=== PATIENT | female | born 1985 | race African-American/Black ===

== ENCOUNTER → 2017-08-15 14:30 | Outpatient (CLI) | payer OTHER, SELFPAY ==
--- NOTE | 2017-08-15 14:30 | DT_ITS ---
This patient was seen during an EMR downtime August 11, 2017 - August 18, 2017. This patient may have a combination of paper and electronic documentation or all paper documentation. All documentation is viewable within the e-chart portion of [employer] for each patient visit.
[2017-08-19 08:46] LABS: Chlamydia Trachomatis by PCR Negative (Negative); Neisserai gonorrhoeae by PCR Negative (Negative); Probe Check PASS; Sample Adequacy Control PASS; Specimen Processing Control PASS
== END ==
PROVIDERS: Visit Provider Obstetrics & Gynecology
DX: Z34.90 Encounter for supervision of normal pregnancy, unspecified, unspecified trimester (principal)
CPT/HCPCS: 87086; 87491; 87591

== ENCOUNTER → 2017-08-21 07:38 | Outpatient (CLI) | payer OTHER, SELFPAY ==
[2017-08-21 09:12] LABS: Absolute Lymphocyte Count 2.72 X10^3/ul (0.83-4.51); Absolute Neutrophil Count 7.6 X10^3/uL (2.0-7.7); Basophil# 0.03 X10^3/uL; Basophil% 0.3 % (0-1); Eosinophil# 0.15 X10^3/uL; Eosinophils% 1.4 % (0-5); Hematocrit 37.6 % (37-47); Hemoglobin 12.5 g/dl (12.0-15.0); Lymphocyte # 2.72 X10^3/ul (4.0); Lymphocyte % 24.5 % (19-41); Mean Corp Hgb Conc 33.2 g/gl (32-36); Mean Corpuscular Hgb 29.5 pg (27.0-32.0); Mean Corpuscular Volume 88.7 fL (81-99); Mean Platelet Vol. 11.8 fl (6.2-12.0); Monocyte# 0.63 X10^3/uL; Monocyte% 5.7 % (0-10); Neutrophil # 7.55 X10^3/uL (2.7-7.7); Neutrophil % 67.9 % (47-70); Platelet Count 249 K/mm3 (150-450); RBC Distribution Width CV 14.1 % (11.6-14.6); RBC Distribution Width SD 45.1 fl (35.1-43.9); Red Blood Count 4.24 M/mm3 (4.2-5.4); White Blood Count 11.1 K/mm3 (4.4-11.0)
[2017-08-21 09:16] LABS: POSITIVE COUNT NO; POSITIVE DIFFERENTIAL NO
[2017-08-21 09:17] LABS: POSITIVE MORPHOLOGY NO
[2017-08-22 03:47] LABS: Rapid Plasmin Reagin (RPR) NONREACTIVE (NONREACTIVE)
[2017-08-22 09:16] LABS: HIV - WCH Non-Reactive (Nonreactive); Rubella IgG 98.6 IU/mL
[2017-08-22 09:44] LABS: HEPATITIS B SURFACE AG Negative (Negative)
== END ==
PROVIDERS: Family Provider Family Medicine; PCP Family Medicine; Visit Provider Obstetrics & Gynecology
DX: Z34.90 Encounter for supervision of normal pregnancy, unspecified, unspecified trimester (principal)
CPT/HCPCS: 36415; 85025; 86592; 86703; 86762; 87340

== ENCOUNTER → 2017-10-22 11:17 | Outpatient (CLI) | payer OTHER, SELFPAY | PROVIDERS: Family Provider Family Medicine; PCP Family Medicine; Visit Provider Nurse Practitioner Women's Health | DX: Z34.90 Encounter for supervision of normal pregnancy, unspecified, unspecified trimester (principal) | CPT/HCPCS: 76805 ==

== ENCOUNTER → 2017-11-19 07:55 | Outpatient (CLI) | payer OTHER, SELFPAY ==
--- NOTE | 2017-11-19 07:57 | US_ITS ---
STUDY: SECOND AND THIRD TRIMESTER OBSTETRICAL ULTRASOUND - LIMITED REASON FOR EXAM: Female, 32 years old. Follow-up anatomy. LMP: June 11, 2017. PRIOR ULTRASOUND: Comparison is made with prior examination dated October 22, 2017. TECHNIQUE: Transabdominal ultrasound evaluation was performed. FINDINGS: There is a single intrauterine fetus. The fetus is in a breech presentation. There is demonstrated cardiac activity with a heart rate of 149 bpm. There is a normal amniotic fluid volume. The largest amniotic fluid pocket measures 5.2 cm x 5.2 cm. The amniotic fluid index (MANOLO) is normal. The placenta is anterior in location and is not low lying. The previously seen marginal placenta previa as result. There are Grade 0 placental changes. The cervix measures 3.8 cm in length. BIOMETRY: BPD: 5.42 cm: 22 weeks, 4 days HC: 21.65 cm: 23 weeks, 5 days AC: 18.01 cm: 23 weeks, 0 days FL: 4.34 sign: 24 weeks, 2 days Age by LMP: 23 weeks, 0 days. MANISH by LMP: March 18, 2018. age by prior US: 23 weeks, 3 days. MANISH by prior US: March 15, 2018. age by current US: 23 weeks, 3 days. MANISH by current US: March 15, 2018. Estimated weight: 595 grams, +/- 87 grams, 65 percentile. Gender: Male The four-chamber heart view is normal. The nose and lips are normal as well. US/OB Limited (No Biometrics) IMPRESSION: Single live intrauterine gestation with a mean gestational age of 23 weeks and 3 days. The previously seen marginal placenta previa has resolved. Electronically Signed: Lonnie Steven MD at 9:18 EDT Tel [phone], Service support ,
== END ==
PROVIDERS: Family Provider Family Medicine; PCP Family Medicine; Visit Provider Nurse Practitioner Women's Health
DX: Z34.90 Encounter for supervision of normal pregnancy, unspecified, unspecified trimester (principal); O44.42 Low lying placenta NOS or without hemorrhage, second trimester; Z04.8 Encounter for examination and observation for other specified reasons; Z3A.00 Weeks of gestation of pregnancy not specified
CPT/HCPCS: 76815

== ENCOUNTER → 2017-12-12 14:47 | Outpatient (CLI) | payer OTHER, SELFPAY ==
[2017-12-12 16:05] LABS: Absolute Lymphocyte Count 1.77 X10^3/ul (0.83-4.51); Absolute Neutrophil Count 9.3 X10^3/uL (2.0-7.7); Basophil# 0.02 X10^3/uL; Basophil% 0.2 % (0-1); Eosinophil# 0.07 X10^3/uL; Eosinophils% 0.6 % (0-5); Hemoglobin 12.4 g/dl (12.0-15.0); Lymphocyte # 1.77 X10^3/ul (4.0); Lymphocyte % 15.1 % (19-41); Mean Corp Hgb Conc 32.6 g/gl (32-36); Mean Corpuscular Hgb 29.5 pg (27.0-32.0); Mean Corpuscular Volume 90.3 fL (81-99); Mean Platelet Vol. 12.7 fl (6.2-12.0); Monocyte# 0.53 X10^3/uL; Monocyte% 4.5 % (0-10); Neutrophil # 9.31 X10^3/uL (2.7-7.7); Neutrophil % 79.5 % (47-70); Platelet Count 207 K/mm3 (150-450); RBC Distribution Width CV 13.6 % (11.6-14.6); RBC Distribution Width SD 44.5 fl (35.1-43.9); Red Blood Count 4.21 M/mm3 (4.2-5.4); White Blood Count 11.7 K/mm3 (4.4-11.0)
[2017-12-12 16:07] LABS: POSITIVE COUNT NO; POSITIVE DIFFERENTIAL NO; POSITIVE MORPHOLOGY NO
[2017-12-12 16:36] LABS: Glucose Challenge Gest 1H 50g 90 mg/dL (70-140)
== END ==
PROVIDERS: Family Provider Family Medicine; PCP Family Medicine; Referring Provider Obstetrics & Gynecology; Visit Provider Obstetrics & Gynecology
DX: Z34.90 Encounter for supervision of normal pregnancy, unspecified, unspecified trimester (principal)
CPT/HCPCS: 36415; 82950; 85025

== ENCOUNTER 2017-12-26 00:44 | Emergency (ER) | payer OTHER, SELFPAY ==
[2017-12-26 00:45] VITALS: BP 154/64; PULSE 104; RESP 18; TEMP 36.7; O2SAT 100; BMI 40.1
--- NOTE | 2017-12-26 00:51 | EKG12_ITS ---
Test Reason : CP Blood Pressure : / mmHG Vent. Rate : 086 BPM Atrial Rate : 086 BPM P-R Int : 132 ms QRS Dur : 080 ms QT Int : 364 ms P-R-T Axes : 042 050 035 degrees QTc Int : 435 ms Normal sinus rhythm Consider precordial lead misplacement (V2-V3) Consider repeat ECG Confirmed by VERNON JONES, WAYNE ([id number]), editor & co founder ENRIKE LANDEROS ([id number]) on 12/29/2017 12:48:26 PM Referred By: MELINDA Confirmed By:WAYNE JUNIOR MD
--- NOTE | 2017-12-26 00:51 | RAD_ITS ---
STUDY: X-RAY CHEST REASON FOR EXAM: Female, 32 years old. Sternal pain for one day. TECHNIQUE: Single AP portable view of the chest. # of Images: 1 COMPARISON: 07/11/2016. FINDINGS: The lungs are clear and expanded. There is no demonstrated pleural abnormality. Normal size heart. Normal mediastinum and kiara. Normal visualized pulmonary arteries. Normal visualized aortic arch and descending thoracic aorta. Normal visualized thoracic spine. Normal visualized ribs, clavicles, and shoulders. There is no demonstrated abnormality of the visualized soft tissue structures of the upper abdomen. RAD/Chest 1 View (Portable) IMPRESSION: Normal x-ray examination of the chest. Electronically Signed: Tanmay George MD at 1:45 EDT Tel , Service support ,
--- NOTE | 2017-12-26 00:52 | ED.VISSUMM ---
- ER Visit Summary Date of Service: 12/26/17 Chief Complaint: Chest pain History of Present Illness: The patient is a 32 F who presents with chest pain. She states it started last night. She describes a continuous aching in the middle part of her sternum. It radiates into her back tonight. Nothing makes it better or worse. She has mild dyspnea associated with this. She has a history of the same in the past. She has had negative workups including a 30-day Holter monitor. She is currently 28 weeks gestation. She has had issues with chest pain during her previous pregnancies. She has had negative workup for pulmonary embolisms in the past as well. Denies any increase or asymmetrical swelling of her legs. Physical Examination: Vital signs reviewed. HEENT exam unremarkable. Heart is regular rate and rhythm without murmurs. Lungs are clear to auscultation. Abdomen is soft and nontender. The abdomen is gravid appropriate to dates. Extremities reveal no edema. Peripheral pulses are equal. Skin exam normal. Neurologic exam normal. Test Results: EKG is normal sinus rhythm with a rate of 86. No ST changes. Chest x-ray normal. Laboratory studies are unremarkable except for a white blood cell count 11.7 Emergency Department Course and Treatment: Patient was medicated with aspirin. Patient has had symptoms like this throughout this and her last . I do not feel that this her present coronary disease or PE. Patient will continue her home medications and will follow up with her [facility] Treatment Plan: [] Disposition: Discharge Impression: Chest pain This note was generated with [employer] dictation software. It may contain incorrect words, spelling, and punctuation that were not noted in review of the chart prior to signing ED Disposition - Plan for ED Patient: Chief Complaint: Chest Pain Referrals: Chaz Hoffmann DO [Primary Care Provider] -
[2017-12-26] MEDS: Aspirin 81 MG TAB.CHEW 324 MG PO (01:03)
[2017-12-26 01:16] LABS: Absolute Lymphocyte Count 2.21 X10^3/ul (0.83-4.51); Absolute Neutrophil Count 8.8 X10^3/uL (2.0-7.7); Basophil# 0.02 X10^3/uL; Basophil% 0.2 % (0-1); Eosinophil# 0.11 X10^3/uL; Eosinophils% 0.9 % (0-5); Hematocrit 36.7 % (37-47); Hemoglobin 12.2 g/dl (12.0-15.0); Lymphocyte # 2.21 X10^3/ul (4.0); Lymphocyte % 18.8 % (19-41); Mean Corp Hgb Conc 33.2 g/gl (32-36); Mean Corpuscular Hgb 29.8 pg (27.0-32.0); Mean Corpuscular Volume 89.5 fL (81-99); Mean Platelet Vol. 11.8 fl (6.2-12.0); Monocyte# 0.58 X10^3/uL; Monocyte% 4.9 % (0-10); POSITIVE COUNT NO; POSITIVE DIFFERENTIAL NO; POSITIVE MORPHOLOGY NO; Platelet Count 191 K/mm3 (150-450); RBC Distribution Width CV 13.6 % (11.6-14.6); RBC Distribution Width SD 44.4 fl (35.1-43.9); White Blood Count 11.7 K/mm3 (4.4-11.0)
[2017-12-26 01:40] LABS: Anion Gap 9 (5-15); BUN 12 mg/dL (7-18); BUN/Creat Ratio 18.5 RATIO (10-20); Calcium,Total 8.5 mg/dL (8.5-10.1); Chloride 105 mmol/L (98-107); Creatinine, Serum 0.65 mg/dL (0.55-1.02); EST Glomerular Filtration Rate 111 mL/min (>60); Est Glom Filt Rate - Afr Amer 135 mL/min (>60); Estimated Creatinine Clearance 133.12 ml/min; Glucose 110 mg/dL (74-106); Potassium 3.5 mmol/L (3.5-5.1); Sodium Level 137 mmol/L (136-145)
[2017-12-26 01:53] VITALS: BP 122/70; PULSE 78; RESP 16; O2SAT 100
--- NOTE | 2017-12-26 01:53 | ED.DEP ---
ED Disposition - Plan for ED Patient: Disposition: Home or Assisted Living Chief Complaint: Chest Pain Instructions: ED Chest Pain NonCardiac Referrals: Chaz Hoffmann DO [Primary Care Provider] -
== END 2017-12-26 02:02 | disposition home or self-care (01) ==
PROVIDERS: Emergency Provider Emergency Medicine; Family Provider Family Medicine; PCP Family Medicine
DX: O99.89 Other specified diseases and conditions complicating pregnancy, childbirth and the puerperium (principal); R07.9 Chest pain, unspecified; R06.00 Dyspnea, unspecified; Z3A.28 28 weeks gestation of pregnancy
CPT/HCPCS: 71045; 80048; 84484; 85025; 93005; 99285

== ENCOUNTER → 2018-01-22 12:16 | Outpatient (CLI) | payer OTHER, SELFPAY ==
--- NOTE | 2018-01-22 12:18 | US_ITS ---
STUDY: SECOND AND THIRD TRIMESTER OBSTETRICAL ULTRASOUND - LIMITED REASON FOR EXAM: Female, 32 years old. growth. LMP: 06/11/2017 PRIOR ULTRASOUND: 11/19/2017. TECHNIQUE: Transabdominal TECHNICAL QUALITY: Adequate. FINDINGS: There is a single intrauterine fetus. The fetus is in a breech presentation. There is demonstrated cardiac activity with a heart rate of 135 bpm. There is a normal amniotic fluid volume. The largest amniotic fluid pocket measures 4.1 cm. The amniotic fluid index (MANOLO) is 8.7 cm. The placenta is anterior in location and is not low lying. There are Grade 1 placental changes. The cervix measures 4.4 cm in length. BIOMETRY: BPD: 8.4: 34 weeks, 0 days HC: 31.5: 35 weeks, 3 days AC: 27.9: 32 weeks, 0 days FL: 6.6: 33 weeks, 6 days Age by LMP: 32 weeks, 1 days. MANISH by LMP: 03/18/2018. age by prior US: 32 weeks, 4 days. MANISH by prior US: 03/15/2018. age by current US: 33 weeks, 6 days. MANISH by current US: 03/06/2018. Estimated weight: 2096 grams, +/- 306 grams, 67 percentile. Gender: US/OB Limited With Biometrics IMPRESSION: Single live fetus in a breech presentation. survey not performed on this exam. Placenta is grade 1 and is not low-lying. Cervix is closed. age by prior US: 32 weeks, 4 days. MANISH by prior US: 03/15/2018. Estimated weight: 2096 grams, +/- 306 grams, 67 percentile. Electronically Signed: Real Gracia MD at 11:29 EST , Service support ,
== END ==
PROVIDERS: Family Provider Family Medicine; PCP Family Medicine; Referring Provider Nurse Practitioner Women's Health; Visit Provider Nurse Practitioner Women's Health
DX: F98.8 Other specified behavioral and emotional disorders with onset usually occurring in childhood and adolescence (principal); Z98.891 History of uterine scar from previous surgery
CPT/HCPCS: 76816

== ENCOUNTER → 2018-02-18 17:00 | Outpatient (CLI) | payer OTHER, SELFPAY ==
[2018-02-18 10:47] VITALS: BMI 42.2
--- OUTSIDE RECORDS SUMMARY | 2018-04-06 22:09 | XMS RPT_ITS ---
:1985 Author Organization OHIP Support Name Relationship Address Phone MAKAYLA WILLS Unavailable 0 + [place] [address] [facility] Unavailable [address] + [place] [address] WHIMS, CHRISTOPHER Unavailable [address] + [place] [address] MAKAYLA WILLS Unavailable Unavailable + [place] [address] [facility] Unavailable [address] + [place] [address] WHIMS, CHRISTOPHER Unavailable [address] + [place] [address] MAKAYLA WILLS Unavailable Unavailable + [place] [address] [facility] Unavailable [address] + [place] [address] WHIMS, CHRISTOPHER Unavailable [address] + [place] [address] MAKAYLA WILLS Unavailable Unavailable + [place] [address] [facility] Unavailable [address] + [place] [address] WHIMS, CHRISTOPHER Unavailable [address] + [place] [address] MAKAYLA WILLS Unavailable Unavailable + [place] [address] [facility] Unavailable [address] + [place] [address] WHIMS, CHRISTOPHER Unavailable [address] + [place] [address] MAKAYLA WILLS Unavailable Unavailable + [place] [address] [facility] Unavailable [address] + [place] [address] WHIMS, CHRISTOPHER Unavailable [address] + [place] [address] MAKAYLA WILLS Unavailable Unavailable + [place] [address] [facility] Unavailable [address] + [place] [address] AARON, CHRISTOPHER Unavailable [address] + [place] [address] MAKAYLA WILLS Unavailable Unavailable + [place] [address] [facility] Unavailable [address] + [place] [address] WHEVELYN, CHRISTOPHER Unavailable [address] + [place] [address] MAKAYLA WILLS Unavailable 0 + [place] [address] [facility] Unavailable [address] + [place] [address] EVELYN, CHRISTOPHER Unavailable [address] + [place] [address] MAKAYLA WILLS Unavailable Unavailable + [facility] Unavailable [address] + [place] [address] EVELYN, CHRISTOPHER Unavailable [address] + [place] [address] MAKAYLA WILLS Unavailable Unavailable + [place] [address] [facility] Unavailable [address] + [place] [address] EVELYN, CHRISTOPHER Unavailable [address] + [place] [address] MAKAYLA WILLS Unavailable 0 + [place] [address] [facility] Unavailable [address] + [place] [address] EVELYN, CHRISTOPHER Unavailable [address] + [place] [address] MAKAYLA WILLS Unavailable Unavailable + [facility] Unavailable [address] + [place] [address] EVELYN, CHRISTOPHER Unavailable [address] + [place] [address] MAKAYLA WILLS Unavailable . + ., . . [facility] Unavailable [address] + [place] [address] WHIMS, CHRISTOPHER Unavailable [address] + [place] [address] MAKAYLA WILLS Unavailable . + ., . . [facility] Unavailable [address] + [place] [address] WHIMS, CHRISTOPHER Unavailable [address] + [place] [address] MAKAYLA WILLS Unavailable . + ., . . [facility] Unavailable [address] + [place] [address] WHIMS, CHRISTOPHER Unavailable [address] + [place] [address] MAKAYLA WILLS Unavailable Unavailable + [facility] Unavailable [address] + [place] [address] [facility] Unavailable [address] + [place] [address] MAKAYLA WILLS Unavailable . + [place] [address] [facility] Unavailable [address] + [place] [address] [facility], CHRISTOPHER Unavailable [address] + [place] [address] MAKAYLA WILLS Unavailable Unavailable + [place] [address] [facility] Unavailable [address] + [place] [address] [facility], CHRISTOPHER Unavailable [address] + [place] [address] MAKAYLA WILLS Unavailable Unavailable + [place] [address] [facility] Unavailable [address] + [place] [address] [facility], CHRISTOPHER Unavailable [address] + [place] [address] MAKAYLA WILLS Unavailable . + [place] [address] [facility] Unavailable [address] + [place] [address] WHEVELYN, CHRISTOPHER Unavailable [address] + [place] [address] MAKAYLA WILLS Unavailable . + [place] [address] [facility] Unavailable [address] + [place] [address] [facility], CHRISTOPHER Unavailable [address] + [place] [address] MAKAYLA WILLS Unavailable Unavailable + [place] [address] [facility] Unavailable [address] + [place] [address] WHEVELYN, CHRISTOPHER Unavailable [address] + [place] [address] MAKAYLA WILLS Unavailable . + [place] [address] [facility] Unavailable [address] + [place] [address] [facility], CHRISTOPHER Unavailable [address] + [place] [address] MAKAYLA WILLS Unavailable Unavailable + [place] [address] [facility] Unavailable [address] + [place] [address] [facility], CHRISTOPHER Unavailable [address] + [place] [address] MAKAYLA WILLS Unavailable . + [place] [address] [facility] Unavailable [address] + [place] [address] [facility], CHRISTOPHER Unavailable [address] + [place] [address] MAKAYLA WILLS Unavailable . + [place] [address] [facility] Unavailable [address] + [place] [address] [facility], CHRISTOPHER Unavailable [address] + [place] [address] MAKAYLA WILLS Unavailable . + [place] [address] [facility] Unavailable [address] + [place] [address] WHIMS, CHRISTOPHER Unavailable [address] + [place] [address] MAKAYLA WILLS Unavailable . + [place] [address] [facility] Unavailable [address] + [place] [address] WHIMS, CHRISTOPHER Unavailable [address] + [place] [address] WILMER WILLSEN Unavailable Unavailable + [place] [address] [facility] Unavailable [address] + [place] [address] WHIMS, CHRISTOPHER Unavailable [address] + [place] [address] MAKAYLA WILLS Unavailable . + [place] [address] [facility] Unavailable [address] + [place] [address] WHIMS, CHRISTOPHER Unavailable [address] + [place] [address] MAKAYLA WILLS Unavailable . + [place] [address] [facility] Unavailable [address] + [place] [address] [facility], CHRISTOPHER Unavailable [address] + [place] [address] ELMAMAKAYLA Unavailable Unavailable + [place] [address] [facility] Unavailable [address] + [place] [address] [facility], CHRISTOPHER Unavailable [address] + [place] [address] Care Team Providers Name Role Phone Liz Lloyd Attending Unavailable Chaz Hoffmann Referring Unavailable Shanti Zamora Attending Unavailable Shanti Zamora Referring Unavailable Chaz Hoffmann Primary Care Unavailable Liz Lloyd Attending Unavailable Liz Lloyd Referring Unavailable Chaz Hoffmann Primary Care Unavailable Liz Lloyd Attending Unavailable Chaz Hoffmann Primary Care Unavailable Marcanthony, Liz Attending Unavailable Tahira, Chaz Primary Care Unavailable Marcanthony, Liz Consulting Unavailable Marcanthony, Liz Attending Unavailable Tahira, Chaz Referring Unavailable Marcanthony, Liz Attending Unavailable Marcanthony, Liz Referring Unavailable Tahira, Chaz Primary Care Unavailable Marcanthony, Liz Admitting Unavailable Marcanthony, Liz Attending Unavailable Marcanthony, Liz Referring Unavailable Tahira, Chaz Primary Care Unavailable Marcanthony, Liz Attending Unavailable Marcanthony, Liz Referring Unavailable Tahira, Chaz Primary Care Unavailable Marcanthony, Liz Admitting Unavailable Marcanthony, Liz Admitting Unavailable Marcanthony, Liz Attending Unavailable Marcanthony, Liz Referring Unavailable Tahira, Chaz Primary Care Unavailable Marcanthony, Liz Consulting Unavailable Marcanthony, Liz Admitting Unavailable Marcanthony, Liz Attending Unavailable Marcanthony, Liz Referring Unavailable Tahira, Chaz Primary Care Unavailable Marcanthony, Liz Consulting Unavailable Marcanthony, Liz Admitting Unavailable Noah, Shanti Attending Unavailable Marcanthony, Liz Referring Unavailable Tahira, Chaz Primary Care Unavailable Marcanthony, Liz Consulting Unavailable Marcanthony, Liz Admitting Unavailable Marcanthony, Liz Attending Unavailable Marcanthony, Liz Referring Unavailable Tahira, Chaz Primary Care Unavailable Marcanthony, Liz Consulting Unavailable Marcanthony, Liz Attending Unavailable Tahira, Chaz Referring Unavailable Marcanthony, Liz Attending Unavailable Marcanthony, Liz Attending Unavailable Marcanthony, Liz Referring Unavailable Tahira, Chaz Primary Care Unavailable Marcanthony, Liz Attending Unavailable Tahira, Chaz Referring Unavailable Marcanthony, Liz Attending Unavailable Tahira, Chaz Referring Unavailable Tahira, Chza Primary Care Unavailable Marcanthony, Liz Attending Unavailable Tahira, Chaz Referring Unavailable Tahira, Chaz Primary Care Unavailable JackelynLoni Attending Unavailable JackelynLoni Attending Unavailable [place], Shanti Attending Unavailable Tahira, Chaz Referring Unavailable Tahira, Chaz Primary Care Unavailable Noah, Shanti Attending Unavailable [place], Shanti Referring Unavailable Tahira, Chaz Primary Care Unavailable Marcanthony, Liz Attending Unavailable Tahira, Chaz Referring Unavailable Tahira, Chaz Primary Care Unavailable [place], Shanti Attending Unavailable Tahria, Chaz Primary Care Unavailable Marcanthony, Liz Attending Unavailable Tahira, Chaz Referring Unavailable Marcanthony, Liz Attending Unavailable Tahria, Chaz Referring Unavailable Marcanthony, Liz Attending Unavailable Marcanthony, Liz Referring Unavailable Tahira, Chaz Primary Care Unavailable Tahira, Chaz Primary Care Unavailable Demond Staples Attending Unavailable Noah, Shanti Attending Unavailable Tahira, Chaz Referring Unavailable Noah, Shanti Attending Unavailable Noah, Shanti Referring Unavailable Tahira, Chaz Primary Care Unavailable Marcanthony, Liz Consulting Unavailable Noah, Shanti Attending Unavailable Tahira, Chaz Referring Unavailable Marcanthony, Liz Attending Unavailable Tahira, Chaz Referring Unavailable PROBLEMS PROBLEMS DATE TYPE CONDITION / CODE ATTENDING STATUS SOURCE 03/18/2018 Unknown Z09 - Encounter for Marcanthony, Active [place] follow-up [facility] examination after Hospital completed treatment Repository for conditions other than malignant neoplasm / Z09(ICD-10) 03/10/2018 Unknown G89.18 - Other acute Marcanthony, Active [place] postprocedural pain [facility] / G89.18(ICD-10) Hospital Repository 02/25/2018 Unknown Z98.891 - History of Marcanthony, Active [place] uterine scar from [facility] previous surgery / Hospital Z98.891(ICD-10) Repository 02/25/2018 Unknown Z82.79 - Family Marcanthony, Active [place] history of other [facility] congenital Hospital malformations, Repository deformations and chromosomal abnormalities / Z82.79(ICD-10) 02/25/2018 Unknown 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, 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, Repository predominantly inattentive type / F90.0(ICD-10) 02/25/2018 Unknown F41.9 - Anxiety Marcanthony, Active [place] disorder, [facility] unspecified / Hospital F41.9(ICD-10) Repository 02/25/2018 Unknown Z87.898 - Personal Marcanthony, Active [place] history of other [facility] specified conditions Hospital / Z87.898(ICD-10) Repository 02/25/2018 Unknown Z34.83 - Encounter Marcanthony, Active [place] for supervision of [facility] other normal Hospital , third Repository trimester / Z34.83(ICD-10) 02/18/2018 Unknown Z34.90 - Encounter Marcanthony, Active [place] for supervision of [facility] normal , Hospital unspecified, Repository unspecified trimester / Z34.90(ICD-10) 01/28/2018 Unknown Z34.82 - Encounter Noah Shanti Active [place] for supervision of Community other normal Hospital , second Repository trimester / Z34.82(ICD-10) 01/28/2018 Unknown Z3A.33 - 33 weeks [place], Shanti Active [place] gestation of Community / Hospital Z3A.33(ICD-10) Repository 01/28/2018 Unknown O32.1XX0 - Maternal Noah, Shanti Active [place] care for breech Community presentation, not Hospital applicable or Repository unspecified / O32.1XX0(ICD-10) 01/13/2018 Unknown F98.8 - Other Noah, Shanti Active [place] specified behavioral Community and emotional Hospital disorders with onset Repository usually occurring in childhood and adolescence / F98.8(ICD-10) 12/12/2017 Unknown Z23 - Encounter for Prema Active [place] immunization / [facility] Z23(ICD-10) Hospital Repository 10/10/2017 Unknown Z34.81 - Encounter [place] Shanti Active [place] for supervision of Community other normal Hospital , first Repository trimester / Z34.81(ICD-10) 10/10/2017 Unknown Z3A.17 - 17 weeks Noah, Shanti Active [place] gestation of Community / Hospital Z3A.17(ICD-10) Repository PROCEDURES PROCEDURES No Procedure 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 [address] [place] [address] OFFICE VISIT Date of Service: 03/18/18 MR#: [id number] Acct: [id number] Name: LUIS MIGUEL WALKER Rep #: [id number] : 1985 Provider: Liz Lloyd MD Age/Sex: 33/F Location: [facility] [place] Status: Signed Intake Vital Signs03/18/18 Body Mass Index (BMI) 43.0 03/18/18 Height 5 ft 9.5 in 03/18/18 Weight: 271 lb 03/18/18 Body Mass Index (BMI) 39.4 03/18/18 Blood Pressure 140/86 H Intake Visit Reasons: INCISION CHECK/BP CHECK *pt req for SM Chief Complaint: 2 week incision check, bp check Telecom Analyst Required: No Is patient in pain?: No Allergies No Known Allergies Allergy (Verified 03/18/18 08:13) Medications Vits [Prenatabs FA ] 1 tab PO DAILY 05/12/16 [History Confirmed 03/18/18] Dextroamphetamine/Amphetamine [Adderall 10 mg Tablet] 10 mg PO BID 12/26/17 [History Confirmed 03/18/18] Labetalol [Trandate (Beta Neymar)] 100 mg PO BID #60 tab 03/10/18 [Rx Confirmed 03/18/18] Is last menstrual period known: No Post menopausal: No Patient : No : Yes [facility] Medical History Abnormal pap (Acute) Endometriosis (Acute) Migraine (Acute) Family History Grandmother Cancer ovarian Grandfather Leukemia Non-Hodgkins Lymphoma Father CVA (cerebral vascular accident) Social History Smoking Status: Former smoker alcohol intake: never substance use type: does not use caffeine: Yes what type of physical activity do you participate in: walking seatbelt use: always do you feel safe at home: Yes additional social history: hao WADE INCISION CHECK/BP CHECK *pt req for SM: Details: LUIS MIGUEL WALKER is a 33 year old who presents for incision check. Pregancy History 2 Elective abortions Hx Para 1 Spontaneous abortions Past Pregnancies Del. DateName GA/Weeks Outcome Route Bth WeighInfant GeLabor LgtAnesthesiDel LocatProvider FOB t n h a n Delivery Date: 09/11/16 No notes to display Delivery Date: On 03/18/18 @ 08:15 Luda Jacobson Failed , PROM, AOD 3cm p 8hrs, intolerance Exam Const General: cooperative, healthy appearing, comfortable, no acute distress GI Inspection: normal to inspection Palpation: soft, nontender Other: Incisions: C/D/I Assessment AND Plan Problems 1. Postop check Z09 Plan routine care, no labetalol at this time, continue to monitor bps and if remains elevated needs to see pcp Coding Level of Care Code No Charge Diagnoses Postop check Z09 03/18/18 0839 <Electronically signed by Liz Lloyd MD> Date Liz Lloyd MD Cosigner Signature: Date (if applicable) CC: DISCHARGE SUMMARY Observed: 03/10/2018 Status: F Source: [place] 11:32 AM [facility] REPOSITORY [facility] Medical Records Department [address] [place] [address] [place] [address] Discharge Summary 03/10/18 1130 MR#: [id number] Acct: [id number] Name: LUIS MIGUEL WALKER Rep #: [id number] : 1985 32 From: Liz Lloyd MD PCP: Chaz Hoffmann DO Status: ADM IN Location: [id number] Discharge Date and Diagnosis Date of Admission: 09/18/16 Date of Discharge: 03/17/18 - Primary Discharge Diagnosis post Hospital Course and Treatment Consultations 03/07/18 07:54 Consult: Anesthesia Routine Comment: Reason For Exam: LABOR Operations: - - RLTCS Procedures: None Summary of Care Provided: The patient is a 32 year old F presented with spontaneous rupture of membranes at 2 cm dilated. Patient desired trial of labor after and was having some contractions however after 4 hours she did not made any cervical change therefore Pitocin was started and after 4 hours she developed recurrent variables and the Pitocin was unable to be increased more than 4 milliunits and she did have adequate contractions for over 4 hours with no further cervical change and therefore the decision was made for a repeat low transverse . Patient underwent routine recovery with return of bowel and bladder function had adequate pain control with oral medications with the ability well tolerating p.o. and had adequate pain control with oral medications on postop day 3 she was stable for discharge to home and write for discharge she developed some elevated blood pressures but was asymptomatic and therefore she was started on labetalol and will be discharged home. Up in the office in 1 week - Physical Exam Vital Signs Temp Pulse Resp BP Pulse Ox 97.5 F L 92 18 153/73 H 97 03/10/18 08:10 03/10/18 08:10 03/10/18 08:10 03/10/18 10:00 03/10/18 08:10 Oxygen Delivery Method Room Air Weight: 299 lb 9.731 oz Body Mass Index (BMI) 43.0 Intake and Output for Last 24 Hours Intake Total 1500 / 1500 Output Total 2200 / 2200 Balance -700 / -700 Discharge Diet: No Restrictions Discharge Activity: May Not Drive - for 2 weeks, May not drive while taking narcotic pain medications., May Shower, May Take a Tub Bath - in 7 days May resume sexual activity in: 4-6 weeks Additional Activity Instructions:: Nothing in the vagina for 4-6 weeks. You may return to work/school in 6 weeks. Call your doctor if your incision/area has: Continuous Slow Oozing, Sudden Increased Bleeding, Increased Pain/ Swelling, Increased Redness, Foul Smelling Discharge Call your doctor if you observe: Fever of 101 or Higher, Using more than one pad per hour - for 2 hours Suture Line Care: Avoid Pulling/Pushing, Avoid Pinching/Bending Cleanse incision/area with: Keep Dressing Clean AND Dry Home Medications: Medications to take at Discharge Vits [Prenatabs FA ] 1 tab PO DAILY 05/12/16 Dextroamphetamine/Amphetamine [Adderall 10 mg Tablet] 10 mg PO BID 12/26/17 Ondansetron HCl [Zofran] 4 mg PO 4X/DAY PRN PRN #30 tablet 03/04/18 Oseltamivir Phosphate [Tamiflu] 75 mg PO BID #9 capsule 03/04/18 proMETHazine tablet [Phenergan] 12.5 mg PO Q6H PRN PRN #30 tablet 03/04/18 Naproxen [Naprosyn] 250 - 500 mg PO Q8H PRN PRN #30 tablet 03/09/18 Oxycodone HCl/Acetaminophen [Percocet 5-325] 1 - 2 tablet PO Q4H PRN PRN 7 Days #28 tablet 03/09/18 Labetalol [Trandate (Beta Neymar)] 100 mg PO BID #60 tab 03/10/18 Following Prescrptions Were Given to Patient: Oxycodone HCl/Acetaminophen [Percocet 5-325] 1 - 2 tablet PO Q4H PRN PRN 7 Days #28 tablet PRN Reason: Moderate-Severe pain Naproxen [Naprosyn] 250 - 500 mg PO Q8H PRN PRN #30 tablet PRN Reason: MILD PAIN Labetalol [Trandate (Beta Neymar)] 100 mg PO BID #60 tab Primary Care Physician: Chaz Hoffmann DO [Primary Care Provider] - Please Follow Up With: Liz Lloyd MD - Call to make an appointment for an incision check in 1-2 [phone] When: You will need a post- check in 6 weeks. Medical Necessity - Tobacco Use Smoking Status: Former smoker Meaningful Use Info Meaningful Use Diagnoses (Choose all that apply): None applicable 03/10/18 1132 <Electronically signed by Liz Lloyd MD> Date Liz Lloyd MD Cosigner Signature (if applicable): Date CC: Chaz Hoffmann DO; Liz Lloyd MD Signed DISCHARGE INSTRUCTION Observed: 03/09/2018 Status: F Source: [place] 3:44 AM [facility] REPOSITORY [facility] Medical Records Department [address] [place] [address] Instructions for Home/Discharge Instructions 03/09/18 0344 MR#: [id number] Acct: [id number] Name: LUIS MIGUEL WALKER Rep #: [id number] : 1985 32 From: Liz Lloyd MD PCP: Chaz Hoffmann DO Status: ADM IN Discharge Diet: No Restrictions Discharge Activity: May Not Drive - for 2 weeks, May not drive while taking narcotic pain medications., May Shower, May Take a Tub Bath - in 7 days May resume sexual activity in: 4-6 weeks Lifting Restrictions: 20 pounds Additional Activity Instructions:: Nothing in the vagina for 4-6 weeks. You may return to work/school in 6 weeks. Call your doctor if your incision/area has: Continuous Slow Oozing, Sudden Increased Bleeding, Increased Pain/ Swelling, Increased Redness, Foul Smelling Discharge Call your doctor if you observe: Fever of 101 or Higher, Using more than one pad per hour - for 2 hours Suture Line Care: Avoid Pulling/Pushing, Avoid Pinching/Bending Cleanse incision/area with: Keep Dressing Clean AND Dry Additional Instructions: If you experience any of the following, contact your healthcare provider. * Bleeding that soaks a pad every hour for 2 hours * Fever 100.4 or higher * Unrelieved incision or abdominal pain * Swelling, redness, discharge or bleeding from your incision or episiotomy site * Your incision begins to separate * Problems urinating (including inability to urinate or burning while urinating). * Visual changes * Severe headache * Flu-like symptoms * Pain or redness in one of both of your breasts * Pain, warmth, tenderness or swelling in your legs, especially the calf area * Frequent nausea and vomiting * Symptoms of depression or anxiety If you experience any of the following, call 911 or go to the nearest Emergency Room. * Chest pain * Problems breathing * Seizure activity * Partial or complete paralysis of a body part, slurred speech, weakness or drooping of the face, or a sudden inability to walk or hold your balance Allergies/Adverse Reactions: Allergies No Known Allergies Allergy (Verified 02/25/18 10:55) Medications to take at Discharge Vits [Prenatabs FA ] 1 tab PO DAILY 05/12/16 Dextroamphetamine/Amphetamine [Adderall 10 mg Tablet] 10 mg PO BID 12/26/17 Ondansetron HCl [Zofran] 4 mg PO 4X/DAY PRN PRN #30 tablet 03/04/18 Oseltamivir Phosphate [Tamiflu] 75 mg PO BID #9 capsule 03/04/18 proMETHazine tablet [Phenergan] 12.5 mg PO Q6H PRN PRN #30 tablet 03/04/18 Naproxen [Naprosyn] 250 - 500 mg PO Q8H PRN PRN #30 tablet 03/09/18 Oxycodone HCl/Acetaminophen [Percocet 5-325] 1 - 2 tablet PO Q4H PRN PRN 7 Days #28 tablet 03/09/18 The following prescriptions were given: Oxycodone HCl/Acetaminophen [Percocet 5-325] 1 - 2 tablet PO Q4H PRN PRN 7 Days #28 tablet PRN Reason: Moderate-Severe pain Naproxen [Naprosyn] 250 - 500 mg PO Q8H PRN PRN #30 tablet PRN Reason: MILD PAIN Follow-Up: Call to make an appointment with your doctor for an incision check in 1-2 weeks. You will also need a 6 week post- follow up appointment. Test results from this visit will be discussed in further detail at your follow-up appointment, if applicable. Please Follow Up With: Liz Lloyd MD - Call to make an appointment for an incision check in 1-2 [phone] When: You will need a post- check in 6 weeks. Primary Care Physician: Chaz Hoffmann DO [Primary Care Provider] - 03/09/18 4604 <Electronically signed by Liz Lloyd MD> Date Liz Lloyd MD CC: Chaz Hoffmann DO Signed CBC-COMPLETE BLOOD CNT Collected: 03/08/2018 Status: F Source: [place] NO DIFF 4:15 AM [facility] REPOSITORY Order Comment: Comments: Day #1 Reason for Laboratory Test TYPE CODE TESTS RESULT OUT OF RANGE REFERENCE UNITS LAB L100.1000 4.4-11.0 K/mm3 High WBC 11.4 LAB L100.1200 4.2-5.4 M/mm3 Low RBC 3.32 LAB L100.1300 12.0-15.0 g/dl Low HGB 9.8 LAB L100.1400 37-47 % Low HCT 29.8 LAB L100.1500 81-99 fL Normal MCV 89.8 LAB L100.1600 27.0-32.0 pg Normal MCH 29.5 LAB L100.1700 32-36 g/gl Normal MCHC 32.9 LAB L100.1810 11.6-14.6 % Normal RDW CV 13.5 LAB L100.1820 35.1-43.9 fl Normal RDW SD 42.8 LAB L100.1900 150-450 K/mm3 Normal PLT 155 LAB L100.2000 6.2-12.0 fl Normal MPV 12.0 Performed By: #### L100.0500 #### [facility] [address] [facility] [place], [address] OPERATIVE REPORT Observed: 03/08/2018 Status: F Source: [place] 12:59 AM [facility] REPOSITORY [facility] Medical Records Department [address] [place] [address] Operative Report 03/07/18 1406 MR#: [id number] Acct: [id number] Name: LUIS MIGUEL WALKER Rep #: [id number] : 1985 32 From: Liz Lloyd MD PCP: Chaz Hoffmann DO Status: ADM IN Location: [id number] Problem List (1) Family history of congenital heart defect Status: Acute Comment: normal anatomy scan with [facility] (2) Anxiety Status: Acute Comment: counseling, vistaril PRN (3) ADD (attention deficit disorder) Status: Acute Qualifiers: (4) History of delivery Status: Acute Comment: considering - 15% risk low due to weight and race. previous cs at 6 cm. uptodate education reviewed and plan if spontaneous labor, cs schedule on due date. (5) History of abnormal cervical Pap smear Status: Acute (6) Supervision of normal Status: Acute Qualifiers: Comment: PRR MANISH 03/18/18 boy my PC Rajeev Hao Report of Operation Date of Procedure: 03/07/18 Pre-Operative Diagnosis: failed TOLAC, recurrent decelarations intolerance to labor Post-Operative Diagnosis: same Surgery/Procedure Performed:: RLTCS Description of Surgical Findings:: nl uterus tubes ovaries minimal scar tissue, some vesicouterine adhesions yacht rigger: Joseph Flowers Type of Anesthesia:: Epidural Special Medications: medina Specimen's removed: male infant Drains: pretty Estimated Blood Loss (mL): 1200 Fluids Replaced: crystalloid Description of Procedure: The patient is a 32-year-old at 38 weeks presented in active labor with spontaneous rupture of membranes. Patient did not make any cervical change after 4 hours and therefore Pitocin was started. After another 4 hours there was no further cervical change and therefore the decision was made for a repeat due to intolerance to Pitocin and no further cervical change. The Pitocin was unable to be dosed above 4 milliunits due to intolerance. The patient previously had an epidural in place and this was dosed accordingly. The patient was placed in the dorsal supine position with leftward tilt. Patient was prepped and draped in the normal sterile fashion. Pfannenstiel skin incision was made with the scalpel and carried through to the underlying layer of fascia with the scalpel. Fascia was nicked in the midline and the incision extended laterally. The rectus bellies were dissected off superiorly and inferiorly with out complication both sharply and bluntly. The peritoneum was entered digitally. The incision was stretched and a low transverse uterine incision was made with the scalpel. The 's head was delivered atraumatically followed by the anterior and posterior shoulders without complication the rest of the delivered. The cord was clamped and cut and the was handed off to awaiting nurse. The placenta was delivered spontaneously immediately following and was noted to be intact and have a three-vessel cord. The uterus was exteriorized cleared of all clots and debris, and the incision was closed in a double layer closure using #1 Monocryl. The uterus was returned to the maternal abdomen and gutters were cleared of all clots and debris. medina was placed over the incision and noted to be hemostatic. The ovaries and fallopian tubes were noted to be within normal limits. The peritoneum was closed with 3-0 Monocryl in a running fashion. Fascia was closed with 0 PDS in a running fashion. the skin was closed with 3-0 Monocryl in a subcuticular fashion. Steri-Strips and Mepilex dressing were applied without complication. Patient was taken to recovery in stable condition. Grafts/Implants Used: none - Complications none - Admit VTE Documentation VTE Present on Admission: No VTE Mechan Device Prophylaxis: SCD's 03/08/18 0059 <Electronically signed by Liz Lloyd MD> Date Liz Lloyd MD CC: Chaz Hoffmann DO; Liz Lloyd MD Signed HISTORY AND PHYSICAL Observed: 03/07/2018 Status: F Source: [facility] EXAM 9:19 AM [facility] REPOSITORY [facility] Medical Records Department [address] [place] [address] History and Physical 03/07/18 0909 MR#: [id number] Acct: [id number] Name: LUIS MIGUEL WALKER Rep #: [id number] : 1985 32 From: Liz Lloyd MD PCP: Chaz Hoffmann DO Status: ADM IN Y Location: [place] [id number] - Problem List (1) Family history of congenital heart defect Status: Acute Comment: normal anatomy scan with [facility] (2) Anxiety Status: Acute Comment: counseling, vistaril PRN (3) ADD (attention deficit disorder) Status: Acute Qualifiers: (4) History of delivery Status: Acute Comment: considering - 15% risk low due to weight and race. previous cs at 6 cm. uptodate education reviewed and plan if spontaneous labor, cs schedule on due date. (5) History of abnormal cervical Pap smear Status: Acute (6) Supervision of normal Status: Acute Qualifiers: Comment: PRR MANISH 03/18/18 boy my PC Rajeev Hao History Date of Admission: 09/18/16 Final MANISH: 03/18/18 Final MANISH Source: US <20 weeks Gestational age: 38 Weeks and 3 Days History of this : This is a 32 year-old, , at 38 weeks gestational age presents IAL desires . she has SROM clear fluid and upon arrival did have a decel x 4 minutes into the 80s with good recovery and moderate variability reactive no decels after. Medical History: Medical History (Last Reviewed 02/25/18 @ 10:56 by Abbie Chan) Abnormal pap Endometriosis Migraine Allergies No Known Allergies Allergy (Verified 02/25/18 10:55) Home Medications: Home Medications Vits [Prenatabs FA ] 1 tab PO DAILY 05/12/16 Dextroamphetamine/Amphetamine [Adderall 10 mg Tablet] 10 mg PO BID 12/26/17 Ondansetron HCl [Zofran] 4 mg PO 4X/DAY PRN PRN #30 tablet 03/04/18 Oseltamivir Phosphate [Tamiflu] 75 mg PO BID #9 capsule 03/04/18 proMETHazine tablet [Phenergan] 12.5 mg PO Q6H PRN PRN #30 tablet 03/04/18 Smoking Status: Former smoker Alcohol: None Number of Fetus(es): 1 Heart Tracin moderate variability isolated decel cat I tracing TOCO Analysis: q 2-3 History Past Pregnancies: Past Pregnancies Pregancy History 2 Elective abortions Hx Para 1 Spontaneous abortions Past Pregnancies Del. DatName GA/WeeksOutcome Route [facility] LgAnesthesDel LocaProviderFOB e ht en ia tn 09/11/16Solomon live birC-sectio8 lbs. 1Male [address] [facility] - fuln 5 oz l term MANISH Calculator Estimated Delivery Date 03/18/18 Based on LMP (certain) 06/11/17 Current WG 37w 0d Number 1 Expected Delivery Route/Plan considering tolac education given Specific Issue/Plans flu vaccine: given tdap vaccine: given rhogam: na LARC form signed: declines labor support person: Hao pain management: epidural cut cord/dad catch: [] : yes PP control planned: [] special requests: [] Expected Delivery Method: Describe any other labor AND delivery plans:: MANISH Calculator. Estimated Delivery Date 03/18/18. Based on LMP (certain) 06/11/17. Current WG 37w 0d. Number 1. Expected Delivery Route/Plan. considering tolac education given. Specific Issue/Plans. flu vaccine: given. tdap vaccine: given. rhogam: na. LARC form signed: declines. labor support person: Hao. pain management: epidural. cut cord/dad catch: []. : yes. PP control planned: []. special requests: [] Review of Systems Constitutional: Denies: Fever, Malaise Eyes: Denies: Blurred vision, Vision Change HEENT: Denies: Head Aches, Visual Changes Cardiovascular: Denies: Chest Pain, Palpitations Respiratory: Denies: Cough, Shortness of Breath, Wheezing Gastrointestinal: Denies: Abdominal Pain, Diarrhea, Nausea, Vomiting Genitourinary: Denies: Dysuria, Hematuria Musculoskeletal: Denies: Joint Pain, Muscle pain Skin: Denies: Lesions, Rash Neurological: Denies: Blurred vision, Focal weakness, Headaches Psychiatric: Denies: Anxiety, Depression Endocrine: Denies: Heat/ Cold Intolerance Hematologic/ Lymphatic: Denies: Easy Bruising, Easy Bleeding Physical Exam General: Alert, Cooperative, No apparent distress HEENT: Atraumatic, Normocephalic. Negative for: Thyromegaly, Lymphadenopathy Cardiovascular: Regular rate Lungs: Normal air movement Abdomen: Soft, Non Tender, Gravid Neurological: Deep Tendon Reflexes 2+/4 and Symmetrical, Neuro grossly intact. Negative for: Clonus BENZENE STILL UTILITY OPERATOR: Normal external genitalia. Negative for: Vulvar lesions Estimated gestational size: Appropriate for gestational size Presentation: Cephalic Assessment/Plan All Active Problems (Last Reviewed 02/25/18 @ 10:56 by Abbie Chan) Influenza (Acute) False labor (Acute) Family history of congenital heart defect (Acute) Anxiety (Acute) ADD (attention deficit disorder) (Acute) History of delivery (Acute) History of abnormal cervical Pap smear (Acute) Supervision of normal (Acute) Engagement of fetus in breech position (Resolved) Evaluate anatomy not seen on prior sonogram (Resolved) Low lying placenta nos or without hemorrhage, second trimester (Resolved) This is a 32 year-old, , at 38 weeks gestational age presents IAL TOLAC Patient presents IAL, plan expectant management for , pitocin PRN. Pain management: plans epidural. GBS negative. Management of any complications: none I have reviewed the [facility] and made any clinically relevant updates. 03/07/18 0919 <Electronically signed by Liz Lloyd MD> Date Liz Lloyd MD Cosigner Signature: Date (if applicable) CC: Chaz Hoffmann DO; Liz Lloyd MD Signed CBC W/DIFF, AUTOMATED Collected: 03/07/2018 Status: F Source: [facility] 8:20 AM [facility] REPOSITORY TYPE CODE TESTS RESULT OUT OF RANGE REFERENCE UNITS LAB L100.1000 4.4-11.0 K/mm3 High WBC 13.8 LAB L100.1200 4.2-5.4 M/mm3 Low RBC 4.09 LAB L100.1300 12.0-15.0 g/dl Normal HGB 12.1 LAB L100.1400 37-47 % Low HCT 36.5 LAB L100.1500 81-99 fL Normal MCV 89.2 LAB L100.1600 27.0-32.0 pg Normal MCH 29.6 LAB L100.1700 32-36 g/gl Normal MCHC 33.2 LAB L100.1810 11.6-14.6 % Normal RDW CV 13.8 LAB L100.1820 35.1-43.9 fl High RDW SD 44.9 LAB L100.1900 150-450 K/mm3 Normal PLT 182 LAB L100.2000 6.2-12.0 fl High MPV 12.5 LAB L100.2100 47-70 % High NEUT% 79.6 LAB L100.2200 19-41 % Low LY% 13.6 LAB L100.2300 0-10 % Normal MONO% 6.2 LAB L100.2400 0-5 % Normal EO% 0.4 LAB L100.2500 0-1 % Normal BASO% 0.1 LAB L100.2550 0.0-0.9 % Normal IM GRAN % 0.100 Result Comment: IG% - Immature Granulocytes (promyelocytes, myelocytes and metamyelocytes) > 1% indicates that a LEFT SHIFT is Present. LAB L100.2620 2.0-7.7 X10 3/uL High Absolute Neut 11.0 LAB L100.2720 0.83-4.51 X10 3/ul Normal Absolute Lymph 1.88 Performed By: #### L100.0100, B101.7450 #### [facility] [address] [place], [address] TYPE AND SCREEN Collected: 03/07/2018 Status: F Source: [facility] 8:20 AM [facility] REPOSITORY Order Comment: Reason for Type AND Screen/Red Cells: ROUTINE TYPE CODE TESTS RESULT OUT OF RANGE REFERENCE UNITS LAB B10.0800 A Normal BLOOD TYPE GEL POSITIVE LAB B100.4000 Normal Antibody NEGATIVE Screen Performed By: #### L100.0100, B101.7450 #### [facility] [address] [place], [address] (ROM) RUPTURE OF Collected: 03/07/2018 Status: F Source: [facility] MEMBRANES 7:00 AM [facility] REPOSITORY TYPE CODE TESTS RESULT OUT OF REFERENCE UNITS RANGE LAB L205.1310 Negative High ROM POSITIVE Result Comment: Amniotic fluid present indicates rupture of Membranes. RESULTS CALLED TO WILFRID MORENO 03/07/18 0750 Yoselyn Mazariegos. REPORT READ BACK BY SAME . Performed By: #### L205.1000 #### [facility] [address] [place], [address] CBC W/DIFF, AUTOMATED Collected: 03/04/2018 Status: F Source: [place] 9:47 PM [facility] REPOSITORY TYPE CODE TESTS RESULT OUT OF RANGE REFERENCE UNITS LAB L100.1000 4.4-11.0 K/mm3 Normal WBC 8.1 LAB L100.1200 4.2-5.4 M/mm3 Low RBC 3.87 LAB L100.1300 12.0-15.0 g/dl Low HGB 11.5 LAB L100.1400 37-47 % Low HCT 34.5 LAB L100.1500 81-99 fL Normal MCV 89.1 LAB L100.1600 27.0-32.0 pg Normal MCH 29.7 LAB L100.1700 32-36 g/gl Normal MCHC 33.3 LAB L100.1810 11.6-14.6 % Normal RDW CV 14.0 LAB L100.1820 35.1-43.9 fl High RDW SD 45.5 LAB L100.1900 150-450 K/mm3 Low PLT 148 LAB L100.2000 6.2-12.0 fl Normal MPV 11.8 LAB L100.2100 47-70 % High NEUT% 87.2 LAB L100.2200 19-41 % Low LY% 8.4 LAB L100.2300 0-10 % Normal MONO% 4.1 LAB L100.2400 0-5 % Normal EO% 0.1 LAB L100.2500 0-1 % Normal BASO% 0.0 LAB L100.2550 0.0-0.9 % Normal IM GRAN % 0.200 Result Comment: IG% - Immature Granulocytes (promyelocytes, myelocytes and metamyelocytes) > 1% indicates that a LEFT SHIFT is Present. LAB L100.2620 2.0-7.7 X10 3/uL Normal Absolute Neut 7.0 LAB L100.2720 0.83-4.51 X10 3/ul Low Absolute Lymph 0.68 Performed By: #### L100.0100 #### [facility] [address] [facility] [place], [place], [address] Observed: 03/04/2018 Status: F Source: [facility] INFLUENZA A+B (RAPID 4:15 PM [facility] IVONNE) REPOSITORY Has pt arrived? Y FLU A/B Rapid Negative test results should be confirmed with FLU PANEL MOLECULAR if indicated. Influenza Ag, Direct Presumptive NEGATIVE for Influenza A/B Antigen (See Note) Performed By: #### M101.0101 #### [facility] [address] [facility] [place], [address] URINALYSIS, COMPLETE Collected: 03/04/2018 Status: F Source: [facility] 12:40 PM [facility] REPOSITORY Order Comment: How was Urine Obtained? HAND SINGER TO SPECIFY TYPE CODE TESTS RESULT OUT OF RANGE REFERENCE UNITS LAB L400.3000 Yellow COLOR Normal Yellow LAB L400.3050 Clear Normal CLARITY Sl. Cloudy LAB L400.3200 Normal mg/dl Normal GLUCOSE, UR Normal LAB L400.3300 Negative mg/dL High BILIRUBIN URINE 1 Result Comment: COLOR OF URINE MAY AFFECT DIPSTICK RESULTS. LAB L400.3400 Negative mg/dl Normal KETONE UR Negative LAB L400.3465 1.002-1.030 Normal SP.GR. DIPSTX 1.015 LAB L400.3550 5.0 - 8.0 pH Normal UR 6.0 LAB L400.3600 Negative mg/dl High PROT DIPSTX 30 LAB L400.3700 Normal mg/dl Normal UROBILI Normal LAB L400.3750 Negative Normal NITRITE UR Negative LAB L400.3780 Negative /ul High OCCULT 25 BLOOD-UR LAB L400.3800 Negative /ul Normal LEUK ESTERASE Negative LAB L400.4050 0-5 /hpf Normal WBC 0 SEEN LAB L400.4100 0-5 /hpf Normal RBC-UA 0 SEEN LAB L400.4150 5-10 /hpf Normal SQUAM EPI 5-10 SEEN LAB L400.4300 None Seen /hpf Normal BACTERIA 0 SEEN LAB L400.4350 <or=2+ /hpf Normal MUCUS, URINE 0 SEEN Performed By: #### L400.0001 #### [facility] [address] [place], [address] Observed: 03/04/2018 Status: F Source: [place] CULTURE, URINE 12:40 PM [facility] REPOSITORY Urine Culture ORGANISM 1: Mixed Gram Positive Organisms Gorham Count >100,000 MIX CULTURE Mixed contaminants. Submit a new specimen if indicated. Performed By: #### M100.0650 #### [facility] [address] [place], [address] CBC-COMPLETE BLOOD CNT Collected: 03/04/2018 Status: F Source: [place] NO DIFF 9:30 AM [facility] REPOSITORY TYPE CODE TESTS RESULT OUT OF RANGE REFERENCE UNITS LAB L100.1000 4.4-11.0 K/mm3 High WBC 11.1 LAB L100.1200 4.2-5.4 M/mm3 Normal RBC 4.37 LAB L100.1300 12.0-15.0 g/dl Normal HGB 13.0 LAB L100.1400 37-47 % Normal HCT 39.1 LAB L100.1500 81-99 fL Normal MCV 89.5 LAB L100.1600 27.0-32.0 pg Normal MCH 29.7 LAB L100.1700 32-36 g/gl Normal MCHC 33.2 LAB L100.1810 11.6-14.6 % Normal RDW CV 13.8 LAB L100.1820 35.1-43.9 fl High RDW SD 44.3 LAB L100.1900 150-450 K/mm3 Normal PLT 176 LAB L100.2000 6.2-12.0 fl High MPV 12.9 Performed By: #### L100.0500 #### [facility] [address] [place], [address] AQUACULTURE PROGRAM DIRECTOR OFFICE VISIT Observed: 02/25/2018 Status: F Source: [facility] REPORT 11:40 AM [facility] REPOSITORY [facility] [address] [place] [address] OFFICE VISIT Date of Service: 02/25/18 MR#: [id number] Acct: [id number] Name: LUIS MIGUEL WALKER Rep #: [id number] : 1985 Provider: Liz Lloyd MD Age/Sex: 32/F Location: [facility] [place] Status: Signed Intake Vital Signs02/25/18 Body Mass Index (BMI) 41.6 02/25/18 Height 5 ft 10 in 02/25/18 Weight: 293 lb 6 oz 02/25/18 Body Mass Index (BMI) 42.0 02/25/18 Blood Pressure 126/84 H H Intake Visit Reasons: 37 WEEK OB Chief Complaint: Est ob Is patient in pain?: No Allergies No Known Allergies Allergy (Verified 02/25/18 10:55) Medications Vits [Prenatabs FA ] 1 tab PO DAILY 05/12/16 [History Confirmed 02/25/18] Dextroamphetamine/Amphetamine [Adderall 10 mg Tablet] 10 mg PO BID 12/26/17 [History Confirmed 02/25/18] Last Menstral Period: 06/11/17 Zika: Zika virus screening: Negative : No PFSH PFSH Medical History Abnormal pap (Acute) Endometriosis (Acute) Migraine (Acute) Family History Grandmother Cancer ovarian Grandfather Leukemia Non-Hodgkins Lymphoma Father CVA (cerebral vascular accident) Social History Smoking Status: Former smoker alcohol intake: never substance use type: does not use caffeine: Yes what type of physical activity do you participate in: walking seatbelt use: always do you feel safe at home: Yes additional social history: hao Pregancy History 2 Elective abortions Hx Para 1 Spontaneous abortions Past Pregnancies Del. DatName GA/WeeksOutcome [facility] LgAnesthesDel LocaProviderFOB e ht en th ia tn 09/11/16Solomon live birC-sectio8 lbs. 1Male 24 [facility] - fuln 5 oz l term HPI 37 WEEK OB: Details: LUIS MIGUEL WALKER is a 32 year old who presents for routine OB visit. OB Visit MANISH Calculator Estimated Delivery Date 03/18/18 Based on LMP (certain) 06/11/17 Current WG 37w 0d Number 1 Expected Delivery Route/Plan considering tolac education given Specific Issue/Plans flu vaccine: given tdap vaccine: given rhogam: na LARC form signed: karis labor support person: Hao pain management: epidural cut cord/dad catch: [] : yes PP control planned: [] special requests: [] Initial Weight: 263 lb Date Weight BP Urine PrFHR FuHt Pres MoCTX DilationFetal StVisit NoProviderComments E ot v te GA G Effac lucose ed Visit Notes Visit Date: 02/25/18 no vb lof good fm irregular ctx Liz Lloyd MD on 02/25/18 Visit Date: 02/18/18 gbs collected Liz Lloyd MD on 02/18/18 no vb lof good fm no regular ctx growth us ordered Liz Lloyd MD on 02/18/18 Visit Date: 02/10/18 no vb lof good fm no regular ctx Liz Lloyd MD on 02/10/18 Visit Date: 01/28/18 No VB, LOF. Doing well Shanti Zamora NP-C on 01/28/18 Visit Date: 01/13/18 Doing well. Was having chest pain, negative evaluation otherwise and has ceased. MATTHEW Horn on 01/13/18 Visit Date: 12/12/17 no vb lof good fm n oregular ctx. cbc gct tdap today Liz Lloyd MD on 12/12/17 Visit Date: 11/12/17 taking adderall again as needed. co some knee pain- recommend PCP eval. no vb cramping. has fu anatomy scan Liz Lloyd MD on 11/12/17 Visit Date: 10/10/17 Doing well. No VB, LOF. Wants to discuss with ANGELIQUE about adderall. Spoke with PCP and said had to be addressed by OB MATTHEW Horn on 10/10/17 Visit Date: 09/09/17 no vb abnormal discharge Liz Lloyd MD on 09/09/17 Visit Date: 08/15/17 No visit notes to display Diagnostics Diagnostics Labs Hct 36.7 % (37-47) L 12/26/17 Hgb 12.2 g/dl (12.0-15.0) 12/26/17 Obstetrics Ultrasound 02/24/18 Glucose 1 Hr 50 gm 90 mg/dL (70-140) 12/12/17 Group B Strep DNA Cancelled 02/18/18 Details: HIV: Urine Culture: Sequential Screen: NIPT Screen: Results [id number] Office Urine Glucose Negative Last Edit by Abbie Chan on 02/25/18 10:58 Office Urine Protein Negative Last Edit by Abbie Chan on 02/25/18 10:58 Assessment AND Plan Problems 1. History of delivery Z98.891 considering - 15% risk low due to weight and race. previous cs at 6 cm. uptodate education reviewed and plan if spontaneous labor, cs schedule on due date. 2. Family history of congenital heart defect Z82.79 normal anatomy scan with [facility] 3. Attention deficit hyperactivity disorder (ADHD), predominantly inattentive type F90.0 4. Anxiety F41.9 counseling, vistaril PRN 5. History of abnormal cervical Pap smear Z87.898 6. Encounter for supervision of other normal in third trimester Z34.83 PRR MANISH 03/18/18 boy my MENDEZ Rajeev Hao Plan ACOG trimester education reviewed and updated. see problem list details for updated plan management information and see below for orders placed at this visit. GA appropriate handout given. movement and labor precautions reviewed. Orders Orders: Coding Level of Care Code OB Routine Diagnoses History of delivery Z98.891 Family history of congenital heart defect Z82.79 Attention deficit hyperactivity disorder (ADHD), predominantly inattentive type F90.0 Attention deficit-hyperactivity disorder type: predominantly inattentive Hyperactivity presence: present Anxiety F41.9 History of abnormal cervical Pap smear Z87.898 Encounter for supervision of other normal in third trimester Z34.83 Normal : other normal Trimester: third trimester 02/25/18 1140 <Electronically signed by Liz Lloyd MD> Date Liz Lloyd MD Cosigner Signature: Date (if applicable) CC: OB LIMITED WITH Observed: 02/24/2018 Status: F Source: [facility] BIOMETRICS 12:29 PM [facility] REPOSITORY [facility] Imaging Services [address] [place] [id number] OB Limited With Biometrics MR#: [id number] Acct: [id number] Name: LUIS MIGUEL WALKER Rep #: [id number] : 1985 F 32 From: Lonnie Steven MD PCP: Chaz Hoffmann DO Status: REG CLI Study: OB Limited With Biometrics Date of Exam: 02/24/18 Exam# [id number] Ordering Dr: Liz Lloyd MD STUDY: SECOND AND THIRD TRIMESTER OBSTETRICAL ULTRASOUND - LIMITED REASON FOR EXAM: Female, 32 years old. Routine survey. LMP: June 11, 2017. PRIOR ULTRASOUND: Comparison is made with prior ultrasound dated January 22, 2018. TECHNIQUE: Transabdominal TECHNICAL QUALITY: Adequate. FINDINGS: There is a single intrauterine fetus. The fetus is in a cephalic presentation. There is demonstrated cardiac activity with a heart rate of 152 bpm. There is a normal amniotic fluid volume. The largest amniotic fluid pocket measures 3.7 cm x 2.3 cm. The amniotic fluid index (MANOLO) is 10.0 cm. The placenta is anterior in location and is not low lying. There are Grade 2 placental changes. The cervix measures 4.5 cm in length. BIOMETRY: BPD: 9.08 cm: 36 weeks, 6 days HC: 34.27 cm: 39 weeks, 4 days AC: 33.75 cm: 37 weeks, 3 days FL: 7.29 cm: 37 weeks, 3 days Age by LMP: 36 weeks, 6 days. MANISH by LMP: March 18, 2018. age by prior US: 38 weeks, 4 days. MANISH by prior US: March 06, 2018. age by current US: 38 weeks, 0 days. MANISH by current US: March 10, 2018. Estimated weight: 3278 grams, +/- 479 grams, 77 percentile. Gender: Indeterminant US/OB Limited With Biometrics IMPRESSION: Single live intrauterine gestation with a mean gestational age of 38 weeks and 4 days. The measurements obtained today fall within the normal expected range. Electronically Signed: Lonnie Steven MD at 8:56 EST Tel [phone], Service support , CC: Chaz Hoffmann DO; Liz Lloyd MD Take Down Sorter: Signed URINALYSIS, COMPLETE Collected: 02/22/2018 Status: F Source: [place] 11:53 PM [facility] REPOSITORY Order Comment: How was Urine Obtained? CLEAN CATCH TYPE CODE TESTS RESULT OUT OF RANGE REFERENCE UNITS LAB L400.3000 Yellow COLOR Normal Yellow LAB L400.3050 Clear Normal CLARITY Sl. Cloudy LAB L400.3200 Normal mg/dl Normal GLUCOSE, UR Normal LAB L400.3300 Negative mg/dL Normal BILIRUBIN URINE Negative LAB L400.3400 Negative mg/dl High 50 KETONE UR LAB L400.3465 1.002-1.030 Normal SP.GR. DIPSTX 1.015 LAB L400.3550 5.0 - 8.0 pH UR Normal 6.0 LAB L400.3600 Negative mg/dl High PROT 15 DIPSTX LAB L400.3700 Normal mg/dl Normal UROBILI Normal LAB L400.3750 Negative Normal NITRITE UR Negative LAB L400.3780 Negative /ul High 25 OCCULT BLOOD-UR LAB L400.3800 Negative /ul LEUK Normal ESTERASE Negative LAB L400.4050 0-5 /hpf WBC 0 Normal SEEN LAB L400.4100 0-5 /hpf Normal RBC-UA 0-5 SEEN LAB L400.4150 5-10 /hpf SQUAM Normal EPI 10-25 SEEN LAB L400.4300 None Seen /hpf Normal BACTERIA RARE LAB L400.4350 <or=2+ /hpf 2+ Normal MUCUS, URINE Performed By: #### L400.0001, M100.0650 #### [facility] [address] [place], [address] Observed: 02/22/2018 Status: F Source: [place] CULTURE, URINE 11:53 PM [facility] REPOSITORY Urine Culture ORGANISM 1: Mixed Gram Positive Organisms Gorham Count 50,000-80,000 MIX CULTURE Mixed contaminants. Submit a new specimen if indicated. Performed By: #### L400.0001, M100.0650 #### [facility] [address] [place], [place], [address] AQUACULTURE PROGRAM DIRECTOR OFFICE VISIT Observed: 02/18/2018 Status: F Source: [facility] REPORT 11:27 PM [facility] REPOSITORY [facility] [address] [place] [address] OFFICE VISIT Date of Service: 02/18/18 MR#: [id number] Acct: [id number] Name: LUIS MIGUEL WALKER Rep #: [id number] : 1985 Provider: Liz Lloyd MD Age/Sex: 32/F Location: [facility] [place] Status: Signed Intake Vital Signs02/18/18 Body Mass Index (BMI) 42.2 02/18/18 Height 5 ft 9.5 in 02/18/18 Weight: 290 lb 02/18/18 Body Mass Index (BMI) 42.2 02/18/18 Blood Pressure 122/80 H Intake Visit Reasons: 36 WEEK OB Telecom Analyst Required: No Is patient in pain?: No Allergies No Known Allergies Allergy (Verified 02/18/18 10:47) Medications Vits [Prenatabs FA ] 1 tab PO DAILY 05/12/16 [History Confirmed 02/18/18] Dextroamphetamine/Amphetamine [Adderall 10 mg Tablet] 10 mg PO BID 12/26/17 [History Confirmed 02/18/18] Last Menstral Period: 06/11/17 Zika: Zika virus screening: Negative : No PFSH PFSH Medical History Abnormal pap (Acute) Endometriosis (Acute) Migraine (Acute) Family History Grandmother Cancer ovarian Grandfather Leukemia Non-Hodgkins Lymphoma Father CVA (cerebral vascular accident) Social History Smoking Status: Former smoker alcohol intake: never substance use type: does not use caffeine: Yes what type of physical activity do you participate in: walking seatbelt use: always do you feel safe at home: Yes additional social history: hao Pregancy History 2 Elective abortions Hx Para 1 Spontaneous abortions Past Pregnancies Del. DatName GA/WeeksOutcome Route [facility] LgAnestheDEel LocaProviderFOB e ht en th ia tn 09/11/16Solomon live birC-sectio8 lbs. 1Male 24 [facility] RR Hao mary kate - fuln 5 oz l term HPI 36 WEEK OB: Details: LUIS MIGUEL WALKER is a 32 year old who presents for routine OB visit. OB Visit MANISH Calculator Estimated Delivery Date 03/18/18 Based on LMP (certain) 06/11/17 Current WG 36w 0d Number 1 Expected Delivery Route/Plan considering tolac education given Specific Issue/Plans flu vaccine: given tdap vaccine: given rhogam: na LARC form signed: declines labor support person: Hao pain management: epidural cut cord/dad catch: [] : yes PP control planned: [] special requests: [] Initial Weight: 263 lb Date Weight BP Urine PrFHR FuHt Pres MoCTX DilationFetal StVisit NoProviderComments E ot v te GA G Effac lucose ed Visit Notes Visit Date: 02/18/18 gbs collected Liz Lloyd MD on 02/18/18 no vb lof good fm no regular ctx growth us ordered Liz Lloyd MD on 02/18/18 Visit Date: 02/10/18 no vb lof good fm no regular ctx Liz Lloyd MD on 02/10/18 Visit Date: 01/28/18 No VB, LOF. Doing well MATTHEW Horn on 01/28/18 Visit Date: 01/13/18 Doing well. Was having chest pain, negative evaluation otherwise and has ceased. MATTHEW Horn on 01/13/18 Visit Date: 12/12/17 no vb lof good fm n oregular ctx. cbc gct tdap today Liz Lloyd MD on 12/12/17 Visit Date: 11/12/17 taking adderall again as needed. co some knee pain- recommend PCP eval. no vb cramping. has fu anatomy scan Liz Lloyd MD on 11/12/17 Visit Date: 10/10/17 Doing well. No VB, LOF. Wants to discuss with ANGELIQUE about adderall. Spoke with PCP and said had to be addressed by OB MATTHEW Horn on 10/10/17 Visit Date: 09/09/17 no vb abnormal discharge Liz Lloyd MD on 09/09/17 Visit Date: 08/15/17 No visit notes to display Diagnostics Diagnostics Labs Hct 36.7 % (37-47) L 12/26/17 Hgb 12.2 g/dl (12.0-15.0) 12/26/17 Obstetrics Ultrasound 01/22/18 Glucose 1 Hr 50 gm 90 mg/dL (70-140) 12/12/17 Group B Strep DNA Cancelled 02/18/18 Details: HIV: Urine Culture: Sequential Screen: NIPT Screen: Results [id number] Office Urine Glucose Negative Last Edit by La Delgado on 02/18/18 10:47 Office Urine Protein Negative Last Edit by La Delgado on 02/18/18 10:47 Assessment AND Plan Problems 1. History of delivery Z98.891 considering - 15% risk low due to weight and race. previous cs at 6 cm. uptodate education reviewed and plan if spontaneous labor, cs schedule on due date. 2. Family history of congenital heart defect Z82.79 normal anatomy scan with [facility] 3. Attention deficit hyperactivity disorder (ADHD), predominantly inattentive type F90.0 4. Anxiety F41.9 counseling, vistaril PRN 5. History of abnormal cervical Pap smear Z87.898 6. Encounter for supervision of other normal in third trimester Z34.83 PRR MANISH 03/18/18 dre pepe PC Rajeev Hao Plan ACOG trimester education reviewed and updated. see problem list details for updated plan management information and see below for orders placed at this visit. GA appropriate handout given. movement and labor precautions reviewed. Orders Orders: Coding Level of Care Code OB Routine Diagnoses History of delivery Z98.891 Family history of congenital heart defect Z82.79 Attention deficit hyperactivity disorder (ADHD), predominantly inattentive type F90.0 Attention deficit-hyperactivity disorder type: predominantly inattentive Hyperactivity presence: present Anxiety F41.9 History of abnormal cervical Pap smear Z87.898 Encounter for supervision of other normal in third trimester Z34.83 Normal : other normal Trimester: third trimester 02/18/182326 <Electronically signed by Liz Lloyd MD> Date Liz Lloyd MD Cosigner Signature: Date (if applicable) CC: Observed: 02/18/2018 Status: F Source: MERCEDES CULTURE, GROUP B 6:29 PM [facility] STREPTOCOCCUS REPOSITORY TONJA Culture Group B Beta Streptococcus is not isolated. Performed By: #### M100.1800 #### [facility] [address] [place], [address] AQUACULTURE PROGRAM DIRECTOR OFFICE VISIT Observed: 02/10/2018 Status: F Source: MERCEDES REPORT 10:03 AM [facility] REPOSITORY [facility] [address] [place] [address] OFFICE VISIT Date of Service: 02/10/18 MR#: [id number] Acct: [id number] Name: LUIS MIGUEL WALKER Rep #: [id number] : 1985 Provider: Liz Lloyd MD Age/Sex: 32/F Location: [facility] [place] Status: Signed Intake Vital Signs02/10/18 Body Mass Index (BMI) 42.2 02/10/18 Height 5 ft 9.5 in 02/10/18 Weight: 287 lb 2 oz 02/10/18 Body Mass Index (BMI) 41.8 02/10/18 Blood Pressure 122/80 H Intake Visit Reasons: 35 WEEK OB Chief Complaint: est ob Telecom Analyst Required: No Is patient in pain?: No Allergies No Known Allergies Allergy (Verified 02/10/18 09:45) Medications Vits [Prenatabs FA ] 1 tab PO DAILY 05/12/16 [History Confirmed 02/10/18] Dextroamphetamine/Amphetamine [Adderall 10 mg Tablet] 10 mg PO BID 12/26/17 [History Confirmed 02/10/18] Last Menstral Period: 06/11/17 Zika: Zika virus screening: Negative : No PFSH PFSH Medical History Abnormal pap (Acute) Endometriosis (Acute) Migraine (Acute) Family History Grandmother Cancer ovarian Grandfather Leukemia Non-Hodgkins Lymphoma Father CVA (cerebral vascular accident) Social History Smoking Status: Former smoker alcohol intake: never substance use type: does not use caffeine: Yes what type of physical activity do you participate in: walking seatbelt use: always do you feel safe at home: Yes additional social history: hao Pregancy History 2 Elective abortions Hx Para 1 Spontaneous abortions Past Pregnancies Del. DatName GA/WeeksOutcome Route [facility] Lita Smith LgAnestheAntonioel LocaProviderFOB e ht en ia tn 09/11/16Solomon live birC-sectio8 lbs. 1Male 24 [facility] RR Hao th - fuln 5 oz l term HPI 35 WEEK OB: Details: LUIS MIGUEL WALKER is a 32 year old who presents for routine OB visit. OB Visit MANISH Calculator Estimated Delivery Date 03/18/18 Based on LMP (certain) 06/11/17 Current WG 34w 6d Number 1 Expected Delivery Route/Plan considering tolac education given Specific Issue/Plans flu vaccine: given tdap vaccine: given rhogam: na LARC form signed: declines labor support person: Hao pain management: epidural cut cord/dad catch: [] : yes PP control planned: [] special requests: [] Initial Weight: 263 lb Date Weight BP Urine PrFHR FuHt Pres MoCTX DilationFetal StVisit NoProviderComments E ot v te GA G Effac lucose ed Visit Notes Visit Date: 02/10/18 no vb lof good fm no regular ctx Liz Lloyd MD on 02/10/18 Visit Date: 01/28/18 No VB, LOF. Doing well MATTHEW Horn on 01/28/18 Visit Date: 01/13/18 Doing well. Was having chest pain, negative evaluation otherwise and has ceased. JOLEEN HornC on 01/13/18 Visit Date: 12/12/17 no vb lof good fm n oregular ctx. cbc gct tdap today Liz Lloyd MD on 12/12/17 Visit Date: 11/12/17 taking adderall again as needed. co some knee pain- recommend PCP eval. no vb cramping. has fu anatomy scan Liz Lloyd MD on 11/12/17 Visit Date: 10/10/17 Doing well. No VB, LOF. Wants to discuss with ANGELIQUE about adderall. Spoke with PCP and said had to be addressed by OB MATTHEW Horn on 10/10/17 Visit Date: 09/09/17 no vb abnormal discharge Liz Lloyd MD on 09/09/17 Visit Date: 08/15/17 No visit notes to display Diagnostics Diagnostics Labs Hct 36.7 % (37-47) L 12/26/17 Hgb 12.2 g/dl (12.0-15.0) 12/26/17 Obstetrics Ultrasound 01/22/18 Rubella IgG Antibody 98.6 IU/mL 08/21/17 RPR NONREACTIVE (NONREACTIVE) 08/21/17 Hep Bs Antigen Negative (Negative) 08/21/17 Glucose 1 Hr 50 gm 90 mg/dL (70-140) 12/12/17 Details: HIV: Urine Culture: Sequential Screen: NIPT Screen: Results [id number] Office Urine Glucose Negative Last Edit by Luda Jacobson on 02/10/18 09:50 Office Urine Protein Negative Last Edit by Luda Jacobson on 02/10/18 09:50 Assessment AND Plan Problems 1. History of delivery Z98.891 considering - 15% risk low due to weight and race. previous cs at 6 cm. uptodate education reviewed and plan if spontaneous labor, cs schedule on due date. 2. Family history of congenital heart defect Z82.79 normal anatomy scan with [facility] 3. Attention deficit hyperactivity disorder (ADHD), predominantly inattentive type F90.0 4. Anxiety F41.9 counseling, vistaril PRN 5. History of abnormal cervical Pap smear Z87.898 6. Encounter for supervision of other normal in third trimester Z34.83 PRR MANISH 03/18/18 PC Rajeev Hao Plan movement and labor precautions reviewed. ACOG trimester education reviewed and updated. see problem list details for updated plan management information and see below for orders placed at this visit. GA appropriate handout given. Orders Orders: Coding Level of Care Code OB Routine Diagnoses History of delivery Z98.891 Family history of congenital heart defect Z82.79 Attention deficit hyperactivity disorder (ADHD), predominantly inattentive type F90.0 Attention deficit-hyperactivity disorder type: predominantly inattentive Hyperactivity presence: present Anxiety F41.9 History of abnormal cervical Pap smear Z87.898 Encounter for supervision of other normal in third trimester Z34.83 Normal : other normal Trimester: third trimester 02/10/18 1003 <Electronically signed by Liz Lloyd MD> Date Liz Lloyd MD Cosigner Signature: Date (if applicable) CC: AQUACULTURE PROGRAM DIRECTOR OFFICE VISIT Observed: 01/28/2018 Status: F Source: MERCEDES REPORT 2:30 PM [facility] [address] [place] [address] OFFICE VISIT Date of Service: 01/28/18 MR#: [id number] Acct: [id number] Name: LUIS MIGUEL WALKER Rep #: [id number] : 1985 Provider: FRED Zamora Age/Sex: 32/F Location: [facility] [place] Status: Signed Intake Vital Signs01/28/18 Body Mass Index (BMI) 42.2 01/28/18 Blood Pressure 120/78 01/28/18 Height 5 ft 9.5 in 01/28/18 Weight: 290 lb 01/28/18 Body Mass Index (BMI) 42.2 01/28/18 Blood Pressure 120/78 Intake Visit Reasons: 33 WEEK OB Chief Complaint: est ob Telecom Analyst Required: No Is patient in pain?: No Allergies No Known Allergies Allergy (Verified 01/28/18 14:11) Medications Vits [Prenatabs FA ] 1 tab PO DAILY 05/12/16 [History Confirmed 01/28/18] Dextroamphetamine/Amphetamine [Adderall 10 mg Tablet] 10 mg PO BID 12/26/17 [History Confirmed 01/28/18] Last Menstral Period: 06/11/17 Zika: Zika virus screening: Negative : No PFSH PFSH Medical History Abnormal pap (Acute) Endometriosis (Acute) Migraine (Acute) Family History Grandmother Cancer ovarian Grandfather Leukemia Non-Hodgkins Lymphoma Father CVA (cerebral vascular accident) Social History Smoking Status: Former smoker alcohol intake: never substance use type: does not use caffeine: Yes what type of physical activity do you participate in: walking seatbelt use: always do you feel safe at home: Yes additional social history: hao Pregancy History 2 Elective abortions Hx Para 1 Spontaneous abortions Past Pregnancies Del. DatName GA/WeeksOutcome Route Bt WeigInarthurt Luis LgAnesthesDel LocaProviderFOB e ht en th ia tn 09/11/16Solomon live birC-sectio8 lbs. 1Male 24 [facility] RR Hao hartmann - fuln 5 oz l term HPI 33 WEEK OB: Details: LUIS MIGUEL WALKER is a 32 year old who presents for routine OB visit. OB Visit MANISH Calculator Estimated Delivery Date 03/18/18 Based on LMP (certain) 06/11/17 Current WG 33w 0d Number 1 Expected Delivery Route/Plan considering tolac education given Specific Issue/Plans flu vaccine: given tdap vaccine: given rhogam: na LARC form signed: karis labor support person: Hao pain management: epidural cut cord/dad catch: [] : yes PP control planned: [] special requests: [] Initial Weight: 263 lb Date Weight BP Urine PrFHR FuHt Pres MoCTX DilationFetal StVisit NoProviderComments E ot v te GA G Effac lucose ed Visit Notes Visit Date: 01/28/18 No VB, LOF. Doing well MATTHEW Horn on 01/28/18 Visit Date: 01/13/18 Doing well. Was having chest pain, negative evaluation otherwise and has ceased. MATTHEW Horn on 01/13/18 Visit Date: 12/12/17 no vb lof good fm n oregular ctx. cbc gct tdap today Liz Lloyd MD on 12/12/17 Visit Date: 11/12/17 taking adderall again as needed. co some knee pain- recommend PCP eval. no vb cramping. has fu anatomy scan Liz Lloyd MD on 11/12/17 Visit Date: 10/10/17 Doing well. No VB, LOF. Wants to discuss with ANGELIQUE about adderall. Spoke with PCP and said had to be addressed by OB MATTHEW Horn on 10/10/17 Visit Date: 09/09/17 no vb abnormal discharge Liz Lloyd MD on 09/09/17 Visit Date: 08/15/17 No visit notes to display Diagnostics Diagnostics Labs Hct 36.7 % (37-47) L 12/26/17 Hgb 12.2 g/dl (12.0-15.0) 12/26/17 Obstetrics Ultrasound 01/22/18 Rubella IgG Antibody 98.6 IU/mL 08/21/17 RPR NONREACTIVE (NONREACTIVE) 08/21/17 Hep Bs Antigen Negative (Negative) 08/21/17 Chlam trachomat DNA PCR Negative (Negative) 08/15/17 N.gonorrhoeae DNA (PCR) Negative (Negative) 08/15/17 Glucose 1 Hr 50 gm 90 mg/dL (70-140) 12/12/17 Details: HIV: Urine Culture: Sequential Screen: NIPT Screen: Results [id number] Office Urine Glucose Negative Last Edit by Luda Jacobson on 01/28/18 14:27 Office Urine Protein Negative Last Edit by Luda Jacobson on 01/28/18 14:27 Assessment AND Plan Problems 1. Encounter for supervision of other normal in second trimester Z34.82 PRR MANISH 03/18/18 PC Rajeev Hao 2. 33 weeks gestation of Z3A.33 3. Engagement of fetus in breech position, single or unspecified fetus O32.1XX0 US to check 35 wk visit 4. History of delivery Z98.891 considering - 15% risk low due to weight and race. previous cs at 6 cm. uptodate education Plan Orders placed: none Still hopeful for TOLAC but concerned with persistent breech. Will plan check with US next visit and discuss further with ANGELIQUE Reviewed of labor precautions, movement/kick counts ACOG trimester education reviewed and updated See problem list details for updated plan of care Gestational age appropriate handout given RTO: 2 weeks Orders Orders: Coding Level of Care Code OB Routine Diagnoses Encounter for supervision of other normal in second trimester Z34.82 Normal : other normal Trimester: second trimester 33 weeks gestation of Z3A.33 Engagement of fetus in breech position, single or unspecified fetus O32.1XX0 Fetus number: single or unspecified fetus History of delivery Z98.891 01/28/18 1430 <Electronically signed by Shanti CASTRO> Date Shanti CASTRO Cosigner Signature: Date (if applicable) CC: OB LIMITED WITH Observed: 01/22/2018 Status: F Source: [facility] BIOMETRICS 12:18 PM [facility] REPOSITORY [facility] Imaging Services [address] [place] [address] OB Limited With Biometrics MR#: [id number] Acct: [id number] Name: LUIS MIGUEL WALKER Rep #: [id number] : 1985 F 32 From: Real Gracia MD PCP: Chaz Hoffmann DO Status: REG CLI Study: OB Limited With Biometrics Date of Exam: 01/22/18 Exam# [id number] Ordering Dr: Shanti Zamora STUDY: SECOND AND THIRD TRIMESTER OBSTETRICAL ULTRASOUND - LIMITED REASON FOR EXAM: Female, 32 years old. growth. LMP: 06/11/2017 PRIOR ULTRASOUND: 11/19/2017. TECHNIQUE: Transabdominal TECHNICAL QUALITY: Adequate. FINDINGS: There is a single intrauterine fetus. The fetus is in a breech presentation. There is demonstrated cardiac activity with a heart rate of 135 bpm. There is a normal amniotic fluid volume. The largest amniotic fluid pocket measures 4.1 cm. The amniotic fluid index (MANOLO) is 8.7 cm. The placenta is anterior in location and is not low lying. There are Grade 1 placental changes. The cervix measures 4.4 cm in length. BIOMETRY: BPD: 8.4: 34 weeks, 0 days HC: 31.5: 35 weeks, 3 days AC: 27.9: 32 weeks, 0 days FL: 6.6: 33 weeks, 6 days Age by LMP: 32 weeks, 1 days. MANISH by LMP: 03/18/2018. age by prior US: 32 weeks, 4 days. MANISH by prior US: 03/15/2018. age by current US: 33 weeks, 6 days. MANISH by current US: 03/06/2018. Estimated weight: 2096 grams, +/- 306 grams, 67 percentile. Gender: US/OB Limited With Biometrics IMPRESSION: Single live fetus in a breech presentation. survey not performed on this exam. Placenta is grade 1 and is not low-lying. Cervix is closed. age by prior US: 32 weeks, 4 days. MANISH by prior US: 03/15/2018. Estimated weight: 2096 grams, +/- 306 grams, 67 percentile. Electronically Signed: Real Gracia MD at 11:29 EST , Service support , CC: FRED Zamora; Chaz Hfofmann DO Take Down Sorter: Signed AQUACULTURE PROGRAM DIRECTOR OFFICE VISIT Observed: 01/13/2018 Status: F Source: [facility] REPORT 1:56 PM [facility] Women's [address] [place], [place] [address] OFFICE VISIT Date of Service: 01/13/18 MR#: [id number] Acct: [id number] Name: LUIS MIGUEL WALKER Rep #: [id number] : 1985 Provider: FRED Zamora Age/Sex: 32/F Location: [facility] [place] Status: Signed Intake Vital Signs01/13/18 Height 5 ft 9.5 in 01/13/18 Weight: 283 lb 01/13/18 Body Mass Index (BMI) 41.1 01/13/18 Blood Pressure 116/80 Intake Visit Reasons: 28 weeks Telecom Analyst Required: No Is patient in pain?: No Allergies No Known Allergies Allergy (Verified 01/13/18 13:34) Medications Vits [Prenatabs FA ] 1 tab PO DAILY 05/12/16 [History Confirmed 01/13/18] Dextroamphetamine/Amphetamine [Adderall 10 mg Tablet] 10 mg PO BID 12/26/17 [History Confirmed 01/13/18] Last Menstral Period: 06/11/17 Zika: Zika virus screening: Negative : No Nurse's Note: Pt. was seen in the ER for chest pain a few weeks ago, but everything ruled out. PFSH PFS Medical History Abnormal pap (Acute) Endometriosis (Acute) Migraine (Acute) Family History Grandmother Cancer ovarian Grandfather Leukemia Non-Hodgkins Lymphoma Father CVA (cerebral vascular accident) Social History Smoking Status: Former smoker alcohol intake: never substance use type: does not use caffeine: Yes what type of physical activity do you participate in: walking seatbelt use: always do you feel safe at home: Yes additional social history: hao Pregancy History 2 Elective abortions Hx Para 1 Spontaneous abortions Past Pregnancies Del. DatName GA/WeeksOutcome Route [facility] WeigInfant GLabor LgAnesthesDel LocaProviderFOB e ht en ia tn 09/11/16Solomon live birC-sectio8 lbs. 1Male 24 [facility] RR Hao - fuln 5 oz l term HPI 28 weeks: Details: LUIS MIGUEL WALKER is a 32 year old who presents for routine OB visit. OB Visit MANISH Calculator Estimated Delivery Date 03/18/18 Based on LMP (certain) 06/11/17 Current WG 30w 6d Number 1 Expected Delivery Route/Plan considering tolac education given Specific Issue/Plans flu vaccine: given tdap vaccine: given rhogam: na LARC form signed: [] labor support person: Hao pain management: [] cut cord/dad catch: [] : [] PP control planned: [] special requests: [] Initial Weight: 263 lb Date Weight BP Urine PFHR FuHt Pres MCTX DilatioFetal SVisit NProvideComment rot ov n t ote r s EGA Ef Gluco faced se 08/15/1266 lb 121/77 8 3.2 oz 9w(+4 lb 2d 3.2 oz) Visit Notes Visit Date: 01/13/18 Doing well. Was having chest pain, negative evaluation otherwise and has ceased. MATTHEW Horn on 01/13/18 Visit Date: 12/12/17 no vb lof good fm n oregular ctx. cbc gct tdap today Liz Lloyd MD on 12/12/17 Visit Date: 11/12/17 taking adderall again as needed. co some knee pain- recommend PCP eval. no vb cramping. has fu anatomy scan Liz Lloyd MD on 11/12/17 Visit Date: 10/10/17 Doing well. No VB, LOF. Wants to discuss with ANGELIQUE about adderall. Spoke with PCP and said had to be addressed by OB MATTHEW Horn on 10/10/17 Visit Date: 09/09/17 no vb abnormal discharge Liz Lloyd MD on 09/09/17 Visit Date: 08/15/17 No visit notes to display Diagnostics Diagnostics Labs Hct 36.7 % (37-47) L 12/26/17 Hgb 12.2 g/dl (12.0-15.0) 12/26/17 Pap Smear Negative 11/04/16 Obstetrics Ultrasound 11/19/17 Rubella IgG Antibody 98.6 IU/mL 08/21/17 RPR NONREACTIVE (NONREACTIVE) 08/21/17 Hep Bs Antigen Negative (Negative) 08/21/17 Chlam trachomat DNA PCR Negative (Negative) 08/15/17 N.gonorrhoeae DNA (PCR) Negative (Negative) 08/15/17 Glucose 1 Hr 50 gm 90 mg/dL (70-140) 12/12/17 Details: HIV: Urine Culture: Sequential Screen: NIPT Screen: Results [id number] Office Urine Glucose Negative Last Edit by La Delgado on 01/13/18 13:38 Office Urine Protein Negative Last Edit by La Delgado on 01/13/18 13:38 Assessment AND Plan Problems 1. History of delivery Z98.891 considering - 15% risk low due to weight and race. previous cs at 6 cm. uptodate education 2. Attention deficit hyperactivity disorder (ADHD), predominantly inattentive type F90.0 3. Anxiety F41.9 counseling, vistaril PRN 4. Family history of congenital heart defect Z82.79 normal anatomy scan with [facility] 5. History of abnormal cervical Pap smear Z87.898 6. Encounter for supervision of other normal in second trimester Z34.82 PRR MANISH 03/18/18 PC Rajeev Hao Plan Orders placed: growth US Reviewed of labor precautions, movement/kick counts ACOG trimester education reviewed and updated See problem list details for updated plan of care Gestational age appropriate handout given RTO: 2 weeks Orders Orders: Coding Level of Care Code OB Routine Diagnoses History of delivery Z98.891 Attention deficit hyperactivity disorder (ADHD), predominantly inattentive type F90.0 Attention deficit-hyperactivity disorder type: predominantly inattentive Hyperactivity presence: present Anxiety F41.9 Family history of congenital heart defect Z82.79 History of abnormal cervical Pap smear Z87.898 Encounter for supervision of other normal in second trimester Z34.82 Normal : other normal Trimester: second trimester 01/13/18 1356 <Electronically signed by Shanti CASTRO> Date Shanti CASTRO Cosigner Signature: Date (if applicable) CC: 12 LEAD ELECTROCARDIOGRAM Observed: 12/29/2017 Status: F Source: [facility]EN 12:49 PM [facility] REPOSITORY [facility] Cardiovascular Services [address] [place] [id number] 12 Lead EKG 12/25/17 2329 MR#: [id number] Acct: [id number] Name: LUIS MIGUEL WALKER Rep #: [id number] : 1985 32 From: Jaylon Junior MD Attending Dr: Status: DEP ER Ordering Dr: Demond Staples MD Date: 12/26/17 Location: ED Sex: F AA Admitted: Test Reason : CP Blood Pressure : / mmHG Vent. Rate : 086 BPM Atrial Rate : 086 BPM P-R Int : 132 ms QRS Dur : 080 ms QT Int : 364 ms P-R-T Axes : 042 050 035 degrees QTc Int : 435 ms Normal sinus rhythm Consider precordial lead misplacement (V2-V3) Consider repeat ECG Confirmed by JAYLON JUNIOR MD ([id number]), department editor ENRIKE LANDEROS ([id number]) on 12/29/2017 12:48:26 PM Referred By: MELINDA Confirmed By:JAYLON JUNIOR MD 12/29/17 1248 Date Jaylon Junior MD CC: Demond Staples MD; Chaz Hoffmann DO Signed EMERGENCY DEPARTMENT Observed: 12/26/2017 Status: F Source: BADEN SUMMARY 1:53 AM [facility] REPOSITORY [facility] Medical Records Department [address] [place] [address] Emergency Department Summary 12/26/17 0052 MR#: [id number] Acct: [id number] Name: LUIS MIGUEL WALKER Rep #: [id number] : 1985 32 From: Demond Staples MD PCP: Chaz Hoffmann DO Status: REG ER - ER Visit Summary Date of Service: 12/26/17 Chief Complaint: Chest pain History of Present Illness: The patient is a 32 F who presents with chest pain. She states it started last night. She describes a continuous aching in the middle part of her sternum. It radiates into her back tonight. Nothing makes it better or worse. She has mild dyspnea associated with this. She has a history of the same in the past. She has had negative workups including a 30-day Holter monitor. She is currently 28 weeks gestation. She has had issues with chest pain during her previous pregnancies. She has had negative workup for pulmonary embolisms in the past as well. Denies any increase or asymmetrical swelling of her legs. Physical Examination: Vital signs reviewed. HEENT exam unremarkable. Heart is regular rate and rhythm without murmurs. Lungs are clear to auscultation. Abdomen is soft and nontender. The abdomen is gravid appropriate to dates. Extremities reveal no edema. Peripheral pulses are equal. Skin exam normal. Neurologic exam normal. Test Results: EKG is normal sinus rhythm with a rate of 86. No ST changes. Chest x-ray normal. Laboratory studies are unremarkable except for a white blood cell count 11.7 Emergency Department Course and Treatment: Patient was medicated with aspirin. Patient has had symptoms like this throughout this and her last . I do not feel that this her present coronary disease or PE. Patient will continue her home medications and will follow up with her AQUACULTURE PROGRAM DIRECTOR Treatment Plan: [] Disposition: Discharge Impression: Chest pain This note was generated with Splendia dictation software. It may contain incorrect words, spelling, and punctuation that were not noted in review of the chart prior to signing ED Disposition - Plan for ED Patient: Chief Complaint: Chest Pain Referrals: Chaz Hoffmann DO [Primary Care Provider] - What to do if you have Problems For any increased pain, shortness of breath, bleeding, nausea or vomiting, chest pain, or any unexpected problems, contact your Primary Care Provider. Call [facility] ([phone]) or report to the closest Emergency Room. Call 911 if necessary. 12/26/17152 <Electronically signed by Demond Staples MD> Date Demond Staples MD Cosigner Signature (If Indicated): Date CC: Chaz Hoffmann DO DISCHARGE INSTRUCTION Observed: 12/26/2017 Status: F Source: BADEN 1:53 AM [facility] REPOSITORY [facility] Medical Records Department [address] [place] [address] Discharge Instruction 12/26/17152 MR#: [id number] Acct: [id number] Name: LUIS MIGUEL WALKER Rep #: [id number] : 1985 32 From: Demond Staples MD PCP: Chaz Hoffmann DO Status: REG ER ED Disposition - Plan for ED Patient: Disposition: Home or Assisted Living Chief Complaint: Chest Pain Instructions: ED Chest Pain NonCardiac Referrals: Chaz Hoffmann DO [Primary Care Provider] - What to do if you have Problems For any increased pain, shortness of breath, bleeding, nausea or vomiting, chest pain, or any unexpected problems, contact your Primary Care Provider. Call [facility] ([phone]) or report to the closest Emergency Room. Call 911 if necessary. 12/26/17 0153 <Electronically signed by Demond Staples MD> Date Demond Staples MD Cosigner Signature (If Indicated): Date CC: Chaz Hoffmann DO CBC W/DIFF, AUTOMATED Collected: 12/26/2017 Status: F Source: [facility] 1:03 AM [facility] REPOSITORY TYPE CODE TESTS RESULT OUT OF RANGE REFERENCE UNITS LAB L100.1000 4.4-11.0 K/mm3 High WBC 11.7 LAB L100.1200 4.2-5.4 M/mm3 Low RBC 4.10 LAB L100.1300 12.0-15.0 g/dl Normal HGB 12.2 LAB L100.1400 37-47 % Low HCT 36.7 LAB L100.1500 81-99 fL Normal MCV 89.5 LAB L100.1600 27.0-32.0 pg Normal MCH 29.8 LAB L100.1700 32-36 g/gl Normal MCHC 33.2 LAB L100.1810 11.6-14.6 % Normal RDW CV 13.6 LAB L100.1820 35.1-43.9 fl High RDW SD 44.4 LAB L100.1900 150-450 K/mm3 Normal PLT 191 LAB L100.2000 6.2-12.0 fl Normal MPV 11.8 LAB L100.2100 47-70 % High NEUT% 75.0 LAB L100.2200 19-41 % Low LY% 18.8 LAB L100.2300 0-10 % Normal MONO% 4.9 LAB L100.2400 0-5 % Normal EO% 0.9 LAB L100.2500 0-1 % Normal BASO% 0.2 LAB L100.2550 0.0-0.9 % Normal IM GRAN % 0.200 Result Comment: IG% - Immature Granulocytes (promyelocytes, myelocytes and metamyelocytes) > 1% indicates that a LEFT SHIFT is Present. LAB L100.2620 2.0-7.7 X10 3/uL High Absolute Neut 8.8 LAB L100.2720 0.83-4.51 X10 3/ul Normal Absolute Lymph 2.21 Performed By: #### L100.0100 #### [facility] [address] [place], [address] BASIC METABOLIC Collected: 12/26/2017 Status: F Source: BADEN PROFILE (BMP) 1:03 AM [facility] REPOSITORY TYPE CODE TESTS RESULT OUT OF RANGE REFERENCE UNITS LAB L501.0100 74-106 mg/dL High GLU 110 Result Comment: Fasting Glucose result from 100 to 125 mg/dL suggests IMPAIRED HOMEOSTASIS per A.D.A. criteria. Please note revised GLUCOSE reference range effective 2017. LAB L501.1000 7-18 mg/dL Normal BUN 12 LAB L501.1100 0.55-1.02 mg/dL Normal CREAT,SERUM 0.65 Result Comment: The validity of the calculated GFR AND GFRAA in patients over 70 years has not been determined. Clinical correlation is essential. LAB L501.1110 >60 mL/min Normal EST GFR 111 Result Comment: Non- GFR Calc LAB L501.1115 >60 mL/min Normal EST GFR - AA 135 Result Comment: GFR Calc LAB L501.1255 ml/min Normal Estimated CRCL 133.12 LAB L501.1300 10-20 RATIO BUN/CRE Normal 18.5 LAB L501.2200 8.5-10 mg/dL .1 CA Normal 8.5 LAB L501.5300 136-14 mmol/L 5 NA Normal 137 LAB L501.5600 3.5-5. mmol/L 1 K Normal 3.5 LAB L501.5900 98-107 mmol/L CL Normal 105 LAB L501.6100 21.0-3 mmol/L 2.0 CO2 Normal 23.0 LAB L501.6200 5-15 GAP Normal 9 Performed By: #### L500.2500, L501.4010 #### [facility] [address] [place], [address] TROPONIN-I Collected: 12/26/2017 Status: F Source: BADEN 1:03 AM [facility] REPOSITORY TYPE CODE TESTS RESULT OUT OF RANGE REFERENCE UNITS LAB L501.4010 <0.045 ng/mL Normal < 0.015 TROPONIN-I Result Comment: TROPONIN-I EXPECTED VALUES <0.045 Negative 0.045 - 0.590 Consistent with Cardiac Damage > OR = 0.600 Critical Value Not every elevated troponin is indicative of WA. These values should be used with clinical judgement in examining the patient's clinical picture for diagnosis. To establish a diagnosis of WA versus myocardial injury, there must be a demonstrated rise and/or fall in the troponin values, in addition to ischemic symptoms, EKG changes, new regional wall motion abnormality, and/or angiographical evidence. PLEASE NOTE: REFERENCE RANGES EDITED 17 Performed By: #### L500.2500, L501.4010 #### [facility] [address] [place], [address] CHEST 1 VIEW Observed: 12/26/2017 Status: F Source: BADEN (PORTABLE) 12:51 AM [facility] REPOSITORY [facility] Imaging Services [address] [place] [address] Chest 1 View (Portable) MR#: [id number] Acct: [id number] Name: LUIS MIGUEL WALKER Rep #: [id number] : 1985 F 32 From: Tanmay George MD PCP: Chaz Hoffmann DO Status: REG ER Study: Chest 1 View (Portable) Date of Exam: 12/26/17 Exam# [id number] Ordering Dr: Demond Staples MD STUDY: X-RAY CHEST REASON FOR EXAM: Female, 32 years old. Sternal pain for one day. TECHNIQUE: Single AP portable view of the chest. # of Images: 1 COMPARISON: 07/11/2016. FINDINGS: The lungs are clear and expanded. There is no demonstrated pleural abnormality. Normal size heart. Normal mediastinum and kiara. Normal visualized pulmonary arteries. Normal visualized aortic arch and descending thoracic aorta. Normal visualized thoracic spine. Normal visualized ribs, clavicles, and shoulders. There is no demonstrated abnormality of the visualized soft tissue structures of the upper abdomen. RAD/Chest 1 View (Portable) IMPRESSION: Normal x-ray examination of the chest. Electronically Signed: Tanmay George MD at 1:45 EDT Tel , Service support , CC: Demond Staples MD; Chaz Hoffmann DO Take Down Sorter: Signed CBC W/DIFF, AUTOMATED Collected: 12/12/2017 Status: F Source: [facility] 2:54 PM [facility] REPOSITORY TYPE CODE TESTS RESULT OUT OF RANGE REFERENCE UNITS LAB L100.1000 4.4-11.0 K/mm3 High WBC 11.7 LAB L100.1200 4.2-5.4 M/mm3 Normal RBC 4.21 LAB L100.1300 12.0-15.0 g/dl Normal HGB 12.4 LAB L100.1400 37-47 % Normal HCT 38.0 LAB L100.1500 81-99 fL Normal MCV 90.3 LAB L100.1600 27.0-32.0 pg Normal MCH 29.5 LAB L100.1700 32-36 g/gl Normal MCHC 32.6 LAB L100.1810 11.6-14.6 % Normal RDW CV 13.6 LAB L100.1820 35.1-43.9 fl High RDW SD 44.5 LAB L100.1900 150-450 K/mm3 Normal PLT 207 LAB L100.2000 6.2-12.0 fl High MPV 12.7 LAB L100.2100 47-70 % High NEUT% 79.5 LAB L100.2200 19-41 % Low LY% 15.1 LAB L100.2300 0-10 % Normal MONO% 4.5 LAB L100.2400 0-5 % Normal EO% 0.6 LAB L100.2500 0-1 % Normal BASO% 0.2 LAB L100.2550 0.0-0.9 % Normal IM GRAN % 0.100 Result Comment: IG% - Immature Granulocytes (promyelocytes, myelocytes and metamyelocytes) > 1% indicates that a LEFT SHIFT is Present. LAB L100.2620 2.0-7.7 X10 3/uL High Absolute Neut 9.3 LAB L100.2720 0.83-4.51 X10 3/ul Normal Absolute Lymph 1.77 Performed By: #### L100.0100, L501.0250 #### [facility] [address] [place], [address] GLUCOSE CHALLENGE GEST Collected: 12/12/2017 Status: F Source: [place] 1H 50G 2:54 PM [facility] REPOSITORY TYPE CODE TESTS RESULT OUT OF RANGE REFERENCE UNITS LAB L501.0250 70-140 mg/dL Normal GLU GEST 90 50g 1H Performed By: #### L100.0100, L501.0250 #### [facility] [address] [place], [address] AQUACULTURE PROGRAM DIRECTOR OFFICE VISIT Observed: 12/12/2017 Status: F Source: [place] REPORT 2:17 PM [facility] REPOSITORY [facility] [address] [place] [address] OFFICE VISIT Date of Service: 12/12/17 MR#: [id number] Acct: [id number] Name: LUIS MIGUEL WALKER Rep #: [id number] : 1985 Provider: Liz Lloyd MD Age/Sex: 32/F Location: [facility] [place] Status: Signed Intake Vital Signs12/12/17 Height 5 ft 9.5 in 12/12/17 Weight: 275 lb 8 oz 12/12/17 Body Mass Index (BMI) 40.1 12/12/17 Blood Pressure 120/80 Intake Visit Reasons: 21 weeks Chief Complaint: est ob Telecom Analyst Required: No Is patient in pain?: No Allergies No Known Allergies Allergy (Verified 12/12/17 13:46) Medications Vits [Prenatabs FA ] 1 tab PO DAILY 05/12/16 [History Confirmed 12/12/17] Last Menstral Period: 06/11/17 Zika: Zika virus screening: Negative : No PFSH PFSH Medical History Abnormal pap (Acute) Endometriosis (Acute) Migraine (Acute) Family History Grandmother Cancer ovarian Grandfather Leukemia Non-Hodgkins Lymphoma Father CVA (cerebral vascular accident) Social History Smoking Status: Never smoker alcohol intake: never substance use type: does not use caffeine: Yes what type of physical activity do you participate in: walking seatbelt use: always do you feel safe at home: Yes additional social history: hao Pregancy History 2 Elective abortions Hx Para 1 Spontaneous abortions Past Pregnancies Del. DatName GA/WeeksOutcome Route [facility] LgAnesthesDel LocaProviderFOB e ht en ia tn 09/11/16Solomon live birC-sectio8 lbs. 1Male [address] [facility] - fuln 5 oz l term HPI 21 weeks: Details: LUIS MIGUEL WALKER is a 32 year old who presents for routine OB visit. OB Visit MANISH Calculator Estimated Delivery Date 03/18/18 Based on LMP (certain) 06/11/17 Current WG 26w 2d Number 1 Expected Delivery Route/Plan considering tolac education given Specific Issue/Plans flu vaccine: [] minichart given: [] tdap vaccine: [] rhogam: [] LARC form signed: [] labor support person: [] pain management: [] cut cord/dad catch: [] : [] PP control planned: [] special requests: [] Initial Weight: 263 lb Date Weight BP Urine PFHR FuHt Pres MCTX DilatioFetal SVisit NProvideComment rot ov n t ote r s EGA Ef Gluco faced se 08/15/1266 lb 121/77 8 3.2 oz 9w(+4 lb 2d 3.2 oz) Visit Notes Visit Date: 12/12/17 no vb lof good fm n oregular ctx. cbc gct tdap today Liz Lloyd MD on 12/12/17 Visit Date: 11/12/17 taking adderall again as needed. co some knee pain- recommend PCP eval. no vb cramping. has fu anatomy scan Liz Lloyd MD on 11/12/17 Visit Date: 10/10/17 Doing well. No VB, LOF. Wants to discuss with ANGELIQUE about adderall. Spoke with PCP and said had to be addressed by OB Shanti Zamora NP-Josefina on 10/10/17 Visit Date: 09/09/17 no vb abnormal discharge Liz Lloyd MD on 09/09/17 Visit Date: 08/15/17 No visit notes to display Diagnostics Diagnostics Labs Blood Type A POSITIVE 09/10/16 Antibody Screen NEGATIVE 09/10/16 Hct 37.6 % (37-47) 08/21/17 Hgb 12.5 g/dl (12.0-15.0) 08/21/17 Pap Smear Negative 11/04/16 Obstetrics Ultrasound 11/19/17 Rubella IgG Antibody 98.6 IU/mL 08/21/17 RPR NONREACTIVE (NONREACTIVE) 08/21/17 Hep Bs Antigen Negative (Negative) 08/21/17 Chlam trachomat DNA PCR Negative (Negative) 08/15/17 N.gonorrhoeae DNA (PCR) Negative (Negative) 08/15/17 Details: HIV: Urine Culture: Sequential Screen: NIPT Screen: Immunizations Boostrix Tdap Performing Provider: Liz Lloyd MD Administered by: Luda Jacobson on 12/12/17 13:55 Dose Route Admin Location Lot Number Expiration Date [facility] [place] [employer] Expert 0.5 mL IM Left Arm (SQ) [id number] 01/27/24 30207-754-53 [employer] VIS Given Date VIS Publication Date 12/12/17 05/03/14 Eligibility Eligibility Date Assessment AND Plan Problems 1. Family history of congenital heart defect Z82.79 normal anatomy scan with [facility] 2. Anxiety F41.9 counseling, vistaril PRN 3. Attention deficit hyperactivity disorder (ADHD), predominantly inattentive type F90.0 4. History of delivery Z98.891 considering 5. History of abnormal cervical Pap smear Z87.898 6. Encounter for supervision of other normal in second trimester Z34.82 PRR MANISH 03/18/18 ANDREA Boo Hao Plan ACOG trimester education reviewed and updated. see problem list details for updated plan management information and see below for orders placed at this visit. GA appropriate handout given. Orders Orders: Medications Discontinued: Boostrix Tdap (diphth,pertus(acell),tetanus) Discontinued 0.5 mL IM ONCE #1 0RF NS Z23 Reason: Office Medication has been Documented as given Coding Level of Care Code OB Routine Diagnoses Family history of congenital heart defect Z82.79 Anxiety F41.9 Attention deficit hyperactivity disorder (ADHD), predominantly inattentive type F90.0 Attention deficit-hyperactivity disorder type: predominantly inattentive Hyperactivity presence: present History of delivery Z98.891 History of abnormal cervical Pap smear Z87.898 Encounter for supervision of other normal in second trimester Z34.82 Normal : other normal Trimester: second trimester 12/12/17 1417 <Electronically signed by Liz Lloyd MD> Date Liz Lloyd MD Cosigner Signature: Date (if applicable) CC: OB LIMITED (NO Observed: 11/19/2017 Status: F Source: [facility] BIOMETRICS) 7:57 AM [facility] REPOSITORY [facility] Imaging Services [address] [place] [address] OB Limited (No Biometrics) MR#: [id number] Acct: [id number] Name: LUIS MIGUEL WALKER Rep #: [id number] : 1985 F 32 From: Lonnie Steven MD PCP: Chaz Hoffmann DO Status: REG CLTawny Study: OB Limited (No Biometrics) Date of Exam: 11/19/17 Exam# [id number] Ordering Dr: Shanti Zamora ONLINE MARKETING ANALYST-Josefina STUDY: SECOND AND THIRD TRIMESTER OBSTETRICAL ULTRASOUND - LIMITED REASON FOR EXAM: Female, 32 years old. Follow-up anatomy. LMP: June 11, 2017. PRIOR ULTRASOUND: Comparison is made with prior examination dated October 22, 2017. TECHNIQUE: Transabdominal ultrasound evaluation was performed. FINDINGS: There is a single intrauterine fetus. The fetus is in a breech presentation. There is demonstrated cardiac activity with a heart rate of 149 bpm. There is a normal amniotic fluid volume. The largest amniotic fluid pocket measures 5.2 cm x 5.2 cm. The amniotic fluid index (MANOLO) is normal. The placenta is anterior in location and is not low lying. The previously seen marginal placenta previa as result. There are Grade 0 placental changes. The cervix measures 3.8 cm in length. BIOMETRY: BPD: 5.42 cm: 22 weeks, 4 days HC: 21.65 cm: 23 weeks, 5 days AC: 18.01 cm: 23 weeks, 0 days FL: 4.34 sign: 24 weeks, 2 days Age by LMP: 23 weeks, 0 days. MANISH by LMP: March 18, 2018. age by prior US: 23 weeks, 3 days. MANISH by prior US: March 15, 2018. age by current US: 23 weeks, 3 days. MANISH by current US: March 15, 2018. Estimated weight: 595 grams, +/- 87 grams, 65 percentile. Gender: Male The four-chamber heart view is normal. The nose and lips are normal as well. US/OB Limited (No Biometrics) IMPRESSION: Single live intrauterine gestation with a mean gestational age of 23 weeks and 3 days. The previously seen marginal placenta previa has resolved. Electronically Signed: Lonnie Steven MD at 9:18 EDT Tel [phone], Service support , CC: FRED Zamora; Chaz Hoffmann DO Take Down Sorter: Signed AQUACULTURE PROGRAM DIRECTOR OFFICE VISIT Observed: 11/12/2017 Status: F Source: [facility] REPORT 4:08 PM [facility] [address] [place] [address] OFFICE VISIT Date of Service: 11/12/17 MR#: [id number] Acct: [id number] Name: LUIS MIGUEL AWLKER Rep #: [id number] : 1985 Provider: Liz Lloyd MD Age/Sex: 32/F Location: [facility] [place] Status: Signed Intake Vital Signs11/12/17 Height 5 ft 9.5 in 11/12/17 Weight: 274 lb 2 oz 11/12/17 Body Mass Index (BMI) 39.9 11/12/17 Blood Pressure 122/78 Intake Visit Reasons: est ob 22 weeks Chief Complaint: est ob Telecom Analyst Required: No Is patient in pain?: No Allergies No Known Allergies Allergy (Verified 11/12/17 15:42) Medications Vits [Prenatabs FA ] 1 tab PO DAILY 05/12/16 [History Confirmed 10/10/17] Last Menstral Period: 06/11/17 Zika: Zika virus screening: Negative : No PFSH PFSH Medical History Abnormal pap (Acute) Endometriosis (Acute) Migraine (Acute) Family History Grandmother Cancer ovarian Grandfather Leukemia Non-Hodgkins Lymphoma Father CVA (cerebral vascular accident) Social History Smoking Status: Never smoker alcohol intake: never substance use type: does not use caffeine: Yes what type of physical activity do you participate in: walking seatbelt use: always do you feel safe at home: Yes additional social history: hao Pregancy History 2 Elective abortions Hx Para 1 Spontaneous abortions Past Pregnancies Del. DatName GA/WeeksOutcome Route Bt WeigInfant GLabor LgAnesthesDel LocaProviderFOB e ht en th ia tn 09/11/16Solomon live birC-sectio8 lbs. 1Male 24 [facility] - fuln 5 oz l term HPI est ob 22 weeks: Details: LUIS MIGUEL WALKER is a 32 year old who presents for routine OB visit. OB Visit MANISH Calculator Estimated Delivery Date 03/18/18 Based on LMP (certain) 06/11/17 Current WG 22w 0d Number 1 Expected Delivery Route/Plan considering tolac education given Specific Issue/Plans flu vaccine: [] minichart given: [] tdap vaccine: [] rhogam: [] LARC form signed: [] labor support person: [] pain management: [] cut cord/dad catch: [] : [] PP control planned: [] special requests: [] Initial Weight: Not Recorded Date Weight BP Urine PFHR FuHt Pres MCTX DilatioFetal SVisit NProvideComment rot ov n t ote r s EGA Ef Gluco faced se 08/15/1266 lb 121/77 8 3.2 oz 9w 2d Visit Notes Visit Date: 11/12/17 taking adderall again as needed. co some knee pain- recommend PCP eval. no vb cramping. has fu anatomy scan Liz Lloyd MD on 11/12/17 Visit Date: 10/10/17 Doing well. No VB, LOF. Wants to discuss with ANGELIQUE about adderall. Spoke with PCP and said had to be addressed by OB Shanti Zamora NP-C on 10/10/17 Visit Date: 09/09/17 no vb abnormal discharge Liz Lloyd MD on 09/09/17 Visit Date: 08/15/17 No visit notes to display Diagnostics Diagnostics Labs Blood Type A POSITIVE 09/10/16 Antibody Screen NEGATIVE 09/10/16 Hct 37.6 % (37-47) 08/21/17 Hgb 12.5 g/dl (12.0-15.0) 08/21/17 Pap Smear Negative 11/04/16 Obstetrics Ultrasound 10/22/17 Rubella IgG Antibody 98.6 IU/mL 08/21/17 RPR NONREACTIVE (NONREACTIVE) 08/21/17 Hep Bs Antigen Negative (Negative) 08/21/17 Chlam trachomat DNA PCR Negative (Negative) 08/15/17 N.gonorrhoeae DNA (PCR) Negative (Negative) 08/15/17 Glucose 1 Hr 50 gm 109 mg/dL (70-140) 06/04/16 Rhogam given: No 09/19/16 Details: HIV: Urine Culture: Sequential Screen: NIPT Screen: Results [id number] Office Urine Glucose Negative Last Edit by Luda M Jacobson on 11/12/17 15:49 Office Urine Protein Negative Last Edit by Luda Jacobson on 11/12/17 15:49 Assessment AND Plan Problems 1. History of delivery Z98.891 considering 2. Family history of congenital heart defect Z82.79 plan 24 week echo 3. Attention deficit hyperactivity disorder (ADHD), predominantly inattentive type F90.0 4. Anxiety F41.9 counseling, vistaril PRN 5. History of abnormal cervical Pap smear Z87.898 6. Encounter for supervision of other normal in second trimester Z34.82 PRR MANISH 03/18/18 PC Rajeev Hao Plan ACOG trimester education reviewed and updated. see problem list details for updated plan management information and see below for orders placed at this visit. GA appropriate handout given. Orders Orders: Coding Level of Care Code OB Routine Diagnoses History of delivery Z98.891 Family history of congenital heart defect Z82.79 Attention deficit hyperactivity disorder (ADHD), predominantly inattentive type F90.0 Attention deficit-hyperactivity disorder type: predominantly inattentive Hyperactivity presence: present Anxiety F41.9 History of abnormal cervical Pap smear Z87.898 Encounter for supervision of other normal in second trimester Z34.82 Normal : other normal Trimester: second trimester 11/12/17 1608 <Electronically signed by Liz Lloyd MD> Date Liz Lloyd MD Cosigner Signature: Date (if applicable) CC: OB ANATOMY SCAN Observed: 10/22/2017 Status: F Source: [facility] 11:18 AM [facility] REPOSITORY [facility] Imaging Services [address] [place] [address] OB Anatomy Scan MR#: [id number] Acct: [id number] Name: LUIS MIGUEL WALKER Rep #: [id number] : 1985 F 32 From: Naman Cedeño MD PCP: Chaz Hoffmann DO Status: REG CLI Study: OB Anatomy Scan Date of Exam: 10/22/17 Exam# [id number] Ordering Dr: Shanti Zamora ONLINE MARKETING ANALYST-C STUDY: SECOND AND THIRD TRIMESTER OBSTETRICAL ULTRASOUND REASON FOR EXAM: Female, 32 years old. Complete anatomy scan, 2nd trimester OB ultrasound. LMP: 06/11/2017. GA (LMP) 19 weeks 0 days, with MANISH 03/18/2018. TECHNIQUE: Transabdominal complete OB ultrasound with anatomy survey and biometrics. In addition, limited transvaginal imaging for assessment of the cervix and marginal placenta. PRIOR ULTRASOUND: None. FINDINGS: There is a single live intrauterine gestation, cardiac rate 152 bpm. Variable presentation. Cervical length 5.6 cm, closed. Placenta grade 0, anterior position, marginal. The placental tip lies within 1 cm of the cervical os. Amniotic fluid quantity is visually normal. The adnexa are not characterized. BIOMETRY: Measurement in centimeters. BPD: 4.4: 19 weeks, 3 days HC: 16.8: 19 weeks, 4 days AC: 13.7: 19 weeks, 1 days FL: 3.0 : 19 weeks, 2 days CI: 79% FL/BPD: 68% FL/AC: 22% HC/AC: 1.2 age by current US: 19 weeks, 3 days. MANISH by current US: 03/15/2018.. Estimated weight: 281 grams, +/- 41 grams, 59 %. ANATOMY: Anatomy survey is partially limited by position. Gender: Male Cranium: Normal lateral ventricles. Normal choroid plexus. Normal cerebellum. Normal cisterna magna. face/nose/lips incompletely characterized. Chest: Inadequately characterized. Abdomen/Pelvis: Normal diaphragm. Normal stomach. Normal abdominal wall. Normal cord insertion. Normal 3 vessel cord. Normal kidneys. Normal bladder. Spine: Normal cervical spine. Normal thoracic spine. Normal lumbar spine. Normal sacrum. Extremities: Normal bilateral upper extremities. Normal bilateral lower extremities. US/OB Anatomy Scan IMPRESSION: Anatomy survey is partially limited due to position and the facial features and four-chamber heart are not completely characterized requiring follow-up. The remaining anatomy survey is normal. Single live intrauterine gestation. Appropriate cardiac activity. Normal amniotic fluid. Closed cervix. No acute or maternal abnormality is evident. Marginal placenta. Electronically Signed: Naman Cedeño, at 16:47 EDT Tel , Service support , CC: FRED Zamora; Chaz Hoffmann DO Take Down Sorter: Signed AQUACULTURE PROGRAM DIRECTOR OFFICE VISIT Observed: 10/10/2017 Status: F Source: [place] REPORT 3:53 PM [facility] REPOSITORY [facility] [address] [place] [address] OFFICE VISIT Date of Service: 10/10/17 MR#: [id number] Acct: [id number] Name: LUIS MIGUEL CARSON Rep #: [id number] : 1985 Provider: FRED Zamora Age/Sex: 32/F Location[place] [facility] [place] Status: Signed Intake Vital Signs10/10/17 Height 5 ft 10 in 10/10/17 Weight: 265 lb 4 oz 10/10/17 Body Mass Index (BMI) 38.0 10/10/17 Blood Pressure 129/68 Intake Visit Reasons: est ob 17 weeks Chief Complaint: est ob Telecom Analyst Required: No Is patient in pain?: Yes Allergies No Known Allergies Allergy (Verified 10/10/17 15:34) Medications Vits [Prenatabs FA ] 1 tab PO DAILY 05/12/16 [History Confirmed 10/10/17] Last Menstral Period: 06/11/17 Zika: Zika virus screening: Negative : No PFSH PFSH Medical History Abnormal pap (Acute) Endometriosis (Acute) Migraine (Acute) Family History Grandmother Cancer ovarian Grandfather Leukemia Non-Hodgkins Lymphoma Father CVA (cerebral vascular accident) Social History Smoking Status: Former smoker Pregancy History 2 Elective abortions Hx Para 1 Spontaneous abortions Past Pregnancies Del. DatName GA/WeeksOutcome Route Bt Lita Smith LgAnesthesDel LocaProviderFOB e ht en th ia tn 09/11/16Solomon live birC-sectio8 lbs. 1Male 24 WCH RR Hao th - fuln 5 oz l term HPI est ob 17 weeks: Details: LUIS MIGUEL CARSON is a 32 year old who presents for routine OB visit. OB Visit MANISH Calculator Estimated Delivery Date 03/18/18 Based on LMP (certain) 06/11/17 Current WG 17w 2d Number 1 Expected Delivery Route/Plan considering tolac education given Specific Issue/Plans flu vaccine: [] minichart given: [] tdap vaccine: [] rhogam: [] LARC form signed: [] labor support person: [] pain management: [] cut cord/dad catch: [] : [] PP control planned: [] special requests: [] Initial Weight: Not Recorded Date Weight BP Urine PFHR FuHt Pres MCTX DilatioFetal SVisit NProvideComment rot ov n t ote r s EGA Ef Gluco faced se 08/15/1266 lb 121/77 8 3.2 oz 9w 2d Visit Notes Visit Date: 10/10/17 Doing well. No VB, LOF. Wants to discuss with ANGELIQUE about adderall. Spoke with PCP and said had to be addressed by OB MATTHEW Horn on 10/10/17 Visit Date: 09/09/17 no vb abnormal discharge Liz Lloyd MD on 09/09/17 Visit Date: 08/15/17 No visit notes to display Diagnostics Diagnostics Labs Blood Type A POSITIVE 09/10/16 Antibody Screen NEGATIVE 09/10/16 Hct 37.6 % (37-47) 08/21/17 Hgb 12.5 g/dl (12.0-15.0) 08/21/17 Rubella IgG Antibody 98.6 IU/mL 08/21/17 RPR NONREACTIVE (NONREACTIVE) 08/21/17 Hep Bs Antigen Negative (Negative) 08/21/17 Chlam trachomat DNA PCR Negative (Negative) 08/15/17 N.gonorrhoeae DNA (PCR) Negative (Negative) 08/15/17 Glucose 1 Hr 50 gm 109 mg/dL (70-140) 06/04/16 Rhogam given: No 09/19/16 Details: HIV: Urine Culture: Sequential Screen: NIPT Screen: Results [id number] Office Urine Glucose Negative Last Edit by Luda Jacobson on 10/10/17 15:36 Office Urine Protein Negative Last Edit by Luda Jacobson on 10/10/17 15:36 Assessment AND Plan Problems 1. Encounter for supervision of other normal in first trimester Z34.81 PRR MANISH 03/18/18 PC Rajeev Hao 2. History of abnormal cervical Pap smear Z87.898 3. History of delivery Z98.891 considering 4. Attention deficit hyperactivity disorder (ADHD), predominantly inattentive type F90.0 5. Anxiety F41.9 counseling, vistaril PRN 6. Family history of congenital heart defect Z82.79 plan 24 week echo 7. 17 weeks gestation of Z3A.17 Plan Orders placed: anatomy US Will discuss adderall with ANGELIQUE Reviewed of labor precautions, movement/kick counts ACOG trimester education reviewed and updated See problem list details for updated plan of care Gestational age appropriate handout given RTO: 4 weeks Orders Orders: Coding Level of Care Code OB Routine Diagnoses Encounter for supervision of other normal in first trimester Z34.81 Normal : other normal Trimester: first trimester History of abnormal cervical Pap smear Z87.898 History of delivery Z98.891 Attention deficit hyperactivity disorder (ADHD), predominantly inattentive type F90.0 Attention deficit-hyperactivity disorder type: predominantly inattentive Hyperactivity presence: present Anxiety F41.9 Family history of congenital heart defect Z82.79 17 weeks gestation of Z3A.17 10/10/17 1553 <Electronically signed by Shanti CASTRO> Date Shanti CASTRO Cosigner Signature: Date (if applicable) CC: OFFICE VISIT REPORT Observed: 09/11/2017 Status: F Source: [place] 10:16 AM [facility] [address] 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 [place] [address] OFFICE VISIT Date of Service: 09/09/17 MR#: [id number] Acct: [id number] Name: LUIS MIGUEL CARSON Kay Rep #: [id number] : 1985 Provider: Liz Lloyd MD Age/Sex: 32/F Location: [facility] [place] Status: Signed Intake Vital Signs09/09/17 Height 5 ft 10 in 09/09/17 Weight: 263 lb 09/09/17 Body Mass Index (BMI) 37.7 09/09/17 Blood Pressure 102/70 Intake Visit Reasons: 13 WEEK OB Is patient in pain?: No Allergies No Known Allergies Allergy (Verified 09/09/17 08:36) Medications Vits [Prenatabs FA ] 1 tab PO DAILY 05/12/16 [History Confirmed 09/09/17] Ibuprofen [Motrin] 600 mg PO Q6H PRN #60 tab 09/12/16 [Rx Confirmed 09/09/17] Oxycodone HCl/Acetaminophen [Percocet 5/325] 1 - 2 tab PO Q6H PRN PRN #40 tab 09/12/16 [Rx Confirmed 09/09/17] Last Menstral Period: 06/11/17 Zika: Zika virus screening: Negative : No PFSH PFSH Medical History Abnormal pap (Acute) Endometriosis (Acute) Migraine (Acute) Family History Grandmother Cancer ovarian Grandfather Leukemia Non-Hodgkins Lymphoma Father CVA (cerebral vascular accident) Social History Smoking Status: Former smoker Pregancy History 2 Elective abortions 1 Hx Para 1 Spontaneous abortions Past Pregnancies Del. DatName GA/WeeksOutcome Route [facility] LgAnestheDEel LocaProviderFOB e ht en ia tn 09/11/16Solomon live birC-sectio8 lbs. 1Male 24 WCH RR Hao th - fuln 5 oz l term HPI 13 WEEK OB: Details: LUIS MIGUEL CARSON is a 32 year old who presents for routine OB visit. OB Visit MANISH Calculator Estimated Delivery Date 03/18/18 Based on LMP (certain) 06/11/17 Current WG 12w 6d Number 1 Expected Delivery Route/Plan considering tolac education given Specific Issue/Plans flu vaccine: [] minichart given: [] tdap vaccine: [] rhogam: [] LARC form signed: [] labor support person: [] pain management: [] cut cord/dad catch: [] : [] PP control planned: [] special requests: [] Initial Weight: Not Recorded Date Weight BP Urine PrFHR FuHt Pres MoCTX DilationFetal StVisit NoProviderComments E ot v te GA G Effac lucose ed Visit Notes Visit Date: 09/09/17 no vb abnormal discharge Liz Lloyd MD on 09/09/17 Visit Date: 08/15/17 No visit notes to display Diagnostics Diagnostics Labs Blood Type A POSITIVE 09/10/16 Antibody Screen NEGATIVE 09/10/16 Hct 37.6 % (37-47) 08/21/17 Hgb 12.5 g/dl (12.0-15.0) 08/21/17 Rubella IgG Antibody 98.6 IU/mL 08/21/17 RPR NONREACTIVE (NONREACTIVE) 08/21/17 Hep Bs Antigen Negative (Negative) 08/21/17 Chlam trachomat DNA PCR Negative (Negative) 08/15/17 N.gonorrhoeae DNA (PCR) Negative (Negative) 08/15/17 Glucose 1 Hr 50 gm 109 mg/dL (70-140) 06/04/16 Rhogam given: No 09/19/16 Details: HIV: Urine Culture: Sequential Screen: NIPT Screen: Results [id number] Office Urine Glucose Negative Last Edit by Jennifer Gomez on 09/09/17 08:37 Office Urine Protein 1+ Last Edit by Jennifer Gomez on 09/09/17 08:37 Assessment AND Plan Problems 1. Family history of congenital heart defect Z82.79 plan 24 week echo 2. Attention deficit hyperactivity disorder (ADHD), predominantly inattentive type F90.0 3. Anxiety F41.9 counseling, vistaril PRN 4. History of delivery Z98.891 considering 5. History of abnormal cervical Pap smear Z87.898 6. Encounter for supervision of other normal in first trimester Z34.81 PRR (T AND S) MANISH 03/18/18 PC Rajeev Hao Plan Orders placed: getting in two weeks ACOG trimester education reviewed and updated. see problem list details for updated plan management information. GA appropriate handout given. Orders Orders: Coding Level of Care Code OB Routine Diagnoses Family history of congenital heart defect Z82.79 Attention deficit hyperactivity disorder (ADHD), predominantly inattentive type F90.0 Attention deficit-hyperactivity disorder type: predominantly inattentive Hyperactivity presence: present Anxiety F41.9 History of delivery Z98.891 History of abnormal cervical Pap smear Z87.898 Encounter for supervision of other normal in first trimester Z34.81 Normal : other normal Trimester: first trimester 09/09/17 0853 <Electronically signed by Liz Lloyd MD> Date Liz Lloyd MD Cosigner Signature: Date (if applicable) CC: DOWNTIME REPORT Observed: 08/28/2017 Status: F Source: [place] 1:21 PM [facility] REPOSITORY [facility] Medical Records Department [address] [place] [address] Downtime Report MR#: [id number] Acct: [id number] Name: LUIS MIGUEL CARSON Kay Rep #: [id number] : 1985 32 From: Marshall Oshea PCP: Status: REG CLI This patient was seen during an EMR downtime August 11, 2017 - August 18, 2017. This patient may have a combination of paper and electronic documentation or all paper documentation. All documentation is viewable within the e-chart portion of [facility] for each patient visit. CBC W/DIFF, AUTOMATED Collected: 08/21/2017 Status: F Source: [place] 7:45 AM [facility] REPOSITORY Order Comment: VEIN GAVE OUT, TYPE N SCREEN WAS NOT DONE BUT WILL DO WITH GLUCOSE TESTING. TYPE CODE TESTS RESULT OUT OF RANGE REFERENCE UNITS LAB L100.1000 4.4-11.0 K/mm3 High WBC 11.1 LAB L100.1200 4.2-5.4 M/mm3 Normal RBC 4.24 LAB L100.1300 12.0-15.0 g/dl Normal HGB 12.5 LAB L100.1400 37-47 % Normal HCT 37.6 LAB L100.1500 81-99 fL Normal MCV 88.7 LAB L100.1600 27.0-32.0 pg Normal MCH 29.5 LAB L100.1700 32-36 g/gl Normal MCHC 33.2 LAB L100.1810 11.6-14.6 % Normal RDW CV 14.1 LAB L100.1820 35.1-43.9 fl High RDW SD 45.1 LAB L100.1900 150-450 K/mm3 Normal PLT 249 LAB L100.2000 6.2-12.0 fl Normal MPV 11.8 LAB L100.2100 47-70 % Normal NEUT% 67.9 LAB L100.2200 19-41 % Normal LY% 24.5 LAB L100.2300 0-10 % Normal MONO% 5.7 LAB L100.2400 0-5 % Normal EO% 1.4 LAB L100.2500 0-1 % Normal BASO% 0.3 LAB L100.2550 0.0-0.9 % Normal IM GRAN % 0.200 Result Comment: IG% - Immature Granulocytes (promyelocytes, myelocytes and metamyelocytes) > 1% indicates that a LEFT SHIFT is Present. LAB L100.2620 2.0-7.7 X10 3/uL Normal Absolute Neut 7.6 LAB L100.2720 0.83-4.51 X10 3/ul Normal Absolute Lymph 2.72 Performed By: #### L100.0100 #### [facility] [address] [place] [address], [address] #### L3100.0390 #### [facility] (refer to report for specific site) refer to report for address and phone number HEPATITIS B SURFACE Collected: 08/21/2017 Status: F Source: [place] AG 7:45 AM [facility] REPOSITORY Order Comment: VEIN GAVE OUT, TYPE N SCREEN WAS NOT DONE BUT WILL DO WITH GLUCOSE TESTING. TYPE CODE TESTS RESULT OUT OF RANGE REFERENCE UNITS LAB L3100.0400 Negative Normal HB Negative SURF AG Result Comment: Performed at: - [facility], [place], [place] [id number] Equipment Maintenance Superintendent: Last Baird PhD, Phone: [phone] Performed By: #### L100.0100 #### [facility] [address] [facility] [place], [address] #### L3100.0390 #### [facility] (refer to report for specific site) refer to report for address and phone number RAPID PLASMIN REAGIN Collected: 08/21/2017 Status: F Source: [place] (RPR) 7:45 AM [facility] REPOSITORY Order Comment: VEIN GAVE OUT, TYPE N SCREEN WAS NOT DONE BUT WILL DO WITH GLUCOSE TESTING. TYPE CODE TESTS RESULT OUT OF REFERENCE UNITS RANGE LAB L700.5000 NONREACTIVE NONREACTIVE Normal RPR Performed By: #### L700.5000, L509.4000, L3890.6005 #### [facility] [address] [place], [address] RUBELLA IGG Collected: 08/21/2017 Status: F Source: [place] 7:45 AM [facility] REPOSITORY Order Comment: VEIN GAVE OUT, TYPE N SCREEN WAS NOT DONE BUT WILL DO WITH GLUCOSE TESTING. TYPE CODE TESTS RESULT OUT OF RANGE REFERENCE UNITS LAB L509.4000 IU/mL Normal Rubella IgG 98.6 Result Comment: Antibody results Interpretation of Immune Status < 5 IU/ml Presumed Non-immune 5 - < 10 IU/ml Equivocal > or = 10 IU/ml Presumed Immune Performed By: #### L700.5000, L509.4000, L3890.6005 #### [facility] [address] [place], [place], [address] HIV - [facility] Collected: 08/21/2017 Status: F Source: [place] 7:45 AM [facility] REPOSITORY Order Comment: VEIN GAVE OUT, TYPE N SCREEN WAS NOT DONE BUT WILL DO WITH GLUCOSE TESTING. TYPE CODE TESTS RESULT OUT OF RANGE REFERENCE UNITS LAB L3890.6005 Nonreactive Normal HIV - [facility] Non-Reactive Performed By: #### L700.5000, L509.4000, L3890.6005 #### [facility] [address] [place], [address] Observed: 08/15/2017 Status: F Source: [place] CULTURE, URINE 2:30 PM [facility] REPOSITORY PLEASE CALL RESULTS TO [phone] RESULT(S) PREVIOUSLY REPORTED ON MANUAL REQUISITION DURING DOWNTIME. Urine Culture Culture exhibits no growth. Performed By: #### M100.0650 #### [facility] [address] [place], [address] CT/NG [facility] BY PCR Collected: 08/15/2017 Status: F Source: [place] 2:30 PM [facility] REPOSITORY Order Comment: RESULT(S) PREVIOUSLY REPORTED ON MANUAL REQUISITION DURING DOWNTIME. TYPE CODE TESTS RESULT OUT OF RANGE REFERENCE UNITS LAB L8200.2100 Negative Normal Chlam Negative Trac PCR LAB L8200.2200 Negative Normal NG by Negative PCR Performed By: #### L8200.2000 #### [facility] [address] [place], [address] ALLERGIES ALLERGIES DATE TYPE / CODE NAME / CODE REACTION SEVERITY SOURCE 03/18/2018 Drug No Known Unknown [facility] Allergy/4160 Allergies/F00 Hospital 53826(SNOMED 6970597(RXNOR Repository CT) M) ENCOUNTERS ENCOUNTERS ADMIT/DISCHARGE ACCOUNT ADMITTING ENCOUNTER LOCATION SOURCE NUMBER CLASS 03/18/2018/ [id number] Ambulatory BMSBuilding:B [place] 9 8 MS[facility] Repository 03/18/2018 [id number] [place], Ambulatory [place] 2 [facility] ing:WP Repository 03/07/2018/ [id number] Prema, Inpatient [place] 9 4 Liz [facility] ing:WPRoom: Repository [id number]: 1 03/07/2018 [id number] Prema, Ambulatory BMSBuilding:B [place] 8 Liz MS..[facility] Repository 03/07/2018 [id number] [place], Ambulatory BMSBuilding:B [place] 2 Liz MS.CF[facility] Repository 03/07/2018 [id number] Pre[place], Ambulatory BMSBuilding:B [place] 2 Liz MS.[facility] Repository 03/07/2018 [id number] Pre[place], Ambulatory BMSBuilding:B [place] 1 Liz MS.CF.[facility] Repository 03/04/2018/ [id number] Ambulatory [place] 8 5 [facility] ing:WPOUTRoom Repository : WP011 02/25/2018/ [id number] Ambulatory BMSBuilding:B [place] 8 6 [facility] Repository 02/24/2018 [id number] Ambulatory [place] 0 [facility] ing:OPUS Repository 02/23/2018 [id number] Ambulatory BMSBuilding:B [place] 4 MS.[facility] Repository 02/22/2018/ [id number] Ambulatory [place] 8 5 [facility] ing:WPOUTRoom Repository : WP015 02/18/2018 [id number] Ambulatory [place] 9 [facility] Hospital ing:LABSPEC Repository 02/18/2018/ [id number] Ambulatory BMSBuilding:B [place] 8 4 [facility] Repository 02/10/2018/ [id number] Ambulatory BMSBuilding:B [place] 8 2 [facility] Repository 01/28/2018/ [id number] Ambulatory BMSBuilding:B [place] 8 9 [facility] Repository 01/22/2018 [id number] Ambulatory [place] 8 [facility] ing:OPUS Repository 01/13/2018/ [id number] Ambulatory BMSBuilding:B [place] 8 5 [facility] Repository 12/26/2017/ [id number] Emergency [place] 2 [facility] ing:ED Repository 12/12/2017 [id number] Ambulatory [place] 2 [facility] ing:LAB Repository 12/12/2017/ [id number] Ambulatory BMSBuilding:B [place] 8 6 [facility] Repository 12/10/2017 [id number] Ambulatory BMSBuilding:B [place] 4 [facility] Repository 11/19/2017 [id number] Ambulatory [place] 3 [facility] ing:OPUS Repository 11/12/2017/ [id number] Ambulatory BMSBuilding:B [place] 8 2 [facility] Repository 10/22/2017 [id number] Ambulatory [place] 2 [facility] ing:US Repository 10/10/2017/ [id number] Ambulatory BMSBuilding:B [place] 8 1 [facility] Repository 09/11/2017 [id number] Ambulatory BMSBuilding:B [place] 5 [facility] Repository 09/11/2017 [id number] Ambulatory BMSBuilding:B [place] 4 [facility] Repository 09/09/2017/ [id number] Ambulatory BMSBuilding:B [place] 8 2 [facility] Repository 08/21/2017 [id number] Ambulatory [place] 7 [facility] ing:LAB Repository 08/15/2017 [id number] Ambulatory [place] [facility] ing:LABSPEC Repository 08/15/2017/ [id number] Ambulatory BMSBuilding:B [place] 8 3 [facility] Repository 08/11/2017 [id number] Ambulatory BMSBuilding:B [place] 3 [facility] Repository PAYERS PAYERS ENCOUNTER GUARANTOR PAYER SUBSCRIBER SOURCE 03/18/2018 LUIS MIGUEL AZALIA Primary Insurance:[facility] LUIS MIGUELJO ANN VIEYRA [place] [id number] [facility] [id number] Hospital [address]Kkf: (330) Number: Repository [phone] () [id number] Date:3285-81-67SP [address] [address], [place] [address]EP: CHECK WEBSITE 03/18/2018 Secondary NOT GIVENUNK [place] Insurance:SELF PAY [facility] Number: Effective Repository Date:2018-03-18 03/18/2018 LUIS MIGUEL VIEYRA Primary Insurance:[facility] LUIS MIGUEL [place] [id number] [facility] [id number] Hospital [address]Fpt: (330) Number: Repository [phone] () [id number] Date:0504-79-39NI [address] [address], [place] [address]BJ: CHECK WEBSITE 03/18/2018 Secondary NOT GIVENUNK [place] Insurance:SELF PAY [facility] Number: Effective Repository Date:2018-01-22 03/07/2018 LUIS MIGUEL VIEYRA Primary Insurance:[facility] LUIS MIGUEL [address] [id number] [facility] [id number] Hospital [address]Lxg: (330) Number: Repository [phone] () [id number] Date:6901-03-12HZ [address] [address], [place] [address]NB: CHECK WEBSITE 03/07/2018 Secondary NOT GIVENUNK [place] Insurance:SELF PAY [facility] Number: Effective Repository Date:2018-03-07 03/07/2018 LUIS MIGUEL Villanueva Primary Insurance:[facility] LUIS MIGUEL [place] [id number] [facility] [id number] Hospital [address]Mqu: (330) Number: Repository [phone] () [id number] Date:1457-71-67DW [address] [address], [place] [address]VJ: CHECK WEBSITE 03/07/2018 Secondary NOT GIVENUNK [place] Insurance:SELF PAY [facility] Number: Effective Repository Date:2018-03-07 03/07/2018 LUIS MIGUEL VIEYRA Primary Insurance:[facility] LUIS MIGUEL [address] [id number] [facility] [id number] Hospital [address]Yfs: (330) Number: Repository [phone] () [id number] Date:2727-19-64UZ [address] [address], [place] [address]EV: CHECK WEBSITE 03/07/2018 Secondary NOT GIVENUNK [place] Insurance:SELF PAY [facility] Number: Effective Repository Date:2018-03-07 03/07/2018 LUIS MIGUEL VIEYRA Primary Insurance:[facility] LUIS MIGUEL [address] [id number] [facility] [id number] Hospital [address]Bfz: (330) Number: Repository [phone] () [id number] Date:8127-12-92RG [address] [address], [place] [address]WA: CHECK WEBSITE 03/07/2018 Secondary NOT GIVENUNK [place] Insurance:SELF PAY [facility] Number: Effective Repository Date:2018-03-07 03/07/2018 LUIS MIGUEL VIEYRA Primary Insurance:[facility] LUIS MIGUEL VIEYRA [place] [id number] [facility] [id number] Hospital [address]Gcv: (330) Number: Repository [phone] () [id number] Date:1114-94-75TL [address] [address], [place] [address]CR: CHECK WEBSITE 03/07/2018 Secondary NOT GIVENUNK [place] Insurance:SELF PAY [facility] Number: Effective Repository Date:2018-03-07 03/04/2018 LUIS MIGUEL Kay Primary Insurance:[facility] LUIS MIGUEL Villanueva [place] [id number] [facility] [id number] [address]26Ate: (330) Number: Repository [phone] () [id number] Date:7664-44-71TZ [address] [address]WONSSGJFF, [place] [address]IA: CHECK WEBSITE 03/04/2018 Secondary NOT GIVENUNK [place] Insurance:SELF PAY [facility] Number: Effective Repository Date:2018-03-04 02/25/2018 LUIS MIGUEL Kay Primary Insurance:[facility] LUIS MIGUEL Villanueva Mercedes [id number] [facility] [id number] Hospital [address]Pzy: (330) Number: Repository [phone] () [id number] Date:5309-39-35VY [address] [address]HOPFQPXEU, [place] [address]NW: CHECK WEBSITE 02/25/2018 Secondary NOT GIVENUNK [place] Insurance:SELF PAY [facility] Number: Effective Repository Date:2018-02-23 02/24/2018 LUIS MIGUEL L Primary Insurance:[facility] LUIS MIGUEL Villanueva Mercedes [id number] [facility] WHIMSDOB: [facility] [id number] Hospital [address]363Nvt: (330) Number: Repository [phone] () [id number] Date:5789-10-16[address] [address]HXJNVPDDI, [place] [address]RJ: CHECK WEBSITE 02/24/2018 Secondary NOT GIVENUNK [place] Insurance:SELF PAY [facility] Number: Effective Repository Date:2018-02-18 02/23/2018 LUIS MIGUEL L Primary NOT GIVENUNK Mercedes [id number] [facility] Insurance:SELF PAY [facility] [address]Yuu: (330) Number: Effective Repository [phone] () Date:2018-02-23 02/22/2018 LUIS MIGUEL L Primary Insurance:[facility] LUIS MIGUEL Villanueva Mercedes [id number] [facility] 0797-02-[place] [address]Tel: (330) Number: Repository [phone] () [id number] Date:6071-98-93QZ [address] [address]AXCCHPPQX, [place] [address]PR: CHECK WEBSITE 02/22/2018 Secondary NOT GIVENUNK [place] Insurance:SELF PAY [facility] Number: Effective Repository Date:2018-02-22 02/18/2018 LUI SMIGUEL L Primary Insurance:[facility] LUIS MIGUEL Villanueva Mercedes [id number] [facility] [id number] Hospital [address]Fzm: (330) Number: Repository [phone] () [id number] Date:7429-54-34UJ [address] [address]IAWMXYSXJ, [place] [address]IG: CHECK WEBSITE 02/18/2018 Secondary NOT GIVENUNK [place] Insurance:SELF PAY [facility] Number: Effective Repository Date:2018-02-18 02/18/2018 LUIS MIGUEL L Primary Insurance:[facility] LUIS MIGUEL Villanueva Mercedes [id number] [facility] [id number] Hospital [address]1992Wbf: (330) Number: Repository [phone] () [id number] Date:0186-89-92NV [address] [address]WDUWYWHEA, [place] [address]NA: CHECK WEBSITE 02/18/2018 Secondary NOT GIVENUNK [place] Insurance:SELF PAY [facility] Number: Effective Repository Date:2018-02-18 02/10/2018 LUIS MIGUEL Villanueva Primary Insurance:[facility] LUIS MIGUEL [place] [id number] [facility] [id number] [facility] [address]Fdg: (330) Number: Repository [phone] () [id number] Date:2991-18-99NE [address] [address]MSLKLHCQE, [place] [address]TA: CHECK WEBSITE 02/10/2018 Secondary NOT GIVENUNK [place] Insurance:SELF PAY [facility] Number: Effective Repository Date:2018-02-10 01/28/2018 LUIS MIGUEL Villanueva Primary Insurance:[facility] LUIS MIGUEL [place] [id number] [facility] [id number] Hospital [address]Zyj: (330) Number: Repository [phone] () [id number] Date:7310-41-52TG [address] [address]DXLOHYAPG, [place] [address]WU: CHECK WEBSITE 01/28/2018 Secondary NOT GIVENUNK Mercedes Insurance:SELF PAY [facility] Number: Effective Repository Date:2018-01-28 01/22/2018 LUIS MIGUEL Villanueva Primary Insurance:[facility] LUIS MIGUEL [place] [id number] [facility] [id number] Hospital [address]Vwd: (330) Number: Repository [phone] () [id number] Date:5328-78-63OW [address] [address]XUIMKUCHT, [place] [address]MS: CHECK WEBSITE 01/22/2018 Secondary NOT GIVENUNK Mercedes Insurance:SELF PAY [facility] Number: Effective Repository Date:2018-01-13 01/13/2018 LUIS MIGUEL Villanueva Primary Insurance:[facility] LUIS MIGUEL Long [id number] [facility] [id number] Hospital [address]Miz: (330) Number: Repository [phone] () [id number] Date:6585-88-56PJ [address] [address]YYVHKUZVK, [place] [address]VX: CHECK WEBSITE 01/13/2018 Secondary NOT GIVENUNK [place] Insurance:SELF PAY [facility] Number: Effective Repository Date:2017-12-31 12/26/2017 LUIS MIGUEL Villanueva Primary Insurance:[facility] LUIS MIGUEL [place] [id number] [facility] 5754-12-49MXZBarbara [place] [address]Tel: (330) Number: Repository [phone] () [id number] Date:3929-34-91AA [address] [address]RMJMFIURU, [place] [address]HO: CHECK WEBSITE 12/26/2017 Secondary NOT GIVENUNK [place] Insurance:SELF PAY [facility] Number: Effective Repository Date:2017-12-26 12/12/2017 LUIS MIGUEL Villanueva Primary Insurance:[facility] LUIS MIGUEL Long [id number] [facility] 1072-84-79EMHBarbara [place]ille [address]Tel: (330) Number: Repository [phone] () [id number] Date:1863-90-69SZ [address] [address]IBQKOZRBH, [place] [address]JA: CHECK WEBSITE 12/12/2017 Secondary NOT GIVENUNK [place] Insurance:SELF PAY [facility] Number: Effective Repository Date:2017-12-12 12/12/2017 LUIS MIGUEL Villanueva Primary Insurance:[facility] LUIS MIGUEL Long [id number] [facility] 5622-64-63JOFBarbara [place] [address]Tel: (330) Number: Repository [phone] () [id number] Date:2437-08-10TE [address] [address]PMZQFEXPG, [place] [address]VM: CHECK WEBSITE 12/12/2017 Secondary NOT GIVENUNK [place] Insurance:SELF PAY [facility] Number: Effective Repository Date:2017-12-12 12/10/2017 LUIS MIGUEL Villanueva Primary Insurance:[facility] LUIS MIGUEL [place]an[place]va [place] [id number] [facility] 4437-90-77OOR Hospital [address]Uel: (330) Number: Repository [phone] () [id number] Date:9167-86-61FT [address] [address]KQFBERBTB, [place] [address]ZP: CHECK WEBSITE 12/10/2017 Secondary NOT GIVENUNK [place] Insurance:SELF PAY [facility] Number: Effective Repository Date:2017-11-12 11/19/2017 LUIS MIGUEL Villanueva Primary Insurance:[facility] LUIS MIGUEL Villanueva Mercedes [id number] [facility] [id number] Hospital [address]Lvk: (330) Number: Repository [phone] () [id number] Date:7864-18-38TT [address] [address]EWOMADBNN, [place] [address]RB: CHECK WEBSITE 11/19/2017 Secondary NOT GIVENUNK [place] Insurance:SELF PAY [facility] Number: Effective Repository Date:2017-10-23 11/12/2017 LUIS MIGUEL Villanueva Primary Insurance:[facility] LUIS MIGUEL [place] [id number] [facility] 3788-84-23CVD Hospital [address]Kkv: (330) Number: Repository [phone] () [id number] Date:9236-36-20[place] [address] [address]FJCCLLGET, [place] [address]MC: CHECK WEBSITE 11/12/2017 Secondary NOT GIVENUNK Mercedes Insurance:SELF PAY [facility] Number: Effective Repository Date:2017-11-12 10/22/2017 LUIS MIGUEL Villanueva Primary Insurance:[facility] LUIS MIGUEL Villanueva Mercedes [id number] [facility] 5497-86-35ECY Hospital [address]Sac: (330) Number: Repository [phone] (HP) [id number] Date:1047-32-29VC [address] [address]JUPCKNGYN, [place] [address]XV: CHECK WEBSITE 10/22/2017 Secondary NOT GIVENUNK [place] Insurance:SELF PAY [facility] Number: Effective Repository Date:2017-10-13 10/10/2017 LUIS MIGUEL Villanueva Primary Insurance:[facility] LUIS MIGUEL [place] [id number] [facility]: [facility] 5335-56-08GELGerald [facility] [address]Ohg: Number: Repository [id number] (HP) Date:4141-84-66RZ [address] [address]ZFNZZALGH, [place] [address]LE: CHECK WEBSITE 10/10/2017 Secondary NOT GIVENUNK Mercedes Insurance:SELF PAY [facility] Number: Effective Repository Date:2017-10-10 09/11/2017 LUIS MIGUEL Villanueva Primary Insurance:[facility] LUIS MIGUEL [place] [id number] [facility]: [facility] 2045-20-82TPKGerald [facility] [address]Vgm: Number: Repository [id number] (HP) Date:0933-38-36UK [address] [address]NEPMSVUMR, [place] [address]IZ: CHECK WEBSITE 09/11/2017 Secondary NOT GIVENUNK [place] Insurance:SELF PAY [facility] Number: Effective Repository Date:2017-09-11 09/11/2017 LUIS MIGUEL Villanueva Primary Insurance:[facility] LUIS MIGUEL [place] [id number] [facility]: [facility] 8288-80-76PBIGerald [facility] [address]Xky: Number: Repository [id number] (HP) Date:0172-90-22QM [address] [address]HKUHQBIAT, [place] [address]VT: CHECK WEBSITE 09/11/2017 Secondary NOT GIVENUNK [place] Insurance:SELF PAY [facility] Number: Effective Repository Date:2017-09-11 09/09/2017 LUIS MIGUEL Villanueva Primary Insurance:[facility] LUIS MIGUEL Long [id number] [facility]INBURGDOB: [facility] 2618-83-05JBRGerald [facility] [address]Ygm: Number: Repository [id number] (HP) Date:6493-11-42VB [address] [address]DCVBVNATD, [place] [address]PO: CHECK WEBSITE 09/09/2017 Secondary NOT GIVENUNK [place] Insurance:SELF PAY [facility] Number: Effective Repository Date:2017-09-09 08/21/2017 LUIS MIGUEL Villanueva Primary Insurance:[facility] LUIS MIGUEL Long [id number] [facility]: [facility] 2549-50-47KXXG[facility] [address]Fov: Number: Repository [id number] (HP) Date:3759-52-21RP [address] [address]RUSKCVXZE, [place] [address]LW: CHECK WEBSITE 08/21/2017 Secondary NOT GIVENUNK Mercedes Insurance:SELF PAY [facility] Number: Effective Repository Date:2017-08-21 08/15/2017 LUIS MIGUEL Villanueva Primary Insurance:[facility] LUIS MIGUEL Long [id number] [facility]: [facility] 4031-68-62GFSGerald [facility] [address]Dfu: Number: Repository [id number] (HP) Date:0347-55-18MP [address] [address]JALYKYCER, [place] [address]EW: CHECK WEBSITE 08/15/2017 Secondary NOT GIVENUNK [place] Insurance:SELF PAY [facility] Number: Effective Repository Date:2017-08-15 08/15/2017 LUIS MIGUEL Villanueva Primary Insurance:[facility] LUIS MIGUEL Long [id number] [facility]: [facility] 5226-17-57OELGerald Champion Regional [facility] [address]Ujd: Number: Repository [id number] (HP) Date:3304-80-00EO [address] [address]VNNMLBETT, [place] [address]GR: CHECK WEBSITE 08/15/2017 Secondary NOT GIVENUNK [place] Insurance:SELF PAY [facility] Number: Effective Repository Date:2017-08-22 08/11/2017 LUIS MIGUEL Villanueva Primary Insurance:[facility] LUIS MIGUEL [place] [id number] [facility] ALLIDOB: [facility] Annalisa SALDAÑA 1957-91-89GGAGerald [facility] [address]Qco: Number: Repository [id number] (HP) Date:0893-78-56FL [address] [address]YTAWNWBQA, [place] [address]TL: CHECK WEBSITE 08/11/2017 Secondary NOT GIVENUNK [place] Insurance:SELF PAY [facility] Number: Effective Repository Date:2017-07-14
== END ==
PROVIDERS: Family Provider Family Medicine; PCP Family Medicine; Referring Provider Obstetrics & Gynecology; Visit Provider Obstetrics & Gynecology
DX: Z34.90 Encounter for supervision of normal pregnancy, unspecified, unspecified trimester (principal)
CPT/HCPCS: 87081

== ENCOUNTER 2018-02-22 22:31 | Outpatient (CLI) | payer OTHER, SELFPAY ==
[2018-02-18 10:47] VITALS: BMI 42.2
[2018-02-22 23:04] VITALS: BMI 41.6
[2018-02-22] MEDS: oxyCODONE 5 MG Tablet PO (23:57)
[2018-02-22 23:59] LABS: White Blood Cells 0 SEEN /hpf (0-5)
[2018-02-23 00:15] LABS: Color, Urine Yellow (Yellow); Glucose, Dipstick Normal (Normal); Ketone-Dipstick 50 mg/dl (Negative); Leukocyte Esterase-Dipstick Negative /ul (Negative); Nitrite-Dipstick Negative (Negative); Occult Blood-Urine 25 /ul (Negative); Protein-Dipstick 15 mg/dl (Negative); Specific Gravity, Urine 1.015 (1.002-1.030); Urine Bilirubin Dipstick Negative (Negative); Urine Clarity Sl. Cloudy (Clear); Urine Urobilinogen Normal (Normal)
[2018-02-23 00:21] LABS: Bacteria RARE /hpf (None Seen); Mucous, Urine 2+ /hpf (<or=2+); Squamous Epithelial Cells - UA 10-25 SEEN /hpf (5-10)
[2018-02-23 00:22] LABS: Red Blood Cells-Urine 0-5 SEEN /hpf (0-5)
--- NOTE | 2018-02-23 04:20 | OB.TRI.HP_ITS ---
- Problem List (1) False labor Status: Acute History of Present Illness Date of Service: 02/22/18 Was patient seen by the physician?: No Reason For Visit: R/O LABOR Date of Service: 02/22/18 Final MANISH Source: US <20 weeks History of Present Illness: 35 yo presents with false labor- no cervical change dc home labor precautions Allergies No Known Allergies Allergy (Verified 02/22/18 23:05) - Pertinent Past Medical History Medical History: Past Medical History (Last Reviewed 02/18/18 @ 10:47 by La Delgado) Abnormal pap Endometriosis Migraine Laboratory Studies: Laboratory Tests 02/22/18 Range/Units 23:53 Urine Color Yellow (Yellow) Urine Clarity Sl. Cloudy (Clear) Urine pH 6.0 (5.0 - 8.0) Ur Specific [place] 1.015 (1.002-1.030) Urine Protein 15 H (Negative) mg/dl Urine Glucose (UA) Normal (Normal) mg/dl Urine Ketones 50 H (Negative) mg/dl Urine Occult Blood 25 H (Negative) /ul Urine Nitrite Negative (Negative) Urine Bilirubin Negative (Negative) mg/dL Urine Urobilinogen Normal (Normal) mg/dl Ur Leukocyte Esterase Negative (Negative) /ul Urine RBC 0-5 SEEN (0-5) /hpf Urine WBC 0 SEEN (0-5) /hpf Ur Squamous Epith Cells 10-25 SEEN (5-10) /hpf Urine Bacteria RARE (None Seen) /hpf Urine Mucus 2+ (<or=2+) /hpf
--- OUTSIDE RECORDS SUMMARY | 2018-05-27 14:09 | XMS RPT_ITS ---
:1985 Author Organization OHIP Support Name Relationship Address Phone MAKAYLA WILLS Unavailable 0 + [place] [address] [facility] Unavailable [address] + [place] [address] WHIMS, CHRISTOPHER Unavailable [address] + [place] [address] MAKAYLA WILLS Unavailable Unavailable + [place] [address] [facility] Unavailable [address] + [place] [address] WHIMS, CHRISTOPHER Unavailable [address] + [place] [address] MAKAYLA WILLS Unavailable Unavailable + [place] [address] [facility] Unavailable [address] + [place] [address] WHIMS, CHRISTOPHER Unavailable [address] + [place] [address] MAKAYLA WILLS Unavailable Unavailable + [place] [address] [facility] Unavailable [address] + [place] [address] WHIMS, CHRISTOPHER Unavailable [address] + [place] [address] MAKAYLA WILLS Unavailable Unavailable + [place] [address] [facility] Unavailable [address] + [place] [address] WHIMS, CHRISTOPHER Unavailable [address] + [place] [address] MAKAYLA WILLS Unavailable Unavailable + [place] [address] [facility] Unavailable [address] + [place] [address] WHIMS, CHRISTOPHER Unavailable [address] + [place] [address] MAKAYLA WILLS Unavailable Unavailable + [place] [address] [facility] Unavailable [address] + [place] [address] AARON, CHRISTOPHER Unavailable [address] + [place] [address] MAKAYLA WILLS Unavailable Unavailable + [place] [address] [facility] Unavailable [address] + [place] [address] WHEVELYN, CHRISTOPHER Unavailable [address] + [place] [address] MAKAYLA WILLS Unavailable 0 + [place] [address] [facility] Unavailable [address] + [place] [address] EVELYN, CHRISTOPHER Unavailable [address] + [place] [address] MAKAYLA WILLS Unavailable Unavailable + [facility] Unavailable [address] + [place] [address] EVELYN, CHRISTOPHER Unavailable [address] + [place] [address] MAKAYLA WILLS Unavailable Unavailable + [place] [address] [facility] Unavailable [address] + [place] [address] EVELYN, CHRISTOPHER Unavailable [address] + [place] [address] MAKAYLA WILLS Unavailable 0 + [place] [address] [facility] Unavailable [address] + [place] [address] EVELYN, CHRISTOPHER Unavailable [address] + [place] [address] MAKAYLA WILLS Unavailable Unavailable + [facility] Unavailable [address] + [place] [address] EVELYN, CHRISTOPHER Unavailable [address] + [place] [address] MAKAYLA WILLS Unavailable . + ., . . [facility] Unavailable [address] + [place] [address] WHIMS, CHRISTOPHER Unavailable [address] + [place] [address] MAKAYLA WILLS Unavailable . + ., . . [facility] Unavailable [address] + [place] [address] WHIMS, CHRISTOPHER Unavailable [address] + [place] [address] MAKAYLA WILLS Unavailable . + ., . . [facility] Unavailable [address] + [place] [address] WHIMS, CHRISTOPHER Unavailable [address] + [place] [address] MAKAYLA WILLS Unavailable Unavailable + [facility] Unavailable [address] + [place] [address] [facility], CHRISTOPHER Unavailable [address] + [place] [address] MAKAYLA WILLS Unavailable . + [place] [address] [facility] Unavailable [address] + [place] [address] [facility], CHRISTOPHER Unavailable [address] + [place] [address] MAKAYLA WILLS Unavailable Unavailable + [place] [address] [facility] Unavailable [address] + [place] [address] [facility], CHRISTOPHER Unavailable [address] + [place] [address] MAKAYLA WILLS Unavailable Unavailable + [place] [address] [facility] Unavailable [address] + [place] [address] [facility], CHRISTOPHER Unavailable [address] + [place] [address] MAKAYLA WILLS Unavailable . + [place] [address] [facility] Unavailable [address] + [place] [address] WHEVELYN, CHRISTOPHER Unavailable [address] + [place] [address] MAKAYLA WILLS Unavailable . + [place] [address] [facility] Unavailable [address] + [place] [address] [facility], CHRISTOPHER Unavailable [address] + [place] [address] MAKAYLA WILLS Unavailable Unavailable + [place] [address] [facility] Unavailable [address] + [place] [address] WHEVELYN, CHRISTOPHER Unavailable [address] + [place] [address] MAKAYLA WILLS Unavailable . + [place] [address] [facility] Unavailable [address] + [place] [address] [facility], CHRISTOPHER Unavailable [address] + [place] [address] MAKAYLA WILLS Unavailable Unavailable + [place] [address] [facility] Unavailable [address] + [place] [address] [facility], CHRISTOPHER Unavailable [address] + [place] [address] MAKAYLA WILLS Unavailable . + [place] [address] [facility] Unavailable [address] + [place] [address] [facility], CHRISTOPHER Unavailable [address] + [place] [address] MAKAYLA WILLS Unavailable . + [place] [address] [facility] Unavailable [address] + [place] [address] [facility], CHRISTOPHER Unavailable [address] + [place] [address] MAKAYLA WILLS Unavailable . + [place] [address] [facility] Unavailable [address] + [place] [address] WHIMS, CHRISTOPHER Unavailable [address] + [place] [address] MAKAYLA WILLS Unavailable . + [place] [address] [facility] Unavailable [address] + [place] [address] WHIMS, CHRISTOPHER Unavailable [address] + [place] [address] WILMER WILLSEN Unavailable Unavailable + [place] [address] [facility] Unavailable [address] + [place] [address] WHIMS, CHRISTOPHER Unavailable [address] + [place] [address] MAKAYLA WILLS Unavailable . + [place] [address] [facility] Unavailable [address] + [place] [address] WHIMS, CHRISTOPHER Unavailable [address] + [place] [address] MAKAYLA WILLS Unavailable . + [place] [address] [facility] Unavailable [address] + [place] [address] [facility], CHRISTOPHER Unavailable [address] + [place] [address] ELMAMAKAYLA Unavailable Unavailable + [place] [address] [facility] Unavailable [address] + [place] [address] [facility], CHRISTOPHER Unavailable [address] + [place] [address] Care Team Providers Name Role Phone Liz [...] Care Unavailable Marcanthony, Liz Admitting Unavailable Marcanthony, Lzi Admitting Unavailable Marcanthony, Liz Attending Unavailable Marcanthony, [...] Unavailable JackelynLoni Attending Unavailable JackelynLoni Attending Unavailable [place], Shanti Attending Unavailable Tahira, Chaz Referring Unavailable Tahira, Chaz Primary Care Unavailable Noah, Shanti Attending Unavailable [place], Shanti Referring Unavailable Tahira, Chaz Primary Care Unavailable Marcanthony, Liz Attending Unavailable Tahira, Chaz Referring Unavailable Tahira, Chaz Primary Care Unavailable [place], Shanti Attending Unavailable Tahira, Chaz Primary Care Unavailable [...] Attending Unavailable Tahira, Chaz Referring Unavailable Marcanthony, Ilz Attending Unavailable Tahira, Chaz Referring Unavailable PROBLEMS PROBLEMS DATE TYPE CONDITION / CODE ATTENDING STATUS SOURCE 03/18/2018 Unknown Z09 - Encounter for Marcanthony, Active [place] follow-up [facility] examination after Hospital completed treatment Repository for conditions other than malignant neoplasm / Z09(ICD-10) 03/10/2018 Unknown G89.18 - Other acute Marcanthony, Active [place] postprocedural pain [facility] / G89.18(ICD-10) Hospital Repository 02/25/2018 Unknown Z98.891 - History of Marcanthony, Active [place] uterine scar from [facility] previous surgery / Hospital Z98.891(ICD-10) Repository 02/25/2018 Unknown Z82.79 - Family Marcanthony, Active [place] history of other [facility] congenital Hospital malformations, Repository deformations and chromosomal abnormalities / Z82.79(ICD-10) 02/25/2018 Unknown 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, Active [place]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, Repository predominantly inattentive type / F90.0(ICD-10) 02/25/2018 Unknown F41.9 - Anxiety Marcanthony, Active [place] disorder, [facility] unspecified / Hospital F41.9(ICD-10) Repository 02/25/2018 Unknown Z87.898 - Personal Marcanthony, Active [place] history of other [facility] specified conditions Hospital / Z87.898(ICD-10) Repository 02/25/2018 Unknown Z34.83 - Encounter Marcanthony, Active [place] for supervision of [facility] other normal Hospital , third Repository trimester / Z34.83(ICD-10) 02/18/2018 Unknown Z34.90 - Encounter Marcanthony, Active [place] for supervision of [facility] normal , Hospital unspecified, Repository unspecified trimester / Z34.90(ICD-10) 01/28/2018 Unknown Z34.82 - Encounter Noah Shanti Active [place] for supervision of Community other normal Hospital , second Repository trimester / Z34.82(ICD-10) 01/28/2018 Unknown Z3A.33 - 33 weeks [place], Shanti Active [place] gestation of Community / Hospital Z3A.33(ICD-10) Repository [...] Encounter for Prema Active [place] immunization / [facility] Z23(ICD-10) Hospital Repository 10/10/2017 Unknown Z34.81 - Encounter [place] Shanti Active [place] for supervision of Community other normal Hospital , first Repository trimester / Z34.81(ICD-10) 10/10/2017 Unknown Z3A.17 - 17 weeks Noah, Shanti Active [place] gestation of Community / Hospital Z3A.17(ICD-10) Repository PROCEDURES PROCEDURES No Procedure Records FoundRESULTS RESULTS SHIPPING SPECIALIST OFFICE VISIT Observed: 03/18/2018 Status: F Source: [place] REPORT 8:39 AM [facility] REPOSITORY [facility] [address] [place] [address]. [address] [place] [address] OFFICE VISIT Date of Service: 03/18/18 MR#: [id number] Acct: [id number] Name: LUIS MIGUEL WALKER Rep #: [id number] : 1985 Provider: Liz Lloyd MD Age/Sex: 33/F [place] [facility]: Signed Intake Vital Signs03/18/18 Body Mass Index (BMI) 43.0 03/18/18 Height 5 ft 9.5 in 03/18/18 Weight: 271 lb 03/18/18 Body Mass Index (BMI) 39.4 03/18/18 Blood Pressure 140/86 H Intake Visit Reasons: INCISION CHECK/BP CHECK *pt req for SM Chief Complaint: 2 week incision check, bp check Senior Attorney Required: No Is patient in pain?: No [...] menopausal: No Patient : No : Yes [facility] Medical History Abnormal pap (Acute) Endometriosis (Acute) [...] 03/10/2018 Status: F Source: [place] 11:32 AM [facility] REPOSITORY [facility] Medical Records Department [address] [place] [address] [place] [address] Discharge Summary 03/10/18 1130 MR#: [id number] Acct: [id number] Name: LUIS MIGUEL WALKER Rep #: [id number] : 1985 32 From: Liz Lloyd MD PCP: Chaz Hoffmann DO Status: ADM IN Location: [id number] Discharge Date and Diagnosis Date of Admission: [...] Provider] - Please Follow Up With: Liz lLoyd MD - Call to make an appointment for an incision check in 1-2 [phone] When: You will need a post- check [...] 03/09/2018 Status: F Source: [place] 3:44 AM [facility] REPOSITORY [facility] Medical Records Department [address] [place] [address] Instructions for Home/Discharge Instructions 03/09/18 0344 MR#: [id number] Acct: [id number] Name: LUIS MIGUEL WALKER Rep #: [id number] : 1985 32 From: Liz Lloyd MD [...] appointment for an incision check in 1-2 [phone] When: You will need a post- check in 6 weeks. Primary Care Physician: Chaz Hoffmann DO [Primary Care Provider] - 03/09/18 6584 <Electronically signed by Liz Lloyd MD> Date Liz Lloyd MD CC: Chaz Hoffmann DO Signed CBC-COMPLETE BLOOD CNT Collected: 03/08/2018 Status: F Source: [place] NO DIFF 4:15 AM [facility] REPOSITORY Order Comment: Comments: Day [...] MPV 12.0 Performed By: #### L100.0500 #### [facility] [address] [facility] [place], [address] OPERATIVE REPORT Observed: 03/08/2018 Status: F Source: [place] 12:59 AM [facility] REPOSITORY [facility] Medical Records Department [address] [place] [address] Operative Report 03/07/18 1406 MR#: [id number] Acct: [id number] Name: LUIS MIGUEL WALKER Rep #: [id number] : 1985 32 From: Liz Lloyd MD PCP: Chaz Hoffmann DO Status: ADM IN Location: [id number] Problem List (1) Family history of congenital heart defect Status: Acute Comment: normal anatomy scan with [facility] (2) Anxiety Status: Acute Comment: counseling, vistaril [...] ovaries minimal scar tissue, some vesicouterine adhesions stitch 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 in: [place] Type of Anesthesia:: Epidural Special [...] AND PHYSICAL Observed: 03/07/2018 Status: F Source: [place] EXAM 9:19 AM [facility] REPOSITORY [facility] Medical Records Department [address] [place] [address] History and Physical 03/07/18 0909 MR#: [id number] Acct: [id number] Name: LUIS MIGUEL WALKER Rep #: [id number] : 1985 32 From: Liz Lloyd MD PCP: Chaz Hoffmann DO Status: ADM IN Y Location: [place] [id number] - Problem List (1) Family history of congenital heart defect Status: Acute Comment: normal anatomy scan with [facility] (2) Anxiety Status: Acute Comment: counseling, vistaril [...] abortions Past Pregnancies Del. DatName GA/WeeksOutcome Route [facility] LgAnesthesDel LocaProviderFOB e ht en ia tn 09/11/16Solomon live birC-sectio8 lbs. 1Male 24 [facility] - fuln 5 oz l term MANISH [...] Symmetrical, Neuro grossly intact. Negative for: Clonus HOUSE WRECKER: Normal external genitalia. Negative for: Vulvar lesions [...] any complications: none I have reviewed the [facility] and made any clinically relevant updates. 03/07/18 0919 <Electronically signed by Liz Lloyd MD> Date Liz Lloyd MD Cosigner Signature: Date (if applicable) CC: Chaz Hoffmann DO; Liz Lloyd MD Signed CBC W/DIFF, AUTOMATED Collected: 03/07/2018 Status: F Source: [place] 8:20 AM [facility] REPOSITORY TYPE CODE TESTS RESULT [...] 1.88 Performed By: #### L100.0100, B101.7450 #### [facility] [address] [place], [address] TYPE AND SCREEN Collected: 03/07/2018 Status: F Source: [place] 8:20 AM [facility] REPOSITORY Order Comment: Reason for Type AND Screen/Red Cells: ROUTINE TYPE CODE TESTS RESULT OUT OF RANGE REFERENCE UNITS LAB B10.0800 A Normal BLOOD TYPE GEL POSITIVE LAB B100.4000 Normal Antibody NEGATIVE Screen Performed By: #### L100.0100, B101.7450 #### [facility] [address] [facility] [place], [address] (ROM) RUPTURE OF Collected: 03/07/2018 Status: F Source: [place] [facility] 7:00 AM [facility] REPOSITORY TYPE CODE TESTS RESULT OUT OF REFERENCE UNITS RANGE LAB L205.1310 Negative High ROM POSITIVE Result Comment: Amniotic fluid present indicates rupture of Membranes. RESULTS CALLED TO WILFRID MORENO 03/07/18 0750 Yoselyn Mazariegos. REPORT READ BACK BY SAME . Performed By: #### L205.1000 #### [facility] [address] [facility] [place], [address] CBC W/DIFF, AUTOMATED Collected: 03/04/2018 Status: F Source: [place] 9:47 PM [facility] REPOSITORY TYPE CODE TESTS RESULT [...] Lymph 0.68 Performed By: #### L100.0100 #### [facility] [address] [facility] [place], [place], [address] Observed: 03/04/2018 Status: F Source: [place] INFLUENZA A+B (RAPID 4:15 PM [facility] IVONNE) REPOSITORY Has pt arrived? Y FLU A/B Rapid Negative test results should be confirmed with FLU PANEL MOLECULAR if indicated. Influenza Ag, Direct Presumptive NEGATIVE for Influenza A/B Antigen (See Note) Performed By: #### M101.0101 #### [facility] [address] [facility] [place], [address] URINALYSIS, COMPLETE Collected: 03/04/2018 Status: F Source: [place] 12:40 PM [facility] REPOSITORY Order Comment: How was Urine Obtained? PATIENT ACCOUNT LIAISON TO SPECIFY TYPE CODE TESTS RESULT OUT [...] 0 SEEN Performed By: #### L400.0001 #### [facility] [address] [place], [address] Observed: 03/04/2018 Status: F Source: [place] CULTURE, URINE 12:40 PM [facility] REPOSITORY Urine Culture ORGANISM 1: Mixed Gram Positive Organisms [place] Count >100,000 MIX CULTURE Mixed contaminants. Submit a new specimen if indicated. Performed By: #### M100.0650 #### [facility] [address] [place], [address] CBC-COMPLETE BLOOD CNT Collected: 03/04/2018 Status: F Source: [place] NO DIFF 9:30 AM [facility] REPOSITORY TYPE CODE TESTS RESULT [...] MPV 12.9 Performed By: #### L100.0500 #### [facility] [address] [place], [address] SHIPPING SPECIALIST OFFICE VISIT Observed: 02/25/2018 Status: F Source: [place] REPORT 11:40 AM [facility] REPOSITORY [facility] [address] [place] [address] OFFICE VISIT Date of Service: 02/25/18 MR#: [id number] Acct: [id number] Name: LUIS MIGUEL WALKER Rep #: [id number] : 1985 Provider: Liz Lloyd MD Age/Sex: 32/F [place] [facility] [place]: Signed Intake Vital Signs02/25/18 Body Mass [...] abortions Past Pregnancies Del. DatName [place]/WeeksOutcome Route [facility] AlbertgInarthurt Luis LgAnesthesDel LocaProviderFOB e ht [...] heart defect Z82.79 normal anatomy scan with [facility] 3. Attention deficit hyperactivity disorder (ADHD), predominantly [...] LIMITED WITH Observed: 02/24/2018 Status: F Source: [place] BIOMETRICS 12:29 PM [facility] REPOSITORY [facility] Imaging Services [address] [place] [address] OB Limited With Biometrics MR#: [id number] Acct: [id number] Name: LUIS MIGUEL WALKER Rep #: [id number] : 1985 F 32 From: Lonnie Steven MD PCP: Chaz Hoffmann DO Status: REG CLI Study: OB Limited With Biometrics Date of Exam: 02/24/18 Exam# [id number] Ordering Dr: iLz Lloyd MD STUDY: SECOND AND THIRD TRIMESTER [...] Lonnie Steven MD at 8:56 EST Tel [phone], Service support , CC: Chaz Hoffmann DO; Liz Lloyd MD Mill Roll Rewinder: Signed URINALYSIS, COMPLETE Collected: 02/22/2018 Status: F Source: [place] 11:53 PM [facility] REPOSITORY Order Comment: How was [...] URINE Performed By: #### L400.0001, M100.0650 #### [facility] [address] [place], [address] Observed: 02/22/2018 Status: F Source: [place] CULTURE, URINE 11:53 PM [facility] REPOSITORY Urine Culture ORGANISM 1: Mixed Gram Positive Organisms [place] Count 50,000-80,000 MIX CULTURE Mixed contaminants. Submit a new specimen if indicated. Performed By: #### L400.0001, M100.0650 #### [facility] [address] [place], [place], [address] SHIPPING SPECIALIST OFFICE VISIT Observed: 02/18/2018 Status: F Source: [place] REPORT 11:27 PM [facility] REPOSITORY [facility] [place] [facility] [address] [place] [address] OFFICE VISIT Date of Service: 02/18/18 MR#: [id number] Acct: [id number] Name: LUIS MIGUEL WALKER Rep #: [id number] : 1985 Provider: Liz Lloyd MD Age/Sex: 32/F [place] [facility] [place]: Signed Intake Vital Signs02/18/18 Body Mass Index (BMI) 42.2 02/18/18 Height 5 ft 9.5 in 02/18/18 Weight: 290 lb 02/18/18 Body Mass Index (BMI) 42.2 02/18/18 Blood Pressure 122/80 H Intake Visit Reasons: 36 WEEK OB Senior Attorney Required: No Is patient in pain?: No [...] abortions Past Pregnancies Del. DatName [place]/WeeksOutcome Route [facility] LgAnestheAKel LocaProviderFOB e ht en th ia tn [...] heart defect Z82.79 normal anatomy scan with [facility] 3. Attention deficit hyperactivity disorder (ADHD), predominantly [...] Source: [place] CULTURE, GROUP B 6:29 PM [facility] STREPTOCOCCUS REPOSITORY TONJA Culture Group B Beta Streptococcus is not isolated. Performed By: #### M100.1800 #### [place] [facility] [address] [place], [address] SHIPPING SPECIALIST OFFICE VISIT Observed: 02/10/2018 Status: F Source: [place] REPORT 10:03 AM [facility] REPOSITORY [facility] [address] [place] [address] OFFICE VISIT Date of Service: 02/10/18 MR#: [id number] Acct: [id number] Name: LUIS MIGUEL WALKER Rep #: [id number] : 1985 Provider: Liz Lloyd MD Age/Sex: 32/F Location: [facility] Status: Signed Intake Vital Signs02/10/18 Body Mass Index (BMI) 42.2 02/10/18 Height 5 ft 9.5 in 02/10/18 Weight: 287 lb 2 oz 02/10/18 Body Mass Index (BMI) 41.8 02/10/18 Blood Pressure 122/80 H Intake Visit Reasons: 35 WEEK OB Chief Complaint: est ob Senior Attorney Required: No Is patient in pain?: No [...] abortions Past Pregnancies Del. DatName [place]/WeeksOutcome Route [facility] Lita Smith LgAnestheAntonioel LocaProviderFOB e ht [...] heart defect Z82.79 normal anatomy scan with [facility] 3. Attention deficit hyperactivity disorder (ADHD), predominantly [...] MD Cosigner Signature: Date (if applicable) CC: SHIPPING SPECIALIST OFFICE VISIT Observed: 01/28/2018 Status: F Source: [place] REPORT 2:30 PM [facility] [place] [facility] [address] [place] [address] OFFICE VISIT Date of Service: 01/28/18 MR#: [id number] Acct: [id number] Name: LUIS MIGUEL WALKER Rep #: [id number] : 1985 Provider: FRED Zamora Age/Sex: 32/F [place] [facility] [place]: Signed Intake Vital Signs01/28/18 Body Mass Index (BMI) 42.2 01/28/18 Blood Pressure 120/78 01/28/18 Height 5 ft 9.5 in 01/28/18 Weight: 290 lb 01/28/18 Body Mass Index (BMI) 42.2 01/28/18 Blood Pressure 120/78 Intake Visit Reasons: 33 WEEK OB Chief Complaint: est ob Senior Attorney Required: No Is patient in pain?: No [...] LIMITED WITH Observed: 01/22/2018 Status: F Source: [place] [facility] 12:18 PM [facility] REPOSITORY [facility] Imaging Services [address] [place] [address] OB Limited With Biometrics MR#: [id number] Acct: [id number] Name: LUIS MIGUEL WALKER Rep #: [id number] : 1985 F 32 From: Real Gracia MD PCP: Chaz Hoffmann DO Status: REG CLI Study: OB Limited With Biometrics Date of Exam: 01/22/18 Exam# [id number] Ordering Dr: Shanti Zamora STUDY: SECOND AND [...] , CC: FRED Zamora; Chaz Hoffmann DO Mill Roll Rewinder: Signed SHIPPING SPECIALIST OFFICE VISIT Observed: 01/13/2018 Status: F Source: [place] REPORT 1:56 PM [facility] [address] [place], [place] [address] OFFICE VISIT Date of Service: 01/13/18 MR#: [id number] Acct: [id number] Name: LUIS MIGUEL WALKER Rep #: [id number] : 1985 Provider: FRED Zamora Age/Sex: 32/F [place] [facility] [place]: Signed Intake Vital Signs01/13/18 Height 5 ft 9.5 in 01/13/18 Weight: 283 lb 01/13/18 Body Mass Index (BMI) 41.1 01/13/18 Blood Pressure 116/80 Intake Visit Reasons: 28 weeks Senior Attorney Required: No Is patient in pain?: No [...] abortions Past Pregnancies Del. DatName [place]/WeeksOutcome Route [facility] WeigInfant GLabor LgAnesthesDel LocaProviderFOB e ht [...] heart defect Z82.79 normal anatomy scan with [facility] 5. History of abnormal cervical Pap smear [...] LEAD ELECTROCARDIOGRAM Observed: 12/29/2017 Status: F Source: [place] 12:49 PM [facility] REPOSITORY [facility] Cardiovascular Services [address] [place] [address]18 12 Lead EKG 12/25/17 2329 MR#: [id number] Acct: [id number] Name: LUIS MIGUEL WALKER Rep #: [id number] : 1985 32 From: Jaylon Junior MD [...] repeat ECG Confirmed by JAYLON JUNIOR MD ([id number]), mapping editor ENRIKE LANDEROS ([id number]) on 12/29/2017 12:48:26 PM Referred By: MELINDA Confirmed By:JAYLON JUNIOR MD 12/29/17 1248 Date Jaylon Junior MD CC: Demond Staples MD; Chaz Hoffmann DO Signed EMERGENCY DEPARTMENT Observed: 12/26/2017 Status: F Source: [place] SUMMARY 1:53 AM [facility] REPOSITORY [facility] Medical Records Department [address] [place] [address] Emergency Department Summary 12/26/17 0052 MR#: [id number] Acct: [id number] Name: LUIS MIGUEL WALKER Rep #: [id number] : 1985 32 From: Demond Staples MD [...] medications and will follow up with her SHIPPING SPECIALIST Treatment Plan: [] Disposition: Discharge Impression: Chest pain This note was generated with [employer] dictation software. It may contain incorrect words, [...] problems, contact your Primary Care Provider. Call [facility] ([phone]) or report to the closest Emergency Room. Call 911 if necessary. 12/26/17152 <Electronically signed by Demond Staples MD> Date Demond Staples MD Cosigner Signature (If Indicated): Date CC: Chaz Hoffmann DO DISCHARGE INSTRUCTION Observed: 12/26/2017 Status: F Source: [place] 1:53 AM [facility] REPOSITORY [facility] Medical Records Department [address] [place] [address] Discharge Instruction 12/26/17152 MR#: [id number] Acct: [id number] Name: LUIS MIGUEL WALKER Rep #: [id number] : 1985 32 From: Demond Staples MD [...] your Primary Care Provider. Call [facility] ([phone]) or report to the closest Emergency Room. Call 911 if necessary. 12/26/17 0153 <Electronically signed by Demond Staples MD> Date Demond Staples MD Cosigner Signature (If Indicated): Date CC: Chaz Hoffmann DO CBC W/DIFF, AUTOMATED Collected: 12/26/2017 Status: F Source: [place] 1:03 AM [facility] REPOSITORY TYPE CODE TESTS RESULT [...] Lymph 2.21 Performed By: #### L100.0100 #### [facility] [address] [place], [address] BASIC METABOLIC Collected: 12/26/2017 Status: F Source: [place] PROFILE (BMP) 1:03 AM [facility] REPOSITORY TYPE CODE TESTS RESULT [...] 9 Performed By: #### L500.2500, L501.4010 #### [facility] [address] [place], [address] TROPONIN-I Collected: 12/26/2017 Status: F Source: [place] 1:03 AM [facility] REPOSITORY TYPE CODE TESTS RESULT OUT OF RANGE REFERENCE UNITS LAB L501.4010 <0.045 ng/mL Normal < 0.015 TROPONIN-I Result Comment: TROPONIN-I EXPECTED VALUES <0.045 Negative 0.045 - 0.590 Consistent with Cardiac Damage > OR = 0.600 Critical Value Not every elevated troponin is indicative of NC. These values should be used with clinical judgement in examining the patient's clinical picture for diagnosis. To establish a diagnosis of NC versus myocardial injury, there must be a demonstrated rise and/or fall in the troponin values, in addition to ischemic symptoms, EKG changes, new regional wall motion abnormality, and/or angiographical evidence. PLEASE NOTE: REFERENCE RANGES EDITED 17 Performed By: #### L500.2500, L501.4010 #### [facility] [address] [place], [address] CHEST 1 VIEW Observed: 12/26/2017 Status: F Source: [place] (PORTABLE) 12:51 AM [facility] REPOSITORY [facility] Imaging Services [address] [place] [address] Chest 1 View (Portable) MR#: [id number] Acct: [id number] Name: LUIS MIGUEL WALKER Rep #: [id number] : 1985 F 32 From: Tanmay George MD PCP: Chaz Hoffmann DO Status: REG ER Study: Chest 1 View (Portable) Date of Exam: 12/26/17 Exam# [id number] Ordering Dr: Dmeond Staples MD STUDY: X-RAY CHEST REASON FOR [...] CC: Demond Staples MD; Chaz Hoffmann DO Mill Roll Rewinder: Signed CBC W/DIFF, AUTOMATED Collected: 12/12/2017 Status: F Source: [place] 2:54 PM [facility] REPOSITORY TYPE CODE TESTS RESULT [...] 1.77 Performed By: #### L100.0100, L501.0250 #### [facility] [address] [place], [address] GLUCOSE CHALLENGE GEST Collected: 12/12/2017 Status: F Source: [place] 1H 50G 2:54 PM [facility] REPOSITORY TYPE CODE TESTS RESULT OUT OF RANGE REFERENCE UNITS LAB L501.0250 70-140 mg/dL Normal GLU GEST 90 50g 1H Performed By: #### L100.0100, L501.0250 #### [facility] [address] [place], [address] SHIPPING SPECIALIST OFFICE VISIT Observed: 12/12/2017 Status: F Source: [place] REPORT 2:17 PM [facility] REPOSITORY [facility] Department [address] [place] [address] OFFICE VISIT Date of Service: 12/12/17 MR#: [id number] Acct: [id number] Name: LUIS MIGUEL WALKER Rep #: [id number] : 1985 Provider: Liz Lloyd MD Age/Sex: 32/F [place] [facility] [place]: Signed Intake Vital Signs12/12/17 Height 5 ft 9.5 in 12/12/17 Weight: 275 lb 8 oz 12/12/17 Body Mass Index (BMI) 40.1 12/12/17 Blood Pressure 120/80 Intake Visit Reasons: 21 weeks Chief Complaint: est ob Senior Attorney Required: No Is patient in pain?: No [...] abortions Past Pregnancies Del. DatName GA/WeeksOutcome Route [facility] LgAnesthesDel LocaProviderFOB e ht en ia tn 09/11/16Solomon live birC-sectio8 lbs. 1Male 24 [facility] - fuln 5 oz l term HPI [...] Route Admin Location Lot Number Expiration Date [facility] Photographer Assistant 0.5 mL IM Left Arm (SQ) [id number] 01/27/24 [id number] SANOFI-PASTEUR VIS Given Date VIS Publication Date 12/12/17 05/03/14 Eligibility Eligibility Date Assessment AND Plan Problems 1. Family history of congenital heart defect Z82.79 normal anatomy scan with [facility] 2. Anxiety F41.9 counseling, vistaril PRN 3. [...] LIMITED (NO Observed: 11/19/2017 Status: F Source: [place] BIOMETRICS) 7:57 AM [facility] REPOSITORY [facility] Imaging Services [address] [place] [address] OB Limited (No Biometrics) MR#: [id number] Acct: [id number] Name: LUIS MIGUEL WALKER Rep #: [id number] : 1985 F 32 From: Lonnie Steven MD PCP: Chaz Hoffmann DO Status: REG CLTawny Study: OB Limited (No Biometrics) Date of Exam: 11/19/17 Exam# [id number] Ordering Dr: Shanti Zamora BI TECHNICAL LEAD-Josefina STUDY: SECOND AND THIRD TRIMESTER OBSTETRICAL ULTRASOUND [...] placenta previa has resolved. Electronically Signed: Lonnie tSeven MD at 9:18 EDT Tel [phone], Service support , CC: FRED Zamora; Chaz Hoffmann DO Mill Roll Rewinder: Signed SHIPPING SPECIALIST OFFICE VISIT Observed: 11/12/2017 Status: F Source: [place] REPORT 4:08 PM [facility] [address] [place] [address] OFFICE VISIT Date of Service: 11/12/17 MR#: [id number] Acct: [id number] Name: LUIS MIGUEL WALKER Rep #: [id number] : 1985 Provider: Liz Lloyd MD Age/Sex: 32/F [place] [facility] [place]: Signed Intake Vital Signs11/12/17 Height 5 ft 9.5 in 11/12/17 Weight: 274 lb 2 oz 11/12/17 Body Mass Index (BMI) 39.9 11/12/17 Blood Pressure 122/78 Intake Visit Reasons: est ob 22 weeks Chief Complaint: est ob Senior Attorney Required: No Is patient in pain?: No [...] 10/22/2017 Status: F Source: [place] 11:18 AM [facility] REPOSITORY [facility] Imaging Services [address] [place] [address] OB Anatomy Scan MR#: [id number] Acct: [id number] Name: LUIS MIGUEL WALKER Rep #: [id number] : 1985 F 32 From: Naman Cedeño MD PCP: Chaz Hoffmann DO Status: REG CLI Study: OB Anatomy Scan Date of Exam: 10/22/17 Exam# [id number] Ordering Dr: Shanti Zamora BI TECHNICAL LEAD-C STUDY: SECOND AND THIRD TRIMESTER OBSTETRICAL ULTRASOUND [...] , CC: FRED Zamora; Chaz Hoffmann DO Mill Roll Rewinder: Signed SHIPPING SPECIALIST OFFICE VISIT Observed: 10/10/2017 Status: F Source: [place] REPORT 3:53 PM [facility] REPOSITORY [facility] [address] [place] [address] OFFICE VISIT Date of Service: 10/10/17 MR#: [id number] Acct: [id number] Name: LUIS MIGUEL CARSON Rep #: [id number] : 1985 Provider: FRED Zamora Age/Sex: 32/F Location[place] [facility] Status: Signed Intake Vital Signs10/10/17 Height 5 ft 10 in 10/10/17 Weight: 265 lb 4 oz 10/10/17 Body Mass Index (BMI) 38.0 10/10/17 Blood Pressure 129/68 Intake Visit Reasons: est ob 17 weeks Chief Complaint: est ob Senior Attorney Required: No Is patient in pain?: Yes [...] 09/11/2017 Status: F Source: [place] 10:16 AM [facility] Medical Services [address] [place] [address] OFFICE VISIT Date of Service: MR#: [id number] Acct: [id number] Patient: LUIS MIGUEL CARSON Kay Rep #: [id number] : 1985 Provider: Loni Hayden Age/Sex: 32/F [place] [facility] Status: Signed Intake Intake Visit Reasons: Amb Documentation Allergies No Known Allergies Allergy (Verified 09/09/17 08:36) Medications Vits [Prenatabs FA ] 1 tab PO DAILY 05/12/16 [History Confirmed 09/09/17] 09/11/17 1016 <Electronically signed by Liz Lloyd MD> Date Liz Lloyd MD [facility] Signature: Date (if applicable) CC: SHIPPING SPECIALIST OFFICE VISIT Observed: 09/09/2017 Status: F Source: [place] REPORT 8:53 AM [facility] [address] [place] [address] OFFICE VISIT Date of Service: 09/09/17 MR#: [id number] Acct: [id number] Name: LUIS MIGUEL CARSON Kay Rep #: [id number] : 1985 Provider: Liz Lloyd MD Age/Sex: 32/F [place] [facility] Status: Signed Intake Vital Signs09/09/17 Height 5 [...] abortions Past Pregnancies Del. DatName [place]/WeeksOutcome Route [facility] LgAnestheAKel LocaProviderFOB e ht en ia tn 09/11/16Solomon [...] 08/28/2017 Status: F Source: [place] 1:21 PM [facility] REPOSITORY [facility] Medical Records Department [address] [place] [address] Downtime Report MR#: [id number] Acct: [id number] Name: LUIS MIGUEL CARSON Kay Rep #: [id number] : 1985 32 From: Marshall Oshea PCP: Status: REG CLI This patient was seen during an EMR downtime August 11, 2017 - August 18, 2017. This patient may have a combination of paper and electronic documentation or all paper documentation. All documentation is viewable within the e-chart portion of [facility] for each patient visit. CBC W/DIFF, AUTOMATED Collected: 08/21/2017 Status: F Source: [place] 7:45 AM [facility] REPOSITORY Order Comment: VEIN GAVE [...] Lymph 2.72 Performed By: #### L100.0100 #### [facility] [address] [place] [address], [address] #### L3100.0390 #### [facility] (refer to report for specific site) refer to report for address and phone number HEPATITIS B SURFACE Collected: 08/21/2017 Status: F Source: [place] AG 7:45 AM [facility] REPOSITORY Order Comment: VEIN GAVE OUT, TYPE N SCREEN WAS NOT DONE BUT WILL DO WITH GLUCOSE TESTING. TYPE CODE TESTS RESULT OUT OF RANGE REFERENCE UNITS LAB L3100.0400 Negative Normal HB Negative SURF AG Result Comment: Performed at: - [facility], [place], [place] [address] International Student Counselor: Last Baird PhD, Phone: [phone] Performed By: #### L100.0100 #### [facility] [address] [facility] [place], [address] #### L3100.0390 #### [facility] (refer to report for specific site) refer to report for address and phone number RAPID PLASMIN REAGIN Collected: 08/21/2017 Status: F Source: [place] (RPR) 7:45 AM [facility] REPOSITORY Order Comment: VEIN GAVE OUT, TYPE N SCREEN WAS NOT DONE BUT WILL DO WITH GLUCOSE TESTING. TYPE CODE TESTS RESULT OUT OF REFERENCE UNITS RANGE LAB L700.5000 NONREACTIVE NONREACTIVE Normal RPR Performed By: #### L700.5000, L509.4000, L3890.6005 #### [facility] [address] [place], [address] RUBELLA IGG Collected: 08/21/2017 Status: F Source: [place] 7:45 AM [facility] REPOSITORY Order Comment: VEIN GAVE [...] Performed By: #### L700.5000, L509.4000, L3890.6005 #### [facility] [address] [place], [place], [address] HIV - [facility] Collected: 08/21/2017 Status: F Source: [place] 7:45 AM [facility] REPOSITORY Order Comment: VEIN GAVE OUT, TYPE N SCREEN WAS NOT DONE BUT WILL DO WITH GLUCOSE TESTING. TYPE CODE TESTS RESULT OUT OF RANGE REFERENCE UNITS LAB L3890.6005 Nonreactive Normal HIV - [facility] Non-Reactive Performed By: #### L700.5000, L509.4000, L3890.6005 #### [facility] [address] [place], [address] Observed: 08/15/2017 Status: F Source: [place] CULTURE, URINE 2:30 PM [facility] REPOSITORY PLEASE CALL RESULTS TO [phone] RESULT(S) PREVIOUSLY REPORTED ON MANUAL REQUISITION DURING DOWNTIME. Urine Culture Culture exhibits no growth. Performed By: #### M100.0650 #### [facility] [address] [place], [address] CT/NG [facility] BY PCR Collected: 08/15/2017 Status: F Source: [place] 2:30 PM [facility] REPOSITORY Order Comment: RESULT(S) PREVIOUSLY REPORTED ON MANUAL REQUISITION DURING DOWNTIME. TYPE CODE TESTS RESULT OUT OF RANGE REFERENCE UNITS LAB L8200.2100 Negative Normal Chlam Negative Trac PCR LAB L8200.2200 Negative Normal NG by Negative PCR Performed By: #### L8200.2000 #### [facility] [address] [place], [address] ALLERGIES ALLERGIES DATE TYPE / CODE NAME / CODE REACTION SEVERITY SOURCE 03/18/2018 Drug No Known Unknown [facility] Allergy/4160 Allergies/F00 Hospital 32391(SNOMED 5693930(RXNOR Repository CT) M) ENCOUNTERS ENCOUNTERS ADMIT/DISCHARGE ACCOUNT ADMITTING ENCOUNTER LOCATION SOURCE NUMBER CLASS 03/18/2018/ [id number] Ambulatory B[facility] [place] 9 8 [facility] 03/18/2018 [id number] Pre[place], Ambulatory [place] 2 [facility] ing:WP Repository 03/07/2018/ [id number] Prema, Inpatient [place] 9 4 [facility] ing:WPRoom: Repository FR820Jbm: 1 03/07/2018 [id number] Pre[facility], Ambulatory BMSBuilding:B [place] 8 Liz [facility] Repository 03/07/2018 [id number] Pre[facility], Ambulatory BMSBuilding:B [place] 2 Liz [facility] Repository 03/07/2018 [id number] Prema, Ambulatory BMSBuilding:B [place] 2 Liz [facility] Repository 03/07/2018 [id number] Prema, Ambulatory BMSBuilding:B [place] 1 Liz [facility] Repository 03/04/2018/ [id number] Ambulatory [place] 8 5 [facility] ing:WPOUTRoom Repository : WP011 02/25/2018/ [id number] Ambulatory BMSBuilding:B [place] 8 6 [facility] Hospital Repository 02/24/2018 [id number] Ambulatory [place] 0 [facility] ing:OPUS Repository 02/23/2018 [id number] Ambulatory BMSBuilding:B [place] 4 MS.[facility] Hospital Repository 02/22/2018/ [id number] Ambulatory [place] 8 5 [facility] ing:WPOUTRoom Repository : WP015 02/18/2018 [id number] Ambulatory [place] 9 [facility] ing:LABSPEC Repository 02/18/2018/ [id number] Ambulatory BMSBuilding:B [place] 8 4 [facility] 02/10/2018/ [id number] Ambulatory BMSBuilding:B [place] 8 2 [facility] Hospital Repository 01/28/2018/ [id number] Ambulatory BMSBuilding:B [place] 8 9 [facility] Hospital Repository 01/22/2018 [id number] Ambulatory [place] 8 [facility] ing:OPUS Repository 01/13/2018/ [id number] Ambulatory BMSBuilding:B [place] 8 5 [facility] Hospital Repository 12/26/2017/ [id number] [place] 2 [facility] ing:ED Repository 12/12/2017 [id number] Ambulatory [place] 2 [facility] ing:LAB Repository 12/12/2017/ [id number] Ambulatory BMSBuilding:B [place] 8 6 [facility] Hospital Repository 12/10/2017 [id number] Ambulatory BMSBuilding:B [place] 4 [facility] Hospital Repository 11/19/2017 [id number] Ambulatory [place] 3 [facility] ing:OPUS Repository 11/12/2017/ [id number] Ambulatory BMSBuilding:B [place] 8 2 [facility] Hospital Repository 10/22/2017 [id number] Ambulatory [place] 2 [facility] ing:US Repository 10/10/2017/ [id number] Ambulatory BMSBuilding:B [place] 8 1 [facility] Rep[facility] 09/11/2017 [id number] Ambulatory BMS[facility]:B [place] 5 [facility] Repository 09/11/2017 [id number] Ambulatory BMS[facility]:B [place] 4 [facility] Repository 09/09/2017/ [id number] Ambulatory BMSBuilding:B [place] 8 2 [facility] Repository 08/21/2017 [id number] [place] 7 [facility] ing:LAB Repository 08/15/2017 [id number] [place] 8 [facility] ing:LABSPEC Repository 08/15/2017/ [id number] Ambulatory BMSBuilding:B [place] 8 3 [facility] Repository 08/11/2017 [id number] Ambulatory BMSBuilding:B [place] 3 [facility] Repository PAYERS PAYERS ENCOUNTER GUARANTOR PAYER SUBSCRIBER SOURCE 03/18/2018 LUIS MIGUEL AZALIA Primary Insurance:[facility] LUIS MIGUELJO ANN VIEYRA [place] [id number] [facility] [id number] Hospital [address]Uwf: (330) Number: Repository [phone] () [id number] Date:6953-57-07FB [address], [place] [address]US: CHECK WEBSITE 03/18/2018 Secondary NOT GIVENUNK [place] Insurance:SELF PAY [facility] Number: Effective Repository Date:2018-03-18 03/18/2018 LUIS MIGUEL VIEYRA Primary Insurance:[facility] LUIS MIGUEL [address] [id number] [facility] [id number] Hospital [address]Wtx: (330) Number: Repository [phone] () [id number] Date:7910-02-36ZG [address], [place] [address]XD: CHECK WEBSITE 03/18/2018 Secondary NOT GIVENUNK [place] Insurance:SELF PAY [facility] Number: Effective Repository Date:2018-01-22 03/07/2018 LUIS MIGUEL VIEYRA Primary Insurance:[facility] LUIS MIGUEL Long [id number] [facility] [id number] Hospital [address]Kmc: (330) Number: Repository [phone] () [id number] Date:3572-20-55KT [address] [address], [place] [address]LZ: CHECK WEBSITE 03/07/2018 Secondary NOT GIVENUNK [place] Insurance:SELF PAY [facility] Number: Effective Repository Date:2018-03-07 03/07/2018 LUIS MIGUEL Villanueva Primary Insurance:[facility] LUIS MIGUEL Byersoster [id number] [facility] [id number] Hospital [address]Cua: (330) Number: Repository [phone] () [id number] Date:8541-70-66YZ [address] [address], [place] [address]VB: CHECK WEBSITE 03/07/2018 Secondary NOT GIVENUNK [place] Insurance:SELF PAY [facility] Number: Effective Repository Date:2018-03-07 03/07/2018 LUIS MIGUEL VIEYRA Primary Insurance:[facility] LUIS MIGUEL [address] [id number] [facility] [id number] Hospital [address]Ifm: (330) Number: Repository [phone] () [id number] Date:8308-32-43HG [address] [address], [place] [address]WL: CHECK WEBSITE 03/07/2018 Secondary NOT GIVENUNK [place] Insurance:SELF PAY [facility] Number: Effective Repository Date:2018-03-07 03/07/2018 LUIS MIGUEL VIEYRA Primary Insurance:[facility] LUIS MIGUEL [address] [id number] [facility] [id number] Hospital [address]Ohw: (330) Number: Repository [phone] () [id number] Date:4152-60-56BT [address] [address], [place] [address]OE: CHECK WEBSITE 03/07/2018 Secondary NOT GIVENUNK [place] Insurance:SELF PAY [facility] Number: Effective Repository Date:2018-03-07 03/07/2018 LUIS MIGUEL VIEYRA Primary Insurance:[facility] LUIS MIGUEL VIEYRA [place] [id number] [facility] [id number] Hospital [address]Tlr: (330) Number: Repository [phone] () [id number] Date:6631-10-24BJ [address] [address], [place] [address]WN: CHECK WEBSITE 03/07/2018 Secondary NOT GIVENUNK [place] Insurance:SELF PAY [facility] Number: Effective Repository Date:2018-03-07 03/04/2018 LUIS MIGUEL Kay Primary Insurance:[facility] LUIS MIGUEL Villanueva [place] [id number] [facility]: [facility] [id number] Hospital [address]Xud: (330) Number: Repository [phone] () [id number] Date:7759-64-23RS [address] [address]TM[place], [place] [address]ZU: CHECK WEBSITE 03/04/2018 Secondary NOT GIVENUNK [place] Insurance:SELF PAY [facility] Number: Effective Repository Date:2018-03-04 02/25/2018 LUIS MIGUEL Kay Primary Insurance:[facility] LUIS MIGUEL Villanueva [place] [id number] [facility] [id number] Hospital [address]Bpm: (330) Number: Repository [phone] () [id number] Date:3634-04-89FC [address] [address], [place] [address]ND: CHECK WEBSITE 02/25/2018 Secondary NOT GIVENUNK [place] Insurance:SELF PAY [facility] Number: Effective Repository Date:2018-02-23 02/24/2018 LUIS MIGUEL L Primary Insurance:[facility] LUIS MIGUEL Villanueva [place] [id number] [facility] WHIMSDOB: [facility] [id number] Hospital [address]Hcj: (330) Number: Repository [phone] () [id number] Date:4988-90-65XE [address] [address]OS[place]BS[place], [place] [address]NM: CHECK WEBSITE 02/24/2018 Secondary NOT GIVENUNK [place] Insurance:SELF PAY [facility] Number: Effective Repository Date:2018-02-18 02/23/2018 LUIS MIGUEL L Primary NOT GIVENUNK [place] [id number] [facility] Insurance:SELF PAY [facility] [address]Jwo: (330) Number: Effective Repository [phone] () Date:2018-02-23 02/22/2018 LUIS MIGUEL L Primary Insurance:[facility] LUIS MIGUEL Villanueva [place] [id number] [facility] 8691-03-29[place] [address]Tel: (330) Number: Repository [phone] () [id number] Date:3338-24-56UH [address] [address], [place] [address]MQ: CHECK WEBSITE 02/22/2018 Secondary NOT GIVENUNK [place] Insurance:SELF PAY [facility] Number: Effective Repository Date:2018-02-22 02/18/2018 LUIS MIGUEL L [facility] [facility] LUIS MIGUEL Villanueva Mercedes [id number] [facility] [id number] [facility] [address]Lme: (330) Number: Repository [phone] () [id number] Date:6101-98-15QQ [address] [address]NDVZCYJEA, [place] [address]NV: CHECK WEBSITE 02/18/2018 Secondary NOT GIVENUNK [place] Insurance:SELF PAY [facility] Number: Effective Repository Date:2018-02-18 02/18/2018 LUIS MIGUEL L Primary Insurance:[facility] LUIS MIGUEL Villanueva Mercedes [id number] [facility] [id number] Hospital [address]Nmw: (330) Number: Repository [phone] () [id number] Date:6646-54-21LI [address] [address]LJBKZZQYT, [place] [address]FF: CHECK WEBSITE 02/18/2018 Secondary NOT GIVENUNK [place] Insurance:SELF PAY [facility] Number: Effective Repository Date:2018-02-18 02/10/2018 LUIS MIGUEL Villanueva Primary Insurance:[facility] LUIS MIGUEL [place] [id number] [facility] [id number] Hospital [address]Bca: (330) Number: Repository [phone] () [id number] Date:8981-43-56KU [address] [address]PPRUJEPAN, [place] [address]TK: CHECK WEBSITE 02/10/2018 Secondary NOT GIVENUNK Mercedes Insurance:SELF PAY [facility] Number: Effective Repository Date:2018-02-10 01/28/2018 LUIS MIGUEL Villanueva Primary Insurance:[facility] LUIS MIGUEL [place] [id number] [facility] [id number] Hospital [address]Wgx: (330) Number: Repository [phone] () [id number] Date:9287-98-81EO [address] [address]OFRIPPXXX, [place] [address]QZ: CHECK WEBSITE 01/28/2018 Secondary NOT GIVENUNK Mercedes Insurance:SELF PAY [facility] Number: Effective Repository Date:2018-01-28 01/22/2018 LUIS MIGUEL Villanueva Primary Insurance:[facility] LUIS MIGUEL [place] [id number] [facility] [id number] Hospital [address]Yjg: (330) Number: Repository [phone] () [id number] Date:8357-76-43PE [address] [address]NFPHIUMQW, [place] [address]QJ: CHECK WEBSITE 01/22/2018 Secondary NOT GIVENUNK Mercedes Insurance:SELF PAY [facility] Number: Effective Repository Date:2018-01-13 01/13/2018 LUIS MIGUEL Villanueva Primary Insurance:[facility] LUIS MIGUEL Long [id number] [facility] [id number] Hospital [address]Rvm: (330) Number: Repository [phone] () [id number] Date:4153-99-11SW [address] [address]WOTTKXAVZ, [place] [address]PV: CHECK WEBSITE 01/13/2018 Secondary NOT GIVENUNK Mercedes Insurance:SELF PAY [facility] Number: Effective Repository Date:2017-12-31 12/26/2017 LUIS MIGUEL Villanueva Primary Insurance:[facility] LUIS MIGUEL [place] [id number] [facility] [id number] [place] [address]Tel: (330) Number: Repository [phone] () [id number] Date:1766-60-78YZ [address] [address], [place] [address]NT: CHECK WEBSITE 12/26/2017 Secondary NOT GIVENUNK [place] Insurance:SELF PAY [facility] Number: Effective Repository Date:2017-12-26 12/12/2017 LUIS MIGUEL Villanueva Primary Insurance:[facility] LUIS MIGUEL Long [id number] [facility] 0904-32-28TICElizabeth [place] [address]Tel: (330) Number: Repository [phone] () [id number] Date:0053-60-02EW [address] [address]YXLEEZHCV, [place] [address]HE: CHECK WEBSITE 12/12/2017 Secondary NOT GIVENUNK [place] Insurance:SELF PAY [facility] Number: Effective Repository Date:2017-12-12 12/12/2017 LUIS MIGUEL Villanueva Primary Insurance:[facility] LUIS MIGUEL Long [id number] [facility] 0399-20-74KCWElizabeth [place]ille [address]Tel: (330) Number: Repository [phone] () [id number] Date:6413-71-87DJ [address] [address]THWBBEEMF, [place] [address]QH: CHECK WEBSITE 12/12/2017 Secondary NOT GIVENUNK Mercedes Insurance:SELF PAY [facility] Number: Effective Repository Date:2017-12-12 12/10/2017 LUIS MIGUEL Villanueva Primary Insurance:[facility] LUIS MIGUEL Villanueva [place] [id number] [facility] [id number] Hospital [address]Gki: (330) Number: Repository [phone] () [id number] Date:0339-38-97WH [address] [address]CDTMRAZEV, [place] [address]KS: CHECK WEBSITE 12/10/2017 Secondary NOT GIVENUNK [place] Insurance:SELF PAY [facility] Number: Effective Repository Date:2017-11-12 11/19/2017 LUIS MIGUEL Villanueva Primary Insurance:[facility] LUIS MIGUEL Villanueva Mercedes [id number] [facility] [id number] Hospital [address]Hjs: (330) Number: Repository [phone] () [id number] Date:6741-27-33RP [address] [address]OIYKBNXUF, [place] [address]EG: CHECK WEBSITE 11/19/2017 Secondary NOT GIVENUNK [place] Insurance:SELF PAY [facility] Number: Effective Repository Date:2017-10-23 11/12/2017 LUIS MIGUEL Villanueva Primary Insurance:[facility] LUIS MIGUEL [place] [id number] [facility] [id number] Hospital [address]Gak: (330) Number: Repository [phone] () [id number] Date:7574-74-54HF [address] [address]XGJFEMMSM, [place] [address]OI: CHECK WEBSITE 11/12/2017 Secondary NOT GIVENUNK Mercedes Insurance:SELF PAY [facility] Number: Effective Repository Date:2017-11-12 10/22/2017 LUIS MIGUEL Villanueva Primary Insurance:[facility] LUIS MIGUEL Villanueva Mercedes [id number] [facility] [id number] Hospital [address]Unn: (330) Number: Repository [phone] (HP) [id number] Date:9652-08-00OE [address] [address]NUQCRFMAC, [place] [address]KQ: CHECK WEBSITE 10/22/2017 Secondary NOT GIVENUNK [place] Insurance:SELF PAY [facility] Number: Effective Repository Date:2017-10-13 10/10/2017 LUIS MIGUEL Villanueva Primary Insurance:[facility] LUIS MIGUEL [place] [id number] [facility]: [facility] [id number] [facility] Medical [facility] [address]Pvx: Number: Repository [id number] (HP) Date:9195-37-29VL [address] [address]MCDIYMQOQ, [place] [address]GF: CHECK WEBSITE 10/10/2017 Secondary NOT GIVENUNK Mercedes Insurance:SELF PAY [facility] Number: Effective Repository Date:2017-10-10 09/11/2017 LUIS MIGUEL Villanueva Primary Insurance:[facility] LUIS MIGUEL [place] [id number] [facility]: [facility] [id number] Alamos Medical Center [address]Sdt: Number: Repository [id number] (HP) Date:6600-31-86ZR [address] [address]YVVYSRMWN, [place] [address]XY: CHECK WEBSITE 09/11/2017 Secondary NOT GIVENUNK [place] Insurance:SELF PAY [facility] Number: Effective Repository Date:2017-09-11 09/11/2017 LUIS MIGUEL Villanueva Primary Insurance:[facility] LUIS MIGUEL [place] [id number] [facility]: [facility] [id number] Alamos Medical Center [address]Lnq: Number: Repository [id number] (HP) Date:0512-40-30ZI [address] [address]SAKBABBYO, [place] [address]XV: CHECK WEBSITE 09/11/2017 Secondary NOT GIVENUNK [place] Insurance:SELF PAY [facility] Number: Effective Repository Date:2017-09-11 09/09/2017 LUIS IMGUEL Villanueva Primary Insurance:[facility] LUIS MIGUEL Long [id number] [facility] [id number] Alamos Medical Center [address]Tdp: Number: Repository [id number] (HP) Date:2875-95-90AW [address] [address]KMSNMJCRR, [place] [address]HQ: CHECK WEBSITE 09/09/2017 Secondary NOT GIVENUNK Mercedes Insurance:SELF PAY [facility] Number: Effective Repository Date:2017-09-09 08/21/2017 LUIS MIGUEL Villanueva Primary Insurance:[facility] LUIS MIGUEL Long [id number] [facility]: [facility] [id number] [facility]amos Medical Center [address]Vco: Number: Repository [id number] (HP) Date:8542-36-64XO [address] [address]PPNRVCCEJ, [place] [address]LU: CHECK WEBSITE 08/21/2017 Secondary NOT GIVENUNK Mercedes Insurance:SELF PAY [facility] Number: Effective Repository Date:2017-08-21 08/15/2017 LUIS MIGUEL Villanueva Primary Insurance:[facility] LUIS MIGUEL Long [id number] [facility]: [facility] [id number] [facility]amos Medical Center [address]Tvj: Number: Repository [id number] (HP) Date:7310-31-16FK [address] [address]XUOBMLWEV, [place] [address]SJ: CHECK WEBSITE 08/15/2017 Secondary NOT GIVENUNK Mercedes Insurance:SELF PAY [facility] Number: Effective Repository Date:2017-08-15 08/15/2017 LUIS MIGUEL Villanueva Primary Insurance:[facility] LUIS MIGUEL Long [id number] [facility]: [facility] [id number] Alamos Medical Center [address]Rpq: Number: Repository [id number] (HP) Date:6114-92-82YM [address] [address]XBIIRNWLG, [place] [address]TN: CHECK WEBSITE 08/15/2017 Secondary NOT GIVENUNK [place] Insurance:SELF PAY [facility] Number: Effective Repository Date:2017-08-22 08/11/2017 LUIS MIGUEL Villanueva Primary Insurance:[facility] LUIS MIGUEL [place] [id number] [facility] ALLIDOB: [facility] Annalisa SALDAÑA [id number] [facility] Medical Center [address]Xux: Number: Repository [id number] (HP) Date:5716-18-61ID [address] [address]IRZJXEPNQ, [place] [address]KK: CHECK WEBSITE 08/11/2017 Secondary NOT GIVENUNK Mercedes Insurance:SELF PAY [facility] Number: Effective Repository Date:2017-07-14
== END 2018-02-23 01:30 | disposition home or self-care (01) ==
LOC: WPOUT 22:53 → WP 22:54
PROVIDERS: Family Provider Family Medicine; PCP Family Medicine; Visit Provider Obstetrics & Gynecology
DX: O47.9 False labor, unspecified (principal); Z3A.00 Weeks of gestation of pregnancy not specified
CPT/HCPCS: 59025; 59050; 81001; 87086; 87088; 99218; G0378

== ENCOUNTER → 2018-02-24 12:26 | Outpatient (CLI) | payer OTHER, SELFPAY ==
[2018-02-18 10:47] VITALS: BMI 42.2
[2018-02-22 23:04] VITALS: BMI 41.6
--- NOTE | 2018-02-24 12:29 | US_ITS ---
STUDY: SECOND AND THIRD TRIMESTER OBSTETRICAL ULTRASOUND - LIMITED REASON FOR EXAM: Female, 32 years old. Routine survey. LMP: June 11, 2017. PRIOR ULTRASOUND: Comparison is made with prior ultrasound dated January 22, 2018. TECHNIQUE: Transabdominal TECHNICAL QUALITY: Adequate. FINDINGS: There is a single intrauterine fetus. The fetus is in a cephalic presentation. There is demonstrated cardiac activity with a heart rate of 152 bpm. There is a normal amniotic fluid volume. The largest amniotic fluid pocket measures 3.7 cm x 2.3 cm. The amniotic fluid index (MANOLO) is 10.0 cm. The placenta is anterior in location and is not low lying. There are Grade 2 placental changes. The cervix measures 4.5 cm in length. BIOMETRY: BPD: 9.08 cm: 36 weeks, 6 days HC: 34.27 cm: 39 weeks, 4 days AC: 33.75 cm: 37 weeks, 3 days FL: 7.29 cm: 37 weeks, 3 days Age by LMP: 36 weeks, 6 days. MANISH by LMP: March 18, 2018. age by prior US: 38 weeks, 4 days. MANISH by prior US: March 06, 2018. age by current US: 38 weeks, 0 days. MANISH by current US: March 10, 2018. Estimated weight: 3278 grams, +/- 479 grams, 77 percentile. Gender: Indeterminant US/OB Limited With Biometrics IMPRESSION: Single live intrauterine gestation with a mean gestational age of 38 weeks and 4 days. The measurements obtained today fall within the normal expected range. Electronically Signed: Lonnie Steven MD at 8:56 EST Tel [phone], Service support ,
--- OUTSIDE RECORDS SUMMARY | 2018-05-28 22:25 | XMS RPT_ITS ---
:1985 Author Organization OHIP Support Name Relationship Address Phone MAKAYLA WILLS Unavailable 0 + [place] [address] [facility] Unavailable [address] + [place] [address] WHIMS, CHRISTOPHER Unavailable [address] + [place] [address] MAKAYLA WILLS Unavailable Unavailable + [place] [address] [facility] Unavailable [address] + [place] [address] WHIMS, CHRISTOPHER Unavailable [address] + [place] [address] MAKAYLA WILLS Unavailable Unavailable + [place] [address] [facility] Unavailable [address] + [place] [address] WHIMS, CHRISTOPHER Unavailable [address] + [place] [address] MAKAYLA WILLS Unavailable Unavailable + [place] [address] [facility] Unavailable [address] + [place] [address] WHIMS, CHRISTOPHER Unavailable [address] + [place] [address] MAKAYLA WILLS Unavailable Unavailable + [place] [address] [facility] Unavailable [address] + [place] [address] WHIMS, CHRISTOPHER Unavailable [address] + [place] [address] MAKAYLA WILLS Unavailable Unavailable + [place] [address] [facility] Unavailable [address] + [place] [address] WHIMS, CHRISTOPHER Unavailable [address] + [place] [address] MAKAYLA WILLS Unavailable Unavailable + [place] [address] [facility] Unavailable [address] + [place] [address] AARON, CHRISTOPHER Unavailable [address] + [place] [address] MAKAYLA WILLS Unavailable Unavailable + [place] [address] [facility] Unavailable [address] + [place] [address] WHEVELYN, CHRISTOPHER Unavailable [address] + [place] [address] MAKAYLA WILLS Unavailable 0 + [place] [address] [facility] Unavailable [address] + [place] [address] EVELYN, CHRISTOPHER Unavailable [address] + [place] [address] MAKAYLA WILLS Unavailable Unavailable + [facility] Unavailable [address] + [place] [address] EVELYN, CHRISTOPHER Unavailable [address] + [place] [address] MAKAYLA WILLS Unavailable Unavailable + [place] [address] [facility] Unavailable [address] + [place] [address] EVELYN, CHRISTOPHER Unavailable [address] + [place] [address] MAKAYLA WILLS Unavailable 0 + [place] [address] [facility] Unavailable [address] + [place] [address] EVELYN, CHRISTOPHER Unavailable [address] + [place] [address] MAKAYLA WILLS Unavailable Unavailable + [facility] Unavailable [address] + [place] [address] EVELYN, CHRISTOPHER Unavailable [address] + [place] [address] MAKAYLA WILLS Unavailable . + ., . . [facility] Unavailable [address] + [place] [address] WHIMS, CHRISTOPHER Unavailable [address] + [place] [address] MAKAYLA WILLS Unavailable . + ., . . [facility] Unavailable [address] + [place] [address] WHIMS, CHRISTOPHER Unavailable [address] + [place] [address] MAKAYLA WILLS Unavailable . + ., . . [facility] Unavailable [address] + [place] [address] WHIMS, CHRISTOPHER Unavailable [address] + [place] [address] MAKAYLA WILLS Unavailable Unavailable + [facility] Unavailable [address] + [place] [address] [facility], CHRISTOPHER Unavailable [address] + [place] [address] MAKAYLA WILLS Unavailable . + [place] [address] [facility] Unavailable [address] + [place] [address] [facility], CHRISTOPHER Unavailable [address] + [place] [address] MAKAYLA WILLS Unavailable Unavailable + [place] [address] [facility] Unavailable [address] + [place] [address] [facility], CHRISTOPHER Unavailable [address] + [place] [address] MAKAYLA WILLS Unavailable Unavailable + [place] [address] [facility] Unavailable [address] + [place] [address] [facility], CHRISTOPHER Unavailable [address] + [place] [address] MAKAYLA WILLS Unavailable . + [place] [address] [facility] Unavailable [address] + [place] [address] WHEVELYN, CHRISTOPHER Unavailable [address] + [place] [address] MAKAYLA WILLS Unavailable . + [place] [address] [facility] Unavailable [address] + [place] [address] [facility], CHRISTOPHER Unavailable [address] + [place] [address] MAKAYLA WILLS Unavailable Unavailable + [place] [address] [facility] Unavailable [address] + [place] [address] WHEVELYN, CHRISTOPHER Unavailable [address] + [place] [address] MAKAYLA WILLS Unavailable . + [place] [address] [facility] Unavailable [address] + [place] [address] [facility], CHRISTOPHER Unavailable [address] + [place] [address] MAKAYLA WILLS Unavailable Unavailable + [place] [address] [facility] Unavailable [address] + [place] [address] [facility], CHRISTOPHER Unavailable [address] + [place] [address] MAKAYLA WILLS Unavailable . + [place] [address] [facility] Unavailable [address] + [place] [address] [facility], CHRISTOPHER Unavailable [address] + [place] [address] MAKAYLA WILLS Unavailable . + [place] [address] [facility] Unavailable [address] + [place] [address] [facility], CHRISTOPHER Unavailable [address] + [place] [address] MAKAYLA WILLS Unavailable . + [place] [address] [facility] Unavailable [address] + [place] [address] WHIMS, CHRISTOPHER Unavailable [address] + [place] [address] MAKAYLA WILLS Unavailable . + [place] [address] [facility] Unavailable [address] + [place] [address] WHIMS, CHRISTOPHER Unavailable [address] + [place] [address] WILMER WILLSEN Unavailable Unavailable + [place] [address] [facility] Unavailable [address] + [place] [address] WHIMS, CHRISTOPHER Unavailable [address] + [place] [address] MAKAYLA WILLS Unavailable . + [place] [address] [facility] Unavailable [address] + [place] [address] WHIMS, CHRISTOPHER Unavailable [address] + [place] [address] MAKAYLA WILLS Unavailable . + [place] [address] [facility] Unavailable [address] + [place] [address] [facility], CHRISTOPHER Unavailable [address] + [place] [address] ELMAMAKAYLA Unavailable Unavailable + [place] [address] [facility] Unavailable [address] + [place] [address] [facility], CHRISTOPHER Unavailable [address] + [place] [address] Care Team Providers Name Role Phone Liz Lloyd Attending Unavailable Chaz Hoffmann Referring Unavailable Shanti Zamora Attending Unavailable Shanti Zamora Referring Unavailable Chaz oHffmann Primary Care Unavailable Liz Lloyd Attending Unavailable [...] Unavailable JackelynLoni Attending Unavailable JackelynLoni Attending Unavailable Cowen, Shanti Attending Unavailable Tahira, Chaz Referring Unavailable Tahira, Chaz Primary Care Unavailable Noah, Shanti Attending Unavailable Cowen, Shanti Referring Unavailable Tahira, Chaz Primary Care Unavailable Marcanthony, Liz Attending Unavailable Tahira, Chaz Referring Unavailable Tahira, Chaz Primary Care Unavailable Cowen, Shanti Attending Unavailable Tahira, Chaz Primary Care [...] - Encounter for Marcanthony, Active [place] follow-up [facility] examination after Hospital completed treatment Repository for conditions other than malignant neoplasm / Z09(ICD-10) 03/10/2018 Unknown G89.18 - Other acute Marcanthony, Active [place] postprocedural pain [facility] / G89.18(ICD-10) Hospital Repository 02/25/2018 Unknown Z98.891 - History of Marcanthony, Active [place] uterine scar from [facility] previous surgery / Hospital Z98.891(ICD-10) Repository 02/25/2018 Unknown Z82.79 - Family Marcanthony, Active [place] history of other [facility] congenital Hospital malformations, Repository deformations and chromosomal abnormalities / Z82.79(ICD-10) 02/25/2018 Unknown 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, 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, Repository predominantly inattentive type / F90.0(ICD-10) 02/25/2018 Unknown F41.9 - Anxiety Marcanthony, Active [place] disorder, [facility] unspecified / Hospital F41.9(ICD-10) Repository 02/25/2018 Unknown Z87.898 - Personal Marcanthony, Active [place] history of other [facility] specified conditions Hospital / Z87.898(ICD-10) Repository 02/25/2018 Unknown Z34.83 - Encounter Marcanthony, Active [place] for supervision of [facility] other normal Hospital , third Repository trimester / Z34.83(ICD-10) 02/18/2018 Unknown Z34.90 - Encounter Marcanthony, Active [place] for supervision of [facility] normal , Hospital unspecified, Repository unspecified trimester / Z34.90(ICD-10) 01/28/2018 Unknown Z34.82 - Encounter Noah Shanti Active [place] for supervision of Community other normal Hospital , second Repository trimester / Z34.82(ICD-10) 01/28/2018 Unknown Z3A.33 - 33 weeks Cowen, Shanti Active [place] gestation of Community / Hospital Z3A.33(ICD-10) Repository 01/28/2018 Unknown O32.1XX0 - Maternal Noah, Shanti Active [facility] care for breech Community presentation, not Hospital applicable or Repository unspecified / O32.1XX0(ICD-10) 01/13/2018 Unknown F98.8 - Other Noah, Shanit Active [facility] specified behavioral Community and emotional Hospital disorders with onset Repository usually occurring in childhood and adolescence / F98.8(ICD-10) 12/12/2017 Unknown Z23 - Encounter for Prema Active [facility] immunization / [facility] Z23(ICD-10) Hospital Repository 10/10/2017 Unknown Z34.81 - Encounter Cowen Shanti Active [place] for supervision of Community other normal Hospital , first Repository trimester / Z34.81(ICD-10) 10/10/2017 Unknown Z3A.17 - 17 weeks Noah, Shanti Active [place] gestation of Community / Hospital Z3A.17(ICD-10) Repository PROCEDURES PROCEDURES No Procedure Records FoundRESULTS RESULTS FILTER TANK TENDER HELPER HEAD OFFICE VISIT Observed: 03/18/2018 Status: F Source: [place] REPORT 8:39 AM [facility] REPOSITORY [facility] [address] [place] [address]. 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 Billiard Table Required: No Is patient in pain?: No [...] menopausal: No Patient : No : Yes [facility] Medical History Abnormal pap (Acute) Endometriosis [...] 03/10/2018 Status: F Source: [place] 11:32 AM [facility] REPOSITORY [facility] Medical Records Department [address] [place] [address] [place] [address] Discharge Summary 03/10/18 1130 MR#: [id number] Acct: [id number] Name: LUIS MIGUEL WALKER Rep #: [id number] : 1985 32 From: Liz Lloyd MD PCP: Chaz Hoffmann DO Status: ADM IN Location: [id number] Discharge Date and Diagnosis Date of Admission: [...] appointment for an incision check in 1-2 [phone] When: You will need a post- check [...] 03/09/2018 Status: F Source: [place] 3:44 AM [facility] REPOSITORY [facility] Medical Records Department [address] [place] [address] Instructions for Home/Discharge Instructions 03/09/18 0344 MR#: [id number] Acct: [id number] Name: LUIS MIGUEL WALKER Rep #: [id number] : 1985 32 From: Liz Lloyd MD PCP: hCaz Hoffmann DO Status: ADM IN Discharge Diet: [...] appointment for an incision check in 1-2 [phone] When: You will need a post- check in 6 weeks. Primary Care Physician: Chaz Hoffmann DO [Primary Care Provider] - 03/09/18 3614 <Electronically signed by Liz Lloyd MD> Date Liz Lloyd MD CC: Chaz Hoffmann DO Signed CBC-COMPLETE BLOOD CNT Collected: 03/08/2018 Status: F Source: [place] NO DIFF 4:15 AM [facility] REPOSITORY Order Comment: Comments: Day #1 Reason [...] MPV 12.0 Performed By: #### L100.0500 #### [facility] [address] [facility] [place], [address] OPERATIVE REPORT Observed: 03/08/2018 Status: F Source: [place] 12:59 AM [facility] REPOSITORY [facility] Medical Records Department [address] [place] [address] Operative Report 03/07/18 1406 MR#: [id number] Acct: [id number] Name: LUIS MIGUEL WALKER Rep #: [id number] : 1985 32 From: Liz Lloyd MD PCP: Chaz Hoffmann DO Status: ADM IN Location: [id number] Problem List (1) Family history of congenital heart defect Status: Acute Comment: normal anatomy scan with [facility] (2) Anxiety Status: Acute Comment: counseling, [...] ovaries minimal scar tissue, some vesicouterine adhesions tap dancer: Joseph Flowers Type of Anesthesia:: Epidural Special [...] AND PHYSICAL Observed: 03/07/2018 Status: F Source: [place] EXAM 9:19 AM [facility] REPOSITORY [facility] Medical Records Department [address] [place] [address] History and Physical 03/07/18 0909 MR#: [id number] Acct: [id number] Name: LUIS MIGUEL WALKER Rep #: [id number] : 1985 32 From: Liz Lloyd MD PCP: Chaz Hoffmann DO Status: ADM IN Y Location: [place] [id number] - Problem List (1) Family history of congenital heart defect Status: Acute Comment: normal anatomy scan with [facility] (2) Anxiety Status: Acute Comment: counseling, [...] Acute Qualifiers: Comment: PRR MANISH 03/18/18 boy ym PC Rajeev Hao History Date of Admission: [...] Past Pregnancies Del. DatName GA/WeeksOutcome Route [facility] LgAnesthesDel LocaProviderFOB e ht en ia tn 09/11/16Solomon live birC-sectio8 lbs. 1Male 24 [facility] - fuln 5 oz l term MANISH [...] Symmetrical, Neuro grossly intact. Negative for: Clonus LEGEND MAKER: Normal external genitalia. Negative for: Vulvar lesions [...] any complications: none I have reviewed the [facility] and made any clinically relevant updates. 03/07/18 0919 <Electronically signed by Liz Lloyd MD> Date Liz Lloyd MD Cosigner Signature: Date (if applicable) CC: Chaz Hoffmann DO; Liz Lloyd MD Signed CBC W/DIFF, AUTOMATED Collected: 03/07/2018 Status: F Source: [place] 8:20 AM [facility] REPOSITORY TYPE CODE TESTS RESULT OUT OF [...] 1.88 Performed By: #### L100.0100, B101.7450 #### [facility] [address] [place], [address] TYPE AND SCREEN Collected: 03/07/2018 Status: F Source: [place] 8:20 AM [facility] REPOSITORY Order Comment: Reason for Type AND Screen/Red Cells: ROUTINE TYPE CODE TESTS RESULT OUT OF RANGE REFERENCE UNITS LAB B10.0800 A Normal BLOOD TYPE GEL POSITIVE LAB B100.4000 Normal Antibody NEGATIVE Screen Performed By: #### L100.0100, B101.7450 #### [facility] [address] [place], [address] (ROM) RUPTURE OF Collected: 03/07/2018 Status: F Source: [place] [facility] 7:00 AM [facility] REPOSITORY TYPE CODE TESTS RESULT OUT OF REFERENCE UNITS RANGE LAB L205.1310 Negative High ROM POSITIVE Result Comment: Amniotic fluid present indicates rupture of Membranes. RESULTS CALLED TO WILFRID MORENO 03/07/18 0750 Yoselyn Mazariegos. REPORT READ BACK BY SAME . Performed By: #### L205.1000 #### [facility] [address] [facility] [place], [address] CBC W/DIFF, AUTOMATED Collected: 03/04/2018 Status: F Source: [place] 9:47 PM [facility] REPOSITORY TYPE CODE TESTS RESULT OUT OF [...] Lymph 0.68 Performed By: #### L100.0100 #### [facility] [address] [facility] [place], [place], [address] Observed: 03/04/2018 Status: F Source: [place] INFLUENZA A+B (RAPID 4:15 PM [facility] IVONNE) REPOSITORY Has pt arrived? Y FLU A/B Rapid Negative test results should be confirmed with FLU PANEL MOLECULAR if indicated. Influenza Ag, Direct Presumptive NEGATIVE for Influenza A/B Antigen (See Note) Performed By: #### M101.0101 #### [facility] [address] [facility] [place], [address] URINALYSIS, COMPLETE Collected: 03/04/2018 Status: F Source: [place] 12:40 PM [facility] REPOSITORY Order Comment: How was Urine Obtained? REC THERAPIST TO SPECIFY TYPE CODE TESTS RESULT OUT [...] 0 SEEN Performed By: #### L400.0001 #### [facility] [address] [place], [address] Observed: 03/04/2018 Status: F Source: [place] CULTURE, URINE 12:40 PM [facility] REPOSITORY Urine Culture ORGANISM 1: Mixed Gram Positive Organisms [place] Count >100,000 MIX CULTURE Mixed contaminants. Submit a new specimen if indicated. Performed By: #### M100.0650 #### [facility] [address] [place], [address] CBC-COMPLETE BLOOD CNT Collected: 03/04/2018 Status: F Source: [place] NO DIFF 9:30 AM [facility] REPOSITORY TYPE CODE TESTS RESULT OUT OF [...] MPV 12.9 Performed By: #### L100.0500 #### [facility] [address] [place], [address] FILTER TANK TENDER HELPER HEAD OFFICE VISIT Observed: 02/25/2018 Status: F Source: [place] REPORT 11:40 AM [facility] REPOSITORY [facility] [address] [place] [address] OFFICE VISIT Date of Service: 02/25/18 MR#: [id number] Acct: [id number] Name: LUIS MIGUEL WALKER Rep #: [id number] : 1985 Provider: Liz Lloyd MD Age/Sex: 32/F Location: [facility] Status: Signed Intake Vital Signs02/25/18 Body Mass [...] abortions Past Pregnancies Del. DatName GA/WeeksOutcome Route [facility] AlbertgInarthurt Luis LgAnesthesDel LocaProviderFOB e ht en [...] heart defect Z82.79 normal anatomy scan with [facility] 3. Attention deficit hyperactivity disorder (ADHD), [...] LIMITED WITH Observed: 02/24/2018 Status: F Source: [place] BIOMETRICS 12:29 PM [facility] REPOSITORY [facility] Imaging Services [address] [place] [address] OB Limited With Biometrics MR#: [id number] Acct: [id number] Name: LUIS MIGUEL WALKER Rep #: [id number] : 1985 F 32 From: Lonnie Steven MD PCP: Chaz Hoffmann DO Status: REG CLI Study: OB Limited With Biometrics Date of Exam: 02/24/18 Exam# [id number] Ordering Dr: Liz Lloyd MD STUDY: SECOND [...] Lonnie Steven MD at 8:56 EST Tel [phone], Service support , CC: Chaz Hoffmann DO; Liz Lloyd MD Adjunct English Instructor: Signed URINALYSIS, COMPLETE Collected: 02/22/2018 Status: F Source: [place] 11:53 PM [facility] REPOSITORY Order Comment: How was Urine Obtained? [...] URINE Performed By: #### L400.0001, M100.0650 #### [facility] [address] [place], [address] Observed: 02/22/2018 Status: F Source: [place] CULTURE, URINE 11:53 PM [facility] REPOSITORY Urine Culture ORGANISM 1: Mixed Gram Positive Organisms [place] Count 50,000-80,000 MIX CULTURE Mixed contaminants. Submit a new specimen if indicated. Performed By: #### L400.0001, M100.0650 #### [facility] [address] [place], [place], [address] FILTER TANK TENDER HELPER HEAD OFFICE VISIT Observed: 02/18/2018 Status: F Source: [place] REPORT 11:27 PM [facility] REPOSITORY [facility] [address] [place] [address] OFFICE VISIT Date of Service: 02/18/18 MR#: [id number] Acct: [id number] Name: LUIS MIGUEL WALKER Rep #: [id number] : 1985 Provider: Lzi Lloyd MD Age/Sex: 32/F Location: [facility] Status: Signed Intake Vital Signs02/18/18 Body Mass Index (BMI) 42.2 02/18/18 Height 5 ft 9.5 in 02/18/18 Weight: 290 lb 02/18/18 Body Mass Index (BMI) 42.2 02/18/18 Blood Pressure 122/80 H Intake Visit Reasons: 36 WEEK OB Assembler Billiard Table Required: No Is patient in pain?: No [...] Past Pregnancies Del. DatName GA/WeeksOutcome Route [facility] LgAnestheAKel LocaProviderFOB e ht en th ia [...] heart defect Z82.79 normal anatomy scan with [facility] 3. Attention deficit hyperactivity disorder (ADHD), [...] Source: [place] CULTURE, GROUP B 6:29 PM [facility] STREPTOCOCCUS REPOSITORY TONJA Culture Group B Beta Streptococcus is not isolated. Performed By: #### M100.1800 #### [facility] [address] [place], [address] FILTER TANK TENDER HELPER HEAD OFFICE VISIT Observed: 02/10/2018 Status: F Source: [place] REPORT 10:03 AM [facility] REPOSITORY [facility] [address] [place] [address] OFFICE VISIT Date of Service: 02/10/18 MR#: [id number] Acct: [id number] Name: LUIS MIGUEL WALKER Rep #: [id number] : 1985 Provider: Lzi Lloyd MD Age/Sex: 32/F Location: [facility] Status: Signed Intake Vital Signs02/10/18 Body Mass Index (BMI) 42.2 02/10/18 Height 5 ft 9.5 in 02/10/18 Weight: 287 lb 2 oz 02/10/18 Body Mass Index (BMI) 41.8 02/10/18 Blood Pressure 122/80 H Intake Visit Reasons: 35 WEEK OB 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 DatName [place]/WeeksOutcome Route [facility] Lita Smith LgAnestheAntonioel LocaProviderFOB e ht en [...] heart defect Z82.79 normal anatomy scan with [facility] 3. Attention deficit hyperactivity disorder (ADHD), [...] MD Cosigner Signature: Date (if applicable) CC: FILTER TANK TENDER HELPER HEAD OFFICE VISIT Observed: 01/28/2018 Status: F Source: [place] REPORT 2:30 PM [facility] 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 Billiard Table Required: No Is patient in pain?: No [...] LIMITED WITH Observed: 01/22/2018 Status: F Source: [place] BI[facility]RICS 12:18 PM [facility] REPOSITORY [facility] Imaging Services [address] [place] [address] OB Limited With Biometrics MR#: [id number] Acct: [id number] Name: LUIS MIGUEL WALKER Rep #: [id number] : 1985 F 32 From: Real Gracia MD PCP: Chaz Hoffmann DO Status: REG CLI Study: OB Limited With Biometrics Date of Exam: 01/22/18 Exam# [id number] Ordering Dr: Shanti Zamora STUDY: SECOND AND [...] , CC: FRED Zamora; Chaz Hoffmann DO Adjunct English Instructor: Signed FILTER TANK TENDER HELPER HEAD OFFICE VISIT Observed: 01/13/2018 Status: F Source: [place] REPORT 1:56 PM [facility] [address] [place], [place] [address] OFFICE VISIT Date of Service: 01/13/18 MR#: [id number] Acct: [id number] Name: LUIS MIGUEL WALKER Rep #: [id number] : 1985 Provider: FRED Zamora Age/Sex: 32/F Location: [facility] Status: Signed Intake Vital Signs01/13/18 Height 5 ft 9.5 in 01/13/18 Weight: 283 lb 01/13/18 Body Mass Index (BMI) 41.1 01/13/18 Blood Pressure 116/80 Intake Visit Reasons: 28 weeks Assembler Billiard Table Required: No Is patient in pain?: No [...] abortions Past Pregnancies Del. DatName GA/WeeksOutcome Route [facility] WeigInfant GLabor LgAnesthesDel LocaProviderFOB e ht en [...] heart defect Z82.79 normal anatomy scan with [facility] 5. History of abnormal cervical Pap [...] LEAD ELECTROCARDIOGRAM Observed: 12/29/2017 Status: F Source: [place] 12:49 PM [facility] REPOSITORY [facility] Cardiovascular Services [address] [place] [address] 12 Lead EKG 12/25/17 2329 MR#: [id number] Acct: [id number] Name: LUIS MIGUEL WALKER Rep #: [id number] : 1985 32 From: Jaylon Junior MD [...] repeat ECG Confirmed by JAYLON JUNIOR MD ([id number]), material expeditor ENRIKE LANDEROS ([id number]) on 12/29/2017 12:48:26 PM Referred By: MELINDA Confirmed By:JAYLON JUNIOR MD 12/29/17 1248 Date Jaylon Junior MD CC: Demond Staples MD; Chaz Hoffmann DO Signed EMERGENCY DEPARTMENT Observed: 12/26/2017 Status: F Source: [place] SUMMARY 1:53 AM [facility] REPOSITORY [facility] Medical Records Department [address] [place] [address] Emergency Department Summary 12/26/17 0052 MR#: [id number] Acct: [id number] Name: LUIS MIGUEL WALKER Rep #: [id number] : 1985 32 From: Demond Staples MD [...] medications and will follow up with her FILTER TANK TENDER HELPER HEAD Treatment Plan: [] Disposition: Discharge Impression: Chest pain This note was generated with [employer] dictation software. It may contain incorrect words, [...] problems, contact your Primary Care Provider. Call [employer] [facility] ([phone]) or report to the closest Emergency Room. Call 911 if necessary. 12/26/17152 <Electronically signed by Demond Staples MD> Date Demond Staples MD Cosigner Signature (If Indicated): Date CC: Chaz Hoffmann DO DISCHARGE INSTRUCTION Observed: 12/26/2017 Status: F Source: [place] 1:53 AM [facility] REPOSITORY [facility] Medical Records Department [address] [place] [address] Discharge Instruction 12/26/17152 MR#: [id number] Acct: [id number] Name: LUIS MIGUEL WALKER Rep #: [id number] : 1985 32 From: Demond Staples MD [...] your Primary Care Provider. Call [facility] ([phone]) or report to the closest Emergency Room. Call 911 if necessary. 12/26/17 0153 <Electronically signed by Demond Staples MD> Date Demond Staples MD Cosigner Signature (If Indicated): Date CC: Chaz Hoffmann DO CBC W/DIFF, AUTOMATED Collected: 12/26/2017 Status: F Source: [place] 1:03 AM [facility] REPOSITORY TYPE CODE TESTS RESULT OUT OF [...] Lymph 2.21 Performed By: #### L100.0100 #### [facility] Laboratory [address] [place], [address] BASIC METABOLIC Collected: 12/26/2017 Status: F Source: [place] PROFILE (BMP) 1:03 AM [facility] REPOSITORY TYPE CODE TESTS RESULT OUT OF [...] 9 Performed By: #### L500.2500, L501.4010 #### [facility] [address] [place], [address] TROPONIN-I Collected: 12/26/2017 Status: F Source: [place] 1:03 AM [facility] REPOSITORY TYPE CODE TESTS RESULT OUT OF RANGE REFERENCE UNITS LAB L501.4010 <0.045 ng/mL Normal < 0.015 TROPONIN-I Result Comment: TROPONIN-I EXPECTED VALUES <0.045 Negative 0.045 - 0.590 Consistent with Cardiac Damage > OR = 0.600 Critical Value Not every elevated troponin is indicative of TX. These values should be used with clinical judgement in examining the patient's clinical picture for diagnosis. To establish a diagnosis of TX versus myocardial injury, there must be a demonstrated rise and/or fall in the troponin values, in addition to ischemic symptoms, EKG changes, new regional wall motion abnormality, and/or angiographical evidence. PLEASE NOTE: REFERENCE RANGES EDITED 17 Performed By: #### L500.2500, L501.4010 #### [facility] [address] [place], [address] CHEST 1 VIEW Observed: 12/26/2017 Status: F Source: [place] (PORTABLE) 12:51 AM [facility] REPOSITORY [facility] Imaging Services [address] [place] [address] Chest 1 View (Portable) MR#: [id number] Acct: [id number] Name: LUIS MIGUEL WALKER Rep #: [id number] : 1985 F 32 From: Tanmay George MD PCP: Chaz Hoffmann DO Status: REG ER Study: Chest 1 View (Portable) Date of Exam: 12/26/17 Exam# [id number] Ordering Dr: Demond Staples MD STUDY: X-RAY [...] CC: Demond Staples MD; Chaz Hoffmann DO Adjunct English Instructor: Signed CBC W/DIFF, AUTOMATED Collected: 12/12/2017 Status: F Source: [place] 2:54 PM [facility] REPOSITORY TYPE CODE TESTS RESULT OUT OF [...] 1.77 Performed By: #### L100.0100, L501.0250 #### [facility] [address] [place], [address] GLUCOSE CHALLENGE GEST Collected: 12/12/2017 Status: F Source: [place] 1H 50G 2:54 PM [facility] REPOSITORY TYPE CODE TESTS RESULT OUT OF RANGE REFERENCE UNITS LAB L501.0250 70-140 mg/dL Normal GLU GEST 90 50g 1H Performed By: #### L100.0100, L501.0250 #### [facility] [address] [place], [address] FILTER TANK TENDER HELPER HEAD OFFICE VISIT Observed: 12/12/2017 Status: F Source: [place] REPORT 2:17 PM [facility] REPOSITORY [facility] [address] [place] [address] OFFICE VISIT Date of Service: 12/12/17 MR#: [id number] Acct: [id number] Name: LUIS MIGUEL WALKER Rep #: [id number] : 1985 Provider: Liz Lloyd MD Age/Sex: 32/F Location: [facility] Status: Signed Intake Vital Signs12/12/17 Height 5 ft 9.5 in 12/12/17 Weight: 275 lb 8 oz 12/12/17 Body Mass Index (BMI) 40.1 12/12/17 Blood Pressure 120/80 Intake Visit Reasons: 21 weeks 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 DatName GA/WeeksOutcome Route [facility] LgAnesthesDel LocaProviderFOB e ht en ia tn 09/11/16Solomon live birC-sectio8 lbs. 1Male 24 [facility] RR [facility] - fuln 5 oz l term HPI [...] Route Admin Location Lot Number Expiration Date [facility] Field Service Technician Poultry 0.5 mL IM Left Arm (SQ) [id number] 01/27/24 [id number] SANOFI-PASTEUR VIS Given Date VIS Publication Date 12/12/17 05/03/14 Eligibility Eligibility Date Assessment AND Plan Problems 1. Family history of congenital heart defect Z82.79 normal anatomy scan with [facility] 2. Anxiety F41.9 counseling, vistaril PRN [...] LIMITED (NO Observed: 11/19/2017 Status: F Source: [place] BIOMETRICS) 7:57 AM [facility] REPOSITORY [facility] Imaging Services [address] [place] [address] OB Limited (No Biometrics) MR#: [id number] Acct: [id number] Name: LUIS MIGUEL WALKER Rep #: [id number] : 1985 F 32 From: Lonnie Steven MD PCP: Chaz Hoffmann DO Status: REG CLTawny Study: OB Limited (No Biometrics) Date of Exam: 11/19/17 Exam# [id number] Ordering Dr: Shanti Zamora CONFERENCE CENTER COORDINATOR-Josefina STUDY: SECOND AND THIRD TRIMESTER OBSTETRICAL ULTRASOUND [...] Lonnie Steven MD at 9:18 EDT Tel [phone], Service support , CC: FRED Zamora; Chaz Hoffmann DO Adjunct English Instructor: Signed FILTER TANK TENDER HELPER HEAD OFFICE VISIT Observed: 11/12/2017 Status: F Source: [place] REPORT 4:08 PM [facility] [address] [place] [address] OFFICE VISIT Date of Service: 11/12/17 MR#: [id number] Acct: [id number] Name: LUIS MIGUEL WALKER Rep #: [id number] : 1985 Provider: Liz Lloyd MD Age/Sex: 32/F Location: [facility] Status: Signed Intake Vital Signs11/12/17 Height 5 ft 9.5 in 11/12/17 Weight: 274 lb 2 oz 11/12/17 Body Mass Index (BMI) 39.9 11/12/17 Blood Pressure 122/78 Intake Visit Reasons: est ob 22 weeks Chief Complaint: est ob Assembler Billiard Table Required: No Is patient in pain?: No [...] 10/22/2017 Status: F Source: [place] 11:18 AM [facility] REPOSITORY [facility] Imaging Services [address] [place] [address] OB Anatomy Scan MR#: [id number] Acct: [id number] Name: LUIS MIGUEL WALKER Rep #: [id number] : 1985 F 32 From: Naman Cedeño MD PCP: Chaz Hoffmann DO Status: REG CLI Study: OB Anatomy Scan Date of Exam: 10/22/17 Exam# [id number] Ordering Dr: Shanti Zamora CONFERENCE CENTER COORDINATOR-C STUDY: SECOND AND THIRD TRIMESTER OBSTETRICAL ULTRASOUND [...] , CC: FRED Zamora; Chaz Hoffmann DO Adjunct English Instructor: Signed FILTER TANK TENDER HELPER HEAD OFFICE VISIT Observed: 10/10/2017 Status: F Source: [place] REPORT 3:53 PM [facility] REPOSITORY [facility] [address] [place] [address] OFFICE VISIT Date of Service: 10/10/17 MR#: [id number] Acct: [id number] Name: LUIS MIGUEL CARSON Rep #: [id number] : 1985 Provider: FRED Zamora Age/Sex: 32/F Location: [facility] Status: Signed Intake Vital Signs10/10/17 Height 5 ft 10 in 10/10/17 Weight: 265 lb 4 oz 10/10/17 Body Mass Index (BMI) 38.0 10/10/17 Blood Pressure 129/68 Intake Visit Reasons: est ob 17 weeks Chief Complaint: est ob Assembler Billiard Table Required: No Is patient in pain?: Yes [...] 09/11/2017 Status: F Source: [place] 10:16 AM [facility] Medical Services [address] [place] [address] OFFICE VISIT Date of Service: MR#: [id number] Acct: [id number] Patient: LUIS MIGUEL CARSON Kay Rep #: [id number] : 1985 Provider: Loni Hayden Age/Sex: 32/F Location: [facility] Status: Signed Intake Intake Visit Reasons: Amb Documentation Allergies No Known Allergies Allergy (Verified 09/09/17 08:36) Medications Vits [Prenatabs FA ] 1 tab PO DAILY 05/12/16 [History Confirmed 09/09/17] 09/11/17 1016 <Electronically signed by Liz Lloyd MD> Date Liz Lloyd MD [facility] Signature: Date (if applicable) CC: FILTER TANK TENDER HELPER HEAD OFFICE VISIT Observed: 09/09/2017 Status: F Source: [place] REPORT 8:53 AM [facility] [address] [place] [address] OFFICE VISIT Date of Service: 09/09/17 MR#: [id number] Acct: [id number] Name: LUIS MIGUEL CARSON Kay Rep #: [id number] : 1985 Provider: Liz Lloyd MD Age/Sex: 32/F Location: [facility] Status: Signed Intake Vital Signs09/09/17 Height 5 [...] abortions Past Pregnancies Del. DatName GA/WeeksOutcome Route [facility] LgAnestheAKel LocaProviderFOB e ht en ia tn [...] 08/28/2017 Status: F Source: [place] 1:21 PM [facility] REPOSITORY [facility] Medical Records Department [address] [place] [address] Downtime Report MR#: [id number] Acct: [id number] Name: LUIS MIGUEL CARSON Kay Rep #: [id number] : 1985 32 From: Marshall Oshea PCP: Status: REG CLI This patient was seen during an EMR downtime August 11, 2017 - August 18, 2017. This patient may have a combination of paper and electronic documentation or all paper documentation. All documentation is viewable within the e-chart portion of [employer] for each patient visit. CBC W/DIFF, AUTOMATED Collected: 08/21/2017 Status: F Source: [place] 7:45 AM [facility] REPOSITORY Order Comment: VEIN GAVE OUT, TYPE [...] Lymph 2.72 Performed By: #### L100.0100 #### [facility] [address] [place] [address], [address] #### L3100.0390 #### [facility] (refer to report for specific site) refer to report for address and phone number HEPATITIS B SURFACE Collected: 08/21/2017 Status: F Source: [place] AG 7:45 AM [facility] REPOSITORY Order Comment: VEIN GAVE OUT, TYPE N SCREEN WAS NOT DONE BUT WILL DO WITH GLUCOSE TESTING. TYPE CODE TESTS RESULT OUT OF RANGE REFERENCE UNITS LAB L3100.0400 Negative Normal HB Negative SURF AG Result Comment: Performed at: - [facility], [place], [place] [address] [employer] Specialist: Last Baird PhD, Phone: [phone] Performed By: #### L100.0100 #### [facility] [address] [facility] [place], [address] #### L3100.0390 #### [facility] (refer to report for specific site) refer to report for address and phone number RAPID PLASMIN REAGIN Collected: 08/21/2017 Status: F Source: [place] (RPR) 7:45 AM [facility] REPOSITORY Order Comment: VEIN GAVE OUT, TYPE N SCREEN WAS NOT DONE BUT WILL DO WITH GLUCOSE TESTING. TYPE CODE TESTS RESULT OUT OF REFERENCE UNITS RANGE LAB L700.5000 NONREACTIVE NONREACTIVE Normal RPR Performed By: #### L700.5000, L509.4000, L3890.6005 #### [facility] [address] [place], [address] RUBELLA IGG Collected: 08/21/2017 Status: F Source: [place] 7:45 AM [facility] REPOSITORY Order Comment: VEIN GAVE OUT, TYPE [...] Performed By: #### L700.5000, L509.4000, L3890.6005 #### [facility] [address] [place], [place], [address] HIV - [facility] Collected: 08/21/2017 Status: F Source: [place] 7:45 AM [facility] REPOSITORY Order Comment: VEIN GAVE OUT, TYPE N SCREEN WAS NOT DONE BUT WILL DO WITH GLUCOSE TESTING. TYPE CODE TESTS RESULT OUT OF RANGE REFERENCE UNITS LAB L3890.6005 Nonreactive Normal HIV - [facility] Non-Reactive Performed By: #### L700.5000, L509.4000, L3890.6005 #### [facility] [address] [place], [address] Observed: 08/15/2017 Status: F Source: [place] CULTURE, URINE 2:30 PM [facility] REPOSITORY PLEASE CALL RESULTS TO [phone] RESULT(S) PREVIOUSLY REPORTED ON MANUAL REQUISITION DURING DOWNTIME. Urine Culture Culture exhibits no growth. Performed By: #### M100.0650 #### [facility] [address] [place], [address] CT/NG [facility] BY PCR Collected: 08/15/2017 Status: F Source: [place] 2:30 PM [facility] REPOSITORY Order Comment: RESULT(S) PREVIOUSLY REPORTED ON MANUAL REQUISITION DURING DOWNTIME. TYPE CODE TESTS RESULT OUT OF RANGE REFERENCE UNITS LAB L8200.2100 Negative Normal Chlam Negative Trac PCR LAB L8200.2200 Negative Normal NG by Negative PCR Performed By: #### L8200.2000 #### [facility] [address] [place], [address] ALLERGIES ALLERGIES DATE TYPE / CODE NAME / CODE REACTION SEVERITY SOURCE 03/18/2018 Drug No Known Unknown [facility] Allergy/4160 Allergies/F00 Hospital 50173(SNOMED 9000980(RXNOR Repository CT) M) ENCOUNTERS ENCOUNTERS ADMIT/DISCHARGE ACCOUNT ADMITTING ENCOUNTER LOCATION SOURCE NUMBER CLASS 03/18/2018/ [id number] Ambulatory BMSBuilding:B [place] 9 8 [facility] Repository 03/18/2018 [id number] Prema, Ambulatory [place] 2 [facility] ing:WP Repository 03/07/2018/ [id number] Prema, Inpatient [place] 9 4 Liz [facility] ing:WPRoom: Repository [id number]: 1 03/07/2018 [id number] Prema, Ambulatory BMSBuilding:B [place] 8 Liz [facility] Repository 03/07/2018 [id number] Prema, Ambulatory BMSBuilding:B [place] 2 Liz [facility] Repository 03/07/2018 [id number] Prema, Ambulatory BMSBuilding:B [place] 2 Liz [facility] Repository 03/07/2018 [id number] Prema, Ambulatory BMSBuilding:B [place] 1 Liz [facility] Repository 03/04/2018/ [id number] Ambulatory [place] 8 5 [facility] ing:WPOUTRoom Repository : WP011 02/25/2018/ [id number] Ambulatory BMSBuilding:B [place] 8 6 [facility] Hospital Repository 02/24/2018 [id number] Ambulatory [place] 0 [facility] ing:OPUS Repository 02/23/2018 [id number] Ambulatory BMSBuilding:B [place] 4 MS.[facility] Hospital Repository 02/22/2018/ [id number] Ambulatory [place] 8 5 [facility] ing:WPOUTRoom Repository : WP015 02/18/2018 [id number] Ambulatory [place] 9 [facility] ing:LABSPEC Repository 02/18/2018/ [id number] Ambulatory BMSBuilding:B [place] 8 4 [facility] Repository 02/10/2018/ [id number] Ambulatory BMSBuilding:B [place] 8 2 [facility] Hospital Repository 01/28/2018/ [id number] Ambulatory BMSBuilding:B [place] 8 9 [facility] Hospital Repository 01/22/2018 [id number] Ambulatory [place] 8 [facility] ing:OPUS Repository 01/13/2018/ [id number] Ambulatory BMSBuilding:B [place] 8 5 [facility] Hospital Repository 12/26/2017/ [id number] Emergency [place] 8 2 [facility] ing:ED Repository 12/12/2017 [id number] Ambulatory [place] 2 [facility] ing:LAB Repository 12/12/2017/ [id number] Ambulatory BMSBuilding:B [place] 8 6 [facility] Hospital Repository 12/10/2017 [id number] Ambulatory BMSBuilding:B [place] 4 [facility] Hospital Repository 11/19/2017 [id number] Ambulatory [place] 3 [facility] ing:OPUS Repository 11/12/2017/ [id number] Ambulatory BMSBuilding:B [place] 8 2 [facility] Hospital Repository 10/22/2017 [id number] Ambulatory [place] 2 [facility] ing:US Repository 10/10/2017/ [id number] Ambulatory BMSBuilding:B [place] 8 1 [facility] Repository 09/11/2017 [id number] Ambulatory BMSBuilding:B [place] 5 [facility] Repository 09/11/2017 [id number] Ambulatory BMSBuilding:B [place] 4 [facility] Repository 09/09/2017/ [id number] Ambulatory BMSBuilding:B [place] 8 2 [facility] Repository 08/21/2017 [id number] Ambulatory [place] 7 [facility] ing:LAB Repository 08/15/2017 [id number] Ambulatory [place] 8 [facility] ing:LABSPEC Repository 08/15/2017/ [id number] Ambulatory BMSBuilding:B [place] 8 3 [facility] Repository 08/11/2017 [id number] Ambulatory BMSBuilding:B [place] 3 [facility] Repository PAYERS PAYERS ENCOUNTER GUARANTOR PAYER SUBSCRIBER SOURCE 03/18/2018 LUIS MIGUEL AZALIA Primary Insurance:[facility] LUIS MIGUELJO ANN VIEYRA [place] [id number] [facility] [facility] [id number] Hospital [address]Sak: (330) Number: Repository [phone] () [id number] Date:2541-91-31IB [address] [address], [place] [address]BW: CHECK WEBSITE 03/18/2018 Secondary NOT GIVENUNK [place] Insurance:SELF PAY [facility] Number: Effective Repository Date:2018-03-18 03/18/2018 LUIS MIGUEL VIEYRA Primary Insurance:[facility] LUIS MIGUEL [address] [id number] [facility] [id number] Hospital [address]Npc: (330) Number: Repository [phone] () [id number] Date:6173-87-50FF [address] [address], [place] [address]ZL: CHECK WEBSITE 03/18/2018 Secondary NOT GIVENUNK [place] Insurance:SELF PAY [facility] Number: Effective Repository Date:2018-01-22 03/07/2018 LUIS MIGUEL VIEYRA Primary Insurance:[facility] LUIS MIGUEL [address] [id number] [facility]: [facility] [id number] Hospital [address]Gir: (330) Number: Repository [phone] () [id number] Date:3854-74-72YF [address] [address], [place] [address]KG: CHECK WEBSITE 03/07/2018 Secondary NOT GIVENUNK [place] Insurance:SELF PAY [facility] Number: Effective Repository Date:2018-03-07 03/07/2018 LUIS MIGUEL Villanueva Primary Insurance:[facility] LUIS MIGUEL Byersoster [id number] [place] [facility]: [facility] [id number] Hospital [address]Dkr: (330) Number: Repository [phone] () [id number] Date:0127-45-53BE [address] [address], [place] [address]OB: CHECK WEBSITE 03/07/2018 Secondary NOT GIVENUNK [place] Insurance:SELF PAY [facility] Number: Effective Repository Date:2018-03-07 03/07/2018 LUIS MIGUEL VIEYRA Primary Insurance:[facility] LUIS MIGUEL [address] [id number] [place] [facility]: [facility] [id number] Hospital [address]Gdo: (330) Number: Repository [phone] () [id number] Date:7938-46-53ZG [address] [address], [place] [address]JV: CHECK WEBSITE 03/07/2018 Secondary NOT GIVENUNK [place] Insurance:SELF PAY [facility] Number: Effective Repository Date:2018-03-07 03/07/2018 LUIS MIGUEL VIEYRA Primary Insurance:[facility] LUIS MIGUEL [address] [id number] [place] [facility]: [facility] [id number] Hospital [address]Ocq: (330) Number: Repository [phone] () [id number] Date:7746-30-11LM [address] [address], [place] [address]SE: CHECK WEBSITE 03/07/2018 Secondary NOT GIVENUNK [place] Insurance:SELF PAY [facility] Number: Effective Repository Date:2018-03-07 03/07/2018 LUIS MIGUEL VIEYRA Primary Insurance:[facility] LUIS MIGUEL VIEYRA [place] [id number] [place] [facility]: [facility] [id number] Hospital [address]Mce: (330) Number: Repository [phone] () [id number] Date:4078-90-65HY [address] [address], [place] [address]II: CHECK WEBSITE 03/07/2018 Secondary NOT GIVENUNK [place] Insurance:SELF PAY [facility] Number: Effective Repository Date:2018-03-07 03/04/2018 LUIS MIGUEL Kay Primary Insurance:[facility] LUIS MIGUEL Villanueva [place] [id number] [place] [facility]: [facility] [id number] Hospital [address]Rxz: (330) Number: Repository [phone] () [id number] Date:2982-39-92YS [address] [address]OKWQOMRG, [place] [address]ZY: CHECK WEBSITE 03/04/2018 Secondary NOT GIVENUNK [place] Insurance:SELF PAY [facility] Number: Effective Repository Date:2018-03-04 02/25/2018 LUIS MIGUEL Kay Primary Insurance:[facility] LUIS MIGUEL Villanueva [place] [id number] [place] [facility]: [facility] [id number] Hospital [address]Lre: (330) Number: Repository [phone] () [id number] Date:8036-37-63BT [address] [address]ZDSDWVMCX, [place] [address]NZ: CHECK WEBSITE 02/25/2018 Secondary NOT GIVENUNK [place] Insurance:SELF PAY [facility] Number: Effective Repository Date:2018-02-23 02/24/2018 LUIS MIGUEL L Primary Insurance:[facility] LUIS MIGUEL Villanueva [place] [id number] [facility] WHIMSDOB: [facility] [id number] Hospital [address]Yqa: (330) Number: Repository [phone] () [id number] Date:7588-99-04MN [address] [address]XTEIFVEKQ, [place] [address]LO: CHECK WEBSITE 02/24/2018 Secondary NOT GIVENUNK [place] Insurance:SELF PAY [facility] Number: Effective Repository Date:2018-02-18 02/23/2018 LUIS MIGUEL L Primary NOT GIVENUNK [place] [id number] [facility] [address] [facility] Insurance:SELF PAY [facility] [facility] [address]Ked: (330) Number: Effective Repository [phone] () Date:2018-02-23 02/22/2018 LUIS MIGUEL L Primary Insurance:[facility] LUIS MIGUEL Villanueva Mercedes [id number] [place]: [facility] 9328[place]84-[place] [address]Tel: (330) Number: Repository [phone] () [id number] Date:9532-84-89IK [address] [address]RMSRUMBNZ, [place] [address]RJ: CHECK WEBSITE 02/22/2018 Secondary NOT GIVENUNK [place] Insurance:SELF PAY [facility] Number: Effective Repository Date:2018-02-22 02/18/2018 LUIS MIGUEL L Primary Insurance:[facility] LUIS MIGUEL [place] Mercedes [id number] [facility] [id number] Hospital [address]Xmi: (330) Number: Repository [phone] () [id number] Date:1973-53-06GA [address] [address]TIQBHSDPF, [place] [address]WF: CHECK WEBSITE 02/18/2018 Secondary NOT GIVENUNK [place] Insurance:SELF PAY [facility] Number: Effective Repository Date:2018-02-18 02/18/2018 LUIS MIGUEL L Primary Insurance:[facility] LUIS MIGUEL [place] Mercedes [id number] [place]: [facility] [id number] Hospital [address]Moa: (330) Number: Repository [phone] () [id number] Date:3138-67-21FE [address] [address]AHMGNVYLU, [place] [address]NT: CHECK WEBSITE 02/18/2018 Secondary NOT GIVENUNK [place] Insurance:SELF PAY [facility] Number: Effective Repository Date:2018-02-18 02/10/2018 LUIS MIGUEL Villanueva Primary Insurance:[facility] LUIS MIGUEL [place] [id number] [place]: [facility] 9414-98-19LES Hospital [address]Lpq: (330) Number: Repository [phone] () [id number] Date:7105-61-05UA [address] [address]DPUFZNFMD, [place] [address]QV: CHECK WEBSITE 02/10/2018 Secondary NOT GIVENUNK [place] Insurance:SELF PAY [facility] Number: Effective Repository Date:2018-02-10 01/28/2018 LUIS MIGUEL Villanueva Primary Insurance:[facility] LUIS MIGUEL [place] [id number] [place]: [facility] [id number] Hospital [address]Bjq: (330) Number: Repository [phone] () [id number] Date:8467-38-16WC [address] [address]FQDYRCRRF, [place] [address]NV: CHECK WEBSITE 01/28/2018 Secondary NOT GIVENUNK [place] Insurance:SELF PAY [facility] Number: Effective Repository Date:2018-01-28 01/22/2018 LUIS MIGUEL Villanueva Primary Insurance:[facility] LUIS MIGUEL [place] [id number] [place]: [facility] [id number] Hospital [address]Jam: (330) Number: Repository [phone] () [id number] Date:3821-95-31AN [address] [address]XSMOCAVKI, [place] [address]RF: CHECK WEBSITE 01/22/2018 Secondary NOT GIVENUNK [place] Insurance:SELF PAY [facility] Number: Effective Repository Date:2018-01-13 01/13/2018 LUIS MIGUEL Villanueva Primary Insurance:[facility] LUIS MIGUEL Long [id number] [place]: [facility] [id number] Hospital [address]Aod: (330) Number: Repository [phone] () [id number] Date:0122-19-75DC [address] [address]CUWMAFYGH, [place] [address]VM: CHECK WEBSITE 01/13/2018 Secondary NOT GIVENUNK [place] Insurance:SELF PAY [facility] Number: Effective Repository Date:2017-12-31 12/26/2017 LUIS MIGUEL Villanueva Primary Insurance:[facility] LUIS MIGUEL [place] [id number] [place]: [facility] 7574-61-25ZCUTeresa [place]ille [address]Tel: (330) Number: Repository [phone] () [id number] Date:9586-74-69FD [address] [address]ZHQETWWIT, [place] [address]SZ: CHECK WEBSITE 12/26/2017 Secondary NOT GIVENUNK [place] Insurance:SELF PAY [facility] Number: Effective Repository Date:2017-12-26 12/12/2017 LUIS MIGUEL Villanueva Primary Insurance:[facility] LUIS MIGUEL Long [id number] [place]: [facility] 5428-02-25SXOTeresa [place]ille [address]Tel: (330) Number: Repository [phone] () [id number] Date:3470-80-65MP [address] [address]VXQJBQMWP, [place] [address]BB: CHECK WEBSITE 12/12/2017 Secondary NOT GIVENUNK [place] Insurance:SELF PAY [facility] Number: Effective Repository Date:2017-12-12 12/12/2017 LUIS MIGUEL Villanueva Primary Insurance:[facility] LUIS MIGUEL Long [id number] [place]: [facility] 8005-39-01FHGTeresa Ville [address]Tel: (330) Number: Repository [phone] () [id number] Date:6267-16-12YI [address] [address]KQXVGEMRQ, [place] [address]VF: CHECK WEBSITE 12/12/2017 Secondary NOT GIVENUNK [place] Insurance:SELF PAY [facility] Number: Effective Repository Date:2017-12-12 12/10/2017 LUIS MIGUEL Villanueva Primary Insurance:[facility] LUIS MIGUEL Villanueva [place] [id number] [place]: [facility] [id number] Hospital [address]Mmm: (330) Number: Repository [phone] () [id number] Date:8737-25-92BU [address] [address]FHFTQXCTT, [place] [address]DE: CHECK WEBSITE 12/10/2017 Secondary NOT GIVENUNK [place] Insurance:SELF PAY [facility] Number: Effective Repository Date:2017-11-12 11/19/2017 LUIS MIGUEL Villanueva Primary Insurance:[facility] LUIS MIGUEL Villanueva Mercedes [id number] [place]: [facility] [id number] Hospital [address]Orh: (330) Number: Repository [phone] () [id number] Date:9664-94-62QT [address] [address]RSMACJVBD, [place] [address]CM: CHECK WEBSITE 11/19/2017 Secondary NOT GIVENUNK [place] Insurance:SELF PAY [facility] Number: Effective Repository Date:2017-10-23 11/12/2017 LUIS MIGUEL Villanueva Primary Insurance:[facility] LUIS MIGUEL [place] [id number] [place]: [facility] [id number] Hospital [address]Nsw: (330) Number: Repository [phone] () [id number] Date:0950-64-41VY [address] [address]CLOAZDNXP, [place] [address]KY: CHECK WEBSITE 11/12/2017 Secondary NOT GIVENUNK [place] Insurance:SELF PAY [facility] Number: Effective Repository Date:2017-11-12 10/22/2017 LUIS MIGUEL Villanueva Primary Insurance:[facility] LUIS MIGUEL Villanueva Mercedes [id number] [place]: [facility] [id number] Hospital [address]Zft: (330) Number: Repository [phone] (HP) [id number] Date:4046-81-39ZV [address] [address]AIOKNLNAV, [place] [address]SA: CHECK WEBSITE 10/22/2017 Secondary NOT GIVENUNK [place] Insurance:SELF PAY [facility] Number: Effective Repository Date:2017-10-13 10/10/2017 LUIS MIGUEL Villanueva Primary Insurance:[facility] LUIS MIGUEL [place] [id number] [facility] MOUNDB: [facility] [id number] Santa Fe Medical Center [address]Jnb: Number: Repository [id number] (HP) Date:8140-83-66CC [address] [address]CGSEJRILH, [place] [address]VJ: CHECK WEBSITE 10/10/2017 Secondary NOT GIVENUNK [place] Insurance:SELF PAY [facility] Number: Effective Repository Date:2017-10-10 09/11/2017 LUIS MIGUEL Villanueva Primary Insurance:[facility] LUIS MIGUEL [place] [id number] [facility]OUNDB: [facility] [id number] Santa Fe Medical Center [address]Oef: Number: Repository [id number] (HP) Date:5777-16-77WB [address] [address]IEIDSLSUI, [place] [address]AY: CHECK WEBSITE 09/11/2017 Secondary NOT GIVENUNK [place] Insurance:SELF PAY [facility] Number: Effective Repository Date:2017-09-11 09/11/2017 LUIS MIGUEL Villanueva Primary Insurance:[facility] LUIS MIGUEL [place] [id number] [facility]B: [facility] 3268-19-09ELCPresbyterian Santa Fe Medical Center [address]Ezh: Number: Repository [id number] (HP) Date:5228-71-77FM [address] [address]TBQHEVCSS, [place] [address]YQ: CHECK WEBSITE 09/11/2017 Secondary NOT GIVENUNK [place] Insurance:SELF PAY [facility] Number: Effective Repository Date:2017-09-11 09/09/2017 LUIS MIGUEL Villanueva Primary Insurance:[facility] LUIS MIGUEL Long [id number] [facility]: [facility] 5913-67-90GULPresbyterian Santa Fe Medical Center [address]Tqf: Number: Repository [id number] (HP) Date:7216-81-40DT [address] [address]FLAGOYWIV, [place] [address]AZ: CHECK WEBSITE 09/09/2017 Secondary NOT GIVENUNK [place] Insurance:SELF PAY [facility] Number: Effective Repository Date:2017-09-09 08/21/2017 LUIS MIGUEL Villanueva Primary Insurance:[facility] LUIS MIGUEL Long [id number] [facility]B: [facility] [id number] Santa Fe Medical Center [address]Qmy: Number: Repository [id number] (HP) Date:1375-70-39IR [address] [address]WMABHIKFW, [place] [address]SM: CHECK WEBSITE 08/21/2017 Secondary NOT GIVENUNK [place] Insurance:SELF PAY [facility] Number: Effective Repository Date:2017-08-21 08/15/2017 LUIS MIGUEL Villanueva Primary Insurance:[facility] LUIS MIGUEL Long [id number] [facility]B: [facility] [id number] Santa Fe Medical Center [address]Zbx: Number: Repository [id number] (HP) Date:7793-15-00IM [address] [address]FHQPNAZOK, [place] [address]FK: CHECK WEBSITE 08/15/2017 Secondary NOT GIVENUNK [place] Insurance:SELF PAY [facility] Number: Effective Repository Date:2017-08-15 08/15/2017 LUIS MIGUEL Villanueva Primary Insurance:[facility] LUIS MIGUEL Long [id number] [facility]: [facility] [id number] Santa Fe Medical Center [address]Bsy: Number: Repository [id number] (HP) Date:9548-12-66XC [address] [address]CBJSOKUKY, [place] [address]DM: CHECK WEBSITE 08/15/2017 Secondary NOT GIVENUNK [place] Insurance:SELF PAY [facility] Number: Effective Repository Date:2017-08-22 08/11/2017 LUIS MIGUEL Villanueva Primary Insurance:[facility] LUIS MIGUEL [place] [id number] [facility]: [facility] SALDA[facility]A 2557-14-95IJOPresbyterian Santa Fe Medical Center [address]Tgy: Number: Repository [id number] (HP) Date:4880-98-90LH [address] [address]VYBQTTEAX, [place] [address]EU: CHECK WEBSITE 08/11/2017 Secondary NOT GIVENUNK [place] Insurance:SELF PAY [facility] Number: Effective Repository Date:2017-07-14
== END ==
PROVIDERS: Family Provider Family Medicine; PCP Family Medicine; Referring Provider Nurse Practitioner Women's Health; Visit Provider Nurse Practitioner Women's Health
DX: Z34.90 Encounter for supervision of normal pregnancy, unspecified, unspecified trimester (principal)
CPT/HCPCS: 76816

== ENCOUNTER 2018-03-04 08:45 | Outpatient (CLI) | payer OTHER, SELFPAY ==
[2018-02-25 10:56] VITALS: BMI 41.6
[2018-03-04 09:31] VITALS: BMI 41.5
[2018-03-04 10:10] LABS: Hematocrit 39.1 % (37-47); Mean Corp Hgb Conc 33.2 g/gl (32-36); Mean Corpuscular Hgb 29.7 pg (27.0-32.0); Mean Corpuscular Volume 89.5 fL (81-99); Mean Platelet Vol. 12.9 fl (6.2-12.0); Platelet Count 176 K/mm3 (150-450); RBC Distribution Width CV 13.8 % (11.6-14.6); RBC Distribution Width SD 44.3 fl (35.1-43.9); Red Blood Count 4.37 M/mm3 (4.2-5.4); Scan Indicated on CBC? Y/N NO; White Blood Count 11.1 K/mm3 (4.4-11.0)
[2018-03-04] MEDS: proMETHazine 25 MG/ML Syringe 12.5 MG IV ×2 (10:31→17:46)
[2018-03-04] MEDS: Dextrose 5%-Lactated Ringers 1,000 ML 999 ML IV (10:32)
[2018-03-04] MEDS: Ondansetron 4 MG/2 ML Vial IV ×2 (10:32→17:46)
[2018-03-04] MEDS: Lactated Ringers 1,000 ML 200 ML IV ×4 (11:51→22:26)
[2018-03-04] MEDS: Acetaminophen 500 MG Tablet 1000 MG PO ×2 (12:40→21:38)
[2018-03-04 12:56] LABS: Bacteria 0 SEEN /hpf (None Seen); Mucous, Urine 0 SEEN /hpf (<or=2+); Red Blood Cells-Urine 0 SEEN /hpf (0-5); White Blood Cells 0 SEEN /hpf (0-5)
[2018-03-04 12:59] LABS: Color, Urine Yellow (Yellow); Glucose, Dipstick Normal (Normal); Ketone-Dipstick Negative (Negative); Leukocyte Esterase-Dipstick Negative /ul (Negative); Nitrite-Dipstick Negative (Negative); Occult Blood-Urine 25 /ul (Negative); Protein-Dipstick 30 mg/dl (Negative); Specific Gravity, Urine 1.015 (1.002-1.030); Urine Clarity Sl. Cloudy (Clear); Urine Urobilinogen Normal (Normal)
[2018-03-04 13:04] LABS: Urine Bilirubin Dipstick 1 mg/dL (Negative)
[2018-03-04 13:05] LABS: Squamous Epithelial Cells - UA 5-10 SEEN /hpf (5-10)
--- NOTE | 2018-03-04 15:34 | CHAPLAIN ---
Type of Pastoral Visit _x__ Initial Visit ___ Follow-up Visit ___ On-call Visit ___ General Patient Visit ___ Spiritual Assessment ___ Family Conference ___ Bereavement ___ Rapid Response ___ Code Blue ___ Other (describe below) Pastoral Care Referral From _x__ Patient ___ Family ___ Nurse ___ Physician ___ Driver Trainer ___ Ignition Mechanic ___ Other (describe below) Sacrament/Intervention _x__ Active listening ___ Anointing ___ Mandaen ___ Bereavement ___ Communion ___ Victoria exploration ___ ___ Life review _x__ Prayer ___ Reconciliation ___ Sacrament of Sick _x__ Supportive presence ___ Wedding ___ Other (describe below) Pastoral Comments
--- NOTE | 2018-03-04 16:14 | OB.TRI.NOTE ---
- Problem List (1) Influenza Status: Acute History of Present Illness Date of Service: 03/04/18 Was patient seen by the physician?: Yes Reason For Visit: VOMITING Final MANISH: 03/18/18 Final MANISH Source: US <20 weeks Gestational age: 38 Weeks and 0 Days History of Present Illness: 32 yo @ 38 weeks presents with N V and Diarrhea since midnight, decreased urine output. she had respiratory symptoms last week which have improved and then this evening developed a low grade temp of 100.9 and is still having intermittent symptoms despite IVFs and antiemetics. she has generalized abdominal tenderness. she denies any similar sick contacts and everyone that ate what she did is not sick. she had a flu shot this year. Allergies No Known Allergies Allergy (Verified 02/25/18 10:55) - Pertinent Past Medical History Medical History: Past Medical History (Last Reviewed 02/25/18 @ 10:56 by Abbie Chan) Abnormal pap Endometriosis Migraine Laboratory Studies: Laboratory Tests 03/04/18 03/04/18 Range/Units 12:40 09:30 WBC 11.1 H (4.4-11.0) K/mm3 RBC 4.37 (4.2-5.4) M/mm3 Hgb 13.0 (12.0-15.0) g/dl Hct 39.1 (37-47) % MCV 89.5 (81-99) fL MCH 29.7 (27.0-32.0) pg MCHC 33.2 (32-36) g/gl RDW 13.8 (11.6-14.6) % RDW Differential 44.3 H (35.1-43.9) fl Plt Count 176 (150-450) K/mm3 MPV 12.9 H (6.2-12.0) fl Urine Color Yellow (Yellow) Urine Clarity Sl. Cloudy (Clear) Urine pH 6.0 (5.0 - 8.0) Ur Specific [place] 1.015 (1.002-1.030) Urine Protein 30 H (Negative) mg/dl Urine Glucose (UA) Normal (Normal) mg/dl Urine Ketones Negative (Negative) mg/dl Urine Occult Blood 25 H (Negative) /ul Urine Nitrite Negative (Negative) Urine Bilirubin 1 H (Negative) mg/dL Urine Urobilinogen Normal (Normal) mg/dl Ur Leukocyte Esterase Negative (Negative) /ul Urine RBC 0 SEEN (0-5) /hpf Urine WBC 0 SEEN (0-5) /hpf Ur Squamous Epith Cells 5-10 SEEN (5-10) /hpf Urine Bacteria 0 SEEN (None Seen) /hpf Urine Mucus 0 SEEN (<or=2+) /hpf Review of Systems Constitutional: Reports: Chills, Fever. Denies: Malaise Eyes: Denies: Blurred vision, Vision Change HEENT: Reports: Head Aches. Denies: Visual Changes Cardiovascular: Denies: Chest Pain, Palpitations Respiratory: Reports: Cough. Denies: Shortness of Breath, Wheezing Gastrointestinal: Reports: Abdominal Pain, Diarrhea, Nausea, Vomiting Genitourinary: Reports: Retention. Denies: Dysuria, Hematuria Gynecological: Denies: Vaginal bleeding, Vaginal discharge Musculoskeletal: Reports: Muscle pain. Denies: Joint Pain Skin: Denies: Lesions, Rash Neurological: Reports: Headaches. Denies: Blurred vision, Focal weakness Psychiatric: Denies: Anxiety, Depression Endocrine: Denies: Heat/ Cold Intolerance Hematologic/ Lymphatic: Denies: Easy Bruising, Easy Bleeding Physical Exam General: Alert, Cooperative, No apparent distress HEENT: Atraumatic, Normocephalic. Negative for: Thyromegaly, Lymphadenopathy Cardiovascular: Regular rate Lungs: Normal air movement Abdomen: Soft, Gravid, Tender, Appropriate for Gestational Age Neurological: Deep Tendon Reflexes 2+/4 and Symmetrical, Neuro grossly intact PROFESSIONAL DRIVER: Negative for: Vulvar lesions Estimated gestational size: Appropriate for gestational size Presentation: Cephalic NST - FHR Rate Baby A Baseline: 140 Variability:: Moderate Decelerations:: None NST Reactive:: Yes, Appropriate for gestational age FHR Category:: Category I Uterine Activity:: no regular Impression/Plan 32 yo @ 38 weeks presents with nausea, vomiting, and diarrhea and fever. 1. rapid flu negative- will give tamiflu just in case false negative. likely viral gastroenteritis. aggressive fluid and symptom support. monitor overnight unti ltolerating adequate po
[2018-03-04] MEDS: oxyCODONE 5 MG Tablet PO (17:46)
[2018-03-04] MEDS: Oseltamivir Phosphate 75 MG Capsule PO (17:48)
[2018-03-04 22:00] LABS: Absolute Lymphocyte Count 0.68 X10^3/ul (0.83-4.51); Eosinophil# 0.01 X10^3/uL; Eosinophils% 0.1 % (0-5); Hematocrit 34.5 % (37-47); Hemoglobin 11.5 g/dl (12.0-15.0); Lymphocyte # 0.68 X10^3/ul (4.0); Lymphocyte % 8.4 % (19-41); Mean Corp Hgb Conc 33.3 g/gl (32-36); Mean Corpuscular Hgb 29.7 pg (27.0-32.0); Mean Corpuscular Volume 89.1 fL (81-99); Mean Platelet Vol. 11.8 fl (6.2-12.0); Monocyte# 0.33 X10^3/uL; Monocyte% 4.1 % (0-10); Neutrophil # 7.03 X10^3/uL (2.7-7.7); Neutrophil % 87.2 % (47-70); Platelet Count 148 K/mm3 (150-450); RBC Distribution Width SD 45.5 fl (35.1-43.9); Red Blood Count 3.87 M/mm3 (4.2-5.4); White Blood Count 8.1 K/mm3 (4.4-11.0)
[2018-03-04 22:01] LABS: POSITIVE COUNT NO; POSITIVE DIFFERENTIAL NO; POSITIVE MORPHOLOGY NO
[2018-03-05] MEDS: Ondansetron 4 MG/2 ML Vial IV (02:19)
[2018-03-05] MEDS: Lactated Ringers 1,000 ML 200 ML IV (03:07)
[2018-03-05] MEDS: Acetaminophen 500 MG Tablet 1000 MG PO (06:59)
== END 2018-03-05 08:00 | disposition home or self-care (01) ==
LOC: WPOUT 08:48 → WP 08:49
PROVIDERS: Family Provider Family Medicine; PCP Family Medicine; Referring Provider Obstetrics & Gynecology; Visit Provider Obstetrics & Gynecology
DX: O99.89 Other specified diseases and conditions complicating pregnancy, childbirth and the puerperium (principal); R50.9 Fever, unspecified; R19.7 Diarrhea, unspecified; R10.9 Unspecified abdominal pain; R33.9 Retention of urine, unspecified; R51 Headache; R05 Cough; O26.893 Other specified pregnancy related conditions, third trimester; R11.2 Nausea with vomiting, unspecified; Z3A.38 38 weeks gestation of pregnancy
CPT/HCPCS: 96361 ×8; 96374; 96375; 36415; 59025; 59050; 81001; 85025; 85027; 87086; 87088; 87804; 99218; J7120; G0378; J2405

== ENCOUNTER 2018-03-07 07:50 | Inpatient (IN) | payer OTHER, SELFPAY ==
[2018-03-05 14:27] VITALS: BMI 41.5
[2018-03-07] VITALS (13 sets, daily range): BP systolic 122–152; BP diastolic 53–93; PULSE 68–85; RESP 16–18; TEMP 36.6–37.6; O2SAT 95–98; BMI 43.0
[2018-03-07 07:50] LABS: ROM Internal Control Test YES-OK TO RESULT pt. (Internal QC); ROM Patient Test POSITIVE (Negative)
[2018-03-07] MEDS: Lactated Ringers 1,000 ML 50 ML IV ×3 (08:20→13:10)
[2018-03-07 08:51] LABS: Absolute Lymphocyte Count 1.88 X10^3/ul (0.83-4.51); Basophil# 0.02 X10^3/uL; Basophil% 0.1 % (0-1); Eosinophil# 0.05 X10^3/uL; Eosinophils% 0.4 % (0-5); Hematocrit 36.5 % (37-47); Hemoglobin 12.1 g/dl (12.0-15.0); Lymphocyte # 1.88 X10^3/ul (4.0); Lymphocyte % 13.6 % (19-41); Mean Corp Hgb Conc 33.2 g/gl (32-36); Mean Corpuscular Hgb 29.6 pg (27.0-32.0); Mean Corpuscular Volume 89.2 fL (81-99); Mean Platelet Vol. 12.5 fl (6.2-12.0); Monocyte# 0.86 X10^3/uL; Monocyte% 6.2 % (0-10); Neutrophil % 79.6 % (47-70); Platelet Count 182 K/mm3 (150-450); RBC Distribution Width CV 13.8 % (11.6-14.6); RBC Distribution Width SD 44.9 fl (35.1-43.9); Red Blood Count 4.09 M/mm3 (4.2-5.4); White Blood Count 13.8 K/mm3 (4.4-11.0)
[2018-03-07 08:57] LABS: POSITIVE COUNT NO; POSITIVE DIFFERENTIAL NO; POSITIVE MORPHOLOGY NO
--- NOTE | 2018-03-07 09:09 | PCM.HP.OB ---
- Problem List (1) Family history of congenital heart defect Status: Acute Comment: normal anatomy scan with [facility] (2) Anxiety Status: Acute Comment: counseling, vistaril PRN (3) ADD (attention deficit disorder) Status: Acute Qualifiers: (4) History of delivery Status: Acute Comment: considering - 15% risk low due to weight and race. previous cs at 6 cm. uptodate education reviewed and plan if spontaneous labor, cs schedule on due date. (5) History of abnormal cervical Pap smear Status: Acute (6) Supervision of normal Status: Acute Qualifiers: Comment: PRR MANISH 03/18/18 boy my Boo Brett History Date of Admission: 09/18/16 Final MANISH: 03/18/18 Final MANISH Source: US <20 weeks Gestational age: 38 Weeks and 3 Days History of this : This is a 32 year-old, , at 38 weeks gestational age presents IAL desires . she has SROM clear fluid and upon arrival did have a decel x 4 minutes into the 80s with good recovery and moderate variability reactive no decels after. Medical History: Medical History (Last Reviewed 02/25/18 @ 10:56 by Abbie Chan) Abnormal pap Endometriosis Migraine Allergies No Known Allergies Allergy (Verified 02/25/18 10:55) Home Medications: Home Medications Vits [Prenatabs FA ] 1 tab PO DAILY 05/12/16 Dextroamphetamine/Amphetamine [Adderall 10 mg Tablet] 10 mg PO BID 12/26/17 Ondansetron HCl [Zofran] 4 mg PO 4X/DAY PRN PRN #30 tablet 03/04/18 Oseltamivir Phosphate [Tamiflu] 75 mg PO BID #9 capsule 03/04/18 proMETHazine tablet [Phenergan] 12.5 mg PO Q6H PRN PRN #30 tablet 03/04/18 Smoking Status: Former smoker Alcohol: None Number of Fetus(es): 1 Heart Tracin moderate variability isolated decel cat I tracing TOCO Analysis: q 2-3 History Past Pregnancies: Past Pregnancies Pregancy History 2 Elective abortions Hx Para 1 Spontaneous abortions Hx # Term Pregnancies Ectopic pregnancies Hx # Pregnancies Multiple births # of living children 1 Past Pregnancies Del. Date Name GA/Weeks Outcome Route Bth Weight Infant Gen Labor Lgth Anesthesia Del Locatn Provider FOB 09/11/16 Raejev live - full term 8 lbs. 15 oz Male 24 [facility] RR Brett MANISH Calculator Estimated Delivery Date 03/18/18 Based on LMP (certain) 06/11/17 Current WG 37w 0d Number 1 Expected Delivery Route/Plan considering tolac education given Specific Issue/Plans flu vaccine: given tdap vaccine: given rhogam: na LARC form signed: karis labor support person: Brett pain management: epidural cut cord/dad catch: [] : yes PP control planned: [] special requests: [] Expected Infant Delivery Method: Describe any other labor & delivery plans:: MANISH Calculator. Estimated Delivery Date 03/18/18. Based on LMP (certain) 06/11/17. Current WG 37w 0d. Number 1. Expected Delivery Route/Plan. considering tolac education given. Specific Issue/Plans. flu vaccine: given. tdap vaccine: given. rhogam: na. LARC form signed: karis. labor support person: Brett. pain management: epidural. cut cord/dad catch: []. : yes. PP control planned: []. special requests: [] Review of Systems Constitutional: Denies: Fever, Malaise Eyes: Denies: Blurred vision, Vision Change HEENT: Denies: Head Aches, Visual Changes Cardiovascular: Denies: Chest Pain, Palpitations Respiratory: Denies: Cough, Shortness of Breath, Wheezing Gastrointestinal: Denies: Abdominal Pain, Diarrhea, Nausea, Vomiting Genitourinary: Denies: Dysuria, Hematuria Musculoskeletal: Denies: Joint Pain, Muscle pain Skin: Denies: Lesions, Rash Neurological: Denies: Blurred vision, Focal weakness, Headaches Psychiatric: Denies: Anxiety, Depression Endocrine: Denies: Heat/ Cold Intolerance Hematologic/ Lymphatic: Denies: Easy Bruising, Easy Bleeding Physical Exam General: Alert, Cooperative, No apparent distress HEENT: Atraumatic, Normocephalic. Negative for: Thyromegaly, Lymphadenopathy Cardiovascular: Regular rate Lungs: Normal air movement Abdomen: Soft, Non Tender, Gravid Neurological: Deep Tendon Reflexes 2+/4 and Symmetrical, Neuro grossly intact. Negative for: Clonus [employer]: Normal external genitalia. Negative for: Vulvar lesions Estimated gestational size: Appropriate for gestational size Presentation: Cephalic Assessment/Plan All Active Problems (Last Reviewed 02/25/18 @ 10:56 by Abbie Chan) Influenza (Acute) False labor (Acute) Family history of congenital heart defect (Acute) Anxiety (Acute) ADD (attention deficit disorder) (Acute) History of delivery (Acute) History of abnormal cervical Pap smear (Acute) Supervision of normal (Acute) Engagement of fetus in breech position (Resolved) Evaluate anatomy not seen on prior sonogram (Resolved) Low lying placenta nos or without hemorrhage, second trimester (Resolved) This is a 32 year-old, , at 38 weeks gestational age presents IAL TOLAC Patient presents IAL, plan expectant management for , pitocin PRN. Pain management: plans epidural. GBS negative. Management of any complications: none I have reviewed the [facility] and made any clinically relevant updates.
--- NOTE | 2018-03-07 09:13 | HP.PCM_ITS ---
- Problem List (1) Family history of congenital heart defect Status: Acute Comment: normal anatomy scan with [facility] (2) Anxiety Status: Acute Comment: counseling, vistaril PRN (3) ADD (attention deficit disorder) Status: Acute Qualifiers: (4) History of delivery Status: Acute Comment: considering - 15% risk low due to weight and race. previous cs at 6 cm. uptodate education reviewed and plan if spontaneous labor, cs schedule on due date. (5) History of abnormal cervical Pap smear Status: Acute (6) Supervision of normal Status: Acute Qualifiers: Comment: PRR MANISH 03/18/18 boy my Boo Brett History Date of Admission: 09/18/16 Final MANISH: 03/18/18 Final MANISH Source: US <20 weeks Gestational age: 38 Weeks and 3 Days History of this : This is a 32 year-old, , at 38 weeks gestational age presents IAL desires . she has SROM clear fluid and upon arrival did have a decel x 4 minutes into the 80s with good recovery and moderate variability reactive no decels after. Medical History: Medical History (Last Reviewed 02/25/18 @ 10:56 by Abbie Chan) Abnormal pap Endometriosis Migraine Allergies No Known Allergies Allergy (Verified 02/25/18 10:55) Home Medications: Home Medications Vits [Prenatabs FA ] 1 tab PO DAILY 05/12/16 Dextroamphetamine/Amphetamine [Adderall 10 mg Tablet] 10 mg PO BID 12/26/17 Ondansetron HCl [Zofran] 4 mg PO 4X/DAY PRN PRN #30 tablet 03/04/18 Oseltamivir Phosphate [Tamiflu] 75 mg PO BID #9 capsule 03/04/18 proMETHazine tablet [Phenergan] 12.5 mg PO Q6H PRN PRN #30 tablet 03/04/18 Smoking Status: Former smoker Alcohol: None Number of Fetus(es): 1 Heart Tracin moderate variability isolated decel cat I tracing TOCO Analysis: q 2-3 History Past Pregnancies: Past Pregnancies Pregancy History 2 Elective abortions Hx Para 1 Spontaneous abortions Hx # Term Pregnancies Ectopic pregnancies Hx # Pregnancies Multiple births # of living children 1 Past Pregnancies Del. Date Name GA/Weeks Outcome Route Bth Weight Infant Gen Labor Lgth Anesthesia Del Locatn Provider FOB 09/11/16 Rajeev live - full term 8 lbs. [address] [facility] RR Brett MANISH Calculator Estimated Delivery Date 03/18/18 Based on LMP (certain) 06/11/17 Current WG 37w 0d Number 1 Expected Delivery Route/Plan considering tolac education given Specific Issue/Plans flu vaccine: given tdap vaccine: given rhogam: na LARC form signed: karis labor support person: Brett pain management: epidural cut cord/dad catch: [] : yes PP control planned: [] special requests: [] Expected Infant Delivery Method: Describe any other labor & delivery plans:: MANISH Calculator. Estimated Delivery Date 03/18/18. Based on LMP (certain) 06/11/17. Current WG 37w 0d. Number 1. Expected Delivery Route/Plan. considering tolac education given. Specific Issue/Plans. flu vaccine: given. tdap vaccine: given. rhogam: na. LARC form signed: karis. labor support person: Brett. pain management: epidural. cut cord/dad catch: []. : yes. PP control planned: []. special requests: [] Review of Systems Constitutional: Denies: Fever, Malaise Eyes: Denies: Blurred vision, Vision Change HEENT: Denies: Head Aches, Visual Changes Cardiovascular: Denies: Chest Pain, Palpitations Respiratory: Denies: Cough, Shortness of Breath, Wheezing Gastrointestinal: Denies: Abdominal Pain, Diarrhea, Nausea, Vomiting Genitourinary: Denies: Dysuria, Hematuria Musculoskeletal: Denies: Joint Pain, Muscle pain Skin: Denies: Lesions, Rash Neurological: Denies: Blurred vision, Focal weakness, Headaches Psychiatric: Denies: Anxiety, Depression Endocrine: Denies: Heat/ Cold Intolerance Hematologic/ Lymphatic: Denies: Easy Bruising, Easy Bleeding Physical Exam General: Alert, Cooperative, No apparent distress HEENT: Atraumatic, Normocephalic. Negative for: Thyromegaly, Lymphadenopathy Cardiovascular: Regular rate Lungs: Normal air movement Abdomen: Soft, Non Tender, Gravid Neurological: Deep Tendon Reflexes 2+/4 and Symmetrical, Neuro grossly intact. Negative for: Clonus BOILER TESTER: Normal external genitalia. Negative for: Vulvar lesions Estimated gestational size: Appropriate for gestational size Presentation: Cephalic Assessment/Plan All Active Problems (Last Reviewed 02/25/18 @ 10:56 by Abbie Chan) Influenza (Acute) False labor (Acute) Family history of congenital heart defect (Acute) Anxiety (Acute) ADD (attention deficit disorder) (Acute) History of delivery (Acute) History of abnormal cervical Pap smear (Acute) Supervision of normal (Acute) Engagement of fetus in breech position (Resolved) Evaluate anatomy not seen on prior sonogram (Resolved) Low lying placenta nos or without hemorrhage, second trimester (Resolved) This is a 32 year-old, , at 38 weeks gestational age presents IAL TOLAC Patient presents IAL, plan expectant management for , pitocin PRN. Pain management: plans epidural. GBS negative. Management of any complications: none I have reviewed the [facility] and made any clinically relevant updates.
[2018-03-07] MEDS: fentaNYL-bupivacaine (epidural) 100 ML BAG EPIDURAL ×2 (09:25→12:00)
[2018-03-07] MEDS: Oxytocin 30 units/NS 500 ml 30 UNITS/500 ML IV.SOLN IV (10:56)
[2018-03-07] MEDS: Ondansetron 4 MG/2 ML Vial IV (14:03)
[2018-03-07] MEDS: Sodium Citrate/Citric Acid 30 ML UDC PO (14:03)
--- NOTE | 2018-03-07 14:08 | OP.PCM_ITS ---
Problem List (1) Family history of congenital heart defect Status: Acute Comment: normal anatomy scan with [facility] (2) Anxiety Status: Acute Comment: counseling, vistaril PRN (3) ADD (attention deficit disorder) Status: Acute Qualifiers: (4) History of delivery Status: Acute Comment: considering - 15% risk low due to weight and race. previous cs at 6 cm. uptodate education reviewed and plan if spontaneous labor, cs schedule on due date. (5) History of abnormal cervical Pap smear Status: Acute (6) Supervision of normal Status: Acute Qualifiers: Comment: PRR MANISH 03/18/18 boy my Boo Brett Report of Operation Date of Procedure: 03/07/18 Pre-Operative Diagnosis: failed TOLAC, recurrent decelarations intolerance to labor Post-Operative Diagnosis: same Surgery/Procedure Performed:: RLTCS Description of Surgical Findings:: nl uterus tubes ovaries minimal scar tissue, some vesicouterine adhesions seed cone picker: Joseph Flowers Type of Anesthesia:: Epidural Special Medications: medina Specimen's removed: male Drains: pretty Estimated Blood Loss (mL): 1200 Fluids Replaced: crystalloid Description of Procedure: The patient is a 32-year-old at 38 weeks presented in active labor with spontaneous rupture of membranes. Patient did not make any cervical change after 4 hours and therefore Pitocin was started. After another 4 hours there was no further cervical change and therefore the decision was made for a repeat due to intolerance to Pitocin and no further cervical change. The Pitocin was unable to be dosed above 4 milliunits due to intolerance. The patient previously had an epidural in place and this was dosed accordingly. The patient was placed in the dorsal supine position with leftward tilt. Patient was prepped and draped in the normal sterile fashion. Pfannenstiel skin incision was made with the scalpel and carried through to the underlying layer of fascia with the scalpel. Fascia was nicked in the midline and the incision extended laterally. The rectus bellies were dissected off superiorly and inferiorly with out complication both sharply and bluntly. The peritoneum was entered digitally. The incision was stretched and a low transverse uterine incision was made with the scalpel. The 's head was delivered atraumatically followed by the anterior and posterior shoulders without complication the rest of the infant delivered. The cord was clamped and cut and the infant was handed off to awaiting nurse. The placenta was delivered spontaneously immediately following and was noted to be intact and have a three-vessel cord. The uterus was exteriorized cleared of all clots and debris, and the incision was closed in a double layer closure using #1 Monocryl. The uterus was returned to the maternal abdomen and gutters were cleared of all clots and debris. medina was placed over the incision and noted to be hemostatic. The ovaries and fallopian tubes were noted to be within normal limits. The peritoneum was closed with 3-0 Monocryl in a running fashion. Fascia was closed with 0 PDS in a running fashion. the skin was closed with 3- 0 Monocryl in a subcuticular fashion. Steri-Strips and Mepilex dressing were applied without complication. Patient was taken to recovery in stable condition. Grafts/Implants Used: none - Complications none - Admit VTE Documentation VTE Present on Admission: No VTE Mechan Device Prophylaxis: SCD's
[2018-03-07] MEDS: Oxytocin 30 units/NS 500 ml 30 UNITS/500 ML IV.SOLN 167 UNITS IV (14:40)
[2018-03-07] MEDS: Lactated Ringers 1,000 ML 100 ML IV ×2 (15:30→20:06)
[2018-03-07] MEDS: HYDROmorphone 1 MG/ML Syringe IV ×3 (16:01→22:23)
[2018-03-07] MEDS: Ketorolac 30 MG/ML Syringe IV (17:47)
[2018-03-07] MEDS: 0.9% Saline Lock 10 ML Syringe IV ×2 (20:17→22:24)
[2018-03-08] MEDS: 0.9% Saline Lock 10 ML Syringe IV ×5 (00:07→18:00)
[2018-03-08] MEDS: Ketorolac 30 MG/ML Syringe IV ×4 (00:07→17:59)
[2018-03-08 00:08] VITALS: BP 124/84; PULSE 75; RESP 18; TEMP 36.7; O2SAT 97
[2018-03-08 04:19] VITALS: BP 138/71; PULSE 81; RESP 16; TEMP 36.8; O2SAT 97
[2018-03-08] MEDS: Lactated Ringers 1,000 ML 100 ML IV (04:34)
[2018-03-08] MEDS: HYDROmorphone 1 MG/ML Syringe IV ×2 (04:34→07:58)
[2018-03-08 04:36] LABS: Hematocrit 29.8 % (37-47); Hemoglobin 9.8 g/dl (12.0-15.0); Mean Corp Hgb Conc 32.9 g/gl (32-36); Mean Corpuscular Hgb 29.5 pg (27.0-32.0); Mean Corpuscular Volume 89.8 fL (81-99); Platelet Count 155 K/mm3 (150-450); RBC Distribution Width CV 13.5 % (11.6-14.6); RBC Distribution Width SD 42.8 fl (35.1-43.9); Red Blood Count 3.32 M/mm3 (4.2-5.4); White Blood Count 11.4 K/mm3 (4.4-11.0)
[2018-03-08 04:43] LABS: Scan Indicated on CBC? Y/N NO
[2018-03-08] MEDS: Enoxaparin 40 MG/0.4 ML Syringe SC (06:39)
--- NOTE | 2018-03-08 07:01 | PCM.PN.OB ---
Subjective: doing well pain fairly controlled no cp sob n v ambulating - Physical Exam General: Alert, Oriented x3 Abdomen: Soft, Tender Vital Signs Temp Pulse Resp BP Pulse Ox 98.3 F 81 16 138/71 H 97 03/08/18 04:19 03/08/18 04:19 03/08/18 04:19 03/08/18 04:19 03/08/18 04:19 Oxygen Delivery Method Room Air Weight: 299 lb 9.731 oz Body Mass Index (BMI) 43.0 Intake and Output for Last 24 Hours 03/06/18 03/07/18 03/08/18 23:59 23:59 23:59 Intake Total 6350 / 6350 Output Total 1400 / 1400 1200 / 1200 Balance 4950 / 4950 -1200 / -1200 Laboratory Tests Past 24 Hrs 03/07/18 03/07/18 03/07/18 07:00 08:20 08:20 WBC 13.8 H RBC 4.09 L Hgb 12.1 Hct 36.5 L MCV 89.2 MCH 29.6 MCHC 33.2 RDW 13.8 RDW Differential 44.9 H Plt Count 182 MPV 12.5 H Immature Gran % (Auto) 0.100 Neut % (Auto) 79.6 H Lymph % (Auto) 13.6 L Queens % (Auto) 6.2 Eos % (Auto) 0.4 Baso % (Auto) 0.1 Absolute Neuts (auto) 11.0 H Absolute Lymphs (auto) 1.88 Total Counted Not Reportable Vag Amniotic Fld Detect POSITIVE H Blood Type A POSITIVE Antibody Screen NEGATIVE 03/08/18 04:15 WBC 11.4 H RBC 3.32 L Hgb 9.8 L Hct 29.8 L MCV 89.8 MCH 29.5 MCHC 32.9 RDW 13.5 RDW Differential 42.8 Plt Count 155 MPV 12.0 Immature Gran % (Auto) Neut % (Auto) Lymph % (Auto) Queens % (Auto) Eos % (Auto) Baso % (Auto) Absolute Neuts (auto) Absolute Lymphs (auto) Total Counted Vag Amniotic Fld Detect Blood Type Antibody Screen Medical Necessity - Tobacco Use Smoking Status: Former smoker Assessment/Plan All Active Problems (Last Reviewed 02/25/18 @ 10:56 by Abbie Chan) Influenza (Acute) False labor (Acute) Family history of congenital heart defect (Acute) Anxiety (Acute) ADD (attention deficit disorder) (Acute) History of delivery (Acute) History of abnormal cervical Pap smear (Acute) Supervision of normal (Acute) Engagement of fetus in breech position (Resolved) Evaluate anatomy not seen on prior sonogram (Resolved) Low lying placenta nos or without hemorrhage, second trimester (Resolved) s/p LTCS PPD # 1 1. routine post care 2. breast feeding- support given 3. rh positive 4. rubella immune
[2018-03-08] MEDS: Senna/Docusate Sodium 1 Tablet PO (07:59)
[2018-03-08 08:00] VITALS: BP 121/51; PULSE 84; RESP 18; TEMP 37.1; O2SAT 96
[2018-03-08] MEDS: oxyCODONE 5 MG Tablet PO ×3 (11:13→19:34)
[2018-03-08] MEDS: Prenatal Vits Tablet 1 TABLET PO (11:13)
[2018-03-08 12:00] VITALS: BP 126/60; PULSE 92; RESP 18; TEMP 37.1
[2018-03-08 17:45] VITALS: BP 141/95; PULSE 83; RESP 18; TEMP 36.5; O2SAT 98
[2018-03-08 19:45] VITALS: BP 122/76; PULSE 82; RESP 18; TEMP 37.1; O2SAT 97
[2018-03-09] MEDS: 0.9% Saline Lock 10 ML Syringe IV (00:54)
[2018-03-09] MEDS: oxyCODONE 5 MG Tablet PO ×5 (00:57→19:45)
[2018-03-09] MEDS: Naproxen 250 MG Tablet PO ×2 (01:30→11:14)
[2018-03-09 01:31] VITALS: BP 133/78; PULSE 90; RESP 19; TEMP 37.1; O2SAT 97
--- NOTE | 2018-03-09 03:44 | DCINST_ITS ---
Discharge Diet: No Restrictions Discharge Activity: May Not Drive - for 2 weeks, May not drive while taking narcotic pain medications., May Shower, May Take a Tub Bath - in 7 days May resume sexual activity in: 4-6 weeks Lifting Restrictions: 20 pounds Additional Activity Instructions:: Nothing in the vagina for 4-6 weeks. You may return to work/school in 6 weeks. Call your doctor if your incision/area has: Continuous Slow Oozing, Sudden Increased Bleeding, Increased Pain/ Swelling, Increased Redness, Foul Smelling Discharge Call your doctor if you observe: Fever of 101 or Higher, Using more than one pad per hour - for 2 hours Suture Line Care: Avoid Pulling/Pushing, Avoid Pinching/Bending Cleanse incision/area with: Keep Dressing Clean & Dry Additional Instructions: If you experience any of the following, contact your healthcare provider. * Bleeding that soaks a pad every hour for 2 hours * Fever 100.4 or higher * Unrelieved incision or abdominal pain * Swelling, redness, discharge or bleeding from your incision or episiotomy site * Your incision begins to separate * Problems urinating (including inability to urinate or burning while urinating). * Visual changes * Severe headache * Flu-like symptoms * Pain or redness in one of both of your breasts * Pain, warmth, tenderness or swelling in your legs, especially the calf area * Frequent nausea and vomiting * Symptoms of depression or anxiety If you experience any of the following, call 911 or go to the nearest Emergency Room. * Chest pain * Problems breathing * Seizure activity * Partial or complete paralysis of a body part, slurred speech, weakness or drooping of the face, or a sudden inability to walk or hold your balance Allergies/Adverse Reactions: Allergies No Known Allergies Allergy (Verified 02/25/18 10:55) Medications to take at Discharge Vits [Prenatabs FA ] 1 tab PO DAILY 05/12/16 Dextroamphetamine/Amphetamine [Adderall 10 mg Tablet] 10 mg PO BID 12/26/17 Ondansetron HCl [Zofran] 4 mg PO 4X/DAY PRN PRN #30 tablet 03/04/18 Oseltamivir Phosphate [Tamiflu] 75 mg PO BID #9 capsule 03/04/18 proMETHazine tablet [Phenergan] 12.5 mg PO Q6H PRN PRN #30 tablet 03/04/18 Naproxen [Naprosyn] 250 - 500 mg PO Q8H PRN PRN #30 tablet 03/09/18 Oxycodone HCl/Acetaminophen [Percocet 5-325] 1 - 2 tablet PO Q4H PRN PRN 7 Days #28 tablet 03/09/18 The following prescriptions were given: Oxycodone HCl/Acetaminophen [Percocet 5-325] 1 - 2 tablet PO Q4H PRN PRN 7 Days #28 tablet PRN Reason: Moderate-Severe pain Naproxen [Naprosyn] 250 - 500 mg PO Q8H PRN PRN #30 tablet PRN Reason: MILD PAIN Follow-Up: Call to make an appointment with your doctor for an incision check in 1-2 weeks. You will also need a 6 week post- follow up appointment. Test results from this visit will be discussed in further detail at your follow- up appointment, if applicable. Please Follow Up With: Liz Lloyd MD - Call to make an appointment for an incision check in 1-2 [phone] When: You will need a post- check in 6 weeks. Primary Care Physician: Chaz Hoffmann DO [Primary Care Provider] -
[2018-03-09] MEDS: Enoxaparin 40 MG/0.4 ML Syringe SC (05:12)
--- NOTE | 2018-03-09 07:54 | PCM.PN.OB ---
Subjective: NO CP, SOb. Doing well - Physical Exam General: Alert, Oriented x3 Abdomen: Soft, Non-Distended, - - Dressing intact-old drainage noted. Minimal tenderness with exam. FF below U Vital Signs Temp Pulse Resp BP Pulse Ox 98.8 F 90 19 H 133/78 H 97 03/09/18 01:31 03/09/18 01:31 03/09/18 01:31 03/09/18 01:31 03/09/18 01:31 Oxygen Delivery Method Room Air Weight: 299 lb 9.731 oz Body Mass Index (BMI) 43.0 Intake and Output for Last 24 Hours 03/07/18 03/08/18 03/09/18 23:59 23:59 23:59 Intake Total 6350 / 6350 1500 / 1500 Output Total 1400 / 1400 2200 / 2200 Balance 4950 / 4950 -700 / -700 Medical Necessity - Tobacco Use Smoking Status: Former smoker Assessment/Plan All Active Problems (Last Reviewed 02/25/18 @ 10:56 by Abbie Chan) Influenza (Acute) False labor (Acute) Family history of congenital heart defect (Acute) Anxiety (Acute) ADD (attention deficit disorder) (Acute) History of delivery (Acute) History of abnormal cervical Pap smear (Acute) Supervision of normal (Acute) Engagement of fetus in breech position (Resolved) Evaluate anatomy not seen on prior sonogram (Resolved) Low lying placenta nos or without hemorrhage, second trimester (Resolved) LTRCS POD#2: Routine care. . Dressing marked for draining and nurse to monitor for further change.
[2018-03-09 08:30] VITALS: BP 136/79; PULSE 80; RESP 18; TEMP 36.8
[2018-03-09] MEDS: Senna/Docusate Sodium 1 Tablet PO (09:09)
[2018-03-09] MEDS: Prenatal Vits Tablet 1 TABLET PO (09:09)
--- NOTE | 2018-03-09 11:11 | CHAPLAIN ---
Type of Pastoral Visit _x__ Initial Visit ___ Follow-up Visit ___ On-call Visit ___ General Patient Visit ___ Spiritual Assessment ___ Family Conference ___ Bereavement ___ Rapid Response ___ Code Blue ___ Other (describe below) Pastoral Care Referral From _x__ Patient ___ Family ___ Nurse ___ Physician ___ Digital Asset Coordinator ___ Rn Quality ___ Other (describe below) Sacrament/Intervention _x__ Active listening ___ Anointing ___ Druze ___ Bereavement ___ Communion ___ Victoria exploration ___ ___ Life review _x__ Prayer ___ Reconciliation ___ Sacrament of Sick _x__ Supportive presence ___ Wedding ___ Other (describe below) Pastoral Comments
[2018-03-09 14:05] VITALS: BP 127/71; PULSE 78; RESP 16; TEMP 36.7
[2018-03-09 19:55] VITALS: BP 137/69; PULSE 87; RESP 18; TEMP 36.7; O2SAT 96
[2018-03-10] MEDS: Naproxen 250 MG Tablet PO (00:35)
[2018-03-10 02:00] VITALS: BP 118/80; PULSE 73; RESP 16; TEMP 36.7; O2SAT 99
[2018-03-10] MEDS: oxyCODONE 5 MG Tablet PO ×2 (05:28→09:48)
[2018-03-10] MEDS: Senna/Docusate Sodium 1 Tablet PO (05:28)
[2018-03-10] MEDS: Enoxaparin 40 MG/0.4 ML Syringe SC (05:28)
[2018-03-10 08:10] VITALS: BP 153/73; PULSE 92; RESP 18; TEMP 36.4; O2SAT 97
--- NOTE | 2018-03-10 08:10 | NURSING ---
pt's SBP 153. pt asymptomatic. prior to checking blood pressure pt was up moving around room and getting ready for the day. will recheck
[2018-03-10] MEDS: Prenatal Vits Tablet 1 TABLET PO (09:48)
[2018-03-10 10:00] VITALS: BP 153/73
--- NOTE | 2018-03-10 11:22 | PCM.PN.OB ---
Subjective: doing well no complaints no CP SOB N V no ZUNIGA. elevat bps this morning - Physical Exam General: Alert, Oriented x3 Abdomen: Soft, Non Tender, - - c/d/i Vital Signs Temp Pulse Resp BP Pulse Ox 97.5 F L 92 18 153/73 H 97 03/10/18 08:10 03/10/18 08:10 03/10/18 08:10 03/10/18 10:00 03/10/18 08:10 Oxygen Delivery Method Room Air Weight: 299 lb 9.731 oz Body Mass Index (BMI) 43.0 Intake and Output for Last 24 Hours 03/08/18 03/09/18 03/10/18 23:59 23:59 23:59 Intake Total 1500 / 1500 Output Total 2200 / 2200 Balance -700 / -700 Medical Necessity - Tobacco Use Smoking Status: Former smoker Assessment/Plan All Active Problems (Last Reviewed 02/25/18 @ 10:56 by Abbie Chan) Influenza (Acute) False labor (Acute) Family history of congenital heart defect (Acute) Anxiety (Acute) ADD (attention deficit disorder) (Acute) History of delivery (Acute) History of abnormal cervical Pap smear (Acute) Supervision of normal (Acute) Engagement of fetus in breech position (Resolved) Evaluate anatomy not seen on prior sonogram (Resolved) Low lying placenta nos or without hemorrhage, second trimester (Resolved) s/p LTCS PPD # 3 1. routine post care 2. breast feeding- support given 3. rh positive 4. rubella immune 5. elevated bps today send home on labetalol and fu in 1 week
--- NOTE | 2018-03-10 11:32 | DS.PCM_ITS ---
Discharge Date and Diagnosis Date of Admission: 09/18/16 Date of Discharge: 03/17/18 - Primary Discharge Diagnosis post Hospital Course and Treatment Consultations 03/07/18 07:54 Consult: Anesthesia Routine Comment: Reason For Exam: LABOR Operations: - - RLTCS Procedures: None Summary of Care Provided: The patient is a 32 year old F presented with spontaneous rupture of membranes at 2 cm dilated. Patient desired trial of labor after and was having some contractions however after 4 hours she did not made any cervical change therefore Pitocin was started and after 4 hours she developed recurrent variables and the Pitocin was unable to be increased more than 4 milliunits and she did have adequate contractions for over 4 hours with no further cervical change and therefore the decision was made for a repeat low transverse C- section. Patient underwent routine recovery with return of bowel and bladder function had adequate pain control with oral medications with the ability well tolerating p.o. and had adequate pain control with oral medications on postop day 3 she was stable for discharge to home and write for discharge she developed some elevated blood pressures but was asymptomatic and therefore she was started on labetalol and will be discharged home. Up in the office in 1 week - Physical Exam Vital Signs Temp Pulse Resp BP Pulse Ox 97.5 F L 92 18 153/73 H 97 03/10/18 08:10 03/10/18 08:10 03/10/18 08:10 03/10/18 10:00 03/10/18 08:10 Oxygen Delivery Method Room Air Weight: 299 lb 9.731 oz Body Mass Index (BMI) 43.0 Intake and Output for Last 24 Hours 03/08/18 03/09/18 03/10/18 23:59 23:59 23:59 Intake Total 1500 / 1500 Output Total 2200 / 2200 Balance -700 / -700 Discharge Diet: No Restrictions Discharge Activity: May Not Drive - for 2 weeks, May not drive while taking narcotic pain medications., May Shower, May Take a Tub Bath - in 7 days May resume sexual activity in: 4-6 weeks Additional Activity Instructions:: Nothing in the vagina for 4-6 weeks. You may return to work/school in 6 weeks. Call your doctor if your incision/area has: Continuous Slow Oozing, Sudden Increased Bleeding, Increased Pain/ Swelling, Increased Redness, Foul Smelling Discharge Call your doctor if you observe: Fever of 101 or Higher, Using more than one pad per hour - for 2 hours Suture Line Care: Avoid Pulling/Pushing, Avoid Pinching/Bending Cleanse incision/area with: Keep Dressing Clean & Dry Home Medications: Medications to take at Discharge Vits [Prenatabs FA ] 1 tab PO DAILY 05/12/16 Dextroamphetamine/Amphetamine [Adderall 10 mg Tablet] 10 mg PO BID 12/26/17 Ondansetron HCl [Zofran] 4 mg PO 4X/DAY PRN PRN #30 tablet 03/04/18 Oseltamivir Phosphate [Tamiflu] 75 mg PO BID #9 capsule 03/04/18 proMETHazine tablet [Phenergan] 12.5 mg PO Q6H PRN PRN #30 tablet 03/04/18 Naproxen [Naprosyn] 250 - 500 mg PO Q8H PRN PRN #30 tablet 03/09/18 Oxycodone HCl/Acetaminophen [Percocet 5-325] 1 - 2 tablet PO Q4H PRN PRN 7 Days #28 tablet 03/09/18 Labetalol [Trandate (Beta Neymar)] 100 mg PO BID #60 tab 03/10/18 Following Prescrptions Were Given to Patient: Oxycodone HCl/Acetaminophen [Percocet 5-325] 1 - 2 tablet PO Q4H PRN PRN 7 Days #28 tablet PRN Reason: Moderate-Severe pain Naproxen [Naprosyn] 250 - 500 mg PO Q8H PRN PRN #30 tablet PRN Reason: MILD PAIN Labetalol [Trandate (Beta Neymar)] 100 mg PO BID #60 tab Primary Care Physician: Chaz Hoffmann DO [Primary Care Provider] - Please Follow Up With: Liz Lloyd MD - Call to make an appointment for an incision check in 1-2 [phone] When: You will need a post- check in 6 weeks. Medical Necessity - Tobacco Use Smoking Status: Former smoker Meaningful Use Info Meaningful Use Diagnoses (Choose all that apply): None applicable
[2018-03-10 12:20] VITALS: BP 126/70; PULSE 89; RESP 16; TEMP 37.2; O2SAT 95
== END 2018-03-10 13:13 | disposition home or self-care (01) | DRG 788 ==
LOC: WPOUT 07:52
PROVIDERS: Admitting Provider Obstetrics & Gynecology; Family Provider Family Medicine; PCP Family Medicine; Referring Provider Obstetrics & Gynecology; Visit Provider Obstetrics & Gynecology
DX: O34.211 Maternal care for low transverse scar from previous cesarean delivery (principal); Z37.0 Single live birth; Z3A.38 38 weeks gestation of pregnancy; Z87.891 Personal history of nicotine dependence; O99.344 Other mental disorders complicating childbirth; F98.8 Other specified behavioral and emotional disorders with onset usually occurring in childhood and adolescence; F41.9 Anxiety disorder, unspecified; Z79.899 Other long term (current) drug therapy
CPT/HCPCS: 59025; 59050; 84112; 85025; 85027; 86850; 86900; 99218; J7120; A4216; G0378; J2405

== ENCOUNTER 2018-05-16 07:59 | Emergency (ER) | payer OTHER, SELFPAY ==
[2018-04-14 14:36] VITALS: BMI 43.0
[2018-05-16 08:00] VITALS: BP 161/86; PULSE 104; RESP 18; TEMP 36.6; O2SAT 100; BMI 38.4
--- NOTE | 2018-05-16 08:11 | CT_ITS ---
STUDY: CT ABDOMEN AND PELVIS WITHOUT CONTRAST REASON FOR EXAM: Female, 33 years old. 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 Sagittal and coronal images were reconstructed. Individualized dose optimization techniques were used for this CT. COMPARISON: 09/18/2016 FINDINGS: The visualized lung bases are unremarkable. The visualized portions of the heart are within normal limits. Normal liver. Normal gallbladder and extrahepatic biliary system. Normal spleen. Normal pancreas. Normal bilateral adrenal glands. Normal right kidney. Normal left kidney. Normal visualized stomach. Normal small intestine. Normal colon. The appendix is visualized (midline at the umbilicus level) and appears normal. Normal abdominal aorta. Normal inferior vena cava. Normal retroperitoneum. Normal urinary bladder. Normal visualized uterus. No adnexal or pelvic masses. There is a small umbilical hernia containing fat. Normal osseous structures. CT/Abdomen/Pelvis without Cont IMPRESSION: 1. No hydronephrosis or urinary tract calcifications. Electronically Signed: Jayant Lanza MD at 10:33 EST , Service support ,
--- NOTE | 2018-05-16 08:12 | ED.VISSUMM ---
- ER Visit Summary Date of Service: 05/16/18 Chief Complaint: Right flank/pelvic pain History of Present Illness: The patient is a 33 F who started having right flank and pelvic pain 3 days ago. She described as intermittent but now it is constant since she woke up this morning. It is aching in the right side of her abdomen and radiates to the right flank. She denies dysuria or hematuria. She has never had kidney stones before. She feels nauseous but has had no vomiting or diarrhea. 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 She still has her gallbladder and appendix. She took nothing for this at home. She denies any fevers. Physical Examination: Vital signs reviewed. HEENT exam unremarkable. Heart is regular rate and rhythm without murmurs. Lungs are clear to auscultation. Abdomen is soft with tenderness on the right lower quadrant and right flank. There is no guarding or rebound tenderness. No CVA tenderness. Extremities reveal no edema. Skin exam normal. Neurologic exam normal. Test Results: Laboratory studies are unremarkable except for a potassium of 3.4. Urinalysis negative for infection or blood. HCG negative. CAT scan of the abdomen and pelvis reveals no acute findings. Emergency Department Course and Treatment: The patient was given Toradol and Zofran. She continued to have pain so she was given morphine. I am unclear the etiology of her pain as her CAT scan was unremarkable. She points to her right lower quadrant. I do not feel that this is appendicitis as her appendix is actually just below the umbilicus in the midline and not in the right lower quadrant. There are no kidney stones. At this point feel she can be discharged with a short course of Gleason for pain. She will follow-up with her PCP and [employer]ENTATIVE if her pain persists. Treatment Plan: [] Disposition: Discharge Impression: Abdominal pain This note was generated with [employer] dictation software. It may contain incorrect words, spelling, and punctuation that were not noted in review of the chart prior to signing ED Disposition - Plan for ED Patient: Referrals: Chaz Hoffmann DO [Primary Care Provider] -
[2018-05-16] MEDS: Ondansetron 4 MG/2 ML Vial IV (08:33)
[2018-05-16] MEDS: Ketorolac 30 MG/ML Syringe IV (08:33)
[2018-05-16 08:54] LABS: Absolute Lymphocyte Count 2.08 X10^3/ul (0.83-4.51); Absolute Neutrophil Count 4.4 X10^3/uL (2.0-7.7); Basophil# 0.04 X10^3/uL; Basophil% 0.6 % (0-1); Eosinophil# 0.12 X10^3/uL; Eosinophils% 1.7 % (0-5); Hematocrit 41.8 % (37-47); Hemoglobin 13.5 g/dl (12.0-15.0); Lymphocyte # 2.08 X10^3/ul (4.0); Mean Corp Hgb Conc 32.3 g/gl (32-36); Mean Corpuscular Hgb 29.3 pg (27.0-32.0); Mean Corpuscular Volume 90.9 fL (81-99); Mean Platelet Vol. 11.4 fl (6.2-12.0); Monocyte# 0.56 X10^3/uL; Monocyte% 7.8 % (0-10); Neutrophil # 4.36 X10^3/uL (2.7-7.7); Neutrophil % 60.8 % (47-70); Platelet Count 247 K/mm3 (150-450); RBC Distribution Width CV 13.6 % (11.6-14.6); RBC Distribution Width SD 44.7 fl (35.1-43.9); White Blood Count 7.2 K/mm3 (4.4-11.0)
[2018-05-16 08:55] LABS: POSITIVE COUNT NO; POSITIVE DIFFERENTIAL NO; POSITIVE MORPHOLOGY NO
[2018-05-16 09:04] LABS: Mucous, Urine 0 SEEN /hpf (<or=2+); Red Blood Cells-Urine 0 SEEN /hpf (0-5); White Blood Cells 0 SEEN /hpf (0-5)
[2018-05-16 09:07] LABS: ALB/GLOB Ratio 1.1 RATIO (0.9-2.4); AST(SGOT) 14 U/L (15-37); Alanine Aminotransfer ALT/SGPT 26 U/L (13-56); Alkaline Phosphatase 85 U/L (45-117); Anion Gap 7 (5-15); BUN 9 mg/dL (7-18); BUN/Creat Ratio 11.8 RATIO (10-20); Calcium,Total 8.5 mg/dL (8.5-10.1); Chloride 106 mmol/L (98-107); Creatinine, Serum 0.76 mg/dL (0.55-1.02); EST Glomerular Filtration Rate 92 mL/min (>60); Est Glom Filt Rate - Afr Amer 112 mL/min (>60); Globulin 3.5 g/dL (2.2-4.2); Glucose 94 mg/dL (74-106); Potassium 3.4 mmol/L (3.5-5.1); Protein, Total 7.5 g/dL (6.4-8.2); Sodium Level 139 mmol/L (136-145)
[2018-05-16 09:08] LABS: Color, Urine Yellow (Yellow); Glucose, Dipstick Normal (Normal); Ketone-Dipstick Negative (Negative); Leukocyte Esterase-Dipstick Negative /ul (Negative); Nitrite-Dipstick Negative (Negative); Occult Blood-Urine 10 /ul (Negative); Protein-Dipstick Negative (Negative); Specific Gravity, Urine 1.015 (1.002-1.030); Urine Bilirubin Dipstick Negative (Negative); Urine Clarity Clear (Clear); Urine Urobilinogen Normal (Normal)
[2018-05-16 09:18] LABS: Bacteria RARE /hpf (None Seen); Squamous Epithelial Cells - UA 0-5 SEEN /hpf (5-10)
[2018-05-16 09:52] LABS: Pregnancy, Serum, hCG Quali. NEGATIVE Negative (0-9 Nonpreg)
[2018-05-16 10:18] VITALS: RESP 18
--- NOTE | 2018-05-16 10:46 | ED.DEP ---
ED Disposition - Plan for ED Patient: Disposition: Home or Assisted Living Instructions: ED Abdominal Pain Unkn Cause Prescriptions: Hydrocodone Bitart/Apap 5-325 [[place] 5MG-325MG] 1 tab PO Q6H PRN PRN 3 Days #8 tab PRN Reason: Pain Referrals: Chaz Hoffmann DO [Primary Care Provider] -
== END 2018-05-16 11:03 | disposition home or self-care (01) ==
PROVIDERS: Emergency Provider Emergency Medicine; Family Provider Family Medicine; PCP Family Medicine
DX: R10.2 Pelvic and perineal pain (principal); R10.31 Right lower quadrant pain
CPT/HCPCS: 74176; 80053; 81001; 84703; 85025; 96374; 96375; 99284; J7050; J2405

== ENCOUNTER → 2018-11-17 08:51 | Outpatient (CLI) | payer OTHER, SELFPAY ==
--- NOTE | 2018-11-17 08:54 | US_ITS ---
STUDY: FIRST TRIMESTER OBSTETRICAL ULTRASOUND REASON FOR EXAM: Female, 33 years old. well-being LMP: 09/19/2018 TECHNIQUE: Transvaginal TECHNICAL QUALITY: Adequate. PRIOR ULTRASOUND: None. FINDINGS: There is visualization of a single gestational sac in a normal intrauterine position. The mean sac diameter (MSD) measures 3.53 cm, indicating an estimated gestational age (EGA) of 9 weeks, 0 days. The gestational sac shape is within normal limits. A 1.9 x 1.5 x 0.6 cm inferior subchorionic hemorrhage is present. There is a visualized yolk sac. The yolk sac measures 5 mm. The placenta is non-visualized. There is visualization of a live embryo. The crown-rump length (CRL) measures 1.92 cm, indicating an estimated gestational age (EGA) of 8 weeks, 4 days. There is demonstrated cardiac activity with a heart rate of 146 bpm. The estimated gestation age (EGA) by LMP is 8 weeks, 3 days. The estimated date of delivery (MANISH) by LMP is 06/26/2019. The estimated gestation age (EGA) by US is 8 weeks, 6 days. The estimated date of delivery (MANISH) by US is 06/23/2019. The uterus measures 12.0 x 6.9 x 6.3 cm. There is no demonstrated uterine fibroid. The cervix is closed. The right ovary is not seen. The left ovary measures 3.0 x 2.8 x 2.0 cm. Probable collapsing left ovary corpus luteum cyst measuring 2.0 x 1.9 x 1.7 cm. There is no visualized left adnexal mass or complex lesion. There is no fluid in the cul de sac. US/OB Limited With Biometrics IMPRESSION: Intrauterine gestation with sonographic age of 8 weeks 6 days. Cervix is closed. Positive cardiac activity. A 1.9 x 1.5 x 0.6 cm inferior subchorionic hemorrhage is present. Probable collapsing left ovary corpus luteum cyst measuring 2.0 x 1.9 x 1.7 cm. Electronically Signed: Sandor Sanches MD at 17:02 EDT Tel , Service support ,
== END ==
PROVIDERS: Family Provider Family Medicine; PCP Family Medicine; Referring Provider Nurse Practitioner Women's Health; Visit Provider Nurse Practitioner Women's Health
DX: O36.80X0 Pregnancy with inconclusive fetal viability, not applicable or unspecified (principal); Z3A.00 Weeks of gestation of pregnancy not specified
CPT/HCPCS: 76816

== ENCOUNTER → 2018-12-03 16:49 | Outpatient (CLI) | payer OTHER, SELFPAY ==
[2018-12-03 13:13] VITALS: BMI 38.0
[2018-12-03 22:28] LABS: Chlamydia Trachomatis by PCR Negative (Negative); Neisserai gonorrhoeae by PCR Negative (Negative); Probe Check PASS; Sample Adequacy Control PASS; Specimen Processing Control PASS
== END ==
PROVIDERS: Family Provider Family Medicine; PCP Family Medicine; Referring Provider Obstetrics & Gynecology; Visit Provider Obstetrics & Gynecology
DX: O09.90 Supervision of high risk pregnancy, unspecified, unspecified trimester (principal); O09.529 Supervision of elderly multigravida, unspecified trimester; O99.210 Obesity complicating pregnancy, unspecified trimester; E66.9 Obesity, unspecified; Z3A.00 Weeks of gestation of pregnancy not specified
CPT/HCPCS: 87086; 87491; 87591

== ENCOUNTER → 2018-12-04 12:03 | Outpatient (CLI) | payer OTHER, SELFPAY ==
[2018-12-04 12:03] VITALS: BMI 38.0
[2018-12-04 13:46] LABS: Absolute Lymphocyte Count 1.91 X10^3/uL (0.83-4.51); Absolute Neutrophil Count 6.8 X10^3/uL (2.0-7.7); Basophil# 0.04 X10^3/uL; Basophil% 0.4 % (0-1); Eosinophils% 1.1 % (0-5); Hematocrit 41.4 % (37-47); Hemoglobin 13.4 g/dL (12.0-15.0); Lymphocyte # 1.91 X10^3/ul (4.0); Lymphocyte % 20.2 % (19-41); Mean Corp Hgb Conc 32.4 g/dL (32-36); Mean Corpuscular Hgb 29.1 pg (27.0-32.0); Mean Platelet Vol. 11.9 fl (6.2-12.0); Monocyte# 0.52 X10^3/uL; Monocyte% 5.5 % (0-10); NRBC Flagged by Analyzer 0 % (0-5); Neutrophil # 6.83 X10^3/uL (2.7-7.7); Neutrophil % 72.4 % (47-70); Platelet Count 243 K/mm3 (150-450); RBC Distribution Width CV 13.6 % (11.6-14.6); RBC Distribution Width SD 43.9 fl (35.1-43.9); White Blood Count 9.4 K/mm3 (4.4-11.0)
[2018-12-04 14:00] LABS: Glucose Challenge Gest 1H 50g 77 mg/dL (70-140)
[2018-12-04 14:50] LABS: HIV - WCH Non-Reactive (Nonreactive); Rubella IgG 72.4 IU/mL
[2018-12-11 02:40] LABS: Rapid Plasmin Reagin (RPR) NONREACTIVE (NONREACTIVE)
== END ==
PROVIDERS: Family Provider Family Medicine; PCP Family Medicine; Referring Provider Obstetrics & Gynecology; Visit Provider Obstetrics & Gynecology
DX: Z34.90 Encounter for supervision of normal pregnancy, unspecified, unspecified trimester (principal); Z34.81 Encounter for supervision of other normal pregnancy, first trimester; O09.90 Supervision of high risk pregnancy, unspecified, unspecified trimester; O09.529 Supervision of elderly multigravida, unspecified trimester; O99.210 Obesity complicating pregnancy, unspecified trimester; E66.9 Obesity, unspecified; Z31.430 Encounter of female for testing for genetic disease carrier status for procreative management; Z3A.00 Weeks of gestation of pregnancy not specified
CPT/HCPCS: 36415; 82950; 85025; 86592; 86703; 86762; 86850; 86900; 86901

== ENCOUNTER → 2019-02-01 07:50 | Outpatient (CLI) | payer OTHER, SELFPAY ==
[2019-01-01 13:58] VITALS: BMI 38.0
[2019-01-26 14:22] VITALS: BMI 38.0
--- NOTE | 2019-02-01 07:52 | US_ITS ---
STUDY: SECOND AND THIRD TRIMESTER OBSTETRICAL ULTRASOUND REASON FOR EXAM: Female, 33 years old LMP: TECHNIQUE: TECHNICAL QUALITY: Adequate. PRIOR ULTRASOUND: None. FINDINGS: There is a single intrauterine fetus. The fetus is in a cephalic presentation. There is demonstrated cardiac activity with a heart rate of 145 bpm. There is a normal amniotic fluid volume. The largest amniotic fluid pocket measures 3.5 x 2.8 cm. The amniotic fluid index (MANOLO) is within normal limits . The placenta is anterior There are Grade 0 placental changes. The cervix measures 4.6 in length. The bilateral adnexal regions are normal. BIOMETRY: BPD: 4.28 cm: 18 weeks, 6 days HC: 16.6 cm: 19 weeks, days AC: 14 0.5 cm: 19 weeks, 5 days FL: 2.97 cm: 19 weeks, 1 days CI: 73% FL/BPD: 70% FL/HC: FL/AC: HC/AC: 1.14 age by current US: 19 weeks, 1 days. MANISH by current US: 06/27/2019. Estimated weight: 294 grams, +/- 44 grams, 46 %. age by prior US: 19 weeks, 1 days. Age by LMP: 19 weeks, 2 days. MANISH by LMP: 06/26/2019. ANATOMY: Gender: Cranium: Normal lateral ventricles. Normal choroid plexus. Normal cerebellum. Normal cisterna magna. Normal face, nose and lips. Chest: Normal 4-chamber heart. Abdomen/Pelvis: Normal diaphragm. Normal stomach. Normal abdominal wall. Normal cord insertion. Normal 3 vessel cord. Normal kidneys. Normal bladder. Spine: Normal cervical spine. Normal thoracic spine. Normal lumbar spine. Normal sacrum. Extremities: Normal bilateral upper extremities. Normal bilateral lower extremities. US/OB Anatomy Scan IMPRESSION: Single intrauterine live gestation with approximate age of is 19 weeks and 1 day Electronically Signed: Sandro Andersen, at 13:00 EST Tel , Service support ,
== END ==
PROVIDERS: Family Provider Family Medicine; PCP Family Medicine; Referring Provider Nurse Practitioner Women's Health; Visit Provider Nurse Practitioner Women's Health
DX: Z34.90 Encounter for supervision of normal pregnancy, unspecified, unspecified trimester (principal)
CPT/HCPCS: 76805

== ENCOUNTER → 2019-03-25 11:32 | Outpatient (CLI) | payer OTHER, SELFPAY ==
[2019-02-24 07:55] VITALS: BMI 41.3
[2019-03-25 12:29] LABS: Absolute Lymphocyte Count 2.13 X10^3/uL (0.83-4.51); Basophil# 0.04 X10^3/uL; Basophil% 0.3 % (0-1); Eosinophils% 0.8 % (0-5); Hematocrit 37.6 % (37-47); Hemoglobin 12.4 g/dL (12.0-15.0); Lymphocyte # 2.13 X10^3/ul (4.0); Lymphocyte % 16.7 % (19-41); Mean Corpuscular Hgb 29.7 pg (27.0-32.0); Mean Corpuscular Volume 90.2 fL (81-99); Mean Platelet Vol. 12.7 fl (6.2-12.0); Monocyte# 0.46 X10^3/uL; Monocyte% 3.6 % (0-10); NRBC Flagged by Analyzer 0 % (0-5); Neutrophil # 9.99 X10^3/uL (2.7-7.7); Neutrophil % 78.1 % (47-70); Platelet Count 197 K/mm3 (150-450); RBC Distribution Width CV 13.3 % (11.6-14.6); RBC Distribution Width SD 43.8 fl (35.1-43.9); Red Blood Count 4.17 M/mm3 (4.2-5.4); White Blood Count 12.8 K/mm3 (4.4-11.0)
[2019-03-25 12:50] LABS: Glucose Challenge Gest 1H 50g 127 mg/dL (70-140)
[2019-03-25 13:18] LABS: Hepatitis B Surface Antigen Non-Reactive (Nonreactive)
== END ==
PROVIDERS: PCP Family Medicine; Referring Provider Obstetrics & Gynecology; Visit Provider Obstetrics & Gynecology
DX: O09.90 Supervision of high risk pregnancy, unspecified, unspecified trimester (principal); Z3A.00 Weeks of gestation of pregnancy not specified
CPT/HCPCS: 36415; 82950; 85025; 87340

== ENCOUNTER → 2019-05-03 08:44 | Outpatient (CLI) | payer OTHER, SELFPAY ==
[2019-03-26 12:06] VITALS: BMI 38.0
--- NOTE | 2019-05-03 08:50 | US_ITS ---
STUDY: SECOND AND THIRD TRIMESTER OBSTETRICAL ULTRASOUND REASON FOR EXAM: Female, 34 years old GROWTH LMP: 09/19/2018 TECHNIQUE: Transabdominal TECHNICAL QUALITY: Adequate. PRIOR ULTRASOUND: Previous study of 02/01/2019 FINDINGS: There is a single intrauterine fetus. The fetus is in a cephalic presentation. There is demonstrated cardiac activity with a heart rate of 147 bpm. There is a normal amniotic fluid volume. The largest amniotic fluid pocket measures 4.5 cm. The amniotic fluid index (MANOLO) is 12.5 cm. The placenta is anterior in location and is not low lying. There are Grade 1 placental changes. The cervix measures 4.7 cm in length. The adnexal regions are not visualized. BIOMETRY: BPD: 8.01 cm: 32 weeks, 1 days HC: 31.13 cm: 34 weeks, 5 days AC: 30.33 cm: 34 weeks, 2 days FL: 6.36 cm: 32 weeks, 6 days CI: 73% FL/BPD: 80% FL/AC: 21% HC/AC: 1.03 age by current US: 33 weeks, 6 days. MANISH by current US: 06/15/2019. Estimated weight: 2265 grams, +/- 335 grams, 79 %. age by prior US: 32 weeks, 1 days. MANISH by prior US: 06/27/2019. Age by LMP: 32 weeks, 2 days. MANISH by LMP: 06/26/2019. US/OB Limited With Biometrics IMPRESSION: Single viable intrauterine of approximately 33 weeks 6 days gestational age by current ultrasonographic measurement. The MANOLO is within normal limits. A heart rate of 147 bpm is noted. The fetus is in cephalic presentation. Electronically Signed: Breezy Tapia MD at 23:00 EST , Service support ,
== END ==
PROVIDERS: PCP Family Medicine; Referring Provider Obstetrics & Gynecology; Visit Provider Obstetrics & Gynecology
DX: O09.523 Supervision of elderly multigravida, third trimester (principal); O99.213 Obesity complicating pregnancy, third trimester; E66.9 Obesity, unspecified; Z3A.00 Weeks of gestation of pregnancy not specified
CPT/HCPCS: 76816

== ENCOUNTER 2019-06-21 05:00 | Inpatient (IN) | payer OTHER, SELFPAY ==
[2019-03-26 12:06] VITALS: BMI 38.0
--- NOTE | 2019-06-07 13:32 | PCM.HP.BLA ---
History and Physical Date of Admission: 06/07/19 Expand All Collapse All Hide copied text Ayesha for details Pre-Op History and Physical ? HPI: The patient is a 34 year old female presenting for pre-operative visit. She is scheduled for and and bilateral salpingectomy, for elective c/s and desires sterilization on 06/21/19. Procedure discussed along with risks, benefits and complications. Other alternatives discussed for management. Consent form signed? Yes. ? ? PAST MEDICAL HISTORY PAST MEDICAL HISTORY Diagnosis Date ? Abnormal Pap smear of cervix ? ? ADD (attention deficit disorder) ? ? anxiety/depression ? ? Complication of anesthesia ? ? had sub-par effectivenes from Epidural with first delivery ? Dermoid cyst ? ? History of abnormal cervical Pap smear ? ? Hypertension ? ? 1 day with last -was prescribed Labetalol-but never took medication ? Migraines ? ? Ovarian mass ? ? benign ? ? PAST SURGICAL HISTORY PAST SURGICAL HISTORY Procedure Laterality Date ? DELIVERY ONLY ? 09/11/2016 ? x2 ? L'SCOPE DX W/WO BRUSHINGS/WASHINGS ? 05/2014 ? PK LAPAROTOMY [id number] ? CURRENT MEDICATIONS Current Outpatient Medications Medication Sig Dispense Refill ? cholecalciferol, vitamin D3, (DIALYVITE VITAMIN D ORAL) Take by mouth. ? ? ? dextroamphetamine-amphetamine (ADDERALL) 20 mg tablet Take 20 mg by mouth once daily. ? ? ? citalopram (CELEXA) 20 mg tablet Take 20 mg by mouth once daily. ? ? ? Ndymebbc-Du-Wkr-Fe-FA ( VITAMIN) tab Take 1 tablet by mouth. ? ? ? No current facility-administered medications for this visit. ? ? ALLERGIES: Patient has no known allergies. ? PERSONAL HISTORY: SOCIAL HISTORY Social History ? Tobacco Use ? Smoking status: Former Smoker ? ? Years: 18.00 ? ? Types: Cigarettes ? ? Last attempt to quit: 08/31/2018 ? ? Years since quittin.7 ? Smokeless tobacco: Never Used Substance Use Topics ? Alcohol use: Not Currently ? ? Comment: Occassional, not while ? Drug use: No ? FAMILY HISTORY: FAMILY HISTORY FAMILY HISTORY Problem Relation Age of Onset ? Hypertension Mother ? ? Hypertension Father ? ? Hyperlipidemia Father ? ? Stroke Father ? ? Diabetes Father ? ? other (renal failure) Father ? ? No Known Problems Paternal Grandmother ? ? other (Non Hodgkins Lymphoma) Paternal Grandfather ? ? Ovarian cancer Maternal Grandmother ? ? other (Leukemia) Maternal Grandfather ? ? Hypertension Sister ? ? Depression Sister ? ? No Known Problems Son ? ? No Known Problems Son ? ? ? REVIEW OF SYMPTOMS: negative except as noted above PHYSICAL EXAMINATION: ? VITALS: Blood pressure 126/76, weight 285 lb (129.3 kg), last menstrual period 09/19/2018, currently . ? GENERAL: The patient is well nourished, well hydrated in no acute distress. , The patient is oriented to time, place, and person. NECK: full range of motion ABD; gravid, mild tenderness diffuse on left GENITALIA: exam deferred ? IMPRESSION: 34yo @ 37.2 wks scheduled for repeat cs and bilateral salpingectomy at 39.2 weeks gestation. ? Pt has been counseled on risks/benefits and alternatives of surgery including but not limited to anesthesia, bleeding, infection, injury to pelvic structures including bowel, bladder, ureters and vessels. Pt wishes to proceed with surgery at this time. ? ? I have reviewed and updated past medical and surgical history, medications and allergies Herminia Alfredo MD Routine Office Visit on 06/07/2019
[2019-06-21] VITALS (20 sets, daily range): BP systolic 102–139; BP diastolic 55–78; PULSE 74–94; RESP 14–20; TEMP 36.2–36.9; O2SAT 96–99; BMI 42.8
--- NOTE | 2019-06-21 | FALS_PTH ---
PATIENT: LUIS MIGUEL WALKER LOC: [facility] U#:[id number] AGE/SX: 34/F ROOM: WP006 RE06/21/[address]: Dr. Silvina Gutiérrez MD : 1985 BED: 1 DIS: 06/23/2019 SPEC #: [id number] RECD: 06/21/19 12:06 STATUS: SHARMAINE [place] #: [id number] LUIS: 06/21/19 00:[address]: Silvina Gutiérrez DEPT: SURGICAL PATHOLOGY RECD BY: José Miguel Baez ENTERED: 06/21/19 12:06 SP TYPE: FALL TUBES OTHR DR: Dr. Chaz Hoffmann, Tissues: Fallopian tube Procedures: Surgery Specimen Level II HEADER OPERATION: Tubal ligation PRE-OP DIAGNOSIS: Sterilization TISSUE SUBMITTED: Fallopian tubes, suture in left MICROSCOPIC DIAGNOSIS Bilateral fallopian tubes, salpingectomy: Bilateral fallopian tubes including fimbrial ends, no pathologic diagnosis. SARAH:massimo 06/22/19 MICROSCOPIC DESCRIPTION Slides are reviewed. GROSS DESCRIPTION Received is one container labeled with the patient's name and designated bilateral fallopian tubes. The specimen consists of bilateral fallopian tubes including fimbrial ends. The left tube is identified by a suture. The right tube measures 7 cm in length and 0.7 cm in diameter and the left tube measures 3 cm in length and 0.7 cm in diameter. Sections reveal unremarkable cut surfaces. Bumboater sections are submitted in two as follows: 1 - right tube, 2 - left tube. The left tube is submitted in entirety. / SARAH:massimo 06/21/19 TC:4 CPT: 86616 x2
[2019-06-21] MEDS: Lactated Ringers 1,000 ML 999 ML IV (05:59)
[2019-06-21 06:12] LABS: Absolute Lymphocyte Count 1.91 X10^3/uL (0.83-4.51); Absolute Neutrophil Count 9.5 X10^3/uL (2.0-7.7); Basophil# 0.02 X10^3/uL; Basophil% 0.2 % (0-1); Eosinophil# 0.09 X10^3/uL; Eosinophils% 0.7 % (0-5); Hematocrit 34.3 % (37-47); Hemoglobin 11.5 g/dL (12.0-15.0); Lymphocyte # 1.91 X10^3/ul (4.0); Lymphocyte % 15.4 % (19-41); Mean Corp Hgb Conc 33.5 g/dL (32-36); Mean Corpuscular Volume 89.6 fL (81-99); Mean Platelet Vol. 12.5 fl (6.2-12.0); Monocyte# 0.79 X10^3/uL; Monocyte% 6.4 % (0-10); NRBC Flagged by Analyzer 0 % (0-5); Neutrophil # 9.53 X10^3/uL (2.7-7.7); Neutrophil % 76.7 % (47-70); Platelet Count 163 K/mm3 (150-450); RBC Distribution Width CV 14.5 % (11.6-14.6); RBC Distribution Width SD 46.4 fl (35.1-43.9); Red Blood Count 3.83 M/mm3 (4.2-5.4); White Blood Count 12.4 K/mm3 (4.4-11.0)
[2019-06-21] MEDS: Lactated Ringers 1,000 ML 150 ML IV (07:00)
[2019-06-21] MEDS: Sodium Citrate/Citric Acid 30 ML UDC PO (07:05)
[2019-06-21] MEDS: Ondansetron 4 MG/2 ML Vial IV (07:20)
--- NOTE | 2019-06-21 08:25 | PCM.OPRPT ---
Delivery Classification: Scheduled Final MANISH: 06/26/19 Gestational age: 39 Weeks and 2 Days cash applications associate: Arminda Landry Type of Anesthesia:: Spinal Special Medications: none Implants Used: none Date of Procedure: 06/21/19 Pre-Operative Diagnosis: Previous section desires repeat, sterilization request, 39-week intrauterine , advanced maternal age, maternal BMI 42 Post-Operative Diagnosis: same Description of Procedure: Repeat low transverse section with sterilization via removal of fimbria of left tube and placement of 2 Filshie clips on left tube, and right salpingectomy The patient was taken to the operating room. She was prepped and draped in the dorsal supine position with a leftward tilt. A Pfannenstiel skin incision was made approximately 2 cm above the symphysis pubis and carried through to underlying layer fascia with the scalpel. The fascia was incised incised in the midline and extended laterally with the Gaitan scissors. The fascia was dissected off the rectus muscles with blunt and sharp dissection. The rectus muscles were in the midline and the peritoneum was entered bluntly. The peritoneal incision was stretched and the bladder blade was placed. The uterine incision was made in a low transverse fashion with the scalpel and extended superiorly and inferiorly with blunt dissection. The amniotic membranes were ruptured bluntly and clear amniotic fluid returned. The 's head was brought to the incision in the flexed position and delivered without difficulty. The remainder of the was delivered with gentle traction and fundal pressure in the standard fashion. The mouth and nares were bulb suctioned. The cord was clamped and cut as the infant was stimulated. Cord clamping was delayed. The infant was handed off to the waiting nursing staff. The placenta was delivered with fundal massage and gentle traction in the standard fashion. The uterus was exteriorized and cleared of all clots and debris. The cervix was dilated with a ring forcep. The uterine incision was closed with #1 Vicryl in a running locked fashion. A second layer of the same suture was used in an imbricating fashion. The incision was examined and was found to be hemostatic. The uterus was placed back into the peritoneal cavity and hemostasis was again confirmed. The right tube was identified and followed out to the fimbriated end. The antimesenteric portion of the tube was clamped, sealed and transected with the LigaSure device. Was then amputated from the cornual end of the uterus with the same device. Hemostasis was noted. The left tube was identified and followed out to the [facility] in. There is a large vessel that was very adherent to the tube in the midportion of the tube and I was unable to milk it down to adequately obtain room to amputate the tube. Therefore, decision was made to place 2 Filshie clips on the proximal portion of the tube is close to the cornual insertion of the tube to the uterus as possible. Hemostasis was noted with Filshie clips. I then used the LigaSure device to amputate the fimbria from the left tube. Excellent hemostasis was noted. Uterine incision was reexamined and still found to be hemostatic. The rectus muscles were examined and any bleeding was Bovie cauterized. The parietal peritoneum and rectus muscles were closed en bloc with an 0 Vicryl running suture. The surgical teams outer gloves were then changed. The rectus fascia was examined and any bleeding was Bovie cauterized and the rectus fascia was closed with #1 PDS suture in a running standard fashion. The subcutaneous tissue was examining and any bleeding was Bovie cauterized. The subcutaneous tissue was reapproximated with 0 plain gut suture. The skin was closed in a subcuticular fashion by the ORDNANCE TECHNICIAN with me present in the labor and delivery suite. I performed the remainder of the procedure with assistance. All sponge, lap, and needle counts were correct. The patient was taken to her room for recovery in a stable condition. Amniotic Membrane Rupture Type: Artificial Amniotic Fluid Description: Clear Placenta Disposition: [facility] Specimen(s) sent to pathology: Right fallopian tube, left fimbriated end of fallopian tube Drain: [place] to straight drain Fluids Replaced: 1000 Cord Entanglement: None Cord Vessel Description: 3 Vessels Esitmated Blood Loss (ml): 800 Gender: Female Delayed cord clamping: Yes Antibiotic Given: Ancef 3 grams IV x1 Complications: None - Admit VTE Documentation VTE Present on Admission: No VTE Mechan Device Prophylaxis: [facility] VTE Pharm Prophylaxis ordered?: Yes
[2019-06-21] MEDS: Oxytocin 30 units/NS 500 ml 30 UNITS/500 ML IV.SOLN 167 UNITS IV (08:47)
[2019-06-21] MEDS: Acetaminophen 500 MG Tablet 1000 MG PO ×2 (09:31→19:12)
--- NOTE | 2019-06-21 10:49 | NURSING ---
Indwelling urinary catheter present. WNL.
[2019-06-21] MEDS: Lactated Ringers 1,000 ML 100 ML IV (11:53)
[2019-06-21] MEDS: Ketorolac 30 MG/ML Syringe IV ×2 (14:44→20:43)
[2019-06-21] MEDS: 0.9% Saline Lock 10 ML Syringe IV ×2 (14:44→16:37)
[2019-06-21] MEDS: Enoxaparin 40 MG/0.4 ML Syringe SC (20:56)
--- NOTE | 2019-06-21 21:50 | NURSING ---
Pt attempt to void x2, unable to void. Straight cath done for 800cc urine at this time. RN will continue to monitor.
[2019-06-22] VITALS (7 sets, daily range): BP systolic 100–124; BP diastolic 54–67; PULSE 87–100; RESP 16–18; TEMP 36.6–37.1; O2SAT 97–100
[2019-06-22] MEDS: HYDROmorphone 0.5 MG/0.5 ML SYRINGE IV ×2 (01:19→02:07)
[2019-06-22] MEDS: 0.9% Saline Lock 10 ML Syringe IV ×5 (01:19→20:57)
--- NOTE | 2019-06-22 01:40 | NURSING ---
Report given to Yvette VELASQUEZ, taking over pt and infant care at this time.
[2019-06-22] MEDS: Ketorolac 30 MG/ML Syringe IV ×4 (02:47→20:57)
[2019-06-22 06:11] LABS: Hematocrit 30.8 % (37-47); Mean Corp Hgb Conc 32.5 g/dL (32-36); Mean Corpuscular Hgb 29.8 pg (27.0-32.0); Mean Corpuscular Volume 91.7 fL (81-99); Mean Platelet Vol. 11.7 fl (6.2-12.0); Platelet Count 134 K/mm3 (150-450); RBC Distribution Width CV 14.5 % (11.6-14.6); RBC Distribution Width SD 47.9 fl (35.1-43.9); Red Blood Count 3.36 M/mm3 (4.2-5.4)
[2019-06-22] MEDS: Acetaminophen 500 MG Tablet 1000 MG PO ×2 (08:27→17:21)
[2019-06-22] MEDS: Enoxaparin 40 MG/0.4 ML Syringe SC ×2 (08:27→21:57)
--- NOTE | 2019-06-22 08:34 | PCM.PN.OB ---
Subjective: C/o pain. Some urinary retention last night. Able to urinate this am. No nausea - Physical Exam Vitals/I&O's: Vital Signs Temp Pulse Resp BP Pulse Ox 98.3 F 88 16 120/55 L 99 06/22/19 04:40 06/22/19 06:15 06/22/19 06:15 06/22/19 04:40 06/22/19 06:15 Oxygen Delivery Method Room Air Weight: 131.7 kg Body Mass Index (BMI) 42.8 Intake and Output for Last 24 Hours 06/20/19 06/21/19 06/22/19 23:59 23:59 23:59 Intake Total 5855.83 / 5855.83 500 / 500 Output Total 1560 / 1560 650 / 650 Balance 4295.83 / 4295.83 -150 / -150 General: Alert, Cooperative, No apparent distress Abdomen: Soft, Non-Distended, Distended - mildly, softly, Tender - appropriately Extremities: Edema - 2+ Skin: Incision - bandage is clean, dry and intact Laboratory Results 06/22/19 06:02: WBC 13.0 H, RBC 3.36 L, Hgb 10.0 L, Hct 30.8 L, MCV 91.7, MCH 29.8, MCHC 32.5, RDW Std Deviation 47.9 H, RDW Coeff of Yudy 14.5, Plt Count 134 L, MPV 11.7 Current Medications Acetaminophen (Tylenol) 1,000 mg PO Q8H PRN PRN Reason: Pain Score 1-3/10 Last Admin: 06/22/19 08:27 Dose: 1,000 mg Documented by: Bisacodyl (Dulcolax) 10 mg RECTAL UD PRN PRN Reason: If no BM Diphenhydramine HCl (Benadryl) 25 mg PO Q6H PRN PRN PRN Reason: ITCHING Stop: 06/22/19 09:13 Enoxaparin Sodium (Lovenox) 40 mg SC 0900,2100 KEL Last Admin: 06/22/19 08:27 Dose: 40 mg Documented by: Hydrocortisone (Hytone) 1 applic TOPICAL TID PRN PRN; Protocol PRN Reason: Discomfort Naloxone HCl 4 mg/ Dextrose 504 mls @ 0 mls/hr IV .Q0M PRN; Protocol PRN Reason: Respiratory depression Naloxone HCl 4 mg/ Dextrose 504 mls @ 0 mls/hr IV .Q0M PRN; Protocol PRN Reason: To maintain Resp. rate >10 Ketorolac Tromethamine (Toradol (Bkc)) 30 mg IV Q6H KEL Stop: 06/23/19 08:01 Last Admin: 06/22/19 08:27 Dose: 30 mg Documented by: Methylergonovine Maleate (Methergine) 0.2 mg IM X1 PRN PRN Reason: Uterine Atony Nalbuphine HCl (Nubain) 5 mg IV Q3H PRN PRN PRN Reason: ITCHING Stop: 06/22/19 09:13 Naloxone HCl (Narcan) 0.02 mg IV Q1M PRN PRN Reason: RR <10 and pt unresponsive Naproxen (Naprosyn) 250 - 500 mg PO Q8H PRN PRN PRN Reason: Pain Score 1-3/10 Non-Formulary Medication (Dextroamphetamine/Amphetamine) 20 mg PO BID KEL Ondansetron HCl (Zofran) 4 mg IV Q4H PRN PRN PRN Reason: Nausea Last Admin: 06/21/19 07:20 Dose: 4 mg Documented by: Oxycodone HCl (Oxyir) 5 - 10 mg PO Q4H PRN PRN PRN Reason: Pain Score 4-10/10 Prochlorperazine Edisylate (Compazine Iv) 10 mg IV Q6H PRN PRN PRN Reason: NAUSEA Simethicone (Mylicon) 80 mg PO PCHS PRN PRN Reason: Indigestion/stomach pain Sodium Chloride () 5 - 15 ml IV UD PRN PRN Reason: SALINE FLUSH Last Admin: 06/22/19 02:47 Dose: 10 ml Documented by: Medical Necessity - Tobacco Use Smoking Status: Former smoker Assessment/Plan All Active Problems (Last Reviewed 03/26/19 @ 11:57 by Luda Jacobson) Sterilization (Acute) History of delivery (Acute) Segmental and somatic dysfunction of sacral region (Acute) Segmental and somatic dysfunction of thoracic region (Acute) Segmental and somatic dysfunction of cervical region (Acute) Segmental and somatic dysfunction of lumbar region (Acute) ADHD (Acute) Obesity affecting (Acute) (Acute) Supervision of high risk , antepartum (Acute) AMA (advanced maternal age) multigravida 35+ (Acute) Anxiety (Acute) ADD (attention deficit disorder) (Resolved) Engagement of fetus in breech position (Resolved) Evaluate anatomy not seen on prior sonogram (Resolved) False labor (Resolved) Family history of congenital heart defect (Resolved) History of abnormal cervical Pap smear (Resolved) Influenza (Resolved) Low lying placenta nos or without hemorrhage, second trimester (Resolved) Subchorionic hemorrhage in first trimester (Resolved) Supervision of normal (Resolved) POD#1 s/p repeat c/s and tubal doing well working on likely home tomorrow
[2019-06-22] MEDS: oxyCODONE 5 MG Tablet PO ×4 (09:30→22:49)
--- NOTE | 2019-06-22 10:05 | NURSING ---
agree with assessment completed per AOrr, RN
--- NOTE | 2019-06-22 10:11 | NURSING ---
Physician Silvina Gutiérrez in room when this RN was administered 0800 Toradol and prn Tylenol. This RN and patient expressed to RR that her pain was not controlled at this time, and that this RN is going to try multimodal analgesia via Toradol and Tylenol. Discussed plan of care with RR and agreed that prn oxycodone should be administered if pain was not controlled by this multimodal analgesia. No new orders were given. Patient, RN and physician agreed with plan of care.
[2019-06-22 11:16] LABS: Pathology Specimen OB SEE PATHOLOGY REPORT
[2019-06-22] MEDS: Bisacodyl 10 MG Suppository RECTAL (17:48)
[2019-06-23] MEDS: Ketorolac 30 MG/ML Syringe IV ×2 (02:38→07:58)
[2019-06-23] MEDS: 0.9% Saline Lock 10 ML Syringe IV ×2 (02:39→08:55)
[2019-06-23 02:45] VITALS: BP 108/84; PULSE 95; RESP 16; TEMP 36.6; O2SAT 98
[2019-06-23] MEDS: oxyCODONE 5 MG Tablet PO ×3 (02:59→11:28)
[2019-06-23] MEDS: Enoxaparin 40 MG/0.4 ML Syringe SC (07:59)
[2019-06-23 08:00] VITALS: BP 112/72; PULSE 88; RESP 16; TEMP 36.7
--- NOTE | 2019-06-23 11:40 | PCM.PN.OB ---
Subjective: Doing well per patient and nursing staff. Ambulating and taking PO without difficulty. Voiding and passing flatus. Pain controlled. without difficulty. Denies chest pain, SOB, increased pain. Lochia normal. Planning D/C home today. - Physical Exam Vitals/I&O's: Vital Signs Temp Pulse Resp BP Pulse Ox 98.0 F 88 16 112/72 98 06/23/19 08:00 06/23/19 08:00 06/23/19 08:00 06/23/19 08:00 06/23/19 02:45 Oxygen Delivery Method Room Air Weight: 290 lb 5.581 oz Body Mass Index (BMI) 42.8 Intake and Output for Last 24 Hours 06/21/19 06/22/19 06/23/19 23:59 23:59 23:59 Intake Total 5855.83 / 5855.83 500 / 500 Output Total 1560 / 1560 800 / 800 400 / 400 Balance 4295.83 / 4295.83 -300 / -300 -400 / -400 General: Alert, Oriented x3, Cooperative HEENT: Atraumatic, Normocephalic Neck: Trachea Midline Lungs: Clear to auscultation, Normal air movement, No rhonchi, No wheeze Cardiovascular: Regular rate, Regular Rhythm, No murmurs Abdomen: Bowel Sounds Present, Soft - Fundus firm 3 below U. Dressing intact. Small amount of dry old blood Extremities: Edema - Non pitting BLE. Deejay's negative Psych/Mental Status: Normal Affect, Appropriate Current Medications Acetaminophen (Tylenol) 1,000 mg PO Q8H PRN PRN Reason: Pain Score 1-3/10 Last Admin: 06/22/19 17:21 Dose: 1,000 mg Documented by: Bisacodyl (Dulcolax) 10 mg RECTAL UD PRN PRN Reason: If no BM Last Admin: 06/22/19 17:48 Dose: 10 mg Documented by: Enoxaparin Sodium (Lovenox) 40 mg SC 0900,2100 KEL Last Admin: 06/23/19 07:59 Dose: 40 mg Documented by: Hydrocortisone (Hytone) 1 applic TOPICAL TID PRN PRN; Protocol PRN Reason: Discomfort Naloxone HCl 4 mg/ Dextrose 504 mls @ 0 mls/hr IV .Q0M PRN; Protocol PRN Reason: Respiratory depression Naloxone HCl 4 mg/ Dextrose 504 mls @ 0 mls/hr IV .Q0M PRN; Protocol PRN Reason: To maintain Resp. rate >10 Methylergonovine Maleate (Methergine) 0.2 mg IM X1 PRN PRN Reason: Uterine Atony Naloxone HCl (Narcan) 0.02 mg IV Q1M PRN PRN Reason: RR <10 and pt unresponsive Naproxen (Naprosyn) 250 - 500 mg PO Q8H PRN PRN PRN Reason: Pain Score 1-3/10 Non-Formulary Medication (Dextroamphetamine/Amphetamine) 20 mg PO BID KEL Ondansetron HCl (Zofran) 4 mg IV Q4H PRN PRN PRN Reason: Nausea Last Admin: 06/21/19 07:20 Dose: 4 mg Documented by: Oxycodone HCl (Oxyir) 5 - 10 mg PO Q4H PRN PRN PRN Reason: Pain Score 4-10/10 Last Admin: 06/23/19 11:28 Dose: 10 mg Documented by: Prochlorperazine Edisylate (Compazine Iv) 10 mg IV Q6H PRN PRN PRN Reason: NAUSEA Simethicone (Mylicon) 80 mg PO PCHS PRN PRN Reason: Indigestion/stomach pain Last Admin: 06/22/19 09:30 Dose: 80 mg Documented by: Sodium Chloride () 5 - 15 ml IV UD PRN PRN Reason: SALINE FLUSH Last Admin: 06/23/19 08:55 Dose: 10 ml Documented by: Medical Necessity - Tobacco Use Smoking Status: Former smoker Assessment/Plan All Active Problems (Last Reviewed 03/26/19 @ 11:57 by Luda Jacobson) Sterilization (Acute) History of delivery (Acute) Segmental and somatic dysfunction of sacral region (Acute) Segmental and somatic dysfunction of thoracic region (Acute) Segmental and somatic dysfunction of cervical region (Acute) Segmental and somatic dysfunction of lumbar region (Acute) ADHD (Acute) Obesity affecting (Acute) (Acute) Supervision of high risk , antepartum (Acute) AMA (advanced maternal age) multigravida 35+ (Acute) Anxiety (Acute) ADD (attention deficit disorder) (Resolved) Engagement of fetus in breech position (Resolved) Evaluate anatomy not seen on prior sonogram (Resolved) False labor (Resolved) Family history of congenital heart defect (Resolved) History of abnormal cervical Pap smear (Resolved) Influenza (Resolved) Low lying placenta nos or without hemorrhage, second trimester (Resolved) Subchorionic hemorrhage in first trimester (Resolved) Supervision of normal (Resolved) A: POD #2 Repeat Section Tubal Sterilization P: 1) Routine discharge and instructions 2) Planning D/C home today 3) Rx for Percocet and Ibuprofen 4) Follow up in 1-2 weeks for incision check and 6 wks for visit.
--- NOTE | 2019-06-23 11:45 | DCINST_ITS ---
Discharge Diet: No Restrictions Discharge Activity: May Not Drive - for 2 weeks or while taking narcotic pain meds., May not drive while taking narcotic pain medications., May Shower, May Take a Tub Bath - in 7 days. May resume sexual activity in: 4-6 weeks Weight Bearing Status: Full weight bearing Lifting Restrictions: 20 pounds Additional Activity Instructions:: Nothing in the vagina for 4-6 weeks. You may return to work/school in 6 weeks. Call your doctor if your incision/area has: Continuous Slow Oozing, Sudden Increased Bleeding, Increased Pain/ Swelling, Increased Redness, Foul Smelling Discharge Call your doctor if you observe: Fever of 101 or Higher, Inability to urinate, Inability to have a bowel movement, Using more than one pad per hour, Shortness of breath, Chest pain, Increased palpitations (irregular heartbeat), Calf discomfort, Uncontrolled pain Suture Line Care: Avoid Pulling/Pushing, Avoid Pinching/Bending Cleanse incision/area with: Keep Dressing Clean & Dry - Remove 7 days after section. Additional Instructions: If you experience any of the following, contact your healthcare provider. * Bleeding that soaks a pad every hour for 2 hours * Fever 100.4 or higher * Unrelieved incision or abdominal pain * Swelling, redness, discharge or bleeding from your incision or episiotomy site * Your incision begins to separate * Problems urinating (including inability to urinate or burning while urinating). * Visual changes * Severe headache * Flu-like symptoms * Pain or redness in one of both of your breasts * Pain, warmth, tenderness or swelling in your legs, especially the calf area * Frequent nausea and vomiting * Symptoms of depression or anxiety If you experience any of the following, call 911 or go to the nearest Emergency Room. * Chest pain * Problems breathing * Seizure activity * Partial or complete paralysis of a body part, slurred speech, weakness or drooping of the face, or a sudden inability to walk or hold your balance Allergies/Adverse Reactions: Allergies No Known Allergies Allergy (Verified 06/21/19 05:24) Medications to take at Discharge Vits [Prenatabs FA ] 1 tab PO DAILY 05/12/16 Dextroamphetamine/Amphetamine [Adderall 10 mg Tablet] 20 mg PO BID 12/26/17 Vitamin D 1 tab PO DAILY 06/21/19 Ibuprofen 600 mg PO Q6H PRN PRN #30 tab 06/23/19 Oxycodone HCl/Acetaminophen [Percocet 5/325] 1 - 2 tablet PO Q4H PRN PRN 7 Days #20 tablet 06/23/19 The following prescriptions were given: Ibuprofen 600 mg PO Q6H PRN PRN #30 tab PRN Reason: Pain/Inflammation Transmission Status: Pending to [facility] Oxycodone HCl/Acetaminophen [Percocet 5/325] 1 - 2 tablet PO Q4H PRN PRN 7 Days #20 tablet PRN Reason: Pain Transmission Status: Sent to [facility] Follow-Up: Call to make an appointment with your doctor for an incision check in 1-2 weeks. You will also need a 6 week post- follow up appointment. Test results from this visit will be discussed in further detail at your follow- up appointment, if applicable. Primary Care Physician: Chaz Hoffmann DO [Primary Care Provider] -
--- NOTE | 2019-06-23 11:47 | DS.PCM_ITS ---
Discharge Date and Diagnosis Date of Admission: 06/21/19 Date of Discharge: 06/23/19 Hospital Course and Treatment Operations: - Summary of Care Provided: The patient is a 34yo @ 37.2 wks for repeat section at 39.2 weeks gestation. Repeat low transverse section with sterilization via removal of fimbria of left tube and placement of 2 Filshie clips on left tube, and right salpingectomy on 06/21/19 by . Normal post operative course without complications. Discharged home on post op day 2. - Physical Exam Vitals/I&O's: Vital Signs Temp Pulse Resp BP Pulse Ox 98.0 F 88 16 112/72 98 06/23/19 08:00 06/23/19 08:00 06/23/19 08:00 06/23/19 08:00 06/23/19 02:45 Oxygen Delivery Method Room Air Weight: 290 lb 5.581 oz Body Mass Index (BMI) 42.8 Intake and Output for Last 24 Hours 06/21/19 06/22/19 06/23/19 23:59 23:59 23:59 Intake Total 5855.83 / 5855.83 500 / 500 Output Total 1560 / 1560 800 / 800 400 / 400 Balance 4295.83 / 4295.83 -300 / -300 -400 / -400 Current Medications Acetaminophen (Tylenol) 1,000 mg PO Q8H PRN PRN Reason: Pain Score 1-3/10 Last Admin: 06/22/19 17:21 Dose: 1,000 mg Documented by: Bisacodyl (Dulcolax) 10 mg RECTAL UD PRN PRN Reason: If no BM Last Admin: 06/22/19 17:48 Dose: 10 mg Documented by: Enoxaparin Sodium (Lovenox) 40 mg SC 0900,2100 KEL Last Admin: 06/23/19 07:59 Dose: 40 mg Documented by: Hydrocortisone (Hytone) 1 applic TOPICAL TID PRN PRN; Protocol PRN Reason: Discomfort Naloxone HCl 4 mg/ Dextrose 504 mls @ 0 mls/hr IV .Q0M PRN; Protocol PRN Reason: Respiratory depression Naloxone HCl 4 mg/ Dextrose 504 mls @ 0 mls/hr IV .Q0M PRN; Protocol PRN Reason: To maintain Resp. rate >10 Methylergonovine Maleate (Methergine) 0.2 mg IM X1 PRN PRN Reason: Uterine Atony Naloxone HCl (Narcan) 0.02 mg IV Q1M PRN PRN Reason: RR <10 and pt unresponsive Naproxen (Naprosyn) 250 - 500 mg PO Q8H PRN PRN PRN Reason: Pain Score 1-3/10 Non-Formulary Medication (Dextroamphetamine/Amphetamine) 20 mg PO BID KEL Ondansetron HCl (Zofran) 4 mg IV Q4H PRN PRN PRN Reason: Nausea Last Admin: 06/21/19 07:20 Dose: 4 mg Documented by: Oxycodone HCl (Oxyir) 5 - 10 mg PO Q4H PRN PRN PRN Reason: Pain Score 4-10/10 Last Admin: 06/23/19 11:28 Dose: 10 mg Documented by: Prochlorperazine Edisylate (Compazine Iv) 10 mg IV Q6H PRN PRN PRN Reason: NAUSEA Simethicone (Mylicon) 80 mg PO PCHS PRN PRN Reason: Indigestion/stomach pain Last Admin: 06/22/19 09:30 Dose: 80 mg Documented by: Sodium Chloride () 5 - 15 ml IV UD PRN PRN Reason: SALINE FLUSH Last Admin: 06/23/19 08:55 Dose: 10 ml Documented by: Discharge Diet: No Restrictions Discharge Activity: May Not Drive - for 2 weeks or while taking narcotic pain meds., May not drive while taking narcotic pain medications., May Shower, May Take a Tub Bath - in 7 days. May resume sexual activity in: 4-6 weeks Weight Bearing Status: Full weight bearing Additional Activity Instructions:: Nothing in the vagina for 4-6 weeks. You may return to work/school in 6 weeks. Call your doctor if your incision/area has: Continuous Slow Oozing, Sudden Increased Bleeding, Increased Pain/ Swelling, Increased Redness, Foul Smelling Discharge Call your doctor if you observe: Fever of 101 or Higher, Inability to urinate, Inability to have a bowel movement, Using more than one pad per hour, Shortness of breath, Chest pain, Increased palpitations (irregular heartbeat), Calf discomfort, Uncontrolled pain Suture Line Care: Avoid Pulling/Pushing, Avoid Pinching/Bending Cleanse incision/area with: Keep Dressing Clean & Dry - Remove 7 days after section. Home Medications: Medications to take at Discharge Vits [Prenatabs FA ] 1 tab PO DAILY 05/12/16 Dextroamphetamine/Amphetamine [Adderall 10 mg Tablet] 20 mg PO BID 12/26/17 Vitamin D 1 tab PO DAILY 06/21/19 Ibuprofen 600 mg PO Q6H PRN PRN #30 tab 06/23/19 Oxycodone HCl/Acetaminophen [Percocet 5/325] 1 - 2 tablet PO Q4H PRN PRN 7 Days #20 tablet 06/23/19 Following Prescrptions Were Given to Patient: Ibuprofen 600 mg PO Q6H PRN PRN #30 tab PRN Reason: Pain/Inflammation Transmission Status: Pending to [facility] Oxycodone HCl/Acetaminophen [Percocet 5/325] 1 - 2 tablet PO Q4H PRN PRN 7 Days #20 tablet PRN Reason: Pain Transmission Status: Sent to [facility] Primary Care Physician: Chaz Hoffmann DO [Primary Care Provider] - Medical Necessity - Tobacco Use Smoking Status: Former smoker Meaningful Use Info Meaningful Use Diagnoses (Choose all that apply): None applicable
[2019-06-23 12:37] VITALS: BP 118/69; PULSE 90; RESP 18; TEMP 36.6
== END 2019-06-23 13:00 | disposition home or self-care (01) | DRG 785 ==
PROVIDERS: Obstetrics & Gynecology; Admitting Provider Obstetrics & Gynecology; PCP Family Medicine; Referring Provider Obstetrics & Gynecology; Visit Provider Obstetrics & Gynecology
PROC: (CPT 59514; principal; 2019-06-21 07:15)
DX: O34.211 Maternal care for low transverse scar from previous cesarean delivery (principal); Z30.2 Encounter for sterilization; Z37.0 Single live birth; Z3A.39 39 weeks gestation of pregnancy; O16.4 Unspecified maternal hypertension, complicating childbirth; F41.9 Anxiety disorder, unspecified; O99.344 Other mental disorders complicating childbirth; F32.9 Major depressive disorder, single episode, unspecified; F98.8 Other specified behavioral and emotional disorders with onset usually occurring in childhood and adolescence; Z87.891 Personal history of nicotine dependence; O99.214 Obesity complicating childbirth; E66.9 Obesity, unspecified; R33.9 Retention of urine, unspecified
CPT/HCPCS: 85025; 85027; 86850; 86900; 86901; 88302; 99218; J7120; A4216; G0378; J2405

== ENCOUNTER 2019-06-26 23:02 | Outpatient (CLI) | payer OTHER, SELFPAY ==
[2019-06-21 05:20] VITALS: BMI 42.8
[2019-06-26 23:20] VITALS: BP 131/85; PULSE 94; RESP 16; TEMP 37.5; O2SAT 98
[2019-06-26 23:38] VITALS: BP 137/82; PULSE 93
[2019-06-26 23:53] VITALS: BP 134/90; PULSE 93
[2019-06-26 23:59] LABS: Hematocrit 36.3 % (37-47); Hemoglobin 11.6 g/dL (12.0-15.0); Mean Corpuscular Hgb 29.4 pg (27.0-32.0); Mean Corpuscular Volume 92.1 fL (81-99); Mean Platelet Vol. 11.4 fl (6.2-12.0); Platelet Count 254 K/mm3 (150-450); RBC Distribution Width CV 14.2 % (11.6-14.6); RBC Distribution Width SD 48.3 fl (35.1-43.9); Red Blood Count 3.94 M/mm3 (4.2-5.4); White Blood Count 10.5 K/mm3 (4.4-11.0)
[2019-06-27 00:08] VITALS: BP 127/62; PULSE 94
[2019-06-27 00:11] LABS: Partial Thromboplast Time 28.6 Seconds (24.1-36.2); Prothrombin Time (Protime)PT. 12.8 SECONDS (11.7-14.9)
[2019-06-27 00:14] LABS: AST(SGOT) 16 U/L (15-37); Alanine Aminotransfer ALT/SGPT 21 U/L (13-56); Creatinine, Serum 0.69 mg/dL (0.55-1.02); EST Glomerular Filtration Rate 103 mL/min (>60); Est Glom Filt Rate - Afr Amer 124 mL/min (>60); Uric Acid 6.6 mg/dL (2.6-6.0)
[2019-06-27 00:22] VITALS: BP 131/73; PULSE 84
--- NOTE | 2019-06-27 00:29 | NURSING ---
Dr. Covington updated about vital signs, patient complaints, and lab results. Dr. Covington on unit, to talk to patient.
[2019-06-27 00:30] VITALS: BMI 39.9
[2019-06-27 00:38] VITALS: BP 127/66; PULSE 96
[2019-06-27 00:53] VITALS: BP 130/78; PULSE 90
--- NOTE | 2019-06-27 01:00 | OB.TRI.HP_ITS ---
- Problem List (1) headache Status: Acute History of Present Illness Date of Service: 06/27/19 Was patient seen by the physician?: Yes Reason For Visit: R/O Final MANISH Source: US <20 weeks History of Present Illness: Patient is POD#6 s/p section. She states she developed a headache and blurred vision at home, and she checked her blood pressure using a manual blood pressure cuff with the help of her . She reports her blood pressures were 180s over 120s at home with her helping her to use the manual BP cuff. She denies any history of chronic hypertension, gestational hypertension, or preeclampsia. She says she has a history of chronic headaches but this headache feels different. She has pain at the base of her neck as well as around her eyes. She says when she looks off to distance at times she has blurred vision. She denies any other visual changes, right upper quadrant pain, epigastric pain, nausea, vomiting. She is very tearful and anxious today. Allergies No Known Allergies Allergy (Verified 06/27/19 00:07) - Pertinent Past Medical History Medical History: Past Medical History (Last Reviewed 03/26/19 @ 11:57 by Luda Jacobson) Abnormal pap Endometriosis Migraine Surgical History: Past Surgical History (Last Updated 03/26/19 @ 13:41 by Jennifer Gomez) History of delivery (Acute) x2 plan RC/S with BTO Laboratory Studies: Laboratory Tests 06/26/19 06/26/19 06/26/19 Range/Units 23:50 23:50 23:50 WBC 10.5 (4.4-11.0) K/mm3 RBC 3.94 L (4.2-5.4) M/mm3 Hgb 11.6 L (12.0-15.0) g/dL Hct 36.3 L (37-47) % MCV 92.1 (81-99) fL MCH 29.4 (27.0-32.0) pg MCHC 32.0 (32-36) g/dL RDW Std Deviation 48.3 H (35.1-43.9) fl RDW Coeff of Yudy 14.2 (11.6-14.6) % Plt Count 254 (150-450) K/mm3 MPV 11.4 (6.2-12.0) fl PT 12.8 (11.7-14.9) SECONDS INR 1.0 APTT 28.6 (24.1-36.2) Seconds Creatinine 0.69 (0.55-1.02) mg/dL Est GFR (MDRD) Af Amer 124 (>60) mL/min Est GFR (MDRD) Non-Af 103 (>60) mL/min Uric Acid 6.6 H (2.6-6.0) mg/dL AST 16 (15-37) U/L ALT 21 (13-56) U/L Physical Exam Vitals: Vital Signs Temp Pulse Resp BP Pulse Ox 99.5 F H 94 16 127/62 H 98 06/26/19 23:20 06/27/19 00:08 06/26/19 23:20 06/27/19 00:08 06/26/19 23:20 General: Alert, No apparent distress, - - Anxious HEENT: Atraumatic Abdomen: Soft, Non Tender Neurological: Deep Tendon Reflexes 2+/4 and Symmetrical, Neuro grossly intact Impression/Plan Patient is . She is here for rule out preeclampsia. All of her blood pressures are within normal limits. She declines medication for her headache. Her preeclampsia labs are all within normal limits as well. No hyperreflexia on exam. Discussed possible etiologies of her headache. Encouraged rest, hydration, caffeine intake. 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 Instructed her to call tomorrow morning with an update of her symptoms and blood pressure.
== END 2019-06-27 01:10 | disposition home or self-care (01) ==
LOC: WPOUT 23:06 → WP 23:07
PROVIDERS: PCP Family Medicine; Referring Provider Obstetrics & Gynecology; Visit Provider Obstetrics & Gynecology
DX: O90.89 Other complications of the puerperium, not elsewhere classified (principal); R51 Headache; H53.8 Other visual disturbances
CPT/HCPCS: 36415; 82565; 84450; 84460; 84550; 85027; 85610; 85730; 99218; G0378

== ENCOUNTER 2019-06-27 14:10 | Outpatient (CLI) | payer OTHER, SELFPAY ==
[2019-06-27] VITALS (28 sets, daily range): BP systolic 122–164; BP diastolic 56–90; PULSE 87–96; RESP 18; TEMP 36.8–37.8; O2SAT 93–100; BMI 39.9; BMI 39.7
--- NOTE | 2019-06-27 15:59 | PCM.HP.OB ---
- Problem List (1) Preeclampsia in period Status: Acute History Date of Admission: 06/27/19 Final MANISH Source: US <20 weeks History of this : This is a 34 year-old, who is 6 days after a section. Yesterday the patient reports she had a severe persistent headache and blurred vision, therefore she checked her blood pressure at home with a manual cuff with the assistance of her . She reported yesterday that she had blood pressures of 180s over 120s at home. She was brought to labor and delivery to rule out preeclampsia. On labor and delivery yesterday serial blood pressures were all within normal limits and her lab work was within normal limits as well. She was discharged home. Today she reports her headache remains the same, and she has had this persistent headache for 3 days. She states she had blurred vision this morning which then resolved. She says she just generally does not feel well as well. She borrowed a friend's automated blood pressure cuff and she reports her blood pressures at home were 140s over 90s. She denies a history of chronic hypertension, gestational hypertension, preeclampsia. She denies right upper quadrant pain or epigastric pain. She denies nausea or vomiting. She does have some epigastric and substernal discomfort that she rates 2 out of 10. Denies any shortness of breath or palpitations. Medical History: Medical History (Last Reviewed 03/26/19 @ 11:57 by Luda Jacobson) Abnormal pap Endometriosis Migraine Surgical History: Surgical History (Last Updated 03/26/19 @ 13:41 by Jennifer Gomez) History of delivery (Acute) Z98.891 x2 plan RC/S with BTO Allergies No Known Allergies Allergy (Verified 06/27/19 00:07) Home Medications: Home Medications Vits [Prenatabs FA ] 1 tab PO DAILY 05/12/16 Dextroamphetamine/Amphetamine [Adderall 10 mg Tablet] 20 mg PO BID 12/26/17 Vitamin D 1 tab PO DAILY 06/21/19 Ibuprofen 600 mg PO Q6H PRN PRN #30 tab 06/23/19 Oxycodone HCl/Acetaminophen [Percocet 5/325] 1 - 2 tab PO Q4H PRN PRN 7 Days #20 tab 06/23/19 Smoking Status: Former smoker History Past Pregnancies: Past Pregnancies Delivery Date Name GA/ Weeks Outcome Route Wt Infant Sex Labor Length Anesthesia Delivery Location Provider FOB Review of Systems Eyes: Reports: Blurred vision HEENT: Reports: Head Aches Respiratory: Denies: Cough, Shortness of Breath Gastrointestinal: Denies: Abdominal Pain, Nausea, Vomiting Neurological: Reports: Blurred vision Physical Exam Vitals: Vital Signs Temp Pulse Resp BP 98.4 F 90 18 140/86 H 06/27/19 14:17 06/27/19 14:17 06/27/19 14:17 06/27/19 15:02 General: Alert, No apparent distress Lungs: Normal air movement Abdomen: Obese Neurological: Neuro grossly intact Assessment/Plan All Active Problems (Last Reviewed 03/26/19 @ 11:57 by Luda Jacobson) headache (Acute) Preeclampsia in period (Acute) Sterilization (Acute) History of delivery (Acute) Segmental and somatic dysfunction of sacral region (Acute) Segmental and somatic dysfunction of thoracic region (Acute) Segmental and somatic dysfunction of cervical region (Acute) Segmental and somatic dysfunction of lumbar region (Acute) ADHD (Acute) Obesity affecting (Acute) (Acute) Supervision of high risk , antepartum (Acute) AMA (advanced maternal age) multigravida 35+ (Acute) Anxiety (Acute) ADD (attention deficit disorder) (Resolved) Engagement of fetus in breech position (Resolved) Evaluate anatomy not seen on prior sonogram (Resolved) False labor (Resolved) Family history of congenital heart defect (Resolved) History of abnormal cervical Pap smear (Resolved) Influenza (Resolved) Low lying placenta nos or without hemorrhage, second trimester (Resolved) Subchorionic hemorrhage in first trimester (Resolved) Supervision of normal (Resolved) This is a 34 year-old, who is 6 days from a section admitted for management of preeclampsia. -Patient has had a persistent headache for 3 days as well as occasional blurred vision. She now notes substernal discomfort as well, and possible epigastric discomfort. She had mild range blood pressures at home, and normal to mild range blood pressures here on labor and delivery. There appears to be some component of anxiety. Discussed admission for preeclampsia. Will start magnesium drip for seizure prophylaxis and get another set of labs. Will give Fioricet for her headache. Plan will be to continue the magnesium drip for 24 hours, and anticipate likely discharge to home tomorrow. Discussed when blood pressure medication would be indicated, but no blood pressure medication is needed at this time. She is currently pumping.
[2019-06-27] MEDS: Lactated Ringers 1,000 ML 75 ML IV (16:13)
[2019-06-27] MEDS: Magnesium Sulfate 4gm/100mL 4 GM/100 ML IV.SOLN. IV (16:23)
[2019-06-27] MEDS: Magnesium Sulfate 20 GM/500 ML BAG IV (16:45)
[2019-06-27 16:47] LABS: Hemoglobin 12.1 g/dL (12.0-15.0); Mean Corp Hgb Conc 31.8 g/dL (32-36); Mean Corpuscular Hgb 29.4 pg (27.0-32.0); Mean Corpuscular Volume 92.5 fL (81-99); Mean Platelet Vol. 10.9 fl (6.2-12.0); Platelet Count 275 K/mm3 (150-450); RBC Distribution Width CV 14.2 % (11.6-14.6); RBC Distribution Width SD 47.9 fl (35.1-43.9); Red Blood Count 4.11 M/mm3 (4.2-5.4); White Blood Count 10.5 K/mm3 (4.4-11.0)
[2019-06-27 16:58] LABS: Prothrombin Time (Protime)PT. 12.5 SECONDS (11.7-14.9)
[2019-06-27 16:59] LABS: Partial Thromboplast Time 29.4 Seconds (24.1-36.2)
[2019-06-27 17:04] LABS: AST(SGOT) 10 U/L (15-37); Alanine Aminotransfer ALT/SGPT 19 U/L (13-56); Creatinine, Serum 0.65 mg/dL (0.55-1.02); EST Glomerular Filtration Rate 110 mL/min (>60); Est Glom Filt Rate - Afr Amer 133 mL/min (>60); Estimated Creatinine Clearance 130.63 ml/min
[2019-06-27] MEDS: Acetaminophen/Butalbital/Caffe 1 Tablet 2 TABLET PO (17:16)
[2019-06-27] MEDS: DEXTROAMPHETAMINE/AMPHETAMINE 20 MG TABLET PO (18:13)
[2019-06-27] MEDS: oxyCODONE 5 MG Tablet PO (23:33)
[2019-06-28] VITALS (32 sets, daily range): BP systolic 121–158; BP diastolic 60–94; PULSE 66–95; RESP 14–18; TEMP 36.9–37.6; O2SAT 93–100
--- NOTE | 2019-06-28 00:30 | NURSING ---
Pt tearful upon RN arrival. States she feels like she cant do the pain anymore in her hand from the IV. RN looked at site, no infiltration noted, no redness, tender per touch. Pt states that this is how it has felt since they placed IV, was worse with Mag bolus and then got better when slowed rate down to maintenance dose of Mag (2mg'hr, 50 ml/hr). 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 Will see if rate change will help with discomfort. When RN left room pt states she does think it feels a little better. Placed hand in warm blanket and elevated with pillows, pt going to try and take nap. RN will continue to monitor.
[2019-06-28] MEDS: Magnesium Sulfate 20 GM/500 ML BAG IV (02:20)
[2019-06-28] MEDS: Acetaminophen 325 MG Tablet 650 MG PO ×3 (05:30→21:39)
[2019-06-28] MEDS: Ibuprofen 600 MG Tablet PO (09:52)
[2019-06-28] MEDS: DiphenhydrAMINE 25 MG Capsule PO ×2 (09:53→21:40)
--- NOTE | 2019-06-28 12:19 | PCM.PN.OB ---
Patient Problems: Active and Suspected Problems (Last Reviewed 03/26/19 @ 11:57 by Luda Jacobson) Preeclampsia in period (Acute) Subjective: Patient is tired and frustrated. Also her lower right arm is hurting - patient states it started when the magnesium was being infused. She is tearful over being from her kids. - Physical Exam Vitals/I&O's: Vital Signs Temp Pulse Resp BP Pulse Ox 99.6 F H 91 14 139/94 H 100 06/28/19 11:37 06/28/19 11:37 06/28/19 11:37 06/28/19 11:37 06/28/19 11:37 Oxygen Delivery Method Room Air Weight: 277 lb Body Mass Index (BMI) 39.7 Intake and Output for Last 24 Hours 06/26/19 06/27/19 06/28/19 23:59 23:59 23:59 Intake Total 1511.67 / 1511.67 4407.50 / 4407.50 Output Total 3700 / 3700 3500 / 3500 Balance -2188.33 / -2188.33 907.50 / 907.50 General: Alert, Oriented x3 Abdomen: Soft, Non Tender, Non-Distended - Incision - well healed Extremities: No Calf Tenderness Neurological: Cranial nerves II-XII grossly intact Laboratory Results 06/27/19 16:40: WBC 10.5, RBC 4.11 L, Hgb 12.1, Hct 38.0, MCV 92.5, MCH 29.4, MCHC 31.8 L, RDW Std Deviation 47.9 H, RDW Coeff of Yudy 14.2, Plt Count 275, MPV 10.9 06/27/19 16:40: Creatinine 0.65, Estim Creat Clear Calc 130.63, Est GFR (MDRD) Af Amer 133, Est GFR (MDRD) Non-Af 110, AST 10 L, ALT 19 06/27/19 16:40: PT 12.5, INR 1.0, APTT 29.4 Current Medications Acetaminophen (Tylenol) 650 mg PO Q6H PRN PRN PRN Reason: Pain Score 4-10/10 Last Admin: 06/28/19 05:30 Dose: 650 mg Documented by: Docusate Sodium (Colace) 100 mg PO BID PRN PRN PRN Reason: CONSTIPATION Calcium Gluconate 1 gm/ N/A 10 mls @ 2 mls/min IV X1 PRN PRN Reason: Magnesium Toxicity Magnesium Sulfate (20gm/500ml) 20 gm in 500 mls @ 50 mls/hr IV .Q10H KEL; Protocol Last Infusion: 06/28/19 11:37 Dose: 1 gm/hr, 25 mls/hr Documented by: Lactated Ringer's () 1,000 mls @ 75 mls/hr IV .[id number] KEL Last Infusion: 06/28/19 11:37 Dose: 50 mls/hr Documented by: Ibuprofen (Motrin) 600 mg PO Q6H PRN PRN PRN Reason: Pain Score 4-10/10 Last Admin: 06/28/19 09:52 Dose: 600 mg Documented by: Midazolam HCl (Versed) 2 mg IV X1 PRN PRN Reason: Seizure Activity Oxycodone HCl (Oxyir) 5 mg PO Q6H PRN PRN PRN Reason: Pain Score 6-10/10 Last Admin: 06/27/19 23:33 Dose: 5 mg Documented by: Sodium Chloride () 10 ml IV PRN PRN PRN Reason: Saline Flush Medical Necessity - Tobacco Use Smoking Status: Former smoker Assessment/Plan All Active Problems (Last Reviewed 03/26/19 @ 11:57 by Luda Jacobson) headache (Acute) Preeclampsia in period (Acute) Sterilization (Acute) History of delivery (Acute) Segmental and somatic dysfunction of sacral region (Acute) Segmental and somatic dysfunction of thoracic region (Acute) Segmental and somatic dysfunction of cervical region (Acute) Segmental and somatic dysfunction of lumbar region (Acute) ADHD (Acute) Obesity affecting (Acute) (Acute) Supervision of high risk , antepartum (Acute) AMA (advanced maternal age) multigravida 35+ (Acute) Anxiety (Acute) ADD (attention deficit disorder) (Resolved) Engagement of fetus in breech position (Resolved) Evaluate anatomy not seen on prior sonogram (Resolved) False labor (Resolved) Family history of congenital heart defect (Resolved) History of abnormal cervical Pap smear (Resolved) Influenza (Resolved) Low lying placenta nos or without hemorrhage, second trimester (Resolved) Subchorionic hemorrhage in first trimester (Resolved) Supervision of normal (Resolved) HD#2, POD#8 Preeclampsia - patient on magnesium & discussed that recommendation is to complete 24 hour course. Rationale of therapy explained & all questions answered. Discussed that would recommend monitoring after magnesium stopped for at least 12 if not 24 hours as BP's may increase. Reviewed that if patient discharged home to soon she would be at higher risk of re-admission. Discussed plan of care 2 times with patient today. She is agreeable to staying tonight with plan for discharge home in am if no severe range BP's Mood - patient denies PP depression and declines social work consult. She has a counseling appointment on .
[2019-06-28] MEDS: DiphenhydrAMINE 25 MG Capsule 50 MG PO (12:45)
[2019-06-28] MEDS: Labetalol 200 MG Tablet PO ×2 (15:41→21:40)
--- NOTE | 2019-06-28 15:47 | NURSING ---
[id number] loya. Remy to D/C mag sulfate at this time
[2019-06-29 00:51] VITALS: BP 122/59; PULSE 80; RESP 14; TEMP 37.3
[2019-06-29 00:52] VITALS: BP 122/59; PULSE 80
[2019-06-29 04:24] VITALS: BP 131/67; PULSE 78; RESP 14; TEMP 36.6
[2019-06-29 04:26] VITALS: BP 131/67; PULSE 78
[2019-06-29 06:11] VITALS: BP 118/54; PULSE 71; RESP 18
[2019-06-29] MEDS: Labetalol 200 MG Tablet PO (06:12)
--- NOTE | 2019-06-29 08:09 | DCINST_ITS ---
Discharge Diet: No Restrictions Discharge Activity: May not drive while taking narcotic pain medications., May Shower May resume sexual activity in: 4-6 weeks Weight Bearing Status: Weight bearing as tolerated Call your doctor if your incision/area has: Continuous Slow Oozing Additional Instructions: If you experience any of the following, contact your healthcare provider. * Bleeding that soaks a pad every hour for 2 hours * Fever 100.4 or higher * Unrelieved incision or abdominal pain * Swelling, redness, discharge or bleeding from your incision or episiotomy site * Your incision begins to separate * Problems urinating (including inability to urinate or burning while urinating). * Visual changes * Severe headache * Flu-like symptoms * Pain or redness in one of both of your breasts * Pain, warmth, tenderness or swelling in your legs, especially the calf area * Frequent nausea and vomiting * Symptoms of depression or anxiety If you experience any of the following, call 911 or go to the nearest Emergency Room. * Chest pain * Problems breathing * Seizure activity * Partial or complete paralysis of a body part, slurred speech, weakness or drooping of the face, or a sudden inability to walk or hold your balance * Please update the office with your blood pressures on or sooner if you have severe range blood pressures. Allergies/Adverse Reactions: Allergies No Known Allergies Allergy (Verified 06/27/19 00:07) Medications to take at Discharge Vits [Prenatabs FA ] 1 tab PO DAILY 05/12/16 Dextroamphetamine/Amphetamine [Adderall 10 mg Tablet] 20 mg PO BID 12/26/17 Vitamin D 1 tab PO DAILY 06/21/19 Ibuprofen 600 mg PO Q6H PRN PRN #30 tab 06/23/19 Oxycodone HCl/Acetaminophen [Percocet 5-325] 1 - 2 tab PO Q4H PRN PRN 7 Days #20 tab 06/23/19 Acetaminophen [Tylenol Tablet] 650 mg PO Q6H PRN PRN tablet 06/29/19 Ibuprofen [Motrin] 600 mg PO Q6H PRN PRN tablet 06/29/19 Labetalol [Trandate (Beta Neymar)] 200 mg PO TID #180 tab 06/29/19 The following prescriptions were given: Labetalol [Trandate (Beta Neymar)] 200 mg PO TID #180 tab Transmission Status: Pending to [facility] Follow-Up: Call to make an appointment with your doctor for an incision check in 1-2 weeks. You will also need a 6 week post- follow up appointment. Test results from this visit will be discussed in further detail at your follow- up appointment, if applicable. Primary Care Physician: Chaz Hoffmann DO [Primary Care Provider] -
--- NOTE | 2019-06-29 08:15 | PCM.PN.OB ---
Patient Problems: Active and Suspected Problems (Last Reviewed 03/26/19 @ 11:57 by Luda Jacobson) Preeclampsia in period (Acute) Subjective: Patient feels well. She has a dull headache that is very mild. Denies vision changes. Patient is ready to go home. - Physical Exam Vitals/I&O's: Vital Signs Temp Pulse Resp BP Pulse Ox 97.9 F 71 18 118/54 L 99 06/29/19 04:24 06/29/19 06:11 06/29/19 06:11 06/29/19 06:11 06/28/19 15:38 Oxygen Delivery Method Room Air Weight: 277 lb Body Mass Index (BMI) 39.7 Intake and Output for Last 24 Hours 06/27/19 06/28/19 06/29/19 23:59 23:59 23:59 Intake Total 1511.67 / 1511.67 5688.75 / 5688.75 Output Total 3700 / 3700 3500 / 3500 Balance -2188.33 / -2188.33 2188.75 / 2188.75 General: Alert, Oriented x3 Abdomen: Soft, Non Tender, Non-Distended Extremities: No Calf Tenderness Neurological: Cranial nerves II-XII grossly intact Current Medications Acetaminophen (Tylenol) 650 mg PO Q6H PRN PRN PRN Reason: Pain Score 4-10/10 Last Admin: 06/28/19 21:39 Dose: 650 mg Documented by: Diphenhydramine HCl (Benadryl) 25 - 50 mg PO QHS PRN PRN PRN Reason: insomnia Last Admin: 06/28/19 21:40 Dose: 50 mg Documented by: Docusate Sodium (Colace) 100 mg PO BID PRN PRN PRN Reason: CONSTIPATION Calcium Gluconate 1 gm/ N/A 10 mls @ 2 mls/min IV X1 PRN PRN Reason: Magnesium Toxicity Magnesium Sulfate (20gm/500ml) 20 gm in 500 mls @ 50 mls/hr IV .Q10H KEL; Protocol Last Admin: 06/28/19 22:03 Dose: Not Given Documented by: Lactated Ringer's () 1,000 mls @ 75 mls/hr IV .[id number] KEL Last Admin: 06/28/19 22:03 Dose: Not Given Documented by: Ibuprofen (Motrin) 600 mg PO Q6H PRN PRN PRN Reason: Pain Score 4-10/10 Last Admin: 06/28/19 09:52 Dose: 600 mg Documented by: Labetalol HCl (Trandate) 200 mg PO TID KEL Last Admin: 06/29/19 06:12 Dose: 200 mg Documented by: Midazolam HCl (Versed) 2 mg IV X1 PRN PRN Reason: Seizure Activity Oxycodone HCl (Oxyir) 5 mg PO Q6H PRN PRN PRN Reason: Pain Score 6-10/10 Last Admin: 06/27/19 23:33 Dose: 5 mg Documented by: Sodium Chloride () 10 ml IV PRN PRN PRN Reason: Saline Flush Medical Necessity - Tobacco Use Smoking Status: Former smoker Assessment/Plan All Active Problems (Last Reviewed 03/26/19 @ 11:57 by Luda Jacobson) headache (Acute) Preeclampsia in period (Acute) Sterilization (Acute) History of delivery (Acute) Segmental and somatic dysfunction of sacral region (Acute) Segmental and somatic dysfunction of thoracic region (Acute) Segmental and somatic dysfunction of cervical region (Acute) Segmental and somatic dysfunction of lumbar region (Acute) ADHD (Acute) Obesity affecting (Acute) (Acute) Supervision of high risk , antepartum (Acute) AMA (advanced maternal age) multigravida 35+ (Acute) Anxiety (Acute) ADD (attention deficit disorder) (Resolved) Engagement of fetus in breech position (Resolved) Evaluate anatomy not seen on prior sonogram (Resolved) False labor (Resolved) Family history of congenital heart defect (Resolved) History of abnormal cervical Pap smear (Resolved) Influenza (Resolved) Low lying placenta nos or without hemorrhage, second trimester (Resolved) Subchorionic hemorrhage in first trimester (Resolved) Supervision of normal (Resolved) HD#3, POD#9 D/c home PreE - s/p 24 hours magnesium sulfate. Bp's well controlled on labetalol. Reviewed BP & preE precautions.
--- NOTE | 2019-06-29 08:17 | PCM.DC.SUM ---
Discharge Date and Diagnosis - Problem List Patient Problems: Active and Suspected Problems (Last Reviewed 03/26/19 @ 11:57 by Luda Jacobson) Preeclampsia in period (Acute) Date of Admission: 06/27/19 Date of Discharge: 06/29/19 - Primary Discharge Diagnosis Active and Suspected Problems (Last Reviewed 03/26/19 @ 11:57 by Luda Jacobson) Preeclampsia in period (Acute) Hospital Course and Treatment Operations: - Summary of Care Provided: The patient is a 34 year old Femalie presented 6 days PP with elevated blood pressure & headaches. She was diagnosed with PP preeclampsia and admitted. Hospital course PreE - s/p 24 hours magnesium sulfate. Bp's well controlled on labetalol. Reviewed BP & preE precautions. Patient was discharged home on HD#3. Patient Problems: Active and Suspected Problems (Last Reviewed 03/26/19 @ 11:57 by Luda Jacobson) Preeclampsia in period (Acute) - Physical Exam Vitals/I&O's: Vital Signs Temp Pulse Resp BP Pulse Ox 97.9 F 71 18 118/54 L 99 06/29/19 04:24 06/29/19 06:11 06/29/19 06:11 06/29/19 06:11 06/28/19 15:38 Oxygen Delivery Method Room Air Weight: 277 lb Body Mass Index (BMI) 39.7 Intake and Output for Last 24 Hours 06/27/19 06/28/19 06/29/19 23:59 23:59 23:59 Intake Total 1511.67 / 1511.67 5688.75 / 5688.75 Output Total 3700 / 3700 3500 / 3500 Balance -2188.33 / -2188.33 2188.75 / 2188.75 Current Medications Acetaminophen (Tylenol) 650 mg PO Q6H PRN PRN PRN Reason: Pain Score 4-10/10 Last Admin: 06/28/19 21:39 Dose: 650 mg Documented by: Diphenhydramine HCl (Benadryl) 25 - 50 mg PO QHS PRN PRN PRN Reason: insomnia Last Admin: 06/28/19 21:40 Dose: 50 mg Documented by: Docusate Sodium (Colace) 100 mg PO BID PRN PRN PRN Reason: CONSTIPATION Calcium Gluconate 1 gm/ N/A 10 mls @ 2 mls/min IV X1 PRN PRN Reason: Magnesium Toxicity Magnesium Sulfate (20gm/500ml) 20 gm in 500 mls @ 50 mls/hr IV .Q10H [facility]; Protocol Last Admin: 06/28/19 22:03 Dose: Not Given Documented by: Lactated Ringer's () 1,000 mls @ 75 mls/hr IV .[id number] [facility] Last Admin: 06/28/19 22:03 Dose: Not Given Documented by: Ibuprofen (Motrin) 600 mg PO Q6H PRN PRN PRN Reason: Pain Score 4-10/10 Last Admin: 06/28/19 09:52 Dose: 600 mg Documented by: Labetalol HCl (Trandate) 200 mg PO TID [facility] Last Admin: 06/29/19 06:12 Dose: 200 mg Documented by: Midazolam HCl (Versed) 2 mg IV X1 PRN PRN Reason: Seizure Activity Oxycodone HCl (Oxyir) 5 mg PO Q6H PRN PRN PRN Reason: Pain Score 6-10/10 Last Admin: 06/27/19 23:33 Dose: 5 mg Documented by: Sodium Chloride () 10 ml IV PRN PRN PRN Reason: Saline Flush Discharge Diet: No Restrictions Discharge Activity: May not drive while taking narcotic pain medications., May Shower May resume sexual activity in: 4-6 weeks Weight Bearing Status: Weight bearing as tolerated Call your doctor if your incision/area has: Continuous Slow Oozing Home Medications: Medications to take at Discharge Vits [Prenatabs FA ] 1 tab PO DAILY 05/12/16 Dextroamphetamine/Amphetamine [Adderall 10 mg Tablet] 20 mg PO BID 12/26/17 Vitamin D 1 tab PO DAILY 06/21/19 Ibuprofen 600 mg PO Q6H PRN PRN #30 tab 06/23/19 Oxycodone HCl/Acetaminophen [Percocet 5-325] 1 - 2 tab PO Q4H PRN PRN 7 Days #20 tab 06/23/19 Acetaminophen [Tylenol Tablet] 650 mg PO Q6H PRN PRN tablet 06/29/19 Ibuprofen [Motrin] 600 mg PO Q6H PRN PRN tablet 06/29/19 Labetalol [Trandate (Beta Neymar)] 200 mg PO TID #180 tab 06/29/19 Following Prescrptions Were Given to Patient: Labetalol [Trandate (Beta Neymar)] 200 mg PO TID #180 tab Transmission Status: Pending to [facility] Primary Care Physician: Chaz Hoffmann DO [Primary Care Provider] - Medical Necessity - Tobacco Use Smoking Status: Former smoker Meaningful Use Info Meaningful Use Diagnoses (Choose all that apply): None applicable
--- NOTE | 2019-06-29 09:43 | NURSING ---
0815: rounding on pt. Discharge order received. Discharge instructions explained to pt and verbalized understanding. Pt discharged to home. Breastmilk & adderol (49.5 tablets) given to pt prior to dc. Pt agrees that adderol count is correct.
== END 2019-06-29 09:00 | disposition home or self-care (01) ==
LOC: WPOUT 14:12 → OBT 14:13 → WP 15:41
PROVIDERS: PCP Family Medicine; Visit Provider Obstetrics & Gynecology
DX: O14.95 Unspecified pre-eclampsia, complicating the puerperium (principal); O99.345 Other mental disorders complicating the puerperium; F90.9 Attention-deficit hyperactivity disorder, unspecified type; O90.89 Other complications of the puerperium, not elsewhere classified; M99.01 Segmental and somatic dysfunction of cervical region; M99.02 Segmental and somatic dysfunction of thoracic region; M99.03 Segmental and somatic dysfunction of lumbar region; M99.04 Segmental and somatic dysfunction of sacral region; Z79.899 Other long term (current) drug therapy; Z87.891 Personal history of nicotine dependence
CPT/HCPCS: 96365; 96366 ×14; 96367; 36415; 82565; 84450; 84460; 85027; 85610; 85730; 99218; J7120; G0378

== ENCOUNTER → 2019-09-22 18:03 | Outpatient (CLI) | payer OTHER, SELFPAY ==
[2019-06-27 14:19] VITALS: BMI 39.7
== END ==
PROVIDERS: PCP Family Medicine; Referring Provider Family Medicine; Visit Provider Family Medicine
DX: Z20.828 Contact with and (suspected) exposure to other viral communicable diseases (principal)
CPT/HCPCS: 87635; G2023; U0003

== ENCOUNTER 2019-11-10 07:59 | Emergency (ER) | payer OTHER, SELFPAY ==
[2019-06-27 14:19] VITALS: BMI 39.7
[2019-11-10 08:00] VITALS: BP 156/130; PULSE 81; RESP 18; TEMP 36.6; O2SAT 98; BMI 35.9
--- NOTE | 2019-11-10 08:19 | RAD_ITS ---
STUDY: X-RAY CHEST REASON FOR EXAM: Female, 34 years old. WEAKNESS, DIZZINESS FOR 3 DAYS. INTERMITTENT CHEST PRESSURE AND INABILITY TO TAKE A DEEP BREATH. TECHNIQUE: Single AP portable view of the chest. COMPARISON: Comparison is made with prior study dated 12/26/2017. FINDINGS: EKG electrodes are seen. The lungs are clear and expanded. There is no demonstrated pleural abnormality. Normal size heart. Normal mediastinum and kiara. Normal visualized pulmonary arteries. Normal visualized aortic arch and descending thoracic aorta. Normal visualized thoracic spine. Normal visualized ribs, clavicles, and shoulders. There is no demonstrated abnormality of the visualized soft tissue structures of the upper abdomen. RAD/Chest 1 View (Portable) IMPRESSION: Normal x-ray examination of the chest. Electronically Signed: Lonnie Steven, at 10:00 EDT , Service support ,
--- NOTE | 2019-11-10 08:19 | EKG12_ITS ---
Test Reason : DIZZINESS Blood Pressure : / mmHG Vent. Rate : 068 BPM Atrial Rate : 068 BPM P-R Int : 154 ms QRS Dur : 086 ms QT Int : 400 ms P-R-T Axes : 042 037 029 degrees QTc Int : 425 ms Normal sinus rhythm Normal ECG Confirmed by JOE JONES, RAFITA ([id number]), assignment editor SARWAT GRIGGS ([id number]) on 11/16/2019 7:55:25 AM Referred By: MONROE Confirmed By:MICHAEL DIAZ MD
[2019-11-10 09:17] VITALS: BP 138/89; PULSE 69; RESP 16
[2019-11-10] MEDS: 0.9% Normal Saline 1,000 ML 1000 ML IV (09:18)
[2019-11-10 09:27] LABS: Absolute Neutrophil Count 5.8 X10^3/uL (2.0-7.7); Basophil# 0.05 X10^3/uL; Basophil% 0.5 % (0-1); Eosinophil# 0.18 X10^3/uL; Eosinophils% 1.9 % (0-5); Hematocrit 40.8 % (37-47); Hemoglobin 13.3 g/dL (12.0-15.0); Lymphocyte % 32.3 % (19-41); Mean Corp Hgb Conc 32.6 g/dL (32-36); Mean Corpuscular Hgb 29.6 pg (27.0-32.0); Mean Corpuscular Volume 90.7 fL (81-99); Mean Platelet Vol. 11.4 fl (6.2-12.0); Monocyte# 0.49 X10^3/uL; Monocyte% 5.1 % (0-10); NRBC Flagged by Analyzer 0 % (0-5); Neutrophil # 5.75 X10^3/uL (2.7-7.7); Platelet Count 239 K/mm3 (150-450); RBC Distribution Width CV 13.1 % (11.6-14.6); RBC Distribution Width SD 43.7 fl (35.1-43.9); White Blood Count 9.6 K/mm3 (4.4-11.0)
[2019-11-10 09:31] VITALS: BP 122/79; BP 140/98; BP 142/101; PULSE 70; PULSE 78
[2019-11-10 09:32] LABS: Internal QC Validated? YES +Cl - CLEAR BKGD
--- NOTE | 2019-11-10 09:33 | ED.DCSUM_ITS ---
- ER Visit Summary Date of Service: 11/10/19 Chief Complaint: Lightheaded History of Present Illness: The patient is a [address] Hoffmann. She reports that she has been lightheaded for the past 2 days. This is constant. It is increased with standing. It is decreased with sleep. She has not passed out. She denies any vertigo. No numbness or weakness. No change in her speech or vision. Patient reports that over the same timeframe she has had a dull constant substernal pain. Is 3-10 at worst and 2 out of 10 currently. Is worsened by nothing including exertion, deep breaths, or twisting. However, nothing seems to make this better as well. Patient does report that she feels mildly short of breath and is describes this as having a difficult time taking a deep breath. She also complains of a headache that is 3 out of 10 in severity. Patient does have a family history of DVT. No personal history of DVT. No recent travel. No ankle swelling or calf pain. Physical Examination: Vitals: Stable. Afebrile. General: Well-nourished and well-developed. Head: Normocephalic atraumatic. Neck: Supple, no lymphadenopathy. No JVD. Nontender. Cardiovascular: Regular rate and rhythm. No murmurs. Respiratory: No respiratory distress. Clear to auscultation bilaterally. Abdominal: Soft, nontender, nondistended, normal bowel sounds. No guarding, rebound, or peritoneal signs. Back: Nontender. Extremities: Nontender, no edema. Skin: Normal color, no rash. Neurologic: Alert and oriented ?3. Cranial nerves II through XII are intact. Normal strength and sensation. Psych: Normal affect. Test Results: EKG is sinus at 68 with no acute changes. CBC is normal. Chem-7 shows a potassium of 3.3 and BUN of 19. Troponin is negative. test is negative. Emergency Department Course and Treatment: Patient had an IV placed. She was given a liter normal saline. She had negative orthostatic vital signs. She is resting more comfortably. Treatment Plan: Patient will be discharged with instructions to push fluids. Follow-up with her primary care physician in 2 days if not improving. Return to the emergency department for any worsening symptoms. Disposition: To home in improved and stable condition. Impression: 1. Lightheadedness, uncertain cause. This note was generated with [employer] software. It may contain incorrect words, spelling, and punctuation that were not noted in review of the chart prior to signing ED Disposition - Plan for ED Patient: Instructions: ED Near-Fainting Uncertain Cause Referrals: Chaz Hoffmann DO [Primary Care Provider] - 1-2 Days if not improving
[2019-11-10 09:35] LABS: Pregnancy, Serum, hCG Quali. NEGATIVE Negative
[2019-11-10 09:45] LABS: Anion Gap 5 (5-15); BUN 19 mg/dL (7-18); BUN/Creat Ratio 25.6 RATIO (10-20); Calcium,Total 8.8 mg/dL (8.5-10.1); Chloride 105 mmol/L (98-107); Creatinine, Serum 0.74 mg/dL (0.55-1.02); EST Glomerular Filtration Rate 94 mL/min (>60); Est Glom Filt Rate - Afr Amer 114 mL/min (>60); Estimated Creatinine Clearance 114.75 ml/min; Glucose 81 mg/dL (74-106); Potassium 3.3 mmol/L (3.5-5.1); Sodium Level 136 mmol/L (136-145)
[2019-11-10 10:52] VITALS: BP 131/73; PULSE 77; RESP 18
== END 2019-11-10 10:54 | disposition home or self-care (01) ==
PROVIDERS: Emergency Provider Emergency Medicine; PCP Family Medicine
DX: R42 Dizziness and giddiness (principal); R07.89 Other chest pain; R06.00 Dyspnea, unspecified; R51 Headache; F98.8 Other specified behavioral and emotional disorders with onset usually occurring in childhood and adolescence; Z79.899 Other long term (current) drug therapy
CPT/HCPCS: 71045; 80048; 84484; 84703; 85025; 93005; 96360; 96361; 99285; J7030; A4216

== ENCOUNTER 2020-05-15 08:13 | Outpatient (RCR) | payer OTHER, SELFPAY | END 2020-06-07 23:59 | LOC: EMPH 08:13 | PROVIDERS: PCP Family Medicine; Visit Provider Family Medicine Geriatric Medicine | DX: Z03.818 Encounter for observation for suspected exposure to other biological agents ruled out (principal) | CPT/HCPCS: 87426 ==

== ENCOUNTER → 2020-11-01 09:26 | Outpatient (CLI) | payer OTHER, SELFPAY ==
[2020-06-06 09:49] VITALS: BMI 35.9
--- NOTE | 2020-11-01 09:28 | STEWCON_ITS ---
Reason For Study: CHEST PAIN Stress Results Maximum Predicted HR: 184 bpm Target HR: 156 bpm % Maximum Predicted HR: 85 % DurationHeart Rate Stage (mm:ss) (bpm) BP Comment BASELINE 67 112/80 STAGE 1 3:00 116 138/70 STAGE 2 3:00 127 150/68 STAGE 3 3:00 157 180/74 RECOVERY 86 124/885 CC DEFINITY FOR ENTIRE TEST Stress Duration: 9:00 mm:ss Maximum Stress HR: 157 bpm Baseline Echocardiogram Findings Stress Echo Wall motion Data Resting WM Intermediate WM Stress WM ECHO/Stress Test Echo W/Contrast Interpretation Summary Exercise stress echo. 35-year-old lady with a history of -induced hypertension. Stress protocol: Resting EKG demonstrates normal sinus rhythm with a rate of 64 bpm normal inter vals are noted resting blood pressure is 112/80 mmHg. The patient exercised according to regul ar Timmy protocol for total duration of 9 minutes and 46 seconds completing 46 seconds into stage IV of the Timmy protocol. The maximum heart rate attained was 166 bpm which was 90% of maximum predicted heart rate the maximum workload was 12.8 metabolic equivalents. At rest there were no ST o r T wave changes noted suggest ischemia and at peak exercise upsloping ST changes were noted onl y with did not meet the criteria for ischemia. No clinical angina was noted. The peak blood pressur e was 180/74 mmHg with a rate-pressure product of 28,260. Stress echocardiogram. Rest and stress echocardiographic images were obtained with Definity enhancemen t. The resting ejection fraction was estimated to be 55% and at peak exercise the ejection fra ction was estimated to be close to 70%. No wall motion abnormalities were noted. No evidence of isc hemia was noted. Conclusion: Exercise stress echocardiogram with no EKG criteria for ischemia at a high work load. Good functional aerobic capacity. Ordering Physician: Chaz Hoffmann Referring Physician: Chaz Hoffmann Performed By: Willis De La Garza, [place]
== END ==
PROVIDERS: PCP Family Medicine; Referring Provider Family Medicine; Visit Provider Family Medicine
DX: R07.9 Chest pain, unspecified (principal)
CPT/HCPCS: 93017; 93350; Q9957; A4216; C8928; J3490

== ENCOUNTER → 2021-01-01 14:31 | Outpatient (CLI) | payer OTHER, SELFPAY ==
[2021-01-01 16:29] LABS: Absolute Lymphocyte Count 3.36 X10^3/uL (0.83-4.51); Basophil# 0.05 X10^3/uL; Basophil% 0.5 % (0-1); Eosinophil# 0.17 X10^3/uL; Eosinophils% 1.7 % (0-5); Hematocrit 41.7 % (37-47); Hemoglobin 13.5 g/dL (12.0-15.0); Lymphocyte # 3.36 X10^3/ul (0.83-4.51); Lymphocyte % 32.9 % (19-41); Mean Corp Hgb Conc 32.4 g/dL (32-36); Mean Corpuscular Hgb 29.8 pg (27.0-32.0); Mean Corpuscular Volume 92.1 fL (81-99); Mean Platelet Vol. 12.1 fl (6.2-12.0); Monocyte# 0.55 X10^3/uL; Monocyte% 5.4 % (0-10); NRBC Flagged by Analyzer 0 % (0-5); Neutrophil # 6.04 X10^3/uL (2.7-7.7); Neutrophil % 59.2 % (47-70); Platelet Count 264 K/mm3 (150-450); RBC Distribution Width CV 13.8 % (11.6-14.6); Red Blood Count 4.53 M/mm3 (4.2-5.4); White Blood Count 10.2 K/mm3 (4.4-11.0)
== END ==
PROVIDERS: PCP Family Medicine; Referring Provider Nurse Practitioner Women's Health; Visit Provider Nurse Practitioner Women's Health
DX: N92.1 Excessive and frequent menstruation with irregular cycle (principal)
CPT/HCPCS: 36415; 85025

== ENCOUNTER → 2021-01-01 16:41 | Outpatient (CLI) | payer OTHER, SELFPAY ==
[2021-01-10 12:04] LABS: HPV APTIMA, High Risk Negative (Negative)
== END ==
PROVIDERS: PCP Family Medicine; Visit Provider Nurse Practitioner Women's Health
DX: Z01.419 Encounter for gynecological examination (general) (routine) without abnormal findings (principal)
CPT/HCPCS: 87624; 88175; G0145

== ENCOUNTER 2021-05-16 11:21 | Outpatient (CLI) | payer OTHER, SELFPAY ==
--- NOTE | 2021-05-16 11:25 | US_ITS ---
HISTORY: menorrhagia EXAMINATION: US Transvaginal Non-OB TECHNIQUE: Transvaginal (for optimal evaluation of the adnexa) pelvic ultrasound was performed. Grayscale, spectral waveform, and color flow Doppler evaluation of the adnexa. COMPARISON: Pelvic ultrasound May 16, 2021 FINDINGS: UTERUS: Anteverted uterus 8.6 x 4.5 x 5.8 cm with generally normal myometrial appearance. Anterior lower uterine segment myometrial change. Homogeneous 8 mm endometrial stripe. LEFT OVARY: 2.2 x 2.3 x 2.0 cm. Multiple normal small follicles. Preserved color vascular flow. RIGHT OVARY: 5.2 x 4.0 x 3.7 cm. Lacelike hypoechoic 3.4 cm hemorrhagic cyst Preserved color vascular flow. FREE FLUID: Trace cul-de-sac free fluid which is likely physiologic. US/Transvaginal Non- IMPRESSION: Normal uterine and endometrial stripe appearance Right ovarian 3.4 cm hemorrhagic cyst. Consider ultrasound in 6 or 10 weeks to ensure resolution. Normal left ovary. at 0608 Reported and signed by: Jonathan Huff MD Electronically Signed: Jonathan Huff MD at 6:07 EST ,
--- NOTE | 2021-05-16 11:25 | US_ITS ---
HISTORY: menorrhagia EXAMINATION: US Transvaginal Non-OB TECHNIQUE: Transvaginal (for optimal evaluation of the adnexa) pelvic ultrasound was performed. Grayscale, spectral waveform, and color flow Doppler evaluation of the adnexa. COMPARISON: Pelvic ultrasound May 16, 2021 FINDINGS: UTERUS: Anteverted uterus 8.6 x 4.5 x 5.8 cm with generally normal myometrial appearance. Anterior lower uterine segment myometrial change. Homogeneous 8 mm endometrial stripe. LEFT OVARY: 2.2 x 2.3 x 2.0 cm. Multiple normal small follicles. Preserved color vascular flow. RIGHT OVARY: 5.2 x 4.0 x 3.7 cm. Lacelike hypoechoic 3.4 cm hemorrhagic cyst Preserved color vascular flow. FREE FLUID: Trace cul-de-sac free fluid which is likely physiologic. US/Pelvic (Non ) IMPRESSION: Normal uterine and endometrial stripe appearance Right ovarian 3.4 cm hemorrhagic cyst. Consider ultrasound in 6 or 10 weeks to ensure resolution. Normal left ovary. at 0608 Reported and signed by: Jonathan Huff MD Electronically Signed: Jonathan Huff MD at 6:07 EST ,
== END 2021-05-16 23:59 | disposition home or self-care (01) ==
LOC: US 11:24
PROVIDERS: PCP Family Medicine; Referring Provider Nurse Practitioner Women's Health; Visit Provider Nurse Practitioner Women's Health
DX: N92.1 Excessive and frequent menstruation with irregular cycle (principal)
CPT/HCPCS: 76830; 76856

== ENCOUNTER → 2021-08-27 | Outpatient (CLI) | payer OTHER, SELFPAY ==
--- NOTE | 2021-08-27 15:22 | US_ITS ---
STUDY: ULTRASOUND OF THE FEMALE PELVIS - COMPLETE REASON FOR EXAM: Female, 36 years old. ovarian cyst TECHNIQUE: Endovaginal. Transvaginal US was obtained to better visualized the ovaries. COMPARISON: 05/16/2021 FINDINGS: The uterus is anteverted and is in a midline position. The uterus measures 9.1 x 5.8 cm. Normal uterine cervix. The endometrium measures 13 mm in thickness, and is hyperechoic. There is no demonstrated endometrial mass. There is no demonstrated myometrial mass. I.U.D. - The patient does not have an I.U.D. The right ovary is visualized. The right ovary measures 3 x 2.7 cm. There is no right ovarian cyst or ovarian mass. There is no visualized right adnexal mass or complex lesion. There is normal arterial and normal venous vascularity. The left ovary is visualized. The left ovary measures 2.6 x 1.7 cm. There is no left ovarian cyst or ovarian mass. There is no visualized left adnexal mass or complex lesion. There is normal arterial and normal venous vascularity. There is minimal fluid in the cul-de-sac. Urinary bladder volume is 436 cc. US/Transvaginal Non- IMPRESSION: There is minimal fluid in the cul-de-sac. Resolution of the right ovary cyst. Electronically Signed: Ranjan Curiel MD at 17:45 EDT ,
--- NOTE | 2021-08-27 15:22 | US_ITS ---
STUDY: ULTRASOUND OF THE FEMALE PELVIS - COMPLETE REASON FOR EXAM: Female, 36 years old. ovarian cyst TECHNIQUE: Endovaginal. Transvaginal US was obtained to better visualized the ovaries. COMPARISON: 05/16/2021 FINDINGS: The uterus is anteverted and is in a midline position. The uterus measures 9.1 x 5.8 cm. Normal uterine cervix. The endometrium measures 13 mm in thickness, and is hyperechoic. There is no demonstrated endometrial mass. There is no demonstrated myometrial mass. I.U.D. - The patient does not have an I.U.D. The right ovary is visualized. The right ovary measures 3 x 2.7 cm. There is no right ovarian cyst or ovarian mass. There is no visualized right adnexal mass or complex lesion. There is normal arterial and normal venous vascularity. The left ovary is visualized. The left ovary measures 2.6 x 1.7 cm. There is no left ovarian cyst or ovarian mass. There is no visualized left adnexal mass or complex lesion. There is normal arterial and normal venous vascularity. There is minimal fluid in the cul-de-sac. Urinary bladder volume is 436 cc. US/Pelvic (Non ) IMPRESSION: There is minimal fluid in the cul-de-sac. Resolution of the right ovary cyst. Electronically Signed: Ranjan Curiel MD at 17:45 EDT ,
== END | disposition home or self-care (01) ==
LOC: US 15:20
PROVIDERS: PCP Family Medicine; Referring Provider Nurse Practitioner Women's Health; Visit Provider Nurse Practitioner Women's Health
DX: N83.201 Unspecified ovarian cyst, right side (principal)
CPT/HCPCS: 76830; 76856

== ENCOUNTER → 2022-10-17 | Outpatient (CLI) | payer OTHER, SELFPAY ==
[2022-10-20 07:07] LABS: Chlamydia By Nucleic Acid AMP Negative (Negative); Gonococcus By Nucleic Acid AMP Negative (Negative)
== END | disposition home or self-care (01) ==
PROVIDERS: PCP Family Medicine; Referring Provider Nurse Practitioner Women's Health; Visit Provider Nurse Practitioner Women's Health
DX: R10.2 Pelvic and perineal pain (principal); N89.8 Other specified noninflammatory disorders of vagina
CPT/HCPCS: 87070; 87205; 87491; 87591

== ENCOUNTER → 2022-11-20 | Outpatient (CLI) | payer OTHER, SELFPAY ==
--- NOTE | 2022-11-20 12:49 | US_ITS ---
EXAM: US PELVIS TRANSABDOMINAL LIMITED AND TRANSVAGINAL CLINICAL INDICATION: pain -- RT PELVIC PAIN TECHNIQUE: Transabdominal (limited) and transvaginal pelvic ultrasound was performed with grayscale and color Doppler imaging. Transvaginal imaging was used for better evaluation of the endometrium and adnexa. COMPARISON: No relevant prior studies available. FINDINGS: UTERUS/CERVIX: The uterus measures 8.6 x 4.8 x 5.7 cm. The endometrium measures 1.4 cm. Anteverted. There is no uterine mass. RIGHT OVARY: The right ovary measures 2.3 x 2.2 x 1.7 cm. There is a 1.6 x 1.4 x 1.0 cm anechoic structure which may represent a cyst. Blood flow is present in the right ovary. LEFT OVARY: The left ovary measures 2.0 x 3.3 x 1.7 cm. There is a 1.4 x 1.4 x 1.1 cm anechoic structure which may represent a cyst. Blood flow is present in the left ovary. FREE FLUID: None. BLADDER: Bladder measures 10.9 x 13.3 x 8.4 cm for volume of 636 mL. US/Pelvic (Non ) IMPRESSION: Bilateral ovarian cysts. No other abnormalities identified. Electronically Signed: Bam Choudhury MD at 20:58 EDT ,
== END | disposition home or self-care (01) ==
LOC: US 12:47
PROVIDERS: PCP Family Medicine; Referring Provider Nurse Practitioner Women's Health; Visit Provider Nurse Practitioner Women's Health
DX: R10.2 Pelvic and perineal pain (principal)
CPT/HCPCS: 76830; 76856; 93976

== ENCOUNTER 2023-01-29 15:31 | Observation (INO) | payer OTHER, SELFPAY ==
[2023-01-29 15:33] VITALS: BP 157/99; PULSE 95; RESP 16; TEMP 36.4; O2SAT 100; BMI 33.2
[2023-01-29 15:35] VITALS: BP 157/99; PULSE 95; RESP 16; TEMP 36.4; O2SAT 100
--- NOTE | 2023-01-29 15:56 | CT_ITS ---
STUDY: CT ABDOMEN AND PELVIS WITH CONTRAST REASON FOR EXAM: Female, 37 years old. abdominal pain RADIATION DOSAGE (If Supplied By Facility): CTDIvol = ( 15.89 ) mGy, DLP = ( 1146.67 ) mGycm TECHNIQUE: Transaxial images were obtained from the dome of the diaphragm to the symphysis pubis without oral contrast. IV 100mL Isovue-370 was administered. Sagittal and coronal images were reconstructed. Individualized dose optimization techniques were used for this CT. COMPARISON: None. FINDINGS: The visualized lung bases are unremarkable. The visualized portions of the heart are within normal limits. Mild focal fatty infiltration adjacent to falciform ligament. No suspicious hepatic masses. Severe wall thickening of the gallbladder measures 1.2 cm with gallstone filled gallbladder. Normal spleen. Normal pancreas. Normal bilateral adrenal glands. Normal right kidney. Normal left kidney. Normal visualized stomach. Normal small intestine. Normal colon. The appendix is visualized and appears normal. Normal abdominal aorta. Normal inferior vena cava. Normal retroperitoneum. Normal urinary bladder. Normal visualized uterus. 2 cm dominant follicle left ovary. No pelvic free fluid. Normal abdominal wall. Normal osseous structures. CT/Abdomen/Pelvis W IV Cont ONLY IMPRESSION: 1. Cholelithiasis with circumferential gallbladder wall thickening suspicious for cholecystitis. Electronically Signed: Jayant Lanza MD ([place]) at 17:37 EST ,
--- NOTE | 2023-01-29 15:57 | ED.VIS.GI ---
HPI HPI - GI History of Present Illness Chief Complaint: Abd Pain Detail of Chief Complaint: Abdominal pain Informant: patient Nausea/Vomiting/Emesis GI Symptom: Positive for Nausea and Vomiting Narrative Narrative: Patient presents to the emergency department complaint of abdominal pain that started 3 days ago. Patient describes pain count of in the upper abdomen radiating to her back. She had nausea and some dry heaves. Decreased p.o. intake. Food seems to make it worse. Patient states that she has tried Pepto without relief and her primary care physician called her and Protonix today. Patient currently rates her pain a 7 out of 10. She denies any blood in her stool or black tarry stool. She denies urinary symptoms. Patient denies fevers. [facility] Medical History Abnormal pap Endometriosis Migraine Preeclampsia in period Sterilization Home Medications ibuprofen 600 mg tablet 600 mg PO Q6H PRN PRN Pain/Inflammation #30 tabs 06/23/19 [Rx Last Taken 06/27/19 08:00] acetaminophen 325 mg tablet 650 mg (2 x 325 mg) PO Q6H PRN PRN Pain Score 4-1010 06/29/19 [Rx Last Taken Unknown] dextroamphetamine-amphetamine 10 mg tablet 20 mg PO BID ADHD 01/01/21 [History Last Taken Unknown] multivitamin 1 tab PO DAILY 01/01/21 [History Last Taken Unknown] Allergy/AdvReac Type Severity Reaction Status Date / Time No Known Allergies Allergy Verified 10/22/22 08:11 Family History Grandmother Cancer ovarian Grandfather Leukemia Non-Hodgkins Lymphoma Father CVA (cerebral vascular accident) Surgical History H/O bilateral salpingectomy S/P Social History Smoking Status: Former smoker alcohol intake: never substance use type: does not use caffeine: Yes what type of physical activity do you participate in: walking seatbelt use: always do you feel safe at home: Yes additional social history: hao SHAHID ED Review of Systems ROS Unobtainable: other Constitutional Constitutional ED: Reports lethargy; Denies chills, fever(s), sweats or weight loss Eyes Eyes: Denies blurry vision, change in vision or diplopia ENT ENT ED: Denies rhinorrhea or sore throat Cardiovascular Cardiovascular: Denies chest pain, orthopnea or racing heartbeat Respiratory/Chest Respiratory/Chest: Denies cough, dyspnea, dyspnea on exertion, orthopnea or sputum Gastrointestinal Gastrointestinal: Reports abdominal pain, nausea and vomiting; Denies diarrhea Genitourinary Genitourinary ED: Denies dysuria, hematuria or urinary frequency Musculoskeletal Musculoskeletal: Denies arthralgias, back pain, myalgias or neck pain Integumentary Denies abscess, Abrasions or rash Neurologic Neurologic: Denies headache(s) or weakness Psychiatric Psychiatric: Denies anxiety, depression or suicidal thoughts Endocrine Endocrinology: Denies polydipsia, polyphagia or polyuria Hematologic/Lymphatic Hematologic/Lymphatic: Denies easy bleeding, easy bruising or lymphadenopathy Allergic/Immunologic Allergic/Immunologic ED: Denies mouth swelling, tongue swelling or urticaria EXAM Physical Exam Const Vital Signs: 01/29/23 15:33 01/29/23 15:35 Temperature 97.5 F L 97.5 F L Temperature Source Temporal Temporal Pulse Rate 95 95 Respiratory Rate 16 16 Blood Pressure 157/99 H 157/99 H Blood Pressure Mean 118 118 Pulse Ox 100 100 Oxygen Delivery Method Room Air Room Air Positive well nourished and well developed General Appearance ED: well developed and NAD HEENT Reports TM's clear and moist mucous membranes normocephalic and atraumatic; Negative for trauma or tenderness Tympanic Membrane ED: Yes TM's clear Eyes PERRL and EOMs intact bilaterally General Eye ED: Negative for pale conjunctiva or scleral icterus Neck no lymphadenopathy, supple and no JVD General: Negative for tenderness Chest Wall inspection of chest normal and palpation of chest normal Chest: Negative for tenderness Resp normal respiratory effort and clear to auscultation bilaterally Effort and Inspection: Negative for respiratory distress or pain with movement Auscultation: Negative for rhonchi, wheezes or diminished lung sounds Cardio regular rate, regular rhythm, S1 normal heart sound, S2 normal heart sound and no murmurs Peripheral Pulses: pulses 2+ throughout GI normal to inspection, nondistended, normoactive bowel sounds, soft to palpation, non-distended and no masses GI Narrative: Tender to palpation over the right upper quadrant with guarding. Positive Head sign. Patient has tenderness over the epigastric region. Patient has tenderness over the right lower quadrant as well as left lower quadrant diffusely. No rebound or rigidity. Back/Spine no CVA tenderness and no thoracic nor lumbar tenderness Extremity normal to inspection General Extremety ED: Negative for edema General Extremity: Negative for edema Neuro oriented x3, CN's II-XII intact bilaterally, no sensory deficits noted and gait normal Sensorium / Orientation: awake, alert, oriented to person, oriented to place and oriented to time Motor Exam: strength 5/5 throughout and strength abnormal Psych mental status grossly normal Skin no rashes or lesions noted and no wounds MDM MDM MDM Narrative Medical decision making narrative: Patient with upper abdomen pain. In the differential would be cholecystitis versus peptic ulcer disease versus inflammatory bowel disease or bowel obstruction. IV line established. CBC with differential obtained showed a white count of 10.1 with hemoglobin 13 and platelet count of 226. Chemistries unremarkable. LFTs were normal. Lipase normal at 12. CT scan of the abdomen pelvis showed Mallika lithiasis and thickened gallbladder wall. Urinalysis was unremarkable. Patient had a gallbladder ultrasound that showed evidence for acute cholecystitis. Case discussed with general surgeon on-call Dr. Hall who will present to the emergency department to evaluate patient. Patient initially did not anything for pain as she was driving. Patient will likely require OR intervention for cholecystitis. Lab Data Labs: Laboratory Results - last 24 hr 01/29/23 01/29/23 16:10 16:15 WBC 10.1 RBC 4.35 Hgb 13.3 Hct 41.3 MCV 94.9 MCH 30.6 MCHC 32.2 RDW Std Deviation 46.7 H RDW Coeff of Yudy 13.6 Plt Count 226 MPV 11.2 Immature Gran % (Auto) 0.300 Neut % (Auto) 77.1 H Lymph % (Auto) 14.2 L Gove % (Auto) 6.8 Eos % (Auto) 1.1 Baso % (Auto) 0.5 Absolute Neuts (auto) 7.8 H Absolute Lymphs (auto) 1.43 Nucleated RBC % 0 Sodium 139 Potassium 3.3 L Chloride 106 Carbon Dioxide 29.0 Anion Gap 4 L BUN 7 Creatinine 0.80 Estim Creat Clear Calc 99.64 Est GFR (MDRD) Af Amer 103 Est GFR (MDRD) Non-Af 85 BUN/Creatinine Ratio 8.8 L Glucose 101 Lactic Acid 0.8 Calcium 8.9 Total Bilirubin 0.90 AST 7 L ALT 17 Alkaline Phosphatase 61 Total Protein 6.7 Albumin 3.1 L Globulin 3.6 Albumin/Globulin Ratio 0.9 Lipase 12 L Serum , Qual NEGATIVE Urine Color Yellow Urine Clarity Clear Urine pH 8.0 Ur Specific [place] 1.015 Urine Protein 15 H Urine Glucose (UA) Normal Urine Ketones 5 H Urine Occult Blood 10 H Urine Nitrite Negative Urine Bilirubin Negative Urine Urobilinogen 4 H Ur Leukocyte Esterase 25 H Urine RBC 0-5 SEEN Urine WBC 0-5 SEEN Ur Squamous Epith Cells 0-5 SEEN Urine Bacteria RARE Urine Mucus RARE Radiography Diagnostic Testing: Clinical Impression(s) from Imaging Studies Abdomen/Pelvis CT 01/29/23 15:56 IMPRESSION: 1. Cholelithiasis with circumferential gallbladder wall thickening suspicious for cholecystitis. Electronically Signed: Jayant Lanza MD ([place]) at 17:37 EST , Gallbladder Ultrasound 01/29/23 18:16 IMPRESSION: 1. Cholelithiasis with gallbladder wall thickening, pericholecystic fluid and positive sonographic Head sign indicating acute cholecystitis. Electronically Signed: Jayant Lanza MD ([place]) at 19:01 EST , Discharge Plan Triage Chief Complaint: Abd Pain ED Provider: Larry Oconnor Dx/Rx/DC Orders Clinical Impression: Abdominal pain, Acute cholecystitis Prescriptions: No Action multivitamin Tablet 1 tab PO DAILY dextroamphetamine-amphetamine 10 mg tablet 20 mg PO BID ibuprofen 600 MG tablet 600 mg PO Q6H PRN PRN (Reason: Pain/Inflammation) Qty: 30 0RF acetaminophen 325 MG tablet 650 mg PO Q6H PRN PRN (Reason: Pain Score 4-10/10) 0RF Primary Care Provider: Chaz Hoffmann Referrals: Chaz Hoffmann DO [Primary Care Provider] -
[2023-01-29] MEDS: 0.9% Normal Saline (1000mL) 1,000 ML 125 ML IV ×2 (16:15→22:00)
[2023-01-29] MEDS: Ondansetron 4 MG/2 ML Vial IV ×2 (16:15→20:16)
[2023-01-29 16:20] LABS: Absolute Lymphocyte Count 1.43 X10^3/uL (0.83-4.51); Absolute Neutrophil Count 7.8 X10^3/uL (2.0-7.7); Basophil# 0.05 X10^3/uL; Basophil% 0.5 % (0-1); Eosinophil# 0.11 X10^3/uL; Eosinophils% 1.1 % (0-5); Hematocrit 41.3 % (37-47); Hemoglobin 13.3 g/dL (12.0-15.0); Lymphocyte # 1.43 X10^3/ul (0.83-4.51); Lymphocyte % 14.2 % (19-41); Mean Corp Hgb Conc 32.2 g/dL (32-36); Mean Corpuscular Hgb 30.6 pg (27.0-32.0); Mean Corpuscular Volume 94.9 fL (81-99); Mean Platelet Vol. 11.2 fl (6.2-12.0); Monocyte# 0.69 X10^3/uL; Monocyte% 6.8 % (0-10); NRBC Flagged by Analyzer 0 % (0-5); Neutrophil # 7.79 X10^3/uL (2.7-7.7); Neutrophil % 77.1 % (47-70); Platelet Count 226 K/mm3 (150-450); RBC Distribution Width CV 13.6 % (11.6-14.6); RBC Distribution Width SD 46.7 fl (35.1-43.9); Red Blood Count 4.35 M/mm3 (4.2-5.4); White Blood Count 10.1 K/mm3 (4.4-11.0)
[2023-01-29 16:27] LABS: Color, Urine Yellow (Yellow); Glucose, Dipstick Normal (Normal); Ketone-Dipstick 5 mg/dl (Negative); Leukocyte Esterase-Dipstick 25 /ul (Negative); Nitrite-Dipstick Negative (Negative); Occult Blood-Urine 10 /ul (Negative); Protein-Dipstick 15 mg/dl (Negative); Specific Gravity, Urine 1.015 (1.002-1.030); Urine Bilirubin Dipstick Negative (Negative); Urine Clarity Clear (Clear); Urine Urobilinogen 4 mg/dl (Normal)
[2023-01-29 16:36] LABS: Bacteria RARE /hpf (None Seen); Mucous, Urine RARE /hpf (<or=2+); Red Blood Cells-Urine 0-5 SEEN /hpf (0-5); Squamous Epithelial Cells - UA 0-5 SEEN /hpf (5-10); White Blood Cells 0-5 SEEN /hpf (0-5)
[2023-01-29 16:52] LABS: ALB/GLOB Ratio 0.9 RATIO (0.9-2.4); AST(SGOT) 7 U/L (15-37); Alanine Aminotransfer ALT/SGPT 17 U/L (13-56); Albumin, Serum 3.1 g/dL (3.2-5.0); Alkaline Phosphatase 61 U/L (45-117); Anion Gap 4 (5-15); BUN 7 mg/dL (7-18); BUN/Creat Ratio 8.8 RATIO (10-20); Calcium,Total 8.9 mg/dL (8.5-10.1); Chloride 106 mmol/L (98-107); EST Glomerular Filtration Rate 85 mL/min (>60); Est Glom Filt Rate - Afr Amer 103 mL/min (>60); Estimated Creatinine Clearance 99.64 ml/min; Globulin 3.6 g/dL (2.2-4.2); Glucose 101 mg/dL (74-106); Lipase 12 U/L (13-75); Potassium 3.3 mmol/L (3.5-5.1); Protein, Total 6.7 g/dL (6.4-8.2); Sodium Level 139 mmol/L (136-145)
[2023-01-29 16:56] LABS: Internal QC Validated? YES +Cl - CLEAR BKGD; Pregnancy, Serum, hCG Quali. NEGATIVE Negative
[2023-01-29 17:27] LABS: Lactic Acid 0.8 mmol/L (0.4-1.9)
--- NOTE | 2023-01-29 18:16 | US_ITS ---
STUDY: ABDOMINAL ULTRASOUND - RIGHT UPPER QUADRANT REASON FOR VISIT: Female, 37 years old abdominal pain TECHNIQUE: Ultrasound evaluation of the right upper quadrant was performed with real-time and static moon-scale imaging. TECHNICAL QUALITY: Adequate. COMPARISON: CT from earlier today. FINDINGS: Liver: The liver measures 17 cm. There is normal echogenicity of the liver. The bile ducts are within normal limits. There is hepatic color flow. The direction of portal flow is hepatopetal. There is no demonstrated mass lesion. Gallbladder: Partially distended gallbladder. The gallbladder wall measures 6 mm. There is a positive sonographic Head''s sign. There is pericholecystic fluid. There are multiple echogenic structures within the gallbladder, consistent with multiple gallstones. Common Bile Duct (C.B.D.): The common bile duct measures 4 mm. Pancreas: There is normal echogenicity of the pancreas. There is no demonstrated pancreatic mass or cyst. Right Kidney: Normal size of the right kidney. There is no demonstrated renal mass or cyst. There is no right hydronephrosis. US/Gallbladder IMPRESSION: 1. Cholelithiasis with gallbladder wall thickening, pericholecystic fluid and positive sonographic Head sign indicating acute cholecystitis. Electronically Signed: Jayant Lanza MD ([place]) at 19:01 EST ,
[2023-01-29 19:32] VITALS: BP 124/79; PULSE 75; RESP 16; O2SAT 94
--- NOTE | 2023-01-29 20:12 | PCM.HP.STD ---
HPI - General General Date of Admission: 01/29/23 Chief Complaint: Acute onset abdominal pain with associated nausea and vomiting HPI Narrative LUIS MIGUEL WALKER, is a 37 F who presents to [facility] with complaints of approximately 72 hours of acute onset epigastric and right upper quadrant abdominal pain that has been accompanied by symptoms of nausea and vomiting. She states that she and her family attended the [employer] game on 01/26/2023. They participated in [employer] and had some bratwurst that morning. That afternoon she describes an onset of severe and gnawing pain that lasted for hours. She shares that the pain eventually remitted enough that she was able to fall asleep and on awakening was much improved. However, the pain returned yesterday afternoon and she has been unable to eat or sleep since. She denies any experience of fevers but confirms some chills. She denies any awareness of sick contacts. Patient's ER workup is notable for CBC without leukocytosis but is showing left shift. CMP is within normal limits. CT imaging of the abdomen pelvis shows severely thickened gallbladder wall and gallstones. Reflex right upper quadrant ultrasound confirms the above findings CT and additionally identifies pericholecystic fluid with a positive sonographic Head sign. Mrs. Walker shares that she has had prior episodes over the last 2 years. She estimates that she is experienced similar pain?but of lesser intensity?1 time each of the last 2 years. She has never sought medical evaluation for this issue. Patient has a past surgical history inclusive of section, diagnostic laparoscopy, and laparoscopic excision of ovarian mass. [facility] Medical History Abnormal pap Endometriosis Migraine Preeclampsia in period Sterilization Home Medications ibuprofen 600 mg tablet 600 mg PO Q6H PRN PRN Pain/Inflammation #30 tabs 06/23/19 [Rx Last Taken 06/27/19 08:00] acetaminophen 325 mg tablet 650 mg (2 x 325 mg) PO Q6H PRN PRN Pain Score 4-12/1706/29/19 [Rx Last Taken Unknown] dextroamphetamine-amphetamine 10 mg tablet 20 mg PO BID ADHD 01/01/21 [History Last Taken Unknown] multivitamin 1 tab PO DAILY 01/01/21 [History Last Taken Unknown] Allergy/AdvReac Type Severity Reaction Status Date / Time No Known Allergies Allergy Verified 10/22/22 08:11 Family History Grandmother Cancer ovarian Grandfather Leukemia Non-Hodgkins Lymphoma Father CVA (cerebral vascular accident) Surgical History H/O bilateral salpingectomy S/P Social History Smoking Status: Former smoker alcohol intake: never substance use type: does not use caffeine: Yes what type of physical activity do you participate in: walking seatbelt use: always do you feel safe at home: Yes additional social history: hao Vital Signs Vital Signs Vital Signs: 01/29/23 15:33 01/29/23 15:35 Temperature 97.5 F L 97.5 F L Temperature Source Temporal Temporal Pulse Rate 95 95 Respiratory Rate 16 16 Blood Pressure 157/99 H 157/99 H Blood Pressure Mean 118 118 Pulse Ox 100 100 Oxygen Delivery Method Room Air Room Air Weight Weight: 225 lb Body Mass Index (BMI) 33.2 Physical Exam Const alert, oriented x3, no apparent distress and well nourished General Appearance: cooperative GI GI Narrative: Nondistended, no visible herniation, soft, tender to palpation epigastrium, positive Head sign Results Lab / Micro Data 01/29/23 16:10 01/29/23 16:10 Labs: Laboratory Results - last 24 hr 01/29/23 16:10: WBC 10.1, RBC 4.35, Hgb 13.3, Hct 41.3, MCV 94.9, MCH 30.6, MCHC 32.2, RDW Std Deviation 46.7 H, RDW Coeff of Yudy 13.6, Plt Count 226, MPV 11.2, Immature Gran % (Auto) 0.300, Neut % (Auto) 77.1 H, Lymph % (Auto) 14.2 L, [place] % (Auto) 6.8, Eos % (Auto) 1.1, Baso % (Auto) 0.5, Absolute Neuts (auto) 7.8 H, Absolute Lymphs (auto) 1.43, Nucleated RBC % 0, Sodium 139, Potassium 3.3 L, Chloride 106, Carbon Dioxide 29.0, Anion Gap 4 L, BUN 7, Creatinine 0.80, Estim Creat Clear Calc 99.64, Est GFR (MDRD) Af Amer 103, Est GFR (MDRD) Non-Af 85, BUN/Creatinine Ratio 8.8 L, Glucose 101, Lactic Acid 0.8, Calcium 8.9, Total Bilirubin 0.90, AST 7 L, ALT 17, Alkaline Phosphatase 61, Total Protein 6.7, Albumin 3.1 L, Globulin 3.6, Albumin/Globulin Ratio 0.9, Lipase 12 L, Serum , Qual NEGATIVE 01/29/23 16:15: Urine Color Yellow, Urine Clarity Clear, Urine pH 8.0, Ur Specific [place] 1.015, Urine Protein 15 H, Urine Glucose (UA) Normal, Urine Ketones 5 H, Urine Occult Blood 10 H, Urine Nitrite Negative, Urine Bilirubin Negative, Urine Urobilinogen 4 H, Ur Leukocyte Esterase 25 H, Urine RBC 0-5 SEEN, Urine WBC 0-5 SEEN, Ur Squamous Epith Cells 0-5 SEEN, Urine Bacteria RARE, Urine Mucus RARE Imagaing Radiology Impression Abdomen/Pelvis CT 01/29/23 15:56 IMPRESSION: 1. Cholelithiasis with circumferential gallbladder wall thickening suspicious for cholecystitis. Electronically Signed: Jayant Lanza MD (Brooks) at 17:37 EST , Gallbladder Ultrasound 01/29/23 18:16 IMPRESSION: 1. Cholelithiasis with gallbladder wall thickening, pericholecystic fluid and positive sonographic Head sign indicating acute cholecystitis. Electronically Signed: Jayant Lanza MD (Brooks) at 19:01 EST , Assessment & Plan Assessment/Plan (1) Acute cholecystitis: PLAN: This is a 37-year-old female, Otherwise healthy, who presents with signs and symptoms of acute cholecystitis for the past 72 hours. This diagnosis is strongly suggested with patient CT imaging showing cholelithiasis and gallbladder wall thickening and reflux ultrasound corroborates these findings. Further, both her exam and history are consistent with this diagnosis. There does not appear to be any biochemical or imaging evidence of choledocholithiasis. With this diagnosis I have recommended hospital admission and urgent cholecystectomy. I have shared the details of this procedure and that, given that this is the ino of Thanksgiving, the procedure would be done by Dr. Rae. In the interim patient will be admitted and permitted clear liquids until midnight then should be made NPO in anticipation of possible surgery. Charges/Coding Visit Charges Inpatient E&M: 68411 Init Hosp L2
[2023-01-29] MEDS: HYDROmorphone 1 MG/ML Syringe IV (20:16)
[2023-01-29] MEDS: Piperacil/Tazobactam 4.5 GM in 0.9% Normal Saline (100mL MB+) 100 ML IV (20:25)
[2023-01-29 20:35] VITALS: BP 124/79; PULSE 75; RESP 16; TEMP 36.3; O2SAT 94
[2023-01-29 20:47] VITALS: BP 124/79; PULSE 75; RESP 16; O2SAT 94
[2023-01-29 21:16] VITALS: BMI 33.5
[2023-01-29 21:26] VITALS: BP 128/84; PULSE 72; RESP 17; TEMP 36.8; O2SAT 97
[2023-01-29] MEDS: 0.9% Saline Lock 10 ML Syringe IV (22:20)
[2023-01-29] MEDS: Acetaminophen 500 MG Tablet PO (22:23)
[2023-01-30] VITALS (11 sets, daily range): BP systolic 116–155; BP diastolic 82–100; PULSE 59–77; RESP 16–18; TEMP 36.2–37; O2SAT 92–100; BMI 33.5
[2023-01-30] MEDS: HYDROmorphone 0.5 MG/0.5 ML SYRINGE IV ×4 (00:16→14:07)
[2023-01-30] MEDS: 0.9% Saline Lock 10 ML Syringe IV ×7 (00:17→23:56)
[2023-01-30] MEDS: Ondansetron 4 MG/2 ML Vial IV ×2 (04:41→16:53)
[2023-01-30] MEDS: 0.9% Normal Saline (1000mL) 1,000 ML 125 ML IV ×3 (04:53→20:22)
[2023-01-30] MEDS: Piperacil/Tazobactam 3.375 GM in 0.9% Normal Saline (50mL MB+) 50 ML IV ×2 (04:56→20:37)
[2023-01-30 05:44] LABS: Absolute Lymphocyte Count 2.12 X10^3/uL (0.83-4.51); Absolute Neutrophil Count 4.6 X10^3/uL (2.0-7.7); Basophil# 0.04 X10^3/uL; Basophil% 0.5 % (0-1); Eosinophil# 0.16 X10^3/uL; Eosinophils% 2.1 % (0-5); Hematocrit 36.4 % (37-47); Hemoglobin 11.9 g/dL (12.0-15.0); Lymphocyte # 2.12 X10^3/ul (0.83-4.51); Lymphocyte % 28.2 % (19-41); Mean Corp Hgb Conc 32.7 g/dL (32-36); Mean Corpuscular Hgb 31.2 pg (27.0-32.0); Mean Corpuscular Volume 95.5 fL (81-99); Mean Platelet Vol. 11.3 fl (6.2-12.0); Monocyte# 0.63 X10^3/uL; Monocyte% 8.4 % (0-10); NRBC Flagged by Analyzer 0 % (0-5); Neutrophil # 4.56 X10^3/uL (2.7-7.7); Neutrophil % 60.7 % (47-70); Platelet Count 199 K/mm3 (150-450); RBC Distribution Width CV 13.6 % (11.6-14.6); RBC Distribution Width SD 47.5 fl (35.1-43.9); Red Blood Count 3.81 M/mm3 (4.2-5.4); White Blood Count 7.5 K/mm3 (4.4-11.0)
[2023-01-30 06:28] LABS: ALB/GLOB Ratio 0.9 RATIO (0.9-2.4); AST(SGOT) 9 U/L (15-37); Alanine Aminotransfer ALT/SGPT 15 U/L (13-56); Albumin, Serum 2.8 g/dL (3.2-5.0); Alkaline Phosphatase 54 U/L (45-117); Anion Gap 5 (5-15); BUN 5 mg/dL (7-18); BUN/Creat Ratio 8.2 RATIO (10-20); Chloride 108 mmol/L (98-107); Creatinine, Serum 0.61 mg/dL (0.55-1.02); EST Glomerular Filtration Rate 116 mL/min (>60); Est Glom Filt Rate - Afr Amer 140 mL/min (>60); Estimated Creatinine Clearance 130.68 ml/min; Globulin 3.2 g/dL (2.2-4.2); Glucose 85 mg/dL (74-106); Potassium 3.6 mmol/L (3.5-5.1); Sodium Level 139 mmol/L (136-145)
--- NOTE | 2023-01-30 07:45 | PN.SURG_ITS ---
Subjective Subjective Patient is still complaining of a lot of right upper quadrant pain and taking pain meds every 4 hours IV. Objective Data Objective Data Vital Signs: Vital Signs Temp Pulse Resp BP Pulse Ox O2 Del Method 97.8 F 75 18 135/91 H 98 Room Air 01/30/23 04:47 01/30/23 04:47 01/30/23 04:47 01/30/23 04:47 01/30/23 04:47 01/30/23 04:47 Oxygen Delivery Method Room Air Weight: 227 lb 8.273 oz Body Mass Index (BMI) 33.5 Intake & Output: Intake and Output for Last 24 Hours 01/28/23 01/29/23 01/30/23 23:59 23:59 23:59 Intake Total 1218.75 / 1218.75 860.42 / 860.42 Balance 1218.75 / 1218.75 860.42 / 860.42 Lab / Micro Data 01/30/23 04:50 01/30/23 04:50 Labs: Laboratory Results - last 24 hr 01/29/23 16:10: WBC 10.1, RBC 4.35, Hgb 13.3, Hct 41.3, MCV 94.9, MCH 30.6, MCHC 32.2, RDW Std Deviation 46.7 H, RDW Coeff of Yudy 13.6, Plt Count 226, MPV 11.2, Immature Gran % (Auto) 0.300, Neut % (Auto) 77.1 H, Lymph % (Auto) 14.2 L, [place] % (Auto) 6.8, Eos % (Auto) 1.1, Baso % (Auto) 0.5, Absolute Neuts (auto) 7.8 H, Absolute Lymphs (auto) 1.43, Nucleated RBC % 0, Sodium 139, Potassium 3.3 L, Chloride 106, Carbon Dioxide 29.0, Anion Gap 4 L, BUN 7, Creatinine 0.80, Estim Creat Clear Calc 99.64, Est GFR (MDRD) Af Amer 103, Est GFR (MDRD) Non-Af 85, BUN/Creatinine Ratio 8.8 L, Glucose 101, Lactic Acid 0.8, Calcium 8.9, Total Bilirubin 0.90, AST 7 L, ALT 17, Alkaline Phosphatase 61, Total Protein 6.7, Albumin 3.1 L, Globulin 3.6, Albumin/Globulin Ratio 0.9, Lipase 12 L, Serum , Qual NEGATIVE 01/29/23 16:15: Urine Color Yellow, Urine Clarity Clear, Urine pH 8.0, Ur Specific [place] 1.015, Urine Protein 15 H, Urine Glucose (UA) Normal, Urine Ketones 5 H, Urine Occult Blood 10 H, Urine Nitrite Negative, Urine Bilirubin Negative, Urine Urobilinogen 4 H, Ur Leukocyte Esterase 25 H, Urine RBC 0-5 SEEN, Urine WBC 0-5 SEEN, Ur Squamous Epith Cells 0-5 SEEN, Urine Bacteria RARE, Urine Mucus RARE 01/30/23 04:50: WBC 7.5, RBC 3.81 L, Hgb 11.9 L, Hct 36.4 L, MCV 95.5, MCH 31.2, MCHC 32.7, RDW Std Deviation 47.5 H, RDW Coeff of Yudy 13.6, Plt Count 199, MPV 11.3, Immature Gran % (Auto) 0.100, Neut % (Auto) 60.7, Lymph % (Auto) 28.2, [place] % (Auto) 8.4, Eos % (Auto) 2.1, Baso % (Auto) 0.5, Absolute Neuts (auto) 4.6, Absolute Lymphs (auto) 2.12, Nucleated RBC % 0, Sodium 139, Potassium 3.6, Chloride 108 H, Carbon Dioxide 26.0, Anion Gap 5, BUN 5 L, Creatinine 0.61, Estim Creat Clear Calc 130.68, Est GFR (MDRD) Af Amer 140, Est GFR (MDRD) Non-Af 116, BUN/Creatinine Ratio 8.2 L, Glucose 85, Calcium 8.0 L, Total Bilirubin 0.70, AST 9 L, ALT 15, Alkaline Phosphatase 54, Total Protein 6.0 L, Albumin 2.8 L, Globulin 3.2, Albumin/Globulin Ratio 0.9 Radiography Diagnostic Testing: Radiology Impression Abdomen/Pelvis CT 01/29/23 15:56 IMPRESSION: 1. Cholelithiasis with circumferential gallbladder wall thickening suspicious for cholecystitis. Electronically Signed: Jayant Lanza MD (Brooks) at 17:37 EST Reading Location ID and State: [facility] / [place] , Service support , Gallbladder Ultrasound 01/29/23 18:16 IMPRESSION: 1. Cholelithiasis with gallbladder wall thickening, pericholecystic fluid and positive sonographic Head sign indicating acute cholecystitis. Electronically Signed: Jayant Lanza MD (Brooks) at 19:01 EST Reading Location ID and State: [facility] / [place] , Service support , Physical Exam Const oriented x3 Resp normal respiratory effort Cardio regular rate GI soft to palpation GI Narrative: Tender right upper quadrant, voluntary guarding, positive Head sign Inspection: Negative for abdominal distention Assessment & Plan Assessment/Plan (1) Acute cholecystitis: PLAN: Plan Reviewed patient's CT scan as well as ultrasound with the patient she does have a lot of inflammation and edema in that area and the wall is measured to be 6 mm on ultrasound. Patient is aware that she may get a laparoscopic subtotal cholecystectomy with temporary drain. Reviewed the anatomy with the patient and discussed the procedure: laparoscopic cholecystectomy with possible cholangiograms, possible open. Review risks including but not limited to bleeding, infection, hernia, bile leak, retained gallstones requiring another procedure ERCP- Endoscopic Retrograde Cholangiopancreatography, subtotal cholecystectomy, injury to another organ (bile ducts, common bile duct, small bowel, etc.) and conversion to an open procedure. All questions were answered. Catalina Rae M.D. Pager: [phone] [facility] [address] [place] [address], [address] [place] [address] Office: [phone]
--- NOTE | 2023-01-30 08:32 | NURSING ---
This Pt is ready for Surgery and leaving the floor via bed with Bhavin PETERSON taking her to surgery at this time.
--- NOTE | 2023-01-30 08:50 | GALL_PTH ---
PATIENT: LUIS MIGUEL WALKER LOC: MS3 U#:[id number] AGE/SX: 37/F ROOM: [facility] [place] RE01/29/[address]: Dr. Serafin Hall MD : 1985 BED: 1 DIS: 01/31/2023 SPEC #: [id number] RECD: 01/31/23 08:37 STATUS: SHARMAINE REJuanito #: [id number] LUIS: 01/30/23 08:[address]: Serafin Hall DEPT: SURGICAL PATHOLOGY RECD BY: Bessy Palmer ENTERED: 01/31/23 14:31 SP TYPE: LILIAN ANGELA DR: Dr. Chaz Hoffmann DO Tissues: Gallbladder, NOS Procedures: Surgery Specimen Level III HEADER OPERATION: Laparoscopic cholecystectomy PRE-OP DIAGNOSIS: Acute cholecystitis TISSUE SUBMITTED: Gallbladder MICROSCOPIC DIAGNOSIS Gallbladder, cholecystectomy: Acute and chronic cholecystitis and cholelithiasis. Acute and chronic inflammation of perivesicular soft tissue. AM:massimo 02/03/2023 MICROSCOPIC DESCRIPTION Slides are reviewed. GROSS DESCRIPTION Received is one container labeled with the patient's name and designated gallbladder. The specimen consists of a previously opened gallbladder measuring 8.7 x 3.0 x 3.0 cm. The external surface is smooth and glistening. Focally, it is granular, hemorrhagic and contains cautery artifact. The specimen container and lumen of the gallbladder contains multiple dark yellow calculi ranging in size from 0.1 to 2.0 cm in greatest dimension. The mucosa is bile-stained and without any mass lesions. The gallbladder wall varies in thickness from 0.2 to 1.0 cm in thickness and is free of mass lesions. Waterworks Operator sections of the gallbladder and the cystic duct at margin of resection are submitted in one cassette. / AM:massimo 01/31/2023 TC:2 CPT: 90903
[2023-01-30] MEDS: Bupivacaine Mpf 0.5% 30 ML VIAL (10:05)
--- NOTE | 2023-01-30 10:11 | PCM.OPRPT ---
Report of Operation Date of Procedure: 01/30/23 Pre-Operative Diagnosis: Acute cholecystitis Post-Operative Diagnosis: Same Surgery/Procedure Performed:: Laparoscopic cholecystectomy Surgeon: Catalina Rae sales solutions associate: Nora Dodge Type of Anesthesia: General/Supplemental Anesthesiologist: Nicolas Ruiz Special Medications: Zosyn 3.375 g IV every 8 for acute cholecystitis on the floor Specimen's removed: Gallbladder and stones Description of Procedure: Indications: this is a 37 year-old female who developed abdominal pain/nausea/vomiting starting on Friday and on workup was found to have acute cholecystitis, cholelithiasis, with a normal common bile duct. Laparoscopic cholecystectomy was elected. Description procedure: The patient was placed on operating table in supine position. A timeout was completed verifying correct patient, procedure, site, position and special equipment prior to beginning procedure. General Anesthesia was induced. The abdomen was prepped and draped in usual sterile fashion. An incision was made in the natural skin line above the umbilicus. The fascia was elevated and incised. The peritoneum was elevated and incised. Entry into the peritoneum was confirmed visually and no bowel was noted in the vicinity of the incision. Bazan trocar was placed. The abdomen was insufflated with carbon dioxide to a pressure of 12-15 mmHg. Patient tolerated insufflation well. The laparoscope was then inserted and abdomen inspected. No injuries from initial trocar placement were noted. Additional trochars were then inserted in the following locations 5 mm trocar in the epigastrium and 2 more 5 mm trochars along the right costal margin. The abdomen was inspected no abnormalities were found. The table is placed in reverse Trendelenburg position with the right side up. The dome of the gallbladder was grasped with atraumatic grasper passed through the lateral port and retracted over the dome of the liver. Infundibulum was then grasped with atraumatic grasper through the midclavicular port and retracted to the right lower quadrant. This maneuver exposed Calot's triangle. The peritoneum overlying the gallbladder infundibulum was then incised and cystic duct and artery identified and circumferentially dissected. There is noted to be a stone stuck in the cystic duct and the distal duct was too short to try attempt cholangiograms. The cystic duct and artery were then doubly clipped and divided close to the gallbladder. The gallbladder then dissected from its peritoneal attachments by electrocautery. Hemostasis was checked and the gallbladder and contained stones were removed using the endoscopic retrieval bag through the umbilical port. The gallbladder is passed off table as specimen. The gallbladder fossa was irrigated with saline and hemostasis obtained. There is no evidence of bleeding from the gallbladder fossa or cystic artery leakage of bile from the cystic duct stump. Secondary trochars removed under direct vision. No bleeding was noted the trocar sites. The laparoscope was withdrawn and umbilical trocar removed. The abdomen was allowed to collapse. The fascia of the 12 mm trocar was closed with a [id number] 0 Vicryl suture. The skin was closed with sutures of 4-0 Monocryl and Steri-Strips. The patient was extubated. The patient tolerated procedure well and was taken to the postanesthesia care unit in stable condition. Complications none
--- NOTE | 2023-01-30 10:14 | DCINST_ITS ---
Discharge Instructions Diet Discharge Diet: Light diet - advance as tolerated Activity Discharge Activity: May Not Drive (while taking narcotic pain medications.) May shower in (days): 1 Lifting Restrictions: no lifting >20 lbs x 2 wks, no strenuous exercise for 4 wks Dressing / Incision Call your doctor if your incision/area has: Continuous Slow Oozing, Sudden Increased Bleeding, Increased Pain/ Swelling, Increased Redness, Foul Smelling Discharge and Swelling at the incision site Call your doctor if you observe: Fever of 101 or Higher Remove Dressing in: 2 days Cleanse incision/area with: Soap & Water Additional Dressing/Incision Instructions:: Steri-Strips will fall off in 7 to 10 days, if they do not fall off okay to remove after 10 days. Follow Up Care Please Follow Up With: Catalina Rae MD When: Call the office for a follow-up appointment 2 weeks; after 5 PM and on the weekends call [phone] with any concerns. Test Results: Test results from this visit will be discussed in further detail at your follow- up appointment, if applicable. Discharge Plan Admission Admit Date/Time: 01/29/23 20:09 Attending Provider: Serafin Hall Primary Care Provider: Chaz Hoffmann Discharge Orders/Prescriptions Prescriptions: New oxycodone-acetaminophen 5-325 mg tablet 1 - 2 tab PO Q6H PRN (Reason: pain) 3 Days Qty: 14 0RF Continued multivitamin Tablet 1 tab PO DAILY dextroamphetamine-amphetamine 10 mg tablet 20 mg PO BID ibuprofen 600 MG tablet 600 mg PO Q6H PRN PRN (Reason: Pain/Inflammation) Qty: 30 0RF acetaminophen 325 MG tablet 650 mg PO Q6H PRN PRN (Reason: Pain Score 4-10/10) 0RF alprazolam 0.5 mg tablet 1 mg PO BID PRN (Reason: anxiety) Patient Comments: TAKE 1 OR 2 TABLETS BYNMOUT 2 TIMES A DAY NEEDED Ozempic 0.25 mg or 0.5 mg (2 mg/3 mL) pen injector 0.5 mg subcut QWEEK Rx Instructions: for 4 weeks Referrals / Follow Up: Chaz Hoffmann DO [Primary Care Provider] - Disposition Disposition (needs filled in before D/C Order can be placed): Home, Self Care
[2023-01-30] MEDS: Ketorolac 15 MG/ML Vial IV ×3 (10:50→23:57)
[2023-01-30] MEDS: Pantoprazole Sodium 40 MG in 0.9% Normal Saline (100mL MB+) 100 ML 330 MG IV (12:15)
[2023-01-30] MEDS: Acetaminophen 500 MG Tablet PO ×2 (16:52→23:57)
[2023-01-30] MEDS: oxyCODONE 5 MG Tablet PO ×2 (16:52→21:07)
[2023-01-31 00:10] VITALS: BP 136/89; PULSE 68; RESP 16; TEMP 36.8; O2SAT 98
[2023-01-31] MEDS: oxyCODONE 5 MG Tablet PO ×2 (03:14→07:54)
[2023-01-31] MEDS: Acetaminophen 500 MG Tablet PO (06:16)
[2023-01-31] MEDS: Piperacil/Tazobactam 3.375 GM in 0.9% Normal Saline (50mL MB+) 50 ML IV (06:16)
[2023-01-31] MEDS: Ketorolac 15 MG/ML Vial IV (06:16)
[2023-01-31] MEDS: 0.9% Saline Lock 10 ML Syringe IV (06:17)
[2023-01-31 06:29] VITALS: BP 129/67; PULSE 65; RESP 16; TEMP 36.8; O2SAT 97
--- NOTE | 2023-01-31 06:42 | PCM.PN.SRG ---
Subjective Subjective Patient is some nausea yesterday which is resolved. Tolerating diet pain controlled Objective Data Objective Data Vital Signs: Vital Signs Temp Pulse Resp BP Pulse Ox O2 Del Method O2 Flow Rate 98.3 F 65 16 129/67 H 97 Room Air 2 01/31/23 06:29 01/31/23 06:29 01/31/23 06:29 01/31/23 06:29 01/31/23 06:29 01/31/23 06:29 01/30/23 11:15 Oxygen Flow Rate (L/min) 2 Oxygen Delivery Method Room Air Weight: 227 lb 8.273 oz Body Mass Index (BMI) 33.5 Intake & Output: Intake and Output for Last 24 Hours 01/29/23 01/30/23 01/31/23 23:59 23:59 23:59 Intake Total 1218.75 / 1218.75 3301.25 / 3301.25 756.25 / 756.25 Balance 1218.75 / 1218.75 3301.25 / 3301.25 756.25 / 756.25 Lab / Micro Data 01/30/23 04:50 01/30/23 04:50 Physical Exam Resp normal respiratory effort Cardio regular rate GI GI Narrative: Abdomen: Soft, nondistended, tender near incision's dressed clean dry and intact, no peritoneal signs Assessment & Plan Assessment/Plan (1) S/P laparoscopic cholecystectomy: PLAN: Plan Patient tolerating diet denies any nausea. Okay to DC home.
[2023-01-31] MEDS: Ondansetron 4 MG/2 ML Vial IV (07:54)
== END 2023-01-31 08:56 | disposition home or self-care (01) ==
LOC: ED 16:11 → MS3 20:33
PROVIDERS: Surgery; Admitting Provider Surgery; Emergency Provider Emergency Medicine; PCP Family Medicine; Visit Provider Surgery
PROC: (CPT 47610; principal; 2023-01-30 08:30)
DX: K80.12 Calculus of gallbladder with acute and chronic cholecystitis without obstruction (principal); Z87.891 Personal history of nicotine dependence
CPT/HCPCS: 47562; 00790; 36415; 74177; 76705; 80053; 81001; 83605; 83690; 84703; 85025; 88304; 93005; 96361; 96365; 96366; 96367; 96375; 96376; 99221; 99284; J7030; J7050; J7120; Q9967; A4216; G0378; J2405

== ENCOUNTER 2023-06-04 10:33 | Emergency (ER) | payer OTHER, SELFPAY ==
[2023-06-04 10:34] VITALS: BP 135/88; PULSE 91; RESP 16; TEMP 36.5; O2SAT 100; BMI 30.7
--- NOTE | 2023-06-04 10:59 | EKG12_ITS ---
Test Reason : CP Blood Pressure : / mmHG Vent. Rate : 084 BPM Atrial Rate : 084 BPM P-R Int : 134 ms QRS Dur : 078 ms QT Int : 368 ms P-R-T Axes : 037 043 033 degrees QTc Int : 434 ms Normal sinus rhythm Normal ECG Confirmed by TODD JONES, FADY ([id number]), video editor KERMIT PONCE ([id number]) on 06/05/2023 8:58:01 AM Referred By: JOMAR/ANNABEL Confirmed By:FADY BROOKS MD
--- NOTE | 2023-06-04 11:00 | EDS_ITS ---
HPI History of Present Illness Chief Complaint: Chest Pain Informant: patient Narrative Narrative: 38-year-old female presenting to the emergency room chief complaint of chest pain. Patient states that for about 2 days she has had a constant ache/heaviness in her upper mid chest that radiates in between her shoulder blades and up into her neck. She states that she feels that it may be worse with deep breathing. She notes a history of chronic headaches and states that all this started initially with a headache. She has tried several doses of Excedrin without relief of the headache. No neurologic deficits. She denies any prior DVT or PE history. No known cardiac disease. She is a former smoker. She is not on exogenous hormones. She denies any cough fever or rhinorrhea. She denies any indigestion or difficulty swallowing/eating foods. She states she is very worried about blood clots as her father had a stroke. [facility] Medical History Abnormal pap Endometriosis Migraine Preeclampsia in period Sterilization Home Medications ibuprofen 600 mg tablet 600 mg PO Q6H PRN PRN Pain/Inflammation #30 tabs 06/23/19 [Rx Last Taken 06/27/19 08:00] acetaminophen 325 mg tablet 650 mg (2 x 325 mg) PO Q6H PRN PRN Pain Score 4- 12/1706/29/19 [Rx Last Taken Unknown] dextroamphetamine-amphetamine 10 mg tablet 20 mg PO BID ADHD 01/01/21 [History Last Taken Unknown] multivitamin 1 tab PO DAILY 01/01/21 [History Last Taken Unknown] alprazolam 0.5 mg tablet 1 mg PO BID PRN anxiety 01/29/23 [History Last Taken Unknown] semaglutide 0.25 mg or 0.5 mg (2 mg/3 mL) subcutaneous pen injector (Ozempic) 0.5 mg subcut QWEEK 01/29/23 [History Last Taken Unknown] Allergy/AdvReac Type Severity Reaction Status Date / Time No Known Allergies Allergy Verified 06/04/23 10:35 Family History Grandmother Cancer ovarian Grandfather Leukemia Non-Hodgkins Lymphoma Father CVA (cerebral vascular accident) Surgical History H/O bilateral salpingectomy S/P S/P laparoscopic cholecystectomy Social History Smoking Status: Former smoker alcohol intake: never substance use type: does not use caffeine: Yes what type of physical activity do you participate in: walking seatbelt use: always do you feel safe at home: Yes additional social history: hao SHAHID ED Constitutional Constitutional ED: Denies chills, fever(s) or weight loss Eyes Eyes: Denies change in vision or diplopia ENT ENT ED: Denies ear pain, rhinorrhea or sore throat Cardiovascular Cardiovascular: Reports chest pain; Denies orthopnea, palpitations or racing heartbeat Respiratory/Chest Respiratory/Chest: Denies cough, dyspnea, dyspnea on exertion or orthopnea Gastrointestinal Gastrointestinal: Denies abdominal pain, diarrhea, nausea or vomiting Genitourinary Genitourinary ED: Denies dysuria, hematuria or urinary frequency Musculoskeletal Musculoskeletal: Reports back pain; Denies arthralgias or myalgias Integumentary Denies abscess or rash Neurologic Neurologic: Reports headache(s); Denies weakness Psychiatric Psychiatric: Denies anxiety, depression, suicidal ideation or suicidal thoughts Endocrine Endocrinology: Denies polydipsia, polyphagia or polyuria Allergic/Immunologic Allergic/Immunologic ED: Denies mouth swelling, tongue swelling or urticaria EXAM Physical Exam Const Vital Signs: 06/04/23 10:34 06/04/23 10:34 Temperature 97.7 F L Temperature Source Temporal Pulse Rate 91 Respiratory Rate 16 Respiratory Effort Normal Blood Pressure 135/88 H Blood Pressure Mean 103 Pulse Ox 100 Oxygen Delivery Method Room Air Positive well nourished and well developed General Appearance ED: well developed HEENT Reports normocephalic, head/scalp atraumatic and moist mucous membranes Eyes PERRL and EOMs intact bilaterally Neck no lymphadenopathy, supple and no JVD Resp normal respiratory effort and clear to auscultation bilaterally Cardio regular rate, regular rhythm and no murmurs GI normal to inspection, nondistended, normoactive bowel sounds and non-tender Palpation: soft Back/Spine no CVA tenderness and normal ROM Extremity normal to inspection General Extremety ED: Negative for edema General Extremity: Negative for edema Neuro oriented x3 and CN's II-XII intact bilaterally Sensorium / Orientation: alert Motor Exam: strength 5/5 throughout Psych mental status grossly normal Mood & Affect: Negative for depressed or tearful Skin no rashes or lesions noted and no wounds MDM MDM MDM Narrative Medical decision making narrative: Differential includes but not limited to ACS, pericarditis/myocarditis, pleural effusion, pneumonia, pulmonary embolism, aortic dissection, pneumothorax, esophagitis, GERD. EKG is a normal sinus rhythm with no concerning features of ACS. My independent interpretation of the chest x-ray is no acute process normal mediastinal silhouette. White count of 12 nonspecifically elevated. Hemoglobin 13.5 platelet count is 263. BMP shows a normal creatinine normal electrolytes. Troponin is 3 which represents about 48 hours of constant symptoms. Patient's had no dysrhythmias or events on the monitor. At this point difficult to say exactly what the patient is feeling. She has an underlying anxiety which may be contributing. There may be some esophagitis. We can try Pepcid and/or some milk of magnesia. But she is not having any problems with eating or worse at night. No history of GERD or GERD like symptoms other than the sensation. Patient is comfortable with following up return if worsening or concerns History & Record Review Discussion w/independent historian: Patient Lab Data Attestation: I reviewed the patient's lab results. Labs: Laboratory Results - last 24 hr 06/04/23 11:05 WBC 12.0 H RBC 4.48 Hgb 13.5 Hct 41.9 MCV 93.5 MCH 30.1 MCHC 32.2 RDW Std Deviation 43.9 RDW Coeff of Yudy 12.9 Plt Count 263 MPV 11.4 Immature Gran % (Auto) 0.300 Neut % (Auto) 71.6 H Lymph % (Auto) 19.0 [place] % (Auto) 7.3 Eos % (Auto) 1.2 Baso % (Auto) 0.6 Absolute Neuts (auto) 8.6 H Absolute Lymphs (auto) 2.28 Nucleated RBC % 0 D-Dimer Quant (PE/DVT) 0.31 Sodium 139 Potassium 3.5 Chloride 108 H Carbon Dioxide 26.0 Anion Gap 5 BUN 15 Creatinine 0.83 Estim Creat Clear Calc 111.41 Est GFR (MDRD) Af Amer 98 Est GFR (MDRD) Non-Af 81 BUN/Creatinine Ratio 18.0 Glucose 87 Calcium 9.1 Troponin I High Sens 3 Radiography Diagnostic Testing: Clinical Impression(s) from Imaging Studies Chest X-Ray 06/04/23 12:02 IMPRESSION: No radiographic evidence of acute cardiopulmonary disease. Electronically Signed: Tanmay George MD at 12:11 EDT , EKG Initial EKG: Attestation: I personally reviewed and interpreted this EKG as follows: Comments: Normal sinus rhythm with a ventricular rate of 84 bpm. No definitive features of ACS noted. Discharge Plan Triage Chief Complaint: Chest Pain ED Provider: Jonathan Raya Dx/Rx/DC Orders Clinical Impression: Chest pain Instructions: ED Chest Pain, Noncardiac Prescriptions: No Action multivitamin Tablet 1 tab PO DAILY dextroamphetamine-amphetamine 10 mg tablet 20 mg PO BID ibuprofen 600 MG tablet 600 mg PO Q6H PRN PRN (Reason: Pain/Inflammation) Qty: 30 0RF acetaminophen 325 MG tablet 650 mg PO Q6H PRN PRN (Reason: Pain Score 4-10/10) 0RF alprazolam 0.5 mg tablet 1 mg PO BID PRN (Reason: anxiety) Patient Comments[facility] Ozempic 0.25 mg or 0.5 mg (2 mg/3 mL) pen injector 0.5 mg subcut QWEEK Rx Instructions: for 4 weeks Primary Care Provider: Chaz Hoffmann Referrals: Chaz Hoffmann, DO [Primary Care Provider] - 3-5 Days if not improving Activity Restrictions/Additional Instructions: As discussed you may try twice daily Pepcid and/or some Pepto-Bismol or milk of magnesia. I would schedule follow-up with your primary care doctor. If new or worsening symptoms please return to emergency. Disposition Disposition: Home, Self Care Discharge Date/Time: 06/04/23 12:33
[2023-06-04 11:24] LABS: Absolute Lymphocyte Count 2.28 X10^3/uL (0.83-4.51); Absolute Neutrophil Count 8.6 X10^3/uL (2.0-7.7); Basophil# 0.07 X10^3/uL; Basophil% 0.6 % (0-1); Eosinophil# 0.14 X10^3/uL; Eosinophils% 1.2 % (0-5); Hematocrit 41.9 % (37-47); Hemoglobin 13.5 g/dL (12.0-15.0); Lymphocyte # 2.28 X10^3/ul (0.83-4.51); Mean Corp Hgb Conc 32.2 g/dL (32-36); Mean Corpuscular Hgb 30.1 pg (27.0-32.0); Mean Corpuscular Volume 93.5 fL (81-99); Mean Platelet Vol. 11.4 fl (6.2-12.0); Monocyte# 0.87 X10^3/uL; Monocyte% 7.3 % (0-10); NRBC Flagged by Analyzer 0 % (0-5); Neutrophil % 71.6 % (47-70); Platelet Count 263 K/mm3 (150-450); RBC Distribution Width CV 12.9 % (11.6-14.6); RBC Distribution Width SD 43.9 fl (35.1-43.9); Red Blood Count 4.48 M/mm3 (4.2-5.4)
[2023-06-04 11:31] LABS: D-Dimer Quantitative (DVT/PE) 0.31 FEU/ug/m (0.27-0.49)
[2023-06-04 11:39] LABS: Anion Gap 5 (5-15); BUN 15 mg/dL (7-18); Calcium,Total 9.1 mg/dL (8.5-10.1); Chloride 108 mmol/L (98-107); Creatinine, Serum 0.83 mg/dL (0.55-1.02); EST Glomerular Filtration Rate 81 mL/min (>60); Est Glom Filt Rate - Afr Amer 98 mL/min (>60); Estimated Creatinine Clearance 111.41 ml/min; Glucose 87 mg/dL (74-106); Potassium 3.5 mmol/L (3.5-5.1); Sodium Level 139 mmol/L (136-145); Troponin-I HS 3 pg/mL (3.0-54.0)
--- NOTE | 2023-06-04 12:02 | RAD_ITS ---
INDICATION: chest pain EXAMINATION/TECHNIQUE: X-RAY - XR Chest 1 View COMPARISON: No relevant prior comparison study available FINDINGS: LINES/DEVICES: None. LUNGS: No consolidation, edema or effusion. No pneumothorax. MEDIASTINUM AND CARDIOVASCULAR STRUCTURES: Cardiac silhouette not enlarged. Central airways and mediastinal contour are unremarkable. BONES AND SOFT TISSUES: Unremarkable. RAD/Chest 1 View (Portable) IMPRESSION: No radiographic evidence of acute cardiopulmonary disease. Electronically Signed: Tanmay George MD at 12:11 EDT ,
== END 2023-06-04 12:33 | disposition home or self-care (01) ==
PROVIDERS: Emergency Provider Emergency Medicine; PCP Family Medicine; Visit Provider Emergency Medicine
DX: R07.9 Chest pain, unspecified (principal); Z87.891 Personal history of nicotine dependence; Z90.49 Acquired absence of other specified parts of digestive tract
CPT/HCPCS: 71045; 80048; 84484; 85025; 85379; 93005; 99284

== ENCOUNTER → 2024-02-02 | Outpatient (CLI) | payer OTHER, SELFPAY ==
--- NOTE | 2024-02-02 12:51 | RAD_ITS ---
INDICATION: sitz marker day 3 EXAMINATION/TECHNIQUE: X-RAY - XR Abdomen 1 View COMPARISON: CT dated January 29, 2023 FINDINGS: BOWEL GAS PATTERN: There are 24 remaining Sitz markers within the colon, primarily within the ascending, transverse and descending colon and two within the expected region of the sigmoid colon. Non-obstructive. No bowel or stomach distention. FREE AIR: Not assessed on a single supine view. ORGANOMEGALY: Not seen. CALCIFICATIONS: No abnormal calcifications observed. LOWER CHEST: No acute pathology. BONES AND SOFT TISSUES: No acute pathology. There are tubal ligation clips within the pelvis. RAD/Abdomen Single View IMPRESSION: 24 Sitz markers within the expected region of the colon. Non-obstructive bowel gas pattern. Electronically Signed: Katlyn Clements MD at 9:26 EST ,
== END | disposition home or self-care (01) ==
PROVIDERS: PCP Family Medicine; Referring Provider Student in an Organized Health Care Education/Training Program; Visit Provider Student in an Organized Health Care Education/Training Program
DX: K59.00 Constipation, unspecified (principal)
CPT/HCPCS: 74018

== ENCOUNTER → 2024-02-04 | Outpatient (CLI) | payer OTHER, SELFPAY ==
--- NOTE | 2024-02-04 10:30 | RAD_ITS ---
INDICATION: sitz marker day 5 EXAMINATION/TECHNIQUE: X-RAY - XR Abdomen 1 View COMPARISON: Prior study dated: 02/02/2024 FINDINGS: BOWEL GAS PATTERN: Non-obstructive. No bowel or stomach distention. Moderate colonic stool burden. There is progression of positioning of the Sitzmarks. There are still 24 markers present. They span from the ascending colon through the distal descending colon. FREE AIR: Not assessed on a single supine view. ORGANOMEGALY: Not seen. CALCIFICATIONS: No abnormal calcifications observed. LOWER CHEST: No acute pathology. BONES AND SOFT TISSUES: No acute pathology. RAD/Abdomen Single View IMPRESSION: 24 Sitzmarks markers remaining visualized throughout the colon with slight progression of positioning compared to prior. Electronically Signed: Cole Vora MD at 22:14 EST ,
== END | disposition home or self-care (01) ==
LOC: MTRAD 10:30
PROVIDERS: PCP Family Medicine; Referring Provider Student in an Organized Health Care Education/Training Program; Visit Provider Student in an Organized Health Care Education/Training Program
DX: K59.00 Constipation, unspecified (principal)
CPT/HCPCS: 74018

== ENCOUNTER → 2024-06-03 | Outpatient (CLI) | payer OTHER, SELFPAY ==
[2024-06-03 19:16] LABS: Color, Urine Yellow (Yellow); Glucose, Dipstick Normal (Normal); Ketone-Dipstick Negative (Negative); Leukocyte Esterase-Dipstick Negative /ul (Negative); Nitrite-Dipstick Negative (Negative); Occult Blood-Urine Negative /ul (Negative); Protein-Dipstick Negative (Negative); Urine Bilirubin Dipstick Negative (Negative); Urine Clarity Clear (Clear); Urine Urobilinogen Normal (Normal)
== END | disposition home or self-care (01) ==
LOC: LABSPEC 14:09
PROVIDERS: PCP Family Medicine; Referring Provider Family Medicine; Visit Provider Family Medicine
DX: N39.0 Urinary tract infection, site not specified (principal)
CPT/HCPCS: 81002; 87086

== ENCOUNTER → 2024-06-10 | Outpatient (CLI) | payer OTHER, SELFPAY ==
--- NOTE | 2024-06-10 15:37 | BI_ITS ---
EXAM: SCRN MAMM (CAD)W/SARA BILAT 06/10/2024 CLINICAL HISTORY: F, Age 39 y/o , SCREENING TECHNIQUE: Bilateral screening digital breast tomosynthesis with 2D and 3D images. Computer aided detection. COMPARISON: Baseline examination, no priors. FINDINGS: TISSUE DENSITY: The breast tissue is heterogenously dense, which may obscure small masses. The mammogram demonstrates that the patient has dense breasts. Supplemental screening with whole breast ultrasound or MRI may be considered for further evaluation. Bilateral Breast Mammographic Findings: No significant masses, calcifications or other abnormalities are identified. BI/SCRN MAMM (CAD)W/SARA BILAT IMPRESSION: Right Breast: BIRADS 1 NEGATIVE. Left Breast: BIRADS 1 NEGATIVE. OVERALL FINAL ASSESSMENT: BIRADS 1 NEGATIVE. RECOMMENDATION: Routine annual follow-up in 1 Year A letter with findings and recommendations will be mailed to the patient. Reading Location: [id number]
== END | disposition home or self-care (01) ==
LOC: OPBI 15:35
PROVIDERS: PCP Family Medicine; Referring Provider Family Medicine; Visit Provider Family Medicine
DX: Z12.31 Encounter for screening mammogram for malignant neoplasm of breast (principal)
CPT/HCPCS: 77063; 77067

== ENCOUNTER 2024-06-24 12:59 | Emergency (ER) | payer OTHER, SELFPAY ==
[2024-06-24 13:01] VITALS: BP 132/83; PULSE 83; RESP 18; TEMP 36.5; O2SAT 97
--- NOTE | 2024-06-24 13:15 | EX.ED.VIS.HA ---
HPI History of Present Illness Chief Complaint: Headache Detail of Chief Complaint: Headache with severe dizziness Informant: patient Onset/Context/Timing Onset: Today (Noted upon awakening.) Timing: Continuous Quality -Headache: Positive for Other (Normally unilateral this is bilateral) Current Severity: Mild Worsened by: Nothing Relieved by: Nothing Associated Symptoms/Injury Associated Symptoms: Positive for Nausea and Photophobia; Negative for Fever, Vomiting, Sore Throat, Sinus Pressure, Numbness, Tingling, Preceding Aura, Visual Changes, Blurred Vision or Visual Loss Injury - ZUNIGA: Negative for Direct Trauma Narrative Narrative: Patient is a 39-year-old woman. She has history of ADHD and anxiety. She also has history of migraine headaches. She states this headache is not like her normal since normally it is unilateral on the right. This is bilateral. She does endorse photophobia. She denies sonophobia. Denies double vision, blurred vision loss of vision. Denies trouble with speech or swallowing. She presently denies paresthesia, anesthesia medics. She denies problems with fine motor skill, balance or coordination. She defines dizziness as if she is going to fall/pass out. She denies chest pain, shortness of breath or difficulty breathing. She does not have any symptoms of . She states the headache was present when she awoke from sleep. It did not awaken from sleep. She also localizes the discomfort in the occipital area. She denies neck stiffness. Prior similar symptoms: No Recent Illness/Hospitalization: No [facility] Medical History Preeclampsia in period Sterilization Abnormal pap Endometriosis Migraine Home Medications ?Medication ?Instructions ?Recorded ?Last Taken ?Type ibuprofen 600 mg tablet 600 mg PO Q6H PRN PRN 06/23/19 06/27/19 08:00 Rx Pain/Inflammation #30 tabs acetaminophen 325 mg tablet 650 mg (2 x 325 mg) PO Q6H PRN PRN 06/29/19 Unknown Rx Pain Score 4-12/17 dextroamphetamine-amphetamine 10 20 mg PO BID ADHD 01/01/21 Unknown History mg tablet multivitamin 1 tab PO DAILY 01/01/21 Unknown History alprazolam 0.5 mg tablet 1 mg PO BID PRN anxiety 01/29/23 Unknown History semaglutide 0.25 mg or 0.5 mg (2 1 mg subcut QWEEK 01/27/24 Unknown History mg/3 mL) subcutaneous pen injector (Ozempic) linaclotide 145 mcg capsule 145 mcg PO QAM #60 caps 02/10/24 Unknown Rx (Linzess) linaclotide 72 mcg capsule 72 mcg PO QAM #90 caps 04/20/24 Unknown Rx (Linzess) Allergy/AdvReac Type Severity Reaction Status Date / Time No Known Allergies Allergy Verified 06/24/24 13:01 Family History Grandmother Cancer ovarian Grandfather Leukemia Non-Hodgkins Lymphoma Father CVA (cerebral vascular accident) Surgical History S/P laparoscopic cholecystectomy H/O bilateral salpingectomy S/P Social History Smoking Status: Former smoker alcohol intake: current details: occasional substance use type: does not use caffeine: Yes what type of physical activity do you participate in: walking seatbelt use: always do you feel safe at home: Yes additional social history: hao SHAHID ED Constitutional Constitutional ED: Denies chills, fever(s) or subjective Eyes Eyes: Reports other Details: Photophobia ; Denies blurry vision, change in vision or diplopia ENT ENT ED: Denies ear pain, rhinorrhea or sore throat Cardiovascular Cardiovascular: Denies chest pain or palpitations Gastrointestinal Gastrointestinal: Denies abdominal pain, melena, nausea or vomiting Musculoskeletal Musculoskeletal: Reports neck pain; Denies arthralgias, back pain or myalgias Integumentary Denies rash Neurologic Neurologic: Reports headache(s); Denies paresthesias or weakness Psychiatric Psychiatric: Denies anxiety Endocrine Endocrinology: Denies polydipsia, polyphagia or polyuria Hematologic/Lymphatic Hematologic/Lymphatic: Denies easy bleeding or easy bruising EXAM Physical Exam Const Vital Signs: 06/24/24 13:01 Temperature 97.7 F L Temperature Source Temporal Pulse Rate 83 Respiratory Rate 18 Blood Pressure 132/83 H Blood Pressure Mean 99 Pulse Ox 97 Oxygen Delivery Method Room Air Positive well nourished and well developed Constitutional Narrative: Patient is not appearing in distress. Blood pressure slightly elevated. General Appearance ED: well developed and NAD; Negative for pallor HEENT Reports normocephalic, TM's clear and dry mucous membranes HEENT Narrative: Posterior pharynx is normal. atraumatic and tenderness; Negative for temporal artery tenderness or vesicular rash Face and Sinus: Negative for sinus tenderness Tympanic Membrane ED: Yes TM's clear Mouth ED: Yes dry mucous membranes Mouth: dry mucous membranes Eyes PERRL and EOMs intact bilaterally General Eye ED: Negative for pale conjunctiva or scleral icterus Neck no lymphadenopathy, supple, no meningeal signs and no JVD Resp normal respiratory effort Cardio regular rate and regular rhythm Extremity normal to inspection, full ROM and normal capillary refill Neuro oriented x3, CN's II-XII intact bilaterally and no sensory deficits noted Neuro Narrative: There is no dysmetria. Brachialis, bicep, tricep, patella reflex are 1+ and symmetric. There is no clonus or Babinski sign noted. Brown Coma Scale: document GCS findings Spontaneous Obeys Commands Oriented 15 Sensorium / Orientation: awake and alert Speech: speech normal Motor Exam: strength 5/5 throughout Psych mental status grossly normal Skin General Skin Exam: elasticity normal and turgor normal; Negative for jaundice or pallor Lesions: no lesions Rashes: no rashes MDM MDM MDM Narrative Medical decision making narrative: I was walking at the room patient question of this could be due to dehydration. She you can develop a headache due to dehydration. Clinically her tongue is dry and with her complaint of orthostatic symptoms this may be due to dehydration. 1 L normal saline was ordered. She also was treated with ketorolac, diphenhydramine and Reglan. She has no allergies to medication. History & Record Review Additional record(s) reviewed:: Prior outpatient record (Chiropractic note authored October 2023 was reviewed. This was for back pain and segmental dysfunction of the cervical spine. Also H&P and discharge instruction by general surgery was reviewed authored January 2023. Seen by [facility] for pelvic pain.) and Prior labs Treatment and Re-Evaluation Narrative: Patient was reassessed at 1437. She was awakened. Her headache is better. She states she still feels dizzy. She is only received 350 cc of the 1 L of normal saline was ordered. Nurse was asked to place the IV pump. Nurse asked if she could call for a ride home once the fluids infused. Will plan for discharge. Discharge Plan Triage Chief Complaint: Headache Other Complaint: Dizziness ED Provider: Biju Marshall Dx/Rx/DC Orders Clinical Impression: Acute intractable headache, History of migraine headaches, Orthostatic lightheadedness, Dehydration, mild Instructions: ED Headache, Tension Prescriptions: No Action multivitamin Tablet 1 tab PO DAILY Linzess 72 mcg capsule 72 mcg PO QAM Qty: 90 2RF dextroamphetamine-amphetamine 10 mg tablet 20 mg PO BID ibuprofen 600 MG tablet 600 mg PO Q6H PRN PRN (Reason: Pain/Inflammation) Qty: 30 0RF acetaminophen 325 MG tablet 650 mg PO Q6H PRN PRN (Reason: Pain Score 4-10/10) 0RF alprazolam 0.5 mg tablet 1 mg PO BID PRN (Reason: anxiety) Patient Comments[facility] Ozempic 0.25 mg or 0.5 mg (2 mg/3 mL) pen injector 1 mg subcut QWEEK Rx Instructions: for 4 weeks Linzess 145 mcg capsule 145 mcg PO QAM Qty: 60 3RF Primary Care Provider: Chaz Hoffmann Referrals: Chaz Hoffmann DO [Primary Care Provider] - 3-5 Days if not improving Print Language: Bhutanese Disposition Disposition: Home, Self Care
[2024-06-24] MEDS: 0.9% Normal Saline (1000mL) 1,000 ML 999 ML IV (13:25)
[2024-06-24] MEDS: Ketorolac 15 MG/ML Vial IV (13:25)
[2024-06-24] MEDS: DiphenhydrAMINE 50 MG/ML Syringe 25 MG IV (13:26)
[2024-06-24] MEDS: proCHLORPERazine 10 MG/2 ML Vial IV (13:27)
[2024-06-24 15:00] VITALS: BP 117/72; PULSE 69
[2024-06-24 15:35] VITALS: BP 111/72; PULSE 69; RESP 16; TEMP 36.5; O2SAT 97
--- NOTE | 2024-06-24 15:48 | ED.RN ---
HERE TO [employer]
== END 2024-06-24 15:48 | disposition home or self-care (01) ==
PROVIDERS: Emergency Provider Emergency Medicine; PCP Family Medicine; Visit Provider Emergency Medicine
DX: R51.9 Headache, unspecified (principal); R42 Dizziness and giddiness; Z87.891 Personal history of nicotine dependence; Z79.899 Other long term (current) drug therapy; Z90.49 Acquired absence of other specified parts of digestive tract; E86.0 Dehydration
CPT/HCPCS: 96361; 96374; 96375; 99284; A4216

== ENCOUNTER → 2024-06-29 | Outpatient (CLI) | payer OTHER, SELFPAY ==
--- NOTE | 2024-06-29 09:56 | RAD_ITS ---
PROCEDURE: SHOULDER MIN 2 VIEWS ([facility]), 06/29/2024 REASON FOR EXAM: RIGHT SHOULDER PAIN TECHNIQUE: AP views of the RIGHT shoulder in internal and external rotation as well as a scapular Y and axillary view were obtained. COMPARISON: None FINDINGS: Fracture/dislocation: None visible. Joint space(s): Preserved. Soft tissues: Unremarkable. Foreign bodies: None visible. Bone mineralization: Unremarkable. Other: None. RAD/Shoulder min 2 Views IMPRESSION: No visible acute displaced fracture or significant radiographically evident deg enerative changes. Reading Location: [id number]
--- NOTE | 2024-06-29 09:56 | RAD_ITS ---
PROCEDURE: L/S SPINE MIN 4 VIEWS ([facility]), 06/29/2024 REASON FOR EXAM: BACK PAIN TECHNIQUE: AP, lateral, and bilateral oblique views of the lumbar spine were obtained. COMPARISON: None FINDINGS: Fracture/dislocation: None visible. Vertebral body heights: Preserved. Alignment: Unremarkable Disc spaces: Trace to mild disc height loss from L4-S1. Facets: Grossly unremarkable. Soft tissues: Unremarkable. Foreign bodies: None visible. Bone mineralization: Grossly unremarkable. Other: Clip like density projecting over the LEFT pelvis, possible tubal ligation clip however there is no similar structure within the [id number] on the RIGHT. RAD/L/S Spine Min 4 Views IMPRESSION: 1. No visible acute displaced fracture. If concern persists, consider CT. 2. Minimal radiographically evident lower lumbar spondylosis. Reading Location: [id number]
--- NOTE | 2024-06-29 09:56 | RAD_ITS ---
PROCEDURE: CERV SPINE 2 OR 3 VIEWS ([facility]), 06/29/2024 REASON FOR EXAM: NECK PAIN TECHNIQUE: AP, lateral, and odontoid views of the cervical spine were obtained. COMPARISON: None FINDINGS: Fracture/dislocation: None visible. Vertebral body heights: Preserved. Alignment: Trace cervicothoracic levoscoliosis could be positional. Mild straightening of the normal cervical lordosis may also be positional. Disc spaces: Relatively preserved. Facets: Grossly unremarkable. Soft tissues: Unremarkable. Foreign bodies: None visible. Bone mineralization: Grossly unremarkable. Other: None. RAD/Cerv Spine 2 or 3 Views IMPRESSION: 1. No visible acute displaced fracture or significant radiographically evident spondylosis. If concern persists, consider CT/MRI. 2. Additional description as above. Reading Location: [id number]
== END | disposition home or self-care (01) ==
LOC: MTRAD 09:56
PROVIDERS: PCP Family Medicine; Referring Provider Chiropractor; Visit Provider Chiropractor
DX: M25.511 Pain in right shoulder (principal); M99.03 Segmental and somatic dysfunction of lumbar region; M54.50 Low back pain, unspecified; Z86.69 Personal history of other diseases of the nervous system and sense organs; M99.01 Segmental and somatic dysfunction of cervical region
CPT/HCPCS: 72040; 72110; 73030